=== PATIENT | male | born 1950 | race Caucasian/White ===

== ENCOUNTER → 2019-02-09 06:29 | Outpatient (CLI) | payer MEDICARE, OTHER, SELFPAY ==
[2019-01-19 11:29] VITALS: BMI 27.9
--- NOTE | 2019-02-09 06:32 | ECHOD_ITS ---
Reason For Study: HTN Procedure This was a 2D Doppler, Color Flow transthoracic echocardiogram. Exam performed in department. Left Ventricle Normal LV size. Left ventricular systolic function is normal. The estimated ejection fraction is 65 %. Stage 1 diastolic dysfunction. No regional wall motion abnormalities noted. Right Ventricle Normal RV size. Normal systolic function. Atria Normal left atrium. Normal right atrium. Bubble contrast study negative for right to left interatrial shunt. Mitral Valve Normal mitral valve. Mild (1+) mitral valve insufficiency. Tricuspid Valve Normal tricuspid valve. Mild tricuspid valve insufficiency. Pulmonary artery systolic pressure is 32 mmHg. Aortic Valve Trisinus/trileaflet aortic valve. Mild focal aortic valve calcification. Pulmonic Valve Normal pulmonic valve. Great Vessels Normal aortic root. The pulmonary artery is normal size. Normal inferior vena cava. Pericardium/Pleural No pericardial effusion. Medication Performed a rapid injection of agitated mix of 9 cc saline and 1cc air to assess for atrial septal defect. MMode/2D Measurements & Calculations LVIDd: 4.3 cm IVSd: 1.5 cm Ao root diam: 3.3 cm LVIDs: 2.6 cm LVPWd: 1.0 cm RVDd: 3.6 cm FS: 39.2 % LAV(MOD-bp): 34.8 ml LVAd ap4: 22.7 cm2 SV(MOD-sp4): 44.8 ml LAV(MOD-bp) Indexed: 16.8 ml/m2 EDV(MOD-sp4): 64.3 ml LAV(MOD-sp2): 45.1 ml EDV(sp4-el): 64.0 ml LAV(MOD-sp4): 24.9 ml LVAs ap4: 10.9 cm2 ESV(MOD-sp4): 19.5 ml ESV(sp4-el): 19.4 ml EF(MOD-sp4): 69.6 % EF(sp4-el): 69.6 % SV(sp4-el): 44.6 ml LA A4 area: 11.9 cm2 LA dimension(2D): 2.9 cm RA A4 area: 13.1 cm2 Doppler Measurements & Calculations MV E max sony: 68.7 cm/sec Lat Peak E' Sony: 9.7 cm/sec Med Peak E' Sony: 9.7 cm/sec MV A max sony: 92.5 cm/sec E/E' lat: 7.1 E/E' med: 7.1 MV E/A: 0.74 Ao V2 max: 147.5 cm/sec LV V1 max: 106.1 cm/sec PA V2 max: 119.4 cm/sec Ao max P.7 mmHg LV V1 max P.5 mmHg Ao V2 mean: 108.2 cm/sec Ao mean P.1 mmHg Ao V2 VTI: 24.8 cm TR max sony: 260.5 cm/sec TR max P.1 mmHg Interpretation Summary Normal LV size. Left ventricular systolic function is normal. The estimated ejection fraction is 65 %. Stage 1 diastolic dysfunction. Mild (1+) mitral valve insufficiency. Mild tricuspid valve insufficiency. Bubble contrast study negative for right to left interatrial shunt. Ordering Physician: Slava Samuel Referring Physician: Ryan Young Performed By: Mirian Key, TYRONE, RVT
--- NOTE | 2019-02-09 16:55 | STRESSREP ---
Stress Test Report Pharmacologic myocardial perfusion stress test. 68-year-old man with a history of hypertension for perioperative evaluation. Stress protocol: Resting EKG demonstrates normal sinus rhythm with a rate of 101 bpm. The resting blood pressure was 168/84 mmHg. 0.4 mg of regadenoson was infused per usual protocol followed by Intravenous saline flush injection continuous EKG monitoring was performed. The maximum heart rate attained was 137 bpm which was 88% of maximum predicted heart rate the maximum workload was 1 metabolic equivalent. At rest there were nonspecific ST-T wave changes noted at peak infusion nonspecific ST-T wave changes were noted. The resting blood pressure was 168/84 the final blood pressure was 184/92. Myocardial perfusion protocol. 12.0 mCi of technetium 99m sestamibi was injected at rest. 0.4 mg regadenoson was infused per usual protocol peak infusion 32.0 mCi of technetium 99m sestamibi was injected stress images were obtained stress and rest images were reconstructed in comparing the short axis vertical horizontal long axis. Gated images was obtained Perfusion SPECT analysis: Review of the stress images demonstrate normal uptake of tracer noted in all areas of myocardium. There is a significantly from diaphragmatic attenuation noted involving the inferior wall. No obvious reversibility is noted suggest ischemia. Gated SPECT analysis: The gated ejection fraction was noted to be 74%. Conclusion: Normal pharmacologic myocardial perfusion stress test. Preserved ejection fraction.
== END ==
PROVIDERS: Family Provider Family Medicine; PCP Family Medicine; Referring Provider Internal Medicine Cardiovascular Disease; Visit Provider Internal Medicine Cardiovascular Disease
DX: Z01.810 Encounter for preprocedural cardiovascular examination (principal); I10 Essential (primary) hypertension
CPT/HCPCS: 78452; 93017; 93306; A9500; A4216; J2785

== ENCOUNTER → 2019-03-31 13:56 | Outpatient (CLI) | payer MEDICARE, OTHER, SELFPAY ==
[2019-01-19 11:29] VITALS: BMI 27.9
--- NOTE | 2019-03-31 13:59 | CT_ITS ---
STUDY: CT LEFT HIP WITHOUT CONTRAST REASON FOR EXAM: Evaluation for Phillip hip replacement. TECHNIQUE: Transaxial CT imaging of the hip was performed. Sagittal and coronal images were reconstructed. Individualized dose optimization techniques were used for this CT. COMPARISON: Radiographs 04/19/2012. FINDINGS: There is advanced left hip arthrosis with marginal osteophytes of the femoral head, joint space loss and subchondral cystic change of the femoral head and acetabulum (coronal reconstructions 53-68). There is a small ossification at the lateral aspect left acetabulum (coronal reconstructions 64-69). There is a right hip arthroplasty with ossification adjacent to the right acetabulum (coronal reconstructions 54-59). There is mild arthrosis of the left sacroiliac joint (coronal reconstructions 72-74). There are prostatic calcifications (coronal reconstruction 63, 64). There is mild vascular calcification. CT/Extremity Lower without Contra IMPRESSION: Advanced left hip arthrosis. Electronically Signed: Tony Sutherland MD at 15:25 EST Tel , Service support ,
== END ==
PROVIDERS: Family Provider Family Medicine; PCP Family Medicine; Referring Provider Specialist; Visit Provider Specialist
DX: M16.12 Unilateral primary osteoarthritis, left hip (principal)
CPT/HCPCS: 73700

== ENCOUNTER 2019-04-13 09:44 | Observation (INO) | payer MEDICARE, OTHER, SELFPAY ==
[2019-01-19 11:29] VITALS: BMI 27.9
--- NOTE | 2019-03-29 10:11 | PCM.HP.BLA ---
History and Physical History and Physical [facility] Patient Name: Kemar Telles : 1950 From: SAQIB ALEX PA-C DATE OF SURGERY: 04/13/2019 SCHEDULED PROCEDURE: Left Total Hip Arthroplasty HISTORY OF PRESENT ILLNESS: Preoperative history and physical exam was performed on March 28, 2019. This is a 68-year-old male who is been having ongoing pain in the left hip for 2 years. Patient's pain can reach as high as a 10/10 with activity. Pain has been sharp in the left hip. He does have start up pain. Pain is increased with going up and down stairs and walking. Patient has tripped/stumbled due to the left hip pain. He complains of left groin pain. Patient feels unsafe lifting heavy objects due to the pain. He has tried rest and heat with minimal relief. He has been on meloxicam with temporary relief. Patient denies previous surgery on the left hip. He has also tried Tylenol and glucosamine. After failing conservative measures and discussing options with Dr. Cameron Woods, the patient does wish to proceed with a left total hip arthroplasty. We have obtain surgical clearance from patient's primary care physician Dr. Young. We are obtaining surgical clearance from the medical records assistant Dr. Samuel. Patient denies chest pain, shortness of breath, fevers chills, or recent infections. patient has had a previous right total hip arthroplasty by Dr. Bora Dunn on April 19, 2012. He is doing well with regard to the right hip. REVIEW OF SYSTEMS: ROS: Const: Denies anorexia, change in appetite, fever, hard of hearing, vision problems and weight change. CV: Denies chest pain, heart murmur, irregular heartbeat and peripheral vascular disease. Resp: Denies asthma, cough, pneumonia, sleep apnea, SOB, tuberculosis and wheezing. GI: Denies constipation, diarrhea, difficulty swallowing, heartburn, nausea, bloody stools and vomiting. : Urinary: denies incontinence. Musculo: Denies leg swelling, limp, trouble walking and weakness. Skin: Denies Raynaud's, history of shingles and tattoo. Neuro: Denies ambulatory dysfunction, dizziness, numbness/tingling and tremor. Psych: Denies anxiety, depression, insomnia, mental illness and stress. Luis/Lymph: Denies anemia, bleeding/bruising tendency and past transfusion. Reviewed, no changes. PAST MEDICAL HISTORY: Advance Care Plan: Other Directive, LIVING WILL Effective Date: 04/23/2017 PMH: Medical Problems: Arthritis, High Blood Pressure Accidents: Sports Related Injury - CRACKED RIBS AND SPRAINED ANKLE FROM FOOTBALL Surgical Hx: RT THR - (04/19/2012) MSK @ [facility] Anesthesia Complications: None Assistive Devices: Glasses - READING Reviewed, no changes. 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 Personal Habits: Smoking: Patient has never smoked.Cigarette Use: Never Smoked Cigarettes.Alcohol: Occasionally.Drug Use: Denies Use.Enjoy Exercising: Exercises 1-3 X/Week. Reviewed, no changes. VITALS: Ht: 69 Wt: 193lb Wt k.545 BMI: 28.5 BP: 154/80 Pulse: 78 Resp: 19 T: 97.2 T: 36.2C ALLERGIES: No Known Drug Allergy MEDICATIONS: Meloxicam 15 mg 1 by mouth every day, Metoprolol 50 mg 1 tab PO daily, Lisinopril/Hydrochlorothiazide 10-12.5 mg 1 tab PO daily, Tamsulosin HCL 0.4 mg 1 by mouth every day, Atorvastatin Calcium 20 mg PRE-OP EXAM: General appearance:NORMAL Other: Eyes: Conjunctivae and lids: NORMAL Pupils: ERR Ears, Nose, Mouth, and Throat: NORMAL Other: Inspection of lips, teeth and gums: NORMAL Other: Neck: Examination of neck: no masses noted. Respiratory: Assessment of respiratory effort: NORMAL Other: Auscultation of lungs: clear to auscultation no wheezes, rhonchi or rales. Cardiovascular: Auscultation of heart: regular rate and rhythm, no murmurs, gallops or rubs. Exam of carotid arteries: NORMAL Other: Gastrointestinal: Exam of abdomen: soft, nontender, nondistended bowel sounds present. PHYSICAL EXAMINATION: Patient walks with antalgic gait. Left hip is cool to touch without erythema. Patient has obligatory external rotation with flexion. Internal rotation 10 and external rotation 30. 4/5 hip strength due to pain. Sensation intact to light touch. IMAGING STUDIES: X-ray of the left hip reveals joint space narrowing with subchondral sclerosis and osteophyte formation consistent with severe erosive osteoarthritis with subchondral cyst in the femoral head which is starting to collapse causing flattening of the femoral head and associated leg length discrepancy. Right hip reveals a stable well aligned total hip arthroplasty. IMPRESSION: 1. Severe left hip osteoarthritis 2. Hypertension PLAN: Dr. Cameron Woods did discuss and review with the patient all treatment options including surgical versus nonsurgical options. Patient does wish to proceed with the above-stated procedure. Potential risks, benefits, and complications of the procedure were discussed in detail including but not limited to , infection, nerve and blood vessel damage, persistent pain, numbness, tingling, paresthesias, blood clot, pulmonary embolism, and requirement for possible further surgery. The patient expressed full understanding and has no further questions for the doctor. Patient does agree to proceed with the above-stated procedure and has signed the surgery consent form. This dictation was created using voice recognition software. Phonetic and/or grammatical errors may exist. ___ I have re-examined the patient. There are no clinical changes since date of exam. ___ See progress notes for changes. ___ Dictated on admission Date: Time: Signature:
[2019-03-31 15:33] VITALS: BP 161/92; PULSE 97; RESP 16; TEMP 36.6; O2SAT 100; BMI 28.5
[2019-03-31 16:31] LABS: Absolute Neutrophil Count 4.9 X10^3/uL (2.0-7.7); Basophil# 0.03 X10^3/uL; Basophil% 0.4 % (0-1); Eosinophil# 0.19 X10^3/uL; Eosinophils% 2.7 % (0-5); Hematocrit 40.3 % (40-54); Lymphocyte % 18.8 % (19-41); Mean Corp Hgb Conc 32.3 g/dL (32-36); Mean Corpuscular Hgb 29.2 pg (27.0-32.0); Mean Corpuscular Volume 90.6 fL (80-94); Mean Platelet Vol. 8.9 fl (6.2-12.0); Monocyte# 0.51 X10^3/uL; Monocyte% 7.4 % (0-10); NRBC Flagged by Analyzer 0 % (0-5); Neutrophil # 4.87 X10^3/uL (2.7-7.7); Neutrophil % 70.3 % (47-70); Platelet Count 348 K/mm3 (150-450); RBC Distribution Width CV 12.8 % (11.6-14.6); Red Blood Count 4.45 M/mm3 (4.6-6.2); White Blood Count 6.9 K/mm3 (4.4-11.0)
[2019-03-31 17:10] LABS: Anion Gap 5 (5-15); BUN 22 mg/dL (7-18); BUN/Creat Ratio 22.7 RATIO (10-20); Calcium,Total 9.4 mg/dL (8.5-10.1); Chloride 103 mmol/L (98-107); Creatinine, Serum 0.97 mg/dL (0.70-1.30); EST Glomerular Filtration Rate 82 mL/min (>60); Est Glom Filt Rate - Afr Amer 99 mL/min (>60); Estimated Creatinine Clearance 77.35 ml/min; Glucose 88 mg/dL (74-106); Potassium 3.6 mmol/L (3.5-5.1); Sodium Level 139 mmol/L (136-145)
[2019-04-13] VITALS (11 sets, daily range): BP systolic 93–165; BP diastolic 57–98; PULSE 88–107; RESP 14–18; TEMP 36.1–37; O2SAT 16–100; BMI 28.5; BMI 28.6
[2019-04-13] MEDS: Scopolamine 1mg/72hr Patch 1 PATCH TD (07:00)
[2019-04-13 10:05] LABS: Bedside Glucose 154 mg/dL (70-110)
[2019-04-13] MEDS: Acetaminophen 500 MG Tablet 1000 MG PO ×2 (10:17→21:04)
[2019-04-13] MEDS: Celecoxib 200 MG Capsule 400 MG PO (10:17)
[2019-04-13] MEDS: Gabapentin 600 MG Tablet PO (10:18)
[2019-04-13] MEDS: Lactated Ringers 1,000 ML 999 ML IV ×2 (10:44→14:17)
[2019-04-13] MEDS: Magnesium Sulfate 4gm/100mL 4 GM/100 ML IV.SOLN. IV (10:46)
[2019-04-13] MEDS: Cefazolin 2 GM in 0.9% Normal Saline 100 ML IV (11:45)
--- NOTE | 2019-04-13 11:45 | RAD_ITS ---
STUDY: X-RAY - PELVIS AND LEFT HIP REASON FOR EXAM: Male, 68 years old. Pain TECHNIQUE: 1 views of the pelvis and hip. COMPARISON: None. FINDINGS: The patient is status post left total hip replacement. There is good alignment. Postoperative soft tissue changes. RAD/Hip 1 view with Pelvis IMPRESSION: Intraoperative fluoroscopic imaging provided for left anterior hip replacement. Electronically Signed: Pritesh Page, at 14:58 EST , Service support ,
[2019-04-13] MEDS: dexAMETHasone 10 MG/ML Vial IV (12:32)
--- NOTE | 2019-04-13 13:43 | OP.PCM_ITS ---
Report of Operation Date of Procedure: 04/13/19 Pre-Operative Diagnosis: Left hip primary osteoarthritis Post-Operative Diagnosis: Left hip primary osteoarthritis Surgery/Procedure Performed:: Left minimally invasive robotic assisted total hip replacement direct anterior Description of Surgical Findings:: Stable hip, equal leg lengths on radiograph guest services agent: Magdy Dill Type of Anesthesia:: Spinal Anesthesiologist: Isidoro Sanchez Special Medications: 2 g Ancef, 1 g TXA at incision, 1 g TXA closure, 10 mg Decadron, joint cocktail (5 mg Duramorph, 30 mL of 0.5% Ropivicaine, 1000 units of epinephrine, 30 mg of Toradol) Specimen's removed: Bony cuts Estimated Blood Loss (mL): 150 Fluids Replaced: 1400 Description of Procedure: Components used: 1. Accolade 2 Juan A femoral stem size 5 127? 2. [place] trident 2 acetabular shell size 54 mm 3. [place] X3 polyethylene E 4. [place] Biolox delta 36mm, +5mm femoral head Brief history operative indications: 68 yo m who failed conservative measures for their hip osteoarthritis. X-rays were consistent with osteoarthritis including joint space narrowing, osteophyte formation and subchondral cysts. Total hip replacement was discussed with the patient with risks and benefits including but not limited to blood loss, DVTs, PEs, neurovascular damage, dislocation, general risks of anesthesia including loss of life. Patient demonstrated an understanding medical clearance is obtained the patient was consented for surgery. Procedure: On the date of procedure the patient's L hip was marked in the preoperative area. Patient was then taken back to the operating room where anesthesia assumed control of the C-spine and airway and administered anesthetic. Patient was transferred to the operating table and placed in the supine position. The hips were placed at the break of the bed and a sacral bump was placed. A checkpoint was placed on the tibial tubercle. The L lower extremity was then prepped out in a sterile fashion using chlorhexidine while the surgeon scrubbed. The PA was vital in the positioning of the patient. Upon reentering the room the L lower extremity was draped in the standard orthopedic fashion and the incision was marked. A timeout was called and every one agreed upon the side, the site, the procedure be performed, antibody given, and patient's identity. 3 pins were placed in the right iliac crest with a small skin incision and blunt dissection down to the bone. After the skins were placed in a ray was placed for targeting. At this time left hip operative incision was made through skin, subcutaneous tissue, and fat down to fascia. The fascia was then incised and the TFL was retracted laterally. A retractor was placed on the lateral border of the femoral neck. Attention was directed to the inferior portion of the approach and all crossing vessels were identified and appropriately coagulated. A retractor was then placed on the medial portion of the femoral neck. The anterior capsule was then cleared of all soft tissue and then H shaped capsulotomy was made. The retractors were then placed inside the capsule. The checkpoint was placed. The checkpoints were registered. The femoral neck was identified and a cleanup cut was made. At this time a power corkscrew was used to remove the femoral head. Attention was then turned toward the acetabulum where the soft tissues were appropriately retracted and debrided. The acetabulum was registered. The robot was brought into the field sterilely and the acetabulum was reamed to 54 mm. A 54 mm cup was then selected and impacted into place. Acetabular liner was impacted into place and locking mechanism was verified. The position of the acetabular cup was then verified under live fluoroscopy. Attention was then turned to the femur. Soft tissue releases on the medial and lateral femoral neck were appropriately done, the leg was externally rotated and lateralized. A El retractor was placed medially and proximally to the greater trochanter this allowed appropriate visualization and exposure of the femoral canal. Rongeour was then used to remove excess lateral bone. A canal finder and entry broach were used to open the proximal canal. Once we verified we were down the femoral canal we subsequently broached up to a size 5 femur. The appropriate neck was placed in the previously selected head was trialed with a +5 mm neck. Traction was pulled and the hip was reduced with internal rotation. Once it was appropriately reduced and stability was checked. There was minimal shuck, equal leg lengths and appropriate stability with hyperextension and external rotation as well as with 90? flexion and internal rotation. Fluoroscopy was then also used to verify the position of the components and leg lengths using the contralateral side for comparison. The trial components were then dislocated the proximal femur was again exposed and the components were removed from the wound. The final components were verified and opened. The wound was copiously irrigated out with normal saline. The acetabulum was checked for any residual debris. The final components were placed and impacted. Traction and internal rotation were again used to reduce the hip. After adequate reduction the hip remained stable with appropriate leg lengths. The final components were once again checked with live fluoroscopy and were found to be satisfactory. The wound was then copiously irrigated with normal saline once more, and hemostasis was obtained. Closure was then done using #1 Vicryl runner to close the fascia. A 2-0 vicryl interuppted sutures were used to close the subcutaneous skin. A 3-0 Monocryl and Steri-Strips were used for final skin closure. The pin site incisions were closed with callie. A Silverlon dressing was placed. Patient was awakened by anesthesia and [facility] Patient was then transferred to the PACU for recovery. Postoperative plan: Patient will get 24 hours postop antibiotics. Patient will get in-house physic al therapy and will be weight-bear as tolerated. Patient will follow up in office in 2 weeks for a wound check and x-rays. During the course of the procedure the physician animal assistant played a vital role. His intimate knowledge of my steps in the procedure aided in safe and expedient completion of the procedure. The PA played a vital rolls in positioning particularly in obtaining the appropriate positioning of the sacral bump. The PA was also vital in the retraction of soft tissues during the exposure and especially the femoral work as this is a vital part of the procedure to prevent complications and fractures. The PA was also vital and protecting soft tissues during times of bony cuts and reaming. He also played a vital role in closure with my direct supervision. The PA was also important during reduction and dislocation of the joint and trials intraoperatively. - Complications No intraoperative complications - Admit VTE Documentation VTE Present on Admission: No VTE Mechan Device Prophylaxis: SCD's, Thigh High PARVIZ Hose VTE Pharm Prophylaxis ordered?: Yes
--- NOTE | 2019-04-13 14:30 | RAD_ITS ---
STUDY: X-RAY - PELVIS AND LEFT HIP REASON FOR EXAM: Male, 68 years old. Postop left hip surgery TECHNIQUE: 2 views of the pelvis and hip. COMPARISON: April 19, 2012. FINDINGS: There is a non-specific bowel gas pattern. Postsurgical changes are seen in the soft tissues around the left hip. There are bilateral total hip arthroplasties. Alignment is anatomic. RAD/Hip Min 2 Views (Portable) IMPRESSION: Bilateral hip arthroplasties and postsurgical changes around the left hip joint. Electronically Signed: Claus Louie, at 20:18 EST Tel , Service support ,
[2019-04-13] MEDS: Lactated Ringers 1,000 ML 125 ML IV ×2 (14:53→17:40)
[2019-04-13] MEDS: traMADol 50 MG Tablet PO (17:18)
[2019-04-13] MEDS: Aspirin 81 MG TAB.CHEW PO (17:18)
[2019-04-13] MEDS: Ensure Surgery 237 ML LIQUID PO (17:20)
[2019-04-13] MEDS: Cefazolin 1 GM/50 ML BAG IV (20:38)
[2019-04-13] MEDS: Atorvastatin Calcium 20 MG Tablet PO (21:03)
[2019-04-13] MEDS: Senna/Docusate Sodium 1 Tablet 2 TABLET PO (21:03)
[2019-04-13] MEDS: Tamsulosin HCl 0.4 MG Capsule PO (21:04)
[2019-04-13] MEDS: hydroCHLOROthiazide 12.5mg 12.5 MG PO (21:04)
[2019-04-13] MEDS: Lisinopril 20 MG Tablet PO (21:04)
[2019-04-14 02:10] VITALS: BP 115/74; PULSE 97; RESP 16; TEMP 37; O2SAT 96
[2019-04-14] MEDS: Cefazolin 1 GM/50 ML BAG IV (03:15)
[2019-04-14] MEDS: 0.9% Saline Lock 10 ML Syringe IV (03:42)
[2019-04-14] MEDS: Acetaminophen 500 MG Tablet 1000 MG PO ×3 (06:08→21:08)
[2019-04-14 06:24] LABS: Hematocrit 34.4 % (40-54); Hemoglobin 11.4 g/dL (13.0-16.5); Mean Corp Hgb Conc 33.1 g/dL (32-36); Mean Corpuscular Hgb 29.7 pg (27.0-32.0); Mean Corpuscular Volume 89.6 fL (80-94); Mean Platelet Vol. 9.4 fl (6.2-12.0); Platelet Count 260 K/mm3 (150-450); RBC Distribution Width SD 42.4 fl (35.1-43.9); Red Blood Count 3.84 M/mm3 (4.6-6.2); White Blood Count 16.9 K/mm3 (4.4-11.0)
[2019-04-14 06:45] LABS: Anion Gap 6 (5-15); BUN 19 mg/dL (7-18); Calcium,Total 9.2 mg/dL (8.5-10.1); Chloride 103 mmol/L (98-107); EST Glomerular Filtration Rate 79 mL/min (>60); Est Glom Filt Rate - Afr Amer 96 mL/min (>60); Estimated Creatinine Clearance 75.03 ml/min; Glucose 112 mg/dL (74-106); Potassium 4.1 mmol/L (3.5-5.1); Sodium Level 137 mmol/L (136-145)
[2019-04-14] MEDS: Ensure Surgery 237 ML LIQUID PO ×3 (07:49→17:53)
[2019-04-14] MEDS: hydroCHLOROthiazide 12.5mg 12.5 MG PO ×2 (07:50→21:09)
[2019-04-14] MEDS: Aspirin 81 MG TAB.CHEW PO ×2 (07:50→17:53)
[2019-04-14] MEDS: Senna/Docusate Sodium 1 Tablet 2 TABLET PO ×2 (07:50→21:09)
[2019-04-14 07:51] VITALS: PULSE 96
[2019-04-14] MEDS: Famotidine 20 MG Tablet PO (07:51)
[2019-04-14] MEDS: Multivitamins,Therapeutic Tablet 1 TABLET PO (07:51)
[2019-04-14] MEDS: Lisinopril 20 MG Tablet PO ×2 (07:51→21:08)
[2019-04-14] MEDS: Metoprolol(XL)Succ 50 MG Tablet PO (07:51)
[2019-04-14 07:57] VITALS: BP 140/69; PULSE 119; RESP 18; TEMP 36.7; O2SAT 97
--- NOTE | 2019-04-14 09:02 | PCM.PN.ORT ---
Subjective: The patient was sitting in bedside chair upon examination. Patient denies any chest pain, shortness of breath, dizziness, lightheadedness, nausea or vomiting, or calf pain. Pain is controlled on medications. No adverse overnight events. Overall patient is doing very well and his pain is well controlled. Patient does wish to try to go home today. Objective: Vital signs stable and afebrile. Patient is able to plantarflex and dorsiflex actively. Sensation is intact to light touch to saphenous, sural, superficial and deep peroneal, and tibial distribution. Dressing on bilateral hips are clean dry and intact. Negative Homans bilaterally, negative signs and symptoms of DVT. - Physical Exam Vitals/I&O's: Vital Signs Temp Pulse Resp BP Pulse Ox 98.0 F 119 H 18 140/69 H 97 04/14/19 07:57 04/14/19 07:57 04/14/19 07:57 04/14/19 07:57 04/14/19 07:57 Oxygen Flow Rate (L/min) 1 Oxygen Delivery Method Room Air Weight: 90.4 kg Body Mass Index (BMI) 28.5 Intake and Output for Last 24 Hours 04/12/19 04/13/19 04/14/19 23:59 23:59 23:59 Intake Total 3948.75 / 4648.75 1679.17 / 1679.17 Output Total 475 / 475 Balance 3948.75 / 4498.75 1204.17 / 1204.17 General: Alert, Oriented x3, Cooperative, No apparent distress Laboratory Results 04/13/19 10:03: POC Glucose 154 H 04/14/19 05:30: WBC 16.9 H, RBC 3.84 L, Hgb 11.4 L, Hct 34.4 L, MCV 89.6, MCH 29.7, MCHC 33.1, RDW Std Deviation 42.4, RDW Coeff of Sebastian 13.0, Plt Count 260, MPV 9.4 04/14/19 05:30: Sodium 137, Potassium 4.1, Chloride 103, Carbon Dioxide 28.0, Anion Gap 6, BUN 19 H, Creatinine 1.00, Estim Creat Clear Calc 75.03, Est GFR (MDRD) Af Amer 96, Est GFR (MDRD) Non-Af 79, BUN/Creatinine Ratio 19.0, Glucose 112 H, Calcium 9.2 Current Medications Acetaminophen (Tylenol) 1,000 mg PO Q8 [facility] Last Admin: 04/14/19 06:08 Dose: 1,000 mg Documented by: Aspirin (Aspirin, Baby) 81 mg PO BIDCM [facility] Last Admin: 04/14/19 07:50 Dose: 81 mg Documented by: Atorvastatin Calcium (Lipitor) 20 mg PO QHS [facility] Last Admin: 04/13/19 21:03 Dose: 20 mg Documented by: Enteral Nutritional Formula (Ensure Surgery) 237 ml PO TIDCM [facility] Last Admin: 04/14/19 07:49 Dose: 237 ml Documented by: Famotidine (Pepcid) 20 mg PO DAILY [facility] Last Admin: 04/14/19 07:51 Dose: 20 mg Documented by: Hydrochlorothiazide () 12.5 mg PO BID [facility] Last Admin: 04/14/19 07:50 Dose: 12.5 mg Documented by: Ketorolac Tromethamine (Toradol) 15 mg IV Q6H PRN PRN PRN Reason: Pain Score 1-5/10 Stop: 04/15/19 07:00 Lisinopril (Zestril) 20 mg PO BID [facility] Last Admin: 04/14/19 07:51 Dose: 20 mg Documented by: [facility] Metoprolol Succinate (Toprol Xl (Beta Trell)) 50 mg PO DAILY [facility] Last Admin: 04/14/19 07:51 Dose: 50 mg Documented by: Morphine Sulfate () 2 - 4 mg IV Q2H PRN PRN PRN Reason: Pain Score 4-10/10 Morphine Sulfate () 2 - 4 mg IV Q2H PRN PRN PRN Reason: Pain Score 4-10/10 Multivitamins (Multivitamin) 1 tablet PO DAILY@0800 [facility] Last Admin: 04/14/19 07:51 Dose: 1 tablet Documented by: Ondansetron HCl (Zofran) 4 mg IV Q8H PRN PRN PRN Reason: NAUSEA Promethazine HCl (Phenergan) 12.5 mg IM Q6H PRN PRN; Protocol PRN Reason: NAUSEA/VOMITING Senna/Docusate Sodium (Senokot-S, Celeste-Colace) 2 tablet PO BID [facility] Last Admin: 04/14/19 07:50 Dose: 2 tablet Documented by: Sodium Chloride () 10 - 40 ml IV UD PRN PRN Reason: SALINE FLUSH Last Admin: 04/14/19 03:42 Dose: 10 ml Documented by: Tamsulosin HCl (Flomax) 0.4 mg PO QHS [facility] Last Admin: 04/13/19 21:04 Dose: 0.4 mg Documented by: Tramadol HCl (Ultram) 50 - 100 mg PO Q6H PRN PRN PRN Reason: Pain Score 4-10/10 Last Admin: 04/13/19 17:18 Dose: 100 mg Documented by: Vitamin E (Vitamin E) 400 units PO DAILY [facility] Last Admin: 04/14/19 07:59 Dose: Not Given Documented by: Medical Necessity - Tobacco Use Smoking Status: Never smoker Tobacco Use: Non-smoker Assessment/Plan All Active Problems (Last Reviewed 01/19/19 @ 11:42 by Slava Samuel MD) Preop cardiovascular exam (Acute) Physical exam, pre-employment (Resolved) 1. S/P left minimally invasive robotic assisted total hip replacement direct anterior approach POD #1 2. Continue Pain Medications: Tylenol, meloxicam, and tramadol 3. DVT Prophylaxis: Aspirin 81 mg twice daily for 4 weeks postoperatively 4. PT/OT: Weightbearing as tolerated 5. H & H: 11.4/34.4, asymptomatic 6. Reactive leukocytosis: Currently 16.9, afebrile. Patient did receive Decadron intraoperatively 7. Encouraged Incentive Spirometry 8. Disposition: Orthopedically stable, plan will be for discharge home today as long as patient tolerates physical therapy and pain is well controlled. Prescriptions will be E scribed to primary pharmacy. Patient will follow-up per postop instructions. Patient does have outpatient physical therapy established. I have reviewed the [place] Automated Rx Reporting System (OARRS) report for this patient for refill pattern and other prescriber involvement as part of the appropriate surveillance for the provision of acute and chronic controlled medications. The report was requested and reviewed on the date of this entry and was considered in the prescribing process.
--- NOTE | 2019-04-14 09:11 | PCM.DC.THR ---
Discharge Diet: No Restrictions Discharge Activity: May Not Drive - while taking narcotic pain medications. May shower in (days): 1 - Dressings must be intact to skin. Turn dressings away from water Ice area for (Minutes): 20 - Every 1-2 hours while awake Weight Bearing Status: Weight bearing as tolerated Elevate: Operative Extremity Additional Activity Instructions:: Wear elastic stockings for 2 weeks. DO NOT use alcohol with narcotic pain medication. DO NOT make important decisions while taking narcotic medication. If you have problems with taking your medication (rash, itching, nausea, etc.) call the office at once. Call your doctor if your incision/area has: Increased Pain/ Swelling, Increased Redness, Foul Smelling Discharge Call your doctor if you observe: Fever of 101 or Higher Remove Dressing in (days):: 4 - Okay to remove dressing on April 18, 2019 Additional Instructions: Follow orthopedic postop instructions Allergies/Adverse Reactions: Allergies No Known Allergies Allergy (Verified 04/13/19 10:14) Medications to take at Discharge atorvastatin 20 mg tablet 20 mg PO QHS 01/18/19 metoprolol succinate 50 mg tablet,extended release 24 hr 50 mg PO DAILY 01/18/19 multivitamin 1 tab PO DAILY 01/18/19 tamsulosin 0.4 mg capsule 0.4 mg PO QHS cap 01/18/19 Lisinopril/Hydrochlorothiazide [Lisinopril-Hctz 20-12.5 mg Tab] 1 tab PO BID 03/31/19 Vitamin E 400 unit PO DAILY 03/31/19 Acetaminophen [Tylenol] 1,000 mg PO Q8 #100 tab 04/14/19 Aspirin [Aspirin, Baby] 81 mg PO BIDCM 30 Days tab 04/14/19 Famotidine [Pepcid] 20 mg PO DAILY #30 tab 04/14/19 Meloxicam [Mobic] 7.5 mg PO BIDCM tab 04/14/19 Senna/Docusate Sodium [Senokot-S] 2 tab PO BID #14 tab 04/14/19 traMADol [Ultram] 50 - 100 mg PO Q6H PRN PRN 5 Days #40 tab 04/14/19 The following prescriptions were given: Famotidine [Pepcid] 20 mg PO DAILY #30 tab Transmission Status: Received by [id number] Senna/Docusate Sodium [Senokot-S] 2 tab PO BID #14 tab Transmission Status: Received by [id number] Acetaminophen [Tylenol] 1,000 mg PO Q8 #100 tab Transmission Status: Received by [email or web address] traMADol [Ultram] 50 - 100 mg PO Q6H PRN PRN 5 Days #40 tab PRN Reason: Pain Score 4-10/10 Transmission Status: Received by [email or web address] Primary Care Physician: Aly Young MD [Primary Care Provider] - Test Results: Test results from this visit will be discussed in further detail at your follow-up appointment, if applicable. Please Follow Up With: [facility] When: 04/18/19 @ 7:30 am with Kathy Please Follow Up With: Nando Dill PA-C When: 04/27/19 @ 9:15 am Please Follow Up With: Dilip Flores MD When: will require 1 week follow up post-op for urinary retention
--- NOTE | 2019-04-14 09:45 | CASEMGMT ---
JOHANNA GONZALEZ Face to Face with patient for initial transition planning/care coordination assessment. RN CARLOS introduced self and role at [facility]. Patient lying in bed, alert and oriented. Patient willing to participate in assessment and is able to answer all questions appropriately. Care providers, pharmacy, and demographics verified. Patient wishes to discharge home and is setup with [facility] for outpatient therapy. Patient states he has no further needs or concerns at this time. CM to follow for discharge planning needs that may arise. PCP: Hector Specialists: laura Woods Pharmacy: [facility] Insurance: [facility] [place] Pres[place] Benefit: yes Living Will/HPOA: yes, Jen Telles LNOK: Living Arrangements: Patient lives with in a condo with 1 step to enter the home. Patient independent at home prior to surgery. Transportation: DME/HHC: Patient has walker at home. Disposition Plan: Patient to discharge home with outpatient therapy, family support, and follow-up plans in place Gin ORDONEZ, RN, CM
--- NOTE | 2019-04-14 09:52 | CASEMGMT ---
JOHANNA GONZALEZ in to complete FORD form with patient. RN CARLOS explained FORD for to patient, patient voiced understanding and signed form. Original form placed in chart, copy provided to patient.
[2019-04-14 11:03] VITALS: BP 137/66; PULSE 101; RESP 18; TEMP 36.9; O2SAT 97
[2019-04-14 15:47] VITALS: BP 139/71; PULSE 100; RESP 18; TEMP 37.4; O2SAT 95
[2019-04-14 19:55] VITALS: BP 141/92; PULSE 92; RESP 16; TEMP 37.3; O2SAT 96
[2019-04-14] MEDS: Atorvastatin Calcium 20 MG Tablet PO (21:06)
[2019-04-14] MEDS: Tamsulosin HCl 0.4 MG Capsule PO (21:11)
[2019-04-15 02:16] VITALS: BP 98/54; PULSE 81; RESP 16; TEMP 36.9; O2SAT 96
[2019-04-15] MEDS: Acetaminophen 500 MG Tablet 1000 MG PO ×2 (05:57→14:43)
--- NOTE | 2019-04-15 06:53 | PN.ORTHO_ITS ---
Subjective: The patient was sitting in bedside chair upon examination. Patient denies any chest pain, shortness of breath, dizziness, lightheadedness, nausea or vomiting, or calf pain. Pain is controlled on medications. Plan was for patient to be discharged home yesterday however patient did have urinary retention that required catheterization and Huber. Urology consult was placed. We are waiting input from the urologist for the urinary retention. Patient states overall his hip is doing very well. He is not having significant pain. He does have some soreness after physical therapy. Patient does have history of BPH which has been managed by his primary care physician. Takes Flomax at home. Objective: Vital signs stable and afebrile. Patient is able to plantarflex and dorsiflex actively. Sensation is intact to light touch to saphenous, sural, superficial and deep peroneal, and tibial distribution. Dressing is clean dry and intact. Negative Homans bilaterally, negative signs and symptoms of DVT. - Physical Exam Vitals/I&O's: Vital Signs Temp Pulse Resp BP Pulse Ox 98.4 F 81 16 98/54 L 96 04/15/19 02:16 04/15/19 02:16 04/15/19 02:16 04/15/19 02:16 04/15/19 02:16 Oxygen Flow Rate (L/min) 1 Oxygen Delivery Method Room Air Weight: 90.4 kg Body Mass Index (BMI) 28.5 Intake and Output for Last 24 Hours 04/13/19 04/14/19 04/15/19 23:59 23:59 23:59 Intake Total 3948.75 / 4648.75 2829.17 / 2829.17 Output Total 3975 / 3975 1050 / 1050 Balance 3948.75 / 4498.75 -1145.83 / -1145.83 -1050 / -1050 General: Alert, Oriented x3, Cooperative, No apparent distress Current Medications Acetaminophen (Tylenol) 1,000 mg PO Q8 [facility] Last Admin: 04/15/19 05:57 Dose: 1,000 mg Documented by: Aspirin (Aspirin, Baby) 81 mg PO BIDCM [facility] Last Admin: 04/14/19 17:53 Dose: 81 mg Documented by: Atorvastatin Calcium (Lipitor) 20 mg PO QHS [facility] Last Admin: 04/14/19 21:06 Dose: 20 mg Documented by: Enteral Nutritional Formula (Ensure Surgery) 237 ml PO TIDCM [facility] Last Admin: 04/14/19 17:53 Dose: 237 ml Documented by: Famotidine (Pepcid) 20 mg PO DAILY [facility] Last Admin: 04/14/19 07:51 Dose: 20 mg Documented by: Hydrochlorothiazide () 12.5 mg PO BID [facility] Last Admin: 04/14/19 21:09 Dose: 12.5 mg Documented by: Ketorolac Tromethamine (Toradol) 15 mg IV Q6H PRN PRN PRN Reason: Pain Score 1-5/10 Stop: 04/15/19 07:00 Lisinopril (Zestril) 20 mg PO BID [facility] Last Admin: 04/14/19 21:08 Dose: 20 mg Documented by: [facility] Metoprolol Succinate (Toprol Xl (Beta Trell)) 50 mg PO DAILY [facility] Last Admin: 04/14/19 07:51 Dose: 50 mg Documented by: Morphine Sulfate () 2 - 4 mg IV Q2H PRN PRN PRN Reason: Pain Score 4-10/10 Morphine Sulfate () 2 - 4 mg IV Q2H PRN PRN PRN Reason: Pain Score 4-10/10 Multivitamins (Multivitamin) 1 tablet PO DAILY@0800 [facility] Last Admin: 04/14/19 07:51 Dose: 1 tablet Documented by: Ondansetron HCl (Zofran) 4 mg IV Q8H PRN PRN PRN Reason: NAUSEA Promethazine HCl (Phenergan) 12.5 mg IM Q6H PRN PRN; Protocol PRN Reason: NAUSEA/VOMITING Senna/Docusate Sodium (Senokot-S, Celeste-Colace) 2 tablet PO BID [facility] Last Admin: 04/14/19 21:09 Dose: 2 tablet Documented by: Sodium Chloride () 10 - 40 ml IV UD PRN PRN Reason: SALINE FLUSH Last Admin: 04/14/19 03:42 Dose: 10 ml Documented by: Tamsulosin HCl (Flomax) 0.4 mg PO QHS [facility] Last Admin: 04/14/19 21:11 Dose: 0.4 mg Documented by: Tramadol HCl (Ultram) 50 - 100 mg PO Q6H PRN PRN PRN Reason: Pain Score 4-10/10 Last Admin: 04/13/19 17:18 Dose: 100 mg Documented by: Vitamin E (Vitamin E) 400 units PO DAILY [facility] Last Admin: 04/14/19 07:59 Dose: Not Given Documented by: Medical Necessity - Tobacco Use Smoking Status: Never smoker Tobacco Use: Non-smoker Assessment/Plan All Active Problems (Last Reviewed 01/19/19 @ 11:42 by Slava Samuel MD) Preop cardiovascular exam (Acute) Physical exam, pre-employment (Resolved) 1. S/P left minimally invasive robotic assisted total hip replacement direct anterior approach POD #2 2. Continue Pain Medications: Tylenol, meloxicam, and tramadol 3. DVT Prophylaxis: Aspirin 81 mg twice daily for 4 weeks postoperatively 4. PT/OT: Weightbearing as tolerated 5. H & H: Labs have not been drawn at this time. 6. Reactive leukocytosis: Yesterday 16.9, afebrile. Patient did receive Decadron intraoperatively 7. Encouraged Incentive Spirometry 8. Disposition: Orthopedically stable, currently waiting on consult from urology and input for urinary retention. Patient currently has Huber placement. Orthopedically patient is stable and his pain is been very well controlled. Prescriptions have already been E scribed to primary pharmacy. Plan will be for discharge home today once plans for urinary retention have been established. Patient will follow-up per postop instructions. Patient will most likely need to be seen by the urologist upon discharge postoperatively. Appreciate their recommendations and involvement with our patient. I have reviewed the [place] Automated Rx Reporting System (OARRS) report for this patient for refill pattern and other prescriber involvement as part of the appropriate surveillance for the provision of acute and chronic controlled medications. The report was requested and reviewed on the date of this entry and was considered in the prescribing process.
[2019-04-15 07:12] LABS: Hematocrit 39.2 % (40-54); Hemoglobin 12.9 g/dL (13.0-16.5); Mean Corp Hgb Conc 32.9 g/dL (32-36); Mean Corpuscular Hgb 30.1 pg (27.0-32.0); Mean Corpuscular Volume 91.6 fL (80-94); Platelet Count 274 K/mm3 (150-450); RBC Distribution Width CV 13.3 % (11.6-14.6); RBC Distribution Width SD 44.4 fl (35.1-43.9); Red Blood Count 4.28 M/mm3 (4.6-6.2); White Blood Count 12.6 K/mm3 (4.4-11.0)
[2019-04-15 08:04] VITALS: BP 116/74; PULSE 91; RESP 18; TEMP 37.2; O2SAT 100
[2019-04-15 08:08] VITALS: PULSE 80
[2019-04-15 08:13] VITALS: PULSE 80
[2019-04-15] MEDS: hydroCHLOROthiazide 12.5mg 12.5 MG PO (08:13)
[2019-04-15] MEDS: Famotidine 20 MG Tablet PO (08:13)
[2019-04-15] MEDS: Meloxicam 7.5 MG Tablet PO (08:13)
[2019-04-15] MEDS: Metoprolol(XL)Succ 50 MG Tablet PO (08:13)
[2019-04-15] MEDS: Multivitamins,Therapeutic Tablet 1 TABLET PO (08:13)
[2019-04-15] MEDS: Aspirin 81 MG TAB.CHEW PO (08:13)
[2019-04-15] MEDS: Lisinopril 20 MG Tablet PO (08:15)
[2019-04-15] MEDS: Ensure Surgery 237 ML LIQUID PO ×2 (08:15→12:05)
[2019-04-15] MEDS: Vitamin E 400 UNITS Capsule PO (08:16)
--- NOTE | 2019-04-15 09:26 | PCM.PN.BLA ---
Progress Note 68-year-old male with recent hip surgery had developed urinary retention is already had straight cath a few times and now catheter is back in he is on Flomax I think go home with a catheter he can call my office for an appointment and we can see him next week to remove the catheter call me with questions. STROKE Vital Signs/Narrative: Vital Signs Temp Pulse Resp BP Pulse Ox 04/15/19 08:13 80 04/15/19 08:08 80 04/15/19 08:04 99.0 F 91 18 116/74 100
[2019-04-15 14:45] VITALS: BP 117/74; PULSE 100; RESP 18; TEMP 37.1; O2SAT 95
[2019-04-15 14:48] VITALS: PULSE 80
== END 2019-04-15 15:42 | disposition home or self-care (01) ==
LOC: MS3 04-14 07:59 → ACINP 04-14 10:22 → MS3 04-14 10:22
PROVIDERS: Admitting Provider Specialist; Family Provider Family Medicine; PCP Family Medicine; Referring Provider Specialist; Visit Provider Specialist
PROC: (CPT 27284; principal; 2019-04-13 11:20)
DX: M16.12 Unilateral primary osteoarthritis, left hip (principal); E78.00 Pure hypercholesterolemia, unspecified; I10 Essential (primary) hypertension; Z79.899 Other long term (current) drug therapy; Z79.82 Long term (current) use of aspirin; N40.1 Benign prostatic hyperplasia with lower urinary tract symptoms; R33.8 Other retention of urine
CPT/HCPCS: 01214; 27130; S2900; 36415; 73501; 73502; 76000; 80048; 82962; 85025; 85027; 87081; 96361; 96365; 96366; 97110; 97116; 97162; 97166; 97530; 97535; 97802; 99218; 99251; C1776; J7120; A4216; G0378; G0379; G0463

== ENCOUNTER → 2024-01-04 | Outpatient (CLI) | payer MEDICARE, OTHER, SELFPAY ==
--- OUTSIDE RECORDS SUMMARY | 2024-01-04 06:05 | XMS RPT_ITS | CCD ---
Author Organization [facility] ion Partnership [facility] Care Team Providers Care Reading Assistant Name Role Phone Joe Young MD Primary Care Provider JOE YOUNG Primary Care UnavailJOE Davis Referring UnavailJOE Davis Primary Care Unavailab le PODLOGBHUPENDRA RODRÍGUEZ Referring Unavailable JOE YOUNG Primary Care Unavailab allyson LEMALOGBHUPENDRA RODRÍGUEZ Attending JOE Cordon Primary Care UnavailJOE Davis Referring Unavailab JOE Levy Primary Care Unavailab JOE Levy Attending Joe Taylor MD Primary Care Provider Joe Young MD Primary Care Provider Allergies Allergy Classification Reported Allergen(s) Allergy Type Date of Onset Reaction(s) Facility (20 sources) Seasonal allergy; Translations: [SEASONAL ALLERGIES] Propensity to adverse reactions 5 Other: See Comments [facility] Medications Current Medications Medication Drug Class(es) Dates Sig (Normalized) Sig (Original) atorvastatin 20 mg oral tablet (20 sources) HMG-CoA Reductase Inhibitor Start: 07-29-2022 End: 01-19-2024 take 1 tablet by mouth once daily at bedtime atorvastatin (LIPITOR) 20 mg tablet Take 1 tablet by mouth daily at bedtime. 90 tablet 1 07/23/2023 01/19/2024 Active Start: 01-20-2022 End: 07-19-2022 take 1 tablet by mouth once daily at bedtime atorvastatin (LIPITOR) 20 mg tablet Take 1 tablet by mouth daily at bedtime. 90 tablet 1 01/20/2022 07/19/2022 Active Start: 01-25-2021 End: 01-13-2022 take 1 tablet by mouth once daily at bedtime atorvastatin (LIPITOR) 20 mg tablet Take 1 tablet by mouth daily at bedtime. 90 tablet 1 07/17/2021 01/13/2022 Active Comment on above: Take 1 tablet by julieta th daily at bedtime. Blood Pressure Monitor kit (20 sources) Start: 12-24-2017 Blood Pressure Monitor kit 1 Device once daily. Dx: I10 1 Kit 12/24/2017 Active Start: 12-24-2017 Blood Pressure Monitor kit 1 Device once daily. Dx: I10 1 Kit 0 12/24/2017 Active Comment on above: 1 Device once daily. Dx: I10 metFORMIN hydrochloride 500 mg oral tablet (20 sources) Biguanide Start: End: take 1 tablet by mouth twice daily at mealtime metFORMIN (GLUCOPHAGE) 500 mg tablet Take 1 tablet by mouth two times a day with meals. 180 tablet 10/09/2023 01/07/2024 Active Start: 07-03-2023 End: 10-01-2023 take 1 tablet by mouth twice daily at mealtime metFORMIN (GLUCOPHAGE) 500 mg tablet Take 1 tablet by mouth two times a day with meals. 60 tablet 2 07/03/2023 10/01/2023 Active Start: 03-26-2023 End: 06-24-2023 take 1 tablet by mouth twice daily at mealtime metFORMIN (GLUCOPHAGE) 500 mg tablet Take 1 tablet by mouth two times a day with meals. 60 tablet 2 03/26/2023 06/24/2023 Active Start: 12-22-2022 End: 03-22-2023 take 1 tablet by mouth twice daily at mealtime metFORMIN (GLUCOPHAGE) 500 mg tablet Take 1 tablet by mouth two times a day with meals. 60 tablet 2 12/22/2022 03/22/2023 Active Start: 02-11-2022 End: 11-28-2022 take 1 tablet by mouth twice daily at mealtime metFORMIN (GLUCOPHAGE) 500 mg tablet Take 1 tablet by mouth twice daily with meals. 60 tablet 2 08/30/2022 11/28/2022 Active Comment on above: Take 1 tablet by julieta th twice daily with meals. Take 1 tablet by julieta th two times a day with meals. 24 hr metoprolol succinate 50 mg extended release oral tablet (20 sources) beta-Adrenergic Trell Start: 07-13-2023 End: 01-09-2024 take 1 tablet by mouth once daily metoprolol succinate ER (TOPROL XL) 50 mg 24 hr tablet Take 1 tablet by mouth once daily. 90 tablet 1 07/13/2023 01/09/2024 Active Start: 07-21-2022 End: 07-08-2023 take 1 tablet by mouth once daily metoprolol succinate ER (TOPROL XL) 50 mg 24 hr tablet Take 1 tablet by mouth once daily. 90 tablet 1 01/09/2023 07/08/2023 Active Start: 01-16-2021 End: 07-19-2022 take 1 tablet by mouth once daily metoprolol succinate ER (TOPROL XL) 50 mg 24 hr tablet Take 1 tablet by mouth once daily. 90 tablet 1 01/20/2022 07/19/2022 Active Comment on above: Take 1 tablet by julieta th once daily. Miscellaneous Medical Supply (BLOOD PRESSURE CUFF) mis (20 sources) Start: 12-22-2017 Miscellaneous Medical Supply (BLOOD PRESSURE CUFF) [facility] Indications: Essential hypertension 1 Device once daily. 1 Each 12/22/2017 Active Start: 12-22-2017 Miscellaneous Medical Supply (BLOOD PRESSURE CUFF) [facility] Indications: Essential hypertension 1 Device once daily. 1 Each 0 12/22/2017 Active Comment on above: 1 Device once daily. Multivitamins-Mine rals-Lutein (CENTRUM SILVER) Tab (20 sources) Start: 12-24-2012 End: 04-29-2023 take 1 tablet by mouth once daily Multivitamins-Minerals -Lutein (CENTRUM SILVER) Tab Take 1 tablet by mouth once daily. 1 tablet 0 12/24/2012 04/29/2023 Discontinued (Discontinued by Patient) Start: 12-24-2012 take 1 tablet by julieta th once daily Ptnwmhokrussn-Hxdadkru-Nvfefr (CENTRUM SILVER) Tab Take 1 tablet by mouth once daily. 1 tablet 0 12/24/2012 Active Comment on above: Take 1 tablet by julieta th once daily. OTC NUTRITIONAL SUPPLEMENT (20 sources) Start: 01-04-2019 End: 04-29-2023 OTC NUTRITIONAL SUPPLEMENT [facility] 0 01/04/2019 04/29/2023 Discontinued (Discontinued by Patient) Start: 01-04-2019 OTC NUTRITIONA L SUPPLEMENT [facility] 0 01/04/2019 Active Comment on above: [facility] tadalafil 10 mg oral tablet (20 sources) Phosphodiesterase 5 Inhibitor Start: 09-22-2022 Tadalafil (CIALIS) 10 mg tablet Take 1 tablet by mouth as needed. 12 tablet 09/22/2022 Active Start: 10-30-2020 End: 09-20-2022 Tadalafil (CIALIS) 10 mg tab let Take 1 tablet by mouth as needed. 12 tablet 0 10/30/2020 09/20/2022 Discontinued Comment on above: Take 1 tablet by julieta as needed. tamsulosin hydrochloride 0.4 mg oral capsule (20 sources) alpha-Adrenergic Trell Start: End: take 2 capsules by mouth once daily at bedtime tamsulosin (FLOMAX) 0.4 mg Take 2 capsules by mouth daily at bedtime. 180 capsule 1 07/24/2023 01/20/2024 Active Start: 01-23-2023 End: 07-22-2023 take 2 capsules by mouth once daily at bedtime tamsulosin (FLOMAX) 0.4 mg Take 2 capsules by mouth daily at bedtime. 180 capsule 1 01/23/2023 Active Start: 07-22-2022 End: 01-18-2023 take 2 capsules by mouth once daily at bedtime tamsulosin (FLOMAX) 0.4 mg Take 2 capsules by mouth daily at bedtime. 180 capsule 1 07/22/2022 01/18/2023 Active Start: 01-20-2022 End: 07-19-2022 take 2 capsules by mouth once daily at bedtime tamsulosin (FLOMAX) 0.4 mg Take 2 capsules by mouth daily at bedtime. 180 capsule 1 01/20/2022 07/19/2022 Active Start: 01-16-2021 End: 01-13-2022 take 2 capsules by mouth once daily at bedtime tamsulosin (FLOMAX) 0.4 mg Take 2 capsules by mouth daily at bedtime. 180 capsule 1 07/17/2021 01/13/2022 Active Comment on above: Take 2 capsules by m outh daily at bedtime. VITAMIN E ACETATE ORAL (20 sources) VITAMIN E ACETAT E ORAL Take 180 mg by mouth. Active VITAMIN E ACETAT E ORAL Take 180 mg by mouth. 0 Active Comment on above: Take 180 mg by mouth . Completed/Discontinued Medications Medication Drug Class(es) Dates Sig (Normalized) Sig (Original) hydroCHLOROthiazide 12.5 mg / lisinopril 20 mg oral tablet (20 sources) Thiazide Diuretic, Angiotensin Converting Enzyme Inhibitor Start: 06-30-2022 End: 12-18-2023 take 1 tablet by mouth once daily lisinopril-hydroC HLOROthiazide (ZESTORETIC) 20-12.5 mg per tablet Take 1 tablet by mouth once daily for 1 day. Return to normal dosing 09/21/23. 09/20/2023 12/18/2023 Discontinued Start: 10-28-2021 End: 06-28-2022 take 2 tablets by mouth once daily lisinopril-hydroCHLOROthiazide (PRINZIDE,ZESTORETIC) 20-12.5 mg per tablet Indications: Essential hypertension Take 2 tablets by mouth once daily. For BP 180 tablet 1 10/28/2021 06/28/2022 Discontinued Start: 01-05-2021 End: 09-25-2021 take 2 tablets by mouth once daily lisinopril-hydroCHLOROthiazide (PRINZIDE,ZESTORETIC) 20-12.5 mg per tablet Indications: Essential hypertension Take 2 tablets by mouth once daily. For BP 4 tablet 0 09/25/2021 Active Comment on above: Take 2 tablets by mo ut once daily. For BP Problems Active Problems Problem Classification Problem Date Documented Da te Episodic/Chronic Cardiac dysrhythmias (20 sources) Irregular heart beat; Translations: [Cardiac arrhythmia, unspecified] Onset: 07-17-2021 Chronic Cardiac dysrhythmias (1 source) Tachycardia; Translations: [Tachycardia, unspecified] Episodic Diabetes mellitus without complication (20 sources) Prediabetes; Translations: [Prediabetes] Onset: 01-05-2020 01-05-2020 Episodic Disorders of lipid metabolism (2 sources) Hyperlipidemia; Translations: [Hyperlipidemia, unspecified] Onset: 04-29-2023 04-29-2023 Chronic Essential hypertension (20 sources) Essential hypertension; Translations: [Essential (primary) hypertension] Onset: 05-18-2009 Chronic Hyperplasia of prostate (20 sources) Benign prostatic hypertrophy with outflow obstruction; Translations: [Benign prostatic hyperplasia with lower urinary tract symptoms] Onset: 03-28-2016 01-16-2021 Chronic Other connective tissue disease (20 sources) History of total hip arthroplasty; Translations: [Presence of unspecified artificial hip joint] Onset: 06-13-2012 06-13-2012 Chronic Other male genital disorders (20 sources) Male erectile dysfunction, unspecified; Translations: [Impotence of organic origin] Onset: 06-12-2011 06-12-2011 Chronic Other screening for suspected conditions (not mental disorders or infectious disease) (2 sources) Raised prostate specific antigen; Translations: [Elevated prostate specific antigen [PSA]] Episodic Screening and history of mental health and substance abuse codes (2 sources) Patient encounter status; Translations: [Encounter for screening for depression] Onset: 04-29-2023 04-29-2023 Episodic Past or Other Problems Problem Classification Problem Date Documented Date Episodic/Chronic Residual codes; unclassified (20 sources) FH: Cardiovascular disease; Translations: [Family history of ischemic heart disease and other diseases of the circulatory system] Onset: 05-18-2009 05-18-2009 Episodic Unclassified (6 sources) Labile hypertension due to being in a clinical environment; Translations: [White coat hypertension] Onset: 05-18-2009 Resolved: 01-12-2011 01-12-2011 Results Test Name Value Interpretation Reference Range Facil britany Gamez 05-01-2023 BERNIEN Telephone (JOHNNA) ELI CHAKRABORTY ([id number]) 1950 M Date Time Provider Department 05/01/23 BHUPENDRA PAIGE During your visit today, we recorded the following information about you: Marnie Araujo OCCA 05/01/2023 9:06 AM Signed ----- Message from Bhupendra Paige APRN.OPERATIONS AND MAINTENANCE TECHNICIAN sent at 05/01/2023 6:39 AM EST ----- A1c unchanged from last visit. No need to recheck blood sugar on recent lab as A1c shows he averages 120 over a three month period. Bhupendra Paige APRN.Marnie Diaz OCCA 05/01/2023 9:08 AM Signed TC to patient with no answer. Left VM to return call to office. JOYCE Hayward M Robin, JOHANNA 05/01/2023 10:53 AM Signed Pt returned call and given provider's message below with verbalized understanding. Allergies As of Date: 05/01/2023 Noted Allergy Reaction SEASONAL ALLERGIES 03/16/1974 14 - Other: See Comments Comments: Seasonal allergies, worse in the fall when cutting hay Date Reviewed: 04/29/2023 Reviewed by: Claudine Santos LPN - Fully Assessed Reason for Visit: Results [95] Prescriptions as of 05/01/2023 - metFORMIN (GLUCOPHAGE) 500 mg tablet Take 1 tablet by mouth two times a day with meals. - atorvastatin (LIPITOR) 20 mg tablet Take 1 tablet by mouth daily at bedtime. - tamsulosin (FLOMAX) 0.4 mg Take 2 capsules by mouth daily at bedtime. - metoprolol succinate ER (TOPROL XL) 50 mg 24 hr tablet Take 1 tablet by mouth once daily. - lisinopril-hydroCHLORO thiazide (ZESTORETIC) 20-12.5 mg per tablet Take 2 tablets by mouth once daily. For BP - Tadalafil (CIALIS) 10 mg tablet Take 1 tablet by mouth as needed. - VITAMIN E ACETATE ORAL Take 180 mg by mouth. - Blood Pressure Monitor kit 1 Device once daily. Dx: I10 - Miscellaneous Medical Supply (BLOOD PRESSURE CUFF) misc 1 Device once daily. Problem List As Of Date 05/01/2023 Noted Resolved White coat hypertension [[id number]] 05/18/2009 01/12/2011 Family History of Cardiovascular Disease [Z82.4*05/18/2009 ED (erectile dysfunction) [N52.9] 06/12/2011 Hypertension [I10] 06/12/2011 Status post THR (total hip replacement) [Z96.64*06/13/2012 Benign prostatic hyperplasia with urinary obstr*03/28/2016 BPH (benign prostatic hyperplasia) [N40.0] White coat syndrome with diagnosis of hypertens*05/18/2009 Prediabetes [R73.03] Premature atrial complexes [I49.1] 07/17/2021 Encounter Status:Closed by Lata DOLAN on 05/01/23 [facility] CNOVon 04-29-2023 CNOV Office Visit (FAMPWS ) ELI CHAKRABORTY ([id number]) 1950 M Date Time Provider Department 04/29/23 7:40 AM BHUPENDRA PAIGE During your visit today, we recorded the following information about you: Pulse Respiration Blood pressure Weight 100/minute 18/minute 142/72 90.7 kg Bhupendra Paige APRN.OPERATIONS AND MAINTENANCE TECHNICIAN 04/29/2023 8:20 AM Signed 04/29/2023 Patient presents with: F/U 6 months SUBJECTIVE: This is a 72 year old that is here today for Above Complaints. Since last office visit has been in good health without ER visits or hospitalizations. BPH: Up 2-3 times a night. Did not follow-up with Dr. Cobos regarding possible TURP. Denies weak stream, straining to urinate, urinary urgency, frequency or hematuria HTN: Patient is compliant with meds Yes Monitors bp at home: Yes. Denies side effects: Yes. Chest pain: No. Dyspnea: No. Edema: No. Palpitations: No. Syncope: No. Headache: No. Dizziness: No. Patient reports BP and heart rate always elevated when comes into office. Takes BP at home daily with averages 130's/80's Prediabetes: taking metformin as prescribed without side effects. Denies visual changes, polyuria or polydipsia HYPERLIPIDEMIA: Patient is taking medications: Yes. Patient is watching diet: Yes. Patient denies myalgias: Yes. Patient denies gi upset: Yes Rides a stationary and recumbent bike. Rides at least 3-4 times a week. Walks a couple of miles a day. Has been going to [facility] twice a week doing light weight lifting Since Thursday has had a little runny nose and nasal congestion. Admits to dry cough. Denies fevers, chills, sore throat, loss of taste/smell, SOB, dyspnea, wheezing, nausea, vomiting or diarrhea PAST MEDICAL HISTORY Diagnosis Date BPH (benign prostatic hyperplasia) Dr. Flores after hip surgery Erectile dysfunction Family history of cardiovascular disease 05/18/2009 Father CABG, approx late 60s History of COVID-19 10/2020 Hypertension OA (osteoarthritis) of hip Prediabetes Premature atrial complexes White coat syndrome with hypertension ALLERGIES Seasonal Allergies MEDICATIONS Current Outpatient Medications Medication Sig metFORMIN (GLUCOPHAGE) 500 mg tablet Take 1 tablet by mouth two times a day with meals. atorvastatin (LIPITOR) 20 mg tablet Take 1 tablet by mouth daily at bedtime. tamsulosin (FLOMAX) 0.4 mg Take 2 capsules by mouth daily at bedtime. metoprolol succinate ER (TOPROL XL) 50 mg 24 hr tablet Take 1 tablet by mouth once daily. lisinopril-hydroCHLORO thiazide (ZESTORETIC) 20-12.5 mg per tablet Take 2 tablets by mouth once daily. For BP Tadalafil (CIALIS) 10 mg tablet Take 1 tablet by mouth as needed. VITAMIN E ACETATE ORAL Take 180 mg by mouth. OTC NUTRITIONAL SUPPLEMENT [facility] Blood Pressure Monitor kit 1 Device once daily. Dx: I10 Miscellaneous Medical Supply (BLOOD PRESSURE CUFF) misc 1 Device once daily. Multivitamins-Minerals -Lutein (CENTRUM SILVER) Tab Take 1 tablet by mouth once daily. No current facility-administered medications for this visit. Medications and allergies reviewed by this provider. SOCIAL HISTORY Social History Tobacco Use Smoking status: Never Smokeless tobacco: Never Substance Use Topics Alcohol use: Yes Comment: rare Drug use: No REVIEW OF SYSTEMS All other reviewed and negative other than HPI. OBJECTIVE: BP 142/72 Pulse 100 Resp 18 Wt 90.7 kg (200 lb) SpO2 97% BMI 28.70 kg/m? . Vital signs reviewed by this provider. APPEARANCE Well appearing, alert, in no acute distress, well-hydrated, well nourished. EYES conjunctiva and sclera normal. EARS External ears normal, canals clear NECK Supple, no adenopathy; thyroid symmetric, normal size, no bruits HEART RRR with normal S1 and S2, no murmurs, no gallops, no JVD appreciated LUNG clear to auscultation. No wheezes, rhonchi or rales EXTREMITIES Extremities normal, No deformities, No skin discoloration, and No edema SKIN Skin color, texture, turgor normal, no suspicious rashes or lesions to exposed skin Component Latest Ref Rng AND Units 10/06/2022 WBC 3.70 - 11.00 k/uL 7.56 RBC 4.20 - 6.00 m/uL 4.83 Hemoglobin 13.0 - 17.0 g/dL 14.3 Hematocrit 39.0 - 51.0 % 43.8 MCV 80.0 - 100.0 fL 90.7 MCH 26.0 - 34.0 pg 29.6 MCHC 30.5 - 36.0 g/dL 32.6 RDW-CV 11.5 - 15.0 % 13.9 Platelet Count 150 - 400 k/uL 261 MPV 9.0 - 12.7 fL 9.5 Neut% % 52.4 Abs Neut (ANC) 1.45 - 7.50 k/uL 3.97 Lymph% % 31.0 Abs Lymph 1.00 - 4.00 k/uL 2.34 Bradley% % 9.0 Abs Bradley <0.87 k/uL 0.68 Eosin% % 6.9 Abs Eosin <0.46 k/uL 0.52 (H) Baso% % 0.3 Abs Baso <0.11 k/uL <0.03 Immature Gran % % 0.4 IMMATURE GRANS (ABS) <0.10 k/uL 0.03 NRBC /100 WBC 0.0 Absolute nRBC <0.01 k/uL <0.01 DTYPE Auto Protein, Total 6.3 - 8.0 g/dL 6.7 Albumin 3.9 - 4.9 g/dL 4.2 Calcium 8.5 - 10.2 mg/dL 9.3 Bilirubin, Total 0.2 - 1.3 m (more content not included)... Normal [facility] Comprehensive metabolic 2000 panelon 04-29-2023 Albumin [Mass/Vol] 4.3 g/dL Normal 3.9-4.9 [facility] Comment on above: Order Comment: Speci men Type: BLOOD SPECIMEN Ordering Facility: [facility] Address: [address] [id number] Performed By: #### 2 4323-8 #### [facility] CLIA [id number] [address] [place] [address] [place] ALP [Catalytic activity/Vol] 62 U/L Normal 38-113 [facility] Comment on above: Order Comment: Speci men Type: BLOOD SPECIMEN Ordering Facility: [facility] Address: [address] [place] [address] Performed By: #### 2 4323-8 #### [facility] CLIA [id number] [address] [place] [address] [place] ALT [Catalytic activity/Vol] 16 U/L Normal 10-54 [facility] Comment on above: Order Comment: Speci men Type: BLOOD SPECIMEN Ordering Facility: [facility] Address: [address] [place] [address] Performed By: #### 2 4323-8 #### [facility] CLIA [id number] [address] [place] [address] [place] Anion gap [Moles/Vol] 12 mmol/L Normal 9-18 [facility] Comment on above: Order Comment: Speci men Type: BLOOD SPECIMEN Ordering Facility: [facility] Address: [address] [place] [address] Performed By: #### 2 4323-8 #### [facility] CLIA [id number] [address] [place] [address] [place] AST [Catalytic activity/Vol] 16 U/L Normal 14-40 [facility] Comment on above: Order Comment: Speci men Type: BLOOD SPECIMEN Ordering Facility: [facility] Address: [address] [place] [address] Performed By: #### 2 4323-8 #### [facility] CLIA [id number] [address] [place] [address] [place] Bilirubin [Mass/Vol] 0.5 mg/dL Normal 0.2-1.3 [facility] Comment on above: Order Comment: Speci men Type: BLOOD SPECIMEN Ordering Facility: [facility] Address: [address] [place] [address] Performed By: #### 2 4323-8 #### [facility] CLIA [id number] [address] [place] [address] [place] Calcium [Mass/Vol] 10.2 mg/dL Normal 8.5-10.2 [facility] Comment on above: Order Comment: Speci men Type: BLOOD SPECIMEN Ordering Facility: [facility] Address: [address] [place] [address] Performed By: #### 2 4323-8 #### [facility] CLIA [id number] [address] [place] [address] [place] Chloride [Moles/Vol] 102 mmol/L Normal 97-105 [facility] Comment on above: Order Comment: Speci men Type: BLOOD SPECIMEN Ordering Facility: [facility] Address: [address] [place] [address] Performed By: #### 2 4323-8 #### [facility] CLIA [id number] [address] [place] [address] [place] CO2 [Moles/Vol] 28 mmol/L Normal 22-30 [facility] Comment on above: Order Comment: Speci men Type: BLOOD SPECIMEN Ordering Facility: [facility] Address: [address] [place] [address] Performed By: #### 2 4323-8 #### [facility] CLIA [id number] [address] [place] [address] [place] Creatinine [Mass/Vol] 0.93 mg/dL Normal 0.73-1.22 [facility] Comment on above: Order Comment: Speci men Type: BLOOD SPECIMEN Ordering Facility: [facility] Address: [address] [place] [address] Performed By: #### 2 4323-8 #### [facility] CLIA [id number] [address] [place] [address] [place] Creatinine and Glomerular filtration rate.predicted panel (S/P/Bld) 88 mL/min/1.73m??? Normal >=60 [facility] Comment on above: Order Comment: Yannick jordan Type: BLOOD SPECIMEN Ordering Facility: [facility] Address: [address] [place] [address] Result Comment: Betty mated Glomerular Filtration Rate (eGFR) is calculated using the 2020 CKD-EPI creatinine equation. This equation utilizes serum creatinine, sex, and age as parameters. The creatinine assay has traceable calibration to isotope dilution-mass spectrometry. Refer to KDIGO guidelines for clinical interpretation. In patients with unstable renal function, e.g. those with acute kidney injury, the eGFR may not accurately reflect actual GFR. Performed By: #### 2 4323-8 #### [facility] CLIA [id number] [address] [place] [address] [place] Glucose [Mass/Vol] 159 mg/dL High 74-99 [facility] Comment on above: Order Comment: Yannick jordan Type: BLOOD SPECIMEN Ordering Facility: [facility] Address: [address] [place] [address] Result Comment: The [place] Diabetes Association (ADA) provides guidance for cutoff values for fasting glucose and random glucose. The ADA defines fasting as no caloric intake for at least 8 hours. Fasting plasma glucose results between 100 to 125 mg/dL indicate increased risk for diabetes (prediabetes). Fasting plasma glucose results greater than or equal to 126 mg/dL meet the criteria for diagnosis of diabetes. In the absence of unequivocal hyperglycemia, results should be confirmed by repeat testing. In a patient with classic symptoms of hyperglycemia or hyperglycemic crisis, random plasma glucose results greater than or equal to 200 mg/dL meet the criteria for diagnosis of diabetes. Reference: Standards of Medical Care in Diabetes 2016, [place] [employer]. Diabetes Care. 2016.39(Suppl 1). Performed By: #### 2 4323-8 #### [facility] CLIA [id number] [address] [id number] [place] Potassium [Moles/Vol] 4.2 mmol/L Normal 3.7-5.1 [facility] Comment on above: Order Comment: Speci men Type: BLOOD SPECIMEN Ordering Facility: [facility] Address: [address] [place] [address] Performed By: #### 2 4323-8 #### [facility] CLIA [id number] [address] [place] [address] [place] Protein [Mass/Vol] 7.4 g/dL Normal 6.3-8.0 [facility] Comment on above: Order Comment: Speci men Type: BLOOD SPECIMEN Ordering Facility: [facility] Address: [address] [place] [address] Performed By: #### 2 4323-8 #### [facility] CLIA [id number] [address] [place] [address] [place] Sodium [Moles/Vol] 142 mmol/L Normal 136-144 [facility] Comment on above: Order Comment: Speci men Type: BLOOD SPECIMEN Ordering Facility: [facility] Address: [address] [place] [address] Performed By: #### 2 4323-8 #### [facility] CLIA [id number] [address] [place] [address] [place] Urea nitrogen [Mass/Vol] 21 mg/dL Normal 9-24 [facility] Comment on above: Order Comment: Speci men Type: BLOOD SPECIMEN Ordering Facility: [facility] Address: [address] [place], [place] [address] Performed By: #### 2 4323-8 #### [facility] CLIA [id number] [address] [place] [address] [place] HbA1c (Bld)on 04-29-2023 Average glucose Estimated from glycated hemoglobin (Bld) [Mass/Vol] 120 mg/dL Normal [facility] Comment on above: Order Comment: Speci men Type: BLOOD SPECIMEN Ordering Facility: [facility] Address: [address] [place] [address] Result Comment: eAG: (Estimated average glucose) is a calculated value from HgbA1c and is investment representative of the average blood glucose level in the last 2-3 month period. Performed By: #### 5 5454-3 #### [facility] CLIA [id number] [address] [place] [address] [place] HbA1c (Bld) [Mass fraction] 5.8 % High 4.3-5.6 [facility] Comment on above: Order Comment: Yannick men Type: BLOOD SPECIMEN Ordering Facility: [facility] Address: [address] [place] [address] Result Comment: Amer [place] Diabetes Association guidelines indicate that patients with HgbA1c in the range 5.7-6.4% are at increased risk for development of diabetes, and intervention by lifestyle modification may be beneficial. HgbA1c greater or equal to 6.5% is considered diagnostic of diabetes. Performed By: #### 5 5454-3 #### [facility] CLIA [id number] [address] [place] [address] [place] CBC W Auto Differential pane l (Bld)on 10-06-2022 Basophils (Bld) [#/Vol] 10*3/uL Normal <0.11 [facility] Comment on above: Order Comment: Abeli men Type: BLOOD SPECIMEN Ordering Facility: [facility] Address: [address] [place] [address] Performed By: #### 5 7021-8 #### [facility] CLIA [id number] [address] [place] [address] [place] Basophils/100 WBC (Bld) 0.3 % Normal [facility] Comment on above: Order Comment: Yannick jordan Type: BLOOD SPECIMEN Ordering Facility: [facility] Address: [address] [place] [address] Performed By: #### 5 7021-8 #### [facility] CLIA [id number] [address] [place] [address] [place] Differential cell count method Nom (Bld) Auto Normal [facility] Comment on above: Order Comment: Speci men Type: BLOOD SPECIMEN Ordering Facility: [facility] Address: [address] [place] [address] Performed By: #### 5 7021-8 #### [facility] CLIA [id number] [address] [place] [address] [place] Eosinophils (Bld) [#/Vol] 0.52 10*3/uL High <0.46 [facility] Comment on above: Order Comment: Speci men Type: BLOOD SPECIMEN Ordering Facility: [facility] Address: [address] [place] [address] Performed By: #### 5 7021-8 #### [facility] CLIA [id number] [address] [place] [address] [place] Eosinophils/100 WBC (Bld) 6.9 % Normal [facility] Comment on above: Order Comment: Speci men Type: BLOOD SPECIMEN Ordering Facility: [facility] Address: [address] [place] [address] Performed By: #### 5 7021-8 #### [facility] CLIA [id number] [address] [place] [address] [place] Erythrocyte distribution width (RBC) [Ratio] 13.9 % Normal 11.5-15.0 [facility] Comment on above: Order Comment: Speci men Type: BLOOD SPECIMEN Ordering Facility: [facility] Address: [address] [place], [place] [address] Performed By: #### 5 7021-8 #### [facility] CLIA [id number] [address] [place] [address] [place] Hematocrit (Bld) [Volume fraction] 43.8 % Normal 39.0-51.0 [facility] Comment on above: Order Comment: Speci men Type: BLOOD SPECIMEN Ordering Facility: [facility] Address: [address] Performed By: #### 5 7021-8 #### [facility] CLIA [id number] [address] [place] [address] [place] Hemoglobin (Bld) [Mass/Vol] 14.3 g/dL Normal 13.0-17.0 [facility] Comment on above: Order Comment: Speci men Type: BLOOD SPECIMEN Ordering Facility: [facility] Address: [address] Performed By: #### 5 7021-8 #### [facility] CLIA [id number] [address] [place] [address] [place] Immature granulocytes (Bld) [#/Vol] 0.03 10*3/uL Normal <0.10 [facility] Comment on above: Order Comment: Speci men Type: BLOOD SPECIMEN Ordering Facility: [facility] Address: [address] Performed By: #### 5 7021-8 #### [facility] CLIA [id number] [address] [place] [address] [place] Immature granulocytes/100 WBC (Bld) 0.4 % Normal [facility] Comment on above: Order Comment: Speci men Type: BLOOD SPECIMEN Ordering Facility: [facility] Address: [address] [place] [address] Performed By: #### 5 7021-8 #### [facility] CLIA [id number] [address] [place] [address] [place] Lymphocytes (Bld) [#/Vol] 2.34 10*3/uL Normal 1.00-4.00 [facility] Comment on above: Order Comment: Speci men Type: BLOOD SPECIMEN Ordering Facility: [facility] Address: [address] Performed By: #### 5 7021-8 #### [facility] CLIA [id number] [address] [place] [address] [place] Lymphocytes/100 WBC (Bld) 31.0 % Normal [facility] Comment on above: Order Comment: Speci men Type: BLOOD SPECIMEN Ordering Facility: [facility] Address: [address] [place] [address] Performed By: #### 5 7021-8 #### [facility] CLIA [id number] [address] [place] [address] [place] MCH (RBC) [Entitic mass] 29.6 pg Normal 26.0-34.0 [facility] Comment on above: Order Comment: Speci men Type: BLOOD SPECIMEN Ordering Facility: [facility] Address: [address] [place] [address] Performed By: #### 5 7021-8 #### [facility] CLIA [id number] [address] [place] [address] [place] MCHC (RBC) [Mass/Vol] 32.6 g/dL Normal 30.5-36.0 [facility] Comment on above: Order Comment: Speci men Type: BLOOD SPECIMEN Ordering Facility: [facility] Address: [address] [place], [place] [address] Performed By: #### 5 7021-8 #### [facility] CLIA [id number] [address] [place] [address] [place] MCV (RBC) [Entitic vol] 90.7 fL Normal 80.0-100.0 [facility] Comment on above: Order Comment: Speci men Type: BLOOD SPECIMEN Ordering Facility: [facility] Address: [address] [place], [place] [address] Performed By: #### 5 7021-8 #### [facility] CLIA [id number] [address] [place] [address] [place] Monocytes (Bld) [#/Vol] 0.68 10*3/uL Normal <0.87 [facility] Comment on above: Order Comment: Speci men Type: BLOOD SPECIMEN Ordering Facility: [facility] Address: [address] Performed By: #### 5 7021-8 #### [facility] CLIA [id number] [address] [place] [address] [place] Monocytes/100 WBC (Bld) 9.0 % Normal [facility] Comment on above: Order Comment: Speci men Type: BLOOD SPECIMEN Ordering Facility: [facility] Address: [address] Performed By: #### 5 7021-8 #### [facility] CLIA [id number] [address] [place] [address] [place] Neutrophils (Bld) [#/Vol] 3.97 10*3/uL Normal 1.45-7.50 [facility] Comment on above: Order Comment: Speci men Type: BLOOD SPECIMEN Ordering Facility: [facility] Address: [address] Performed By: #### 5 7021-8 #### [facility] CLIA [id number] [address] [place] [address] [place] Neutrophils/100 WBC (Bld) 52.4 % Normal [facility] Comment on above: Order Comment: Speci men Type: BLOOD SPECIMEN Ordering Facility: [facility] Address: [address] [place] [address] Performed By: #### 5 7021-8 #### [facility] CLIA [id number] [address] [place] [address] [place] Nucleated RBC (Bld) [#/Vol] 10*3/uL Normal <0.01 [facility] Comment on above: Order Comment: Speci men Type: BLOOD SPECIMEN Ordering Facility: [facility] Address: [address] [place] [address] Performed By: #### 5 7021-8 #### [facility] CLIA [id number] [address] [place] [address] [place] Nucleated RBC/100 WBC (Bld) [Ratio] 0.0 /100 WBC Normal [facility] Comment on above: Order Comment: Speci men Type: BLOOD SPECIMEN Ordering Facility: [facility] Address: [address] [place] [address] Performed By: #### 5 7021-8 #### [facility] CLIA [id number] [address] [place] [address] [place] Platelet mean volume (Bld) [Entitic vol] 9.5 fL Normal 9.0-12.7 [facility] Comment on above: Order Comment: Speci men Type: BLOOD SPECIMEN Ordering Facility: [facility] Address: [address] Performed By: #### 5 7021-8 #### [facility] CLIA [id number] [address] [place] [address] [place] Platelets (Bld) [#/Vol] 261 10*3/uL Normal 150-400 [facility] Comment on above: Order Comment: Speci men Type: BLOOD SPECIMEN Ordering Facility: [facility] Address: [address] [place] [address] Performed By: #### 5 7021-8 #### [facility] CLIA [id number] [address] [place] [address] [place] RBC (Bld) [#/Vol] 4.83 10*6/uL Normal 4.20-6.00 [facility] Comment on above: Order Comment: Speci men Type: BLOOD SPECIMEN Ordering Facility: [facility] Address: [address] Performed By: #### 5 7021-8 #### [facility] CLIA [id number] [address] [place] [address] [place] WBC (Bld) [#/Vol] 7.56 10*3/uL Normal 3.70-11.00 [facility] Comment on above: Order Comment: Speci men Type: BLOOD SPECIMEN Ordering Facility: [facility] Address: [address] [place] [address] Performed By: #### 5 7021-8 #### [facility] CLIA [id number] [address] [place] [address] [place] [facility] Comprehensive metabolic 2000 panelon 10-06-2022 Albumin [Mass/Vol] 4.2 g/dL Normal 3.9-4.9 [facility] Comment on above: Order Comment: Speci men Type: BLOOD SPECIMEN Ordering Facility: [facility] Address: [address] [place] [address] Performed By: #### L IPNF, 07787-9 #### [facility] CLIA [id number] [address] [place] [address] [place] ALP [Catalytic activity/Vol] 55 U/L Normal 38-113 [facility] Comment on above: Order Comment: Speci men Type: BLOOD SPECIMEN Ordering Facility: [facility] Address: [address] [place], [place] [address] Performed By: #### L IPNF, 23447-2 #### [facility] CLIA [id number] [address] [place] [address] [place] ALT [Catalytic activity/Vol] 20 U/L Normal 10-54 [facility] Comment on above: Order Comment: Speci men Type: BLOOD SPECIMEN Ordering Facility: [facility] Address: [address] [place], [place] [address] Performed By: #### L IPNF, 49217-2 #### [facility] CLIA [id number] [address] [place] [address] [place] Anion gap [Moles/Vol] 13 mmol/L Normal 9-18 [facility] Comment on above: Order Comment: Speci men Type: BLOOD SPECIMEN Ordering Facility: [facility] Address: [address] [place] [address] Performed By: #### L IPNF, 57760-2 #### [facility] CLIA [id number] [address] [place] [address] [place] AST [Catalytic activity/Vol] 21 U/L Normal 14-40 [facility] Comment on above: Order Comment: Speci men Type: BLOOD SPECIMEN Ordering Facility: [facility] Address: [address] Performed By: #### L IPNF, 86233-2 #### [facility] CLIA [id number] [address] [place] [address] [place] Bilirubin [Mass/Vol] 0.5 mg/dL Normal 0.2-1.3 [facility] Comment on above: Order Comment: Speci men Type: BLOOD SPECIMEN Ordering Facility: [facility] Address: [address] Performed By: #### L IPNF, 05823-4 #### [facility] CLIA [id number] [address] [place] [address] [place] Calcium [Mass/Vol] 9.3 mg/dL Normal 8.5-10.2 [facility] Comment on above: Order Comment: Speci men Type: BLOOD SPECIMEN Ordering Facility: [facility] Address: [address] [place], [place] Performed By: #### L IPNF, 51460-6 #### [facility] CLIA [id number] [address] [place] [address] [place] Chloride [Moles/Vol] 103 mmol/L Normal 97-105 [facility] Comment on above: Order Comment: Speci men Type: BLOOD SPECIMEN Ordering Facility: [facility] Address: [address] [place] [id number] Performed By: #### L JUAN, 50409-0 #### [facility] CLIA [id number] [address] [place] [address] [place] CO2 [Moles/Vol] 25 mmol/L Normal 22-30 [facility] Comment on above: Order Comment: Speci men Type: BLOOD SPECIMEN Ordering Facility: [facility] Address: [address] [place], [place] [address] Performed By: #### L JUAN, 89325-3 #### [facility] CLIA [id number] [address] [place] [address] [place] Creatinine [Mass/Vol] 1.04 mg/dL Normal 0.73-1.22 [facility] Comment on above: Order Comment: Speci men Type: BLOOD SPECIMEN Ordering Facility: [facility] Address: [address] [place] [address] Performed By: #### L JUAN, 89149-3 #### [facility] CLIA [id number] [facility] [place] [address] [place] ESTIMATED GLOMERULAR FILTRATION RATE 77 mL/min/1.73m??? Normal >=60 [facility] Comment on above: Order Comment: Speci men Type: BLOOD SPECIMEN Ordering Facility: [facility] Address: [address] [place] [address] Result Comment: Betty mated Glomerular Filtration Rate (eGFR) is calculated using the 2020 CKD-EPI creatinine equation. This equation utilizes serum creatinine, sex, and age as parameters. The creatinine assay has traceable calibration to isotope dilution-mass spectrometry. Refer to KDIGO guidelines for clinical interpretation. In patients with unstable renal function, e.g. those with acute kidney injury, the eGFR may not accurately reflect actual GFR. Performed By: #### L JUAN, 22178-0 #### [facility] CLIA [id number] [address] [place] [address] [place] Glucose [Mass/Vol] 100 mg/dL High 74-99 [facility] Comment on above: Order Comment: Yannick jordan Type: BLOOD SPECIMEN Ordering Facility: [facility] Address: [address] Result Comment: The [place] Diabetes Association (ADA) provides guidance for cutoff values for fasting glucose and random glucose. The ADA defines fasting as no caloric intake for at least 8 hours. Fasting plasma glucose results between 100 to 125 mg/dL indicate increased risk for diabetes (prediabetes). Fasting plasma glucose results greater than or equal to 126 mg/dL meet the criteria for diagnosis of diabetes. In the absence of unequivocal hyperglycemia, results should be confirmed by repeat testing. In a patient with classic symptoms of hyperglycemia or hyperglycemic crisis, random plasma glucose results greater than or equal to 200 mg/dL meet the criteria for diagnosis of diabetes. Reference: Standards of Medical Care in Diabetes 2016, [place] Diabetes Association. Diabetes Care. 2016.39(Suppl 1). Performed By: #### L JUAN, 71899-3 #### [facility] CLIA [id number] [address] [place] [address] [place] Potassium [Moles/Vol] 4.0 mmol/L Normal 3.7-5.1 [facility] Comment on above: Order Comment: Yannick jordan Type: BLOOD SPECIMEN Ordering Facility: [facility] Address: [place] [address] Performed By: #### L IPNF, 34484-7 #### [facility] CLIA [id number] [address] [place] [address] [place] Protein [Mass/Vol] 6.7 g/dL Normal 6.3-8.0 [facility] Comment on above: Order Comment: Yannick jordan Type: BLOOD SPECIMEN Ordering Facility: [facility] Address: [place] [address] Performed By: #### L IPNF, 50383-7 #### [facility] CLIA [id number] [address] [place] [address] [place] Sodium [Moles/Vol] 141 mmol/L Normal 136-144 [facility] Comment on above: Order Comment: Yannick men Type: BLOOD SPECIMEN Ordering Facility: [facility] Address: [address] Performed By: #### L IPNF, 60074-1 #### [facility] CLIA [id number] [address] [place] [address] [place] Urea nitrogen [Mass/Vol] 24 mg/dL Normal - [facility] Comment on above: Order Comment: Abeli men Type: BLOOD SPECIMEN Ordering Facility: [facility] Address: [address] [place] [address] Performed By: #### L IPNF, 27156-6 #### [facility] CLIA [id number] [address] [place] [address] [place] HbA1c (Bld)on 10-06-2022 Average glucose Estimated from glycated hemoglobin (Bld) [Mass/Vol] 120 mg/dL Normal [facility] Comment on above: Order Comment: Yannick men Type: BLOOD SPECIMEN Ordering Facility: [facility] Address: [address] [place] [address] Result Comment: eAG: (Estimated average glucose) is a calculated value from HgbA1c and is investment representative of the average blood glucose level in the last 2-3 month period. Performed By: #### 5 5454-3 #### [facility] CLIA [id number] [address] [place] [address] [place] HbA1c (Bld) [Mass fraction] 5.8 % High 4.3-5.6 [facility] Comment on above: Order Comment: Yannick men Type: BLOOD SPECIMEN Ordering Facility: [facility] Address: [address] [place] [address] Result Comment: [place] Diabetes Association guidelines indicate that patients with HgbA1c in the range 5.7-6.4% are at increased risk for development of diabetes, and intervention by lifestyle modification may be beneficial. HgbA1c greater or equal to 6.5% is considered diagnostic of diabetes. Performed By: #### 5 5454-3 #### [facility] CLIA [id number] [address] OF [facility] LIPID PANEL, NONFASTINGon Cholesterol [Mass/Vol] 167 mg/dL Normal <200 [facility] Comment on above: Order Comment: Speci men Type: BLOOD SPECIMEN Ordering Facility: [facility] Address: [address] [place] [address] Result Comment: <200 mg/dL, Desirable 200-239 mg/dL, Borderline high >239 mg/dL, High Performed By: #### L IPNF, 92171-9 #### [facility] CLIA [id number] [address] [place] HDL CHOLESTEROL, NF 47 mg/dL Normal >39 [facility] Comment on above: Order Comment: Speci men Type: BLOOD SPECIMEN Ordering Facility: [facility] Address: [address] [place] [address] Result Comment: 40-5 9 mg/dL, Acceptable >59 mg/dL, High: Negative risk factor for coronary heart disease <40 mg/dL, Low: Positive risk factor for coronary heart disease Performed By: #### L IPNF, 01223-7 #### [facility] CLIA [id number] [address] OF [facility] LDL CHOLESTEROL, NF 89 mg/dL Normal <100 [facility] Comment on above: Order Comment: Speci men Type: BLOOD SPECIMEN Ordering Facility: [facility] Address: [address] [place] [address] Result Comment: <100 mg/dL, Optimal 100-129 mg/dL, Near optimal/above optimal 130-159 mg/dL, Borderline high 160-189 mg/dL, High >189 mg/dL, Very high Secondary prevention optimal LDL Cholesterol levels are recommended to be < 70 mg/dL Performed By: #### L IPNF, 38041-5 #### [facility] CLIA [id number] [address] LDL/HDL RATIO, NF 1.89 mg/dL Normal <2.54 [facility] Comment on above: Order Comment: Yannick jordan Type: BLOOD SPECIMEN Ordering Facility: [facility] Address: [address] [place] [address] Result Comment: Alexa og: 1. National Cholesterol Education Program ATP III Guideline At-A-Glance Quick Desk Reference: National Heart, Lung, and Blood [place]. National Institutes of Health. 2001: NIH Publication No. 01-3305. 2. An International Atherosclerosis Society position paper: global recommendations for the management of dyslipidemia: executive summary, Atherosclerosis. 2014: 232(2):410-413. Performed By: #### L JUAN, 47305-5 #### [facility] CLIA [id number] [address] [place] NON HDL CHOL, NF 120 mg/dL Normal <130 [facility] Comment on above: Order Comment: Yannick jordan Type: BLOOD SPECIMEN Ordering Facility: [facility] Address: [address] [place] [address] Result Comment: <130 mg/dL, Optimal 130-159 mg/dL, Near optimal/above optimal 160-189 mg/dL, Borderline high 190-219 mg/dL, High >219 mg/dL, Very high Secondary prevention optimal non HDL Cholesterol levels are recommended to be <100 mg/dL Performed By: #### L IPNENITA, #### [facility] CLIA [id number] [address] [place] T CHOL/HDL RATIO NF 3.55 mg/dL Normal <5.10 [facility] Comment on above: Order Comment: Yannick jordan Type: BLOOD SPECIMEN Ordering Facility: [facility] Address: [address] [place] [address] Performed By: #### L IPNENITA, 56413-6 #### [facility] CLIA [id number] [address] [place] [address] [place] TRIGLYCERIDES, NF 155 mg/dL High <150 [facility] Comment on above: Order Comment: Speci men Type: BLOOD SPECIMEN [facility] [facility] Address: [address] [place] [address] Result Comment: <150 mg/dL, Normal 150-199 mg/dL, Borderline high 200-499 mg/dL, High >499 mg/dL, Very high Performed By: #### L IPNF, [id number] #### [facility] CLIA [id number] [address] [place] [address] VLDL CHOLESTEROL, NF 31 mg/dL High <30 [facility] Comment on above: Order Comment: Speci men Type: BLOOD SPECIMEN Ordering Facility: [facility] Address: [address] [place] [address] Performed By: #### L IPNF, [id number] #### [facility] CLIA [id number] [address] [place] [address] CNOVon 09-24-2022 CNOV Office Visit (FAMPWS ) ELI CHAKRABORTY ([id number]) 1950 M Date Time Provider Department 09/24/22 8:00 AM JOE YOUNGPWS During your visit today, we recorded the following information about you: Pulse Respiration Blood pressure Weight 100/minute 16/minute 164/82 90.4 kg Height 1.778 m Joe Young MD 09/24/2022 9:49 AM Signed Medicare Yearly Visit Medical B eligibilty date 2016 Date of last exam 07/17/2021 Patient here today for medicare wellness exam. Has been in good health without hospitalizations or ER visits. No falls since last OV. BPH: Getting up 2-3 times at night to urinate on the Flomax. Looking into TURP with Dr. Flores's office. Has appointment in October. Denies dysuria, hematuria, weak stream/straining. BP and HR well controlled at home. See [employer] message from yesterday. States he gets very nervous coming to our office and BP and HR are always high. Due for repeat A1C for evaluation of borderline prediabetes. Denies DM symptoms. Working on healthy diet and is taking metformin as prescribed. Weight down 5 lbs since last OV. PAST MEDICAL HISTORY Diagnosis Date BPH (benign prostatic hyperplasia) Dr. Flores after hip surgery Erectile dysfunction Family history of cardiovascular disease 05/18/2009 Father CABG, approx late 60s History of COVID-19 10/2020 Hypertension OA (osteoarthritis) of hip Prediabetes Premature atrial complexes White coat syndrome with hypertension PAST SURGICAL HISTORY Procedure Laterality Date PAST SURGICAL HISTORY OF Right 05/2012 THR PAST SURGICAL HISTORY OF Left 03/2019 total hip replacement ALLERGIES: Seasonal Allergies Medications reviewed: Yes FAMILY HISTORY Problem Relation Age of Onset Heart Mother Smoker, Heart Surgery Valve, ?CABG Alzheimer's Disease Father Heart Father Cancer Father other (Depression) Sister ?bone Cancer other (Anxiety) Brother Heart SOCIAL HISTORY: Social History Tobacco Use Smoking status: Never Smokeless tobacco: Never Substance Use Topics Alcohol use: Yes Comment: rare Drug use: No Eli likes to exercise by walking, riding his bicycle, and golfing. He watches his diet for sodium, low fat and low cholesterol most of the time. List of current specialists seen: Urology: Dr. Flores Optho: Dr. Barros End of Live Planning discussed including patients advanced directive wishes: Yes-forms given for home. FULL CODE. I am willing to follow Eli's advanced directives. PHQ-2 / Depression screen He in the past two weeks denies having felt down, depressed, hopeless, or with little interest or pleasure in doing things Functional Ability/Safety Screen 1. Was the patient's timed Up and Go test unsteady or longer than 30 seconds? No 2. Does the patient need help with the phone, transportation, shopping,preparing meals, housework, laundry, medications or managing money? No 3. Does your home have rugs in the hallway-yes, lack of grab bars in the bathroom-yes, lack of handrails on the stairs or have poor lighting? No Hearing Evaluation: normal finger rub bilaterally PHYSICAL EXAM Pulse 100 Resp 16 Ht 177.8 cm (5' 10 ) Wt 90.4 kg (199 lb 6.4 oz) BMI 28.61 kg/m? Alert and oriented X 3: YES [place]/5 Body mass index is 28.61 kg/m?. Visual acuity: OD: 20/30 OS: 20/ 20 OU: 20/15 General Appearance: Well appearing, alert, in no acute distress, well-hydrated, well nourished.. Lungs: Lungs clear to auscultation. No wheezing, rhonchi, rales.. Heart: RRR without murmur, gallop, or rubs. No ectopy. Component Latest Ref Rng AND Units 02/10/2022 06/21/2022 Protein, Total 6.3 - 8.0 g/dL 7.1 Albumin 3.9 - 4.9 g/dL 4.3 Calcium 8.5 - 10.2 mg/dL 9.9 Bilirubin, Total 0.2 - 1.3 mg/dL 0.9 Alkaline Phosphatase 38 - 113 U/L 61 AST 14 - 40 U/L 29 ALT 10 - 54 U/L 23 Glucose 74 - 99 mg/dL 110 (H) BUN 9 - 24 mg/dL 22 Creatinine 0.73 - 1.22 mg/dL 0.98 Sodium 136 - 144 mmol/L 142 Potassium 3.7 - 5.1 mmol/L 4.1 Chloride 97 - 105 mmol/L 103 CO2 22 - 30 mmol/L 28 Anion Gap 9 - 18 mmol/L 11 eGFR >=60 mL/min/1.73mA? 83 Hemoglobin A1C 4.3 - 5.6 % 6.0 (H) 5.6 Estimated Average Glucose mg/dL 126 114 PSA Screening <2.60 ng/mL 4.61 (H) ASSESSMENT/PLAN: 1. Medicare annual wellness visit, subsequent - ICD9: V70.0, ICD10: Z00.00 (primary diagnosis) 72 year old male The following prevention plan was discussed during the office visit and provided to the patient: - Counseled on healthy diet and regular exercise - Discussed need for and benefit of weight loss. BMI 28.61 kg/(m2) - Fall avoidance - Vaccines recommended COVID-19 and Shingrix at pharmacy - Depression screening - COMP METABOLIC PANEL - LIPID PANEL, NONFASTING - CBC + DIFF - HGB A1C 2. 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 - ICD9: 401.9, ICD10: I10 - Controlled (more content not included)... [facility] Tele[facility] (FAMPWS) ELI CHAKRABORTY ([id number]) 1950 Date Time Provider Department 06/23/22 JOE YOUNG During your visit today, we recorded the following information about you: Karli Remy Ma 06/23/2022 10:30 AM Signed ----- Message from Joe Young MD sent at 06/23/2022 8:10 AM EDT ----- A1c in normal range. No changes to regimen. Keep up the good work! Karli Remy Ma 06/23/2022 10:31 AM Signed [email or web address] message sent to pt notifying him of results and recommendation from PCP. Karli Remy Ma Allergies As of Date: 06/23/2022 Noted Allergy Reaction SEASONAL ALLERGIES 03/16/1974 14 - Other: See Comments Comments: Seasonal allergies, worse in the fall when cutting hay Date Reviewed: 02/05/2022 Reviewed by: Karli Remy Ma - Fully Assessed Reason for Visit: Results [95] Prescriptions as of 06/23/2022 - metFORMIN (GLUCOPHAGE) 500 mg tablet Take 1 tablet by mouth twice daily with meals. - atorvastatin (LIPITOR) 20 mg tablet Take 1 tablet by mouth daily at bedtime. - metoprolol succinate ER (TOPROL XL) 50 mg 24 hr tablet Take 1 tablet by mouth once daily. - tamsulosin (FLOMAX) 0.4 mg Take 2 capsules by mouth daily at bedtime. - lisinopril-hydroCHLORO thiazide (PRINZIDE,ZESTORETIC) 20-12.5 mg per tablet Take 2 tablets by mouth once daily. For BP - Tadalafil (CIALIS) 10 mg tablet Take 1 tablet by mouth as needed. - VITAMIN E ACETATE ORAL Take 180 mg by mouth. - OTC NUTRITIONAL SUPPLEMENT [facility] - Blood Pressure Monitor kit 1 Device once daily. Dx: I10 - Miscellaneous Medical Supply (BLOOD PRESSURE CUFF) misc 1 Device once daily. - Multivitamins-Minerals -Lutein (CENTRUM SILVER) Tab Take 1 tablet by mouth once daily. Problem List As Of Date 06/23/2022 Noted Resolved White coat hypertension [[id number]] 05/18/2009 01/12/2011 Family History of Cardiovascular Disease [Z82.4*05/18/2009 ED (erectile dysfunction) [N52.9] 06/12/2011 Hypertension [I10] 06/12/2011 Status post THR (total hip replacement) [Z96.64*06/13/2012 Benign prostatic hyperplasia with urinary obstr*03/28/2016 BPH (benign prostatic hyperplasia) [N40.0] White coat syndrome with diagnosis of hypertens*05/18/2009 Prediabetes [R73.03] Premature atrial complexes [I49.1] 07/17/2021 Encounter Status:Closed by KARLI REMY MA on 06/23/22 Normal [facility] HbA1c (Bld)on 06-21-2022 Average glucose Estimated from glycated hemoglobin (Bld) [Mass/Vol] 114 mg/dL Normal [facility] Comment on above: Order Comment: Speci men Type: BLOOD SPECIMEN Ordering Facility: [facility] Address: [address] [place] [address] Result Comment: eAG: (Estimated average glucose) is a calculated value from HgbA1c and is investment representative of the average blood glucose level in the last 2-3 month period. Performed By: #### L [facility], [id number] #### [facility] CLIA [id number] [address] [facility] [place] [address] [place] HbA1c (Bld) [Mass fraction] 5.6 % Normal 4.3-5.6 [facility] Comment on above: Order Comment: Speci men Type: BLOOD SPECIMEN Ordering Facility: [facility] Address: [address] [place] [address] Result Comment: [place] Diabetes Association guidelines indicate that patients with HgbA1c in the range 5.7-6.4% are at increased risk for development of diabetes, and intervention by lifestyle modification may be beneficial. HgbA1c greater or equal to 6.5% is considered diagnostic of diabetes. Performed By: #### [place], [id number] #### [facility] CLIA [id number] [address] [facility] [id number] [place] [address] Vital Signs Date Time Vital Sign Value Performing Clinician Yoko bai 04-29-2023 07:45-0500 Body weight 90.72 kg Bhupendra Podlogar MASSAGE COORDINATOR.OPERATIONS AND MAINTENANCE TECHNICIAN Work Phone: [facility] 04-29-2023 07:45-0500 Diastolic blood pressure 72 mm[Hg] Bhupendra Podlogar MASSAGE COORDINATOR.OPERATIONS AND MAINTENANCE TECHNICIAN Work Phone: [facility] 04-29-2023 07:45-0500 Heart rate 100 /min Bhupendra Podlogar MASSAGE COORDINATOR.OPERATIONS AND MAINTENANCE TECHNICIAN Work Phone: [facility] 04-29-2023 07:45-0500 Respiratory rate 18 /min Bhupendra Podlogar MASSAGE COORDINATOR.OPERATIONS AND MAINTENANCE TECHNICIAN Work Phone: [facility] 04-29-2023 07:45-0500 SaO2% (BldA) [Mass fraction] 97 % Bhupendra Podlogar MASSAGE COORDINATOR.OPERATIONS AND MAINTENANCE TECHNICIAN Work Phone: [facility] 04-29-2023 07:45-0500 Systolic blood pressure 142 mm[Hg] Bhupendra Podlogar MASSAGE COORDINATOR.OPERATIONS AND MAINTENANCE TECHNICIAN Work Phone: [facility] 09-24-2022 08:02-0400 Body height 177.8 cm Joe Young MD Work Phone: [facility] 09-24-2022 08:02-0400 Body weight 90.45 kg Joe Young MD Work Phone: [facility] 09-24-2022 08:02-0400 Diastolic blood pressure 82 mm[Hg] Joe Young MD Work Phone: [facility] 09-24-2022 08:02-0400 Heart rate 100 /min Joe Young MD Work Phone: [facility] 09-24-2022 08:02-0400 Respiratory rate 16 /min Joe Young MD Work Phone: [facility] 09-24-2022 08:02-0400 Systolic blood pressure 164 mm[Hg] Joe Young MD Work Phone: [facility] 07-17-2021 08:[id number] Body height 176.5 cm Joe Young MD Work Phone: [facility] 07-17-2021 08:[id number] Body weight 94.8 kg Joe Young MD Work Phone: [facility] 07-17-2021 08:02-0400 Respiratory rate 14 /min Joe Young MD Work Phone: [facility] Encounters Encounter Date Encounter Type Care Provider Facility Start: 12-18-2023 End: 12-18-2023 Refill Amando Whitt MD Work Phone: [facility] Comment on above: Refill Request Start: 10-08-2023 Refill Vida garcia MASSAGE COORDINATOR.OPERATIONS AND MAINTENANCE TECHNICIAN Work Phone: [facility] [place] Comment on above: Refill Request Start: 09-20-2023 ambulatory Dinorah Triana RN [facility] Comment on above: Overdose Start: 07-23-2023 Refill Bhupendra Lemalogviolet MASSAGE COORDINATOR.OPERATIONS AND MAINTENANCE TECHNICIAN Work Phone: [facility] [place] Comment on above: Refill Request Start: 07-22-2023 Refill Bhupendra Paige MASSAGE COORDINATOR.OPERATIONS AND MAINTENANCE TECHNICIAN Work Phone: [facility] [place] Comment on above: Refill Request Start: 07-12-2023 Refill Joe Young MD Work Phone: [facility] [place] Comment on above: Refill Request Start: 07-02-2023 Refill Joe Young MD Work Phone: Family [facility] [place] Comment on above: Refill Request Start: 06-15-2023 Refill Bhupendra Podlogar MASSAGE COORDINATOR.OPERATIONS AND MAINTENANCE TECHNICIAN Work Phone: [facility] [place] Comment on above: Refill Request Start: 05-01-2023 Telephone encounter Bhupendra Podl ogar MASSAGE COORDINATOR.OPERATIONS AND MAINTENANCE TECHNICIAN Work Phone: [facility] [place] Comment on above: Results Start: 04-29-2023 End: 04-30-2023 ambulatory Bhupendra Podlogar MASSAGE COORDINATOR.OPERATIONS AND MAINTENANCE TECHNICIAN Work Phone: [facility] [place] Comment on above: Test results Start: 04-29-2023 End: 04-29-2023 Patient encounter procedure Bhupendra Podlogar MASSAGE COORDINATOR.OPERATIONS AND MAINTENANCE TECHNICIAN Work Phone: Family [facility] [place] Comment on above: Essential hypertensi on (Primary Dx); Prediabetes; Depression screening; Benign prostatic hyperplasia, unspecified whether lower urinary tract symptoms present; Hyperlipidemia, unspecified hyperlipidemia type Start: 02-03-2023 ambulatory Joe Young MD Work Phone: [facility] [place] Comment on above: Question Start: 01-22-2023 Refill Bhupendra Podlogar MASSAGE COORDINATOR.OPERATIONS AND MAINTENANCE TECHNICIAN Work Phone: [facility] [place] Comment on above: Refill Request Start: 01-08-2023 Refill Joe Young MD Work Phone: Family [facility] [place] Comment on above: Refill Request Start: 12-21-2022 Refill Bhupendra Podlogar MASSAGE COORDINATOR.OPERATIONS AND MAINTENANCE TECHNICIAN Work Phone: [facility] [place] Comment on above: Refill Request Rsv Start: 10-06-2022 End: 10-07-2022 ambulatory JOE YOUNG Facility:[facility] Start: 10-06-2022 Patient encounter procedure JOE YOUNG [facility] Start: 09-24-2022 End: 09-24-2022 ambulatory JOE YOUNG Facility:[facility] Start: 09-24-2022 End: 09-24-2022 Patient encounter procedure Joe Young MD Work Phone: [facility] [place] Comment on above: Medicare annual well ness visit, subsequent (Primary Dx); 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; Benign prostatic hyperplasia, unspecified whether lower urinary tract symptoms present Start: 09-20-2022 Refill Joe Young MD Work Phone: [facility] [place] Comment on above: Refill Request Start: 09-08-2022 ambulatory Joe Young MD Work Phone: [facility] [place] Comment on above: BP readings Start: 08-29-2022 Refill Vida garcia MASSAGE COORDINATORCharityOPERATIONS AND MAINTENANCE TECHNICIAN Work Phone: [facility] [place] Comment on above: Refill Request Start: 07-21-2022 Refill Joe Young MD Work Phone: [facility] [place] Comment on above: Refill Request Start: 07-20-2022 Refill Joe Young MD Work Phone: [facility] [place] Comment on above: Refill Request Start: 06-28-2022 Refill Joe Young MD Work Phone: [facility] [place] Comment on above: Refill Request Start: 06-21-2022 End: 06-22-2022 ambulatory JOE YOUNG Facility:[facility] Start: 05-26-2022 ambulatory [facility] Comment on above: urologist fu Start: 05-23-2022 Refill Joe Young MD Work Phone: [facility] [place] Comment on above: Refill Request Blood test Start: 02-11-2022 Telephone encounter Aly Young MD [facility] Comment on above: Results Start: 01-17-2022 ambulatory Joe Young MD Work Phone: [facility] [place] Comment on above: appt next Thursday Refill Request Start: 12-31-2021 Refill Bhupendra Paige APRN.OPERATIONS AND MAINTENANCE TECHNICIAN Work Phone: [facility] [place] Comment on above: Refill Request Start: 09-25-2021 ambulatory Joe Young MD Work Phone: [facility] [place] Comment on above: medications Start: 07-19-2021 Telephone encounter Aly Young MD Work Phone: [facility] [place] Comment on above: Results Start: 07-17-2021 End: 07-17-2021 Patient encounter procedure Joe Young MD Work Phone: [facility] [place] Comment on above: Medicare annual well ness visit, subsequent (Primary Dx); Irregular heartbeat; Prediabetes; Tachycardia; Primary hypertension; 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 Start: 06-24-2021 Refill Amando glez MD Work Phone: [facility] [place] Comment on above: Refill Request Procedures Date Procedure Procedure Detail Performing Clinician Start: 10-06-2022 Lipid 1996 panel - S preeti or Plasma Bhupendra Paige APRN.OPERATIONS AND MAINTENANCE TECHNICIAN Work Phone: Start: 01-16-2021 Adult depression scr eening assessment Amando Whitt MD Work Phone: Start: 12-01-2014 Colonoscopy Amando schroeder MD Work Phone: Plan of Treatment Date Care Activity Detail Author Start: 10-07-2027 Lipid 1996 panel - S preeti or Plasma Lipid Screening [facility] Start: 10-07-2027 Lipid panel Lipid Screening [facility] Start: 07-18-2026 LIPID SCREEN LIPID SCREEN [facility] Start: 04-29-2026 Diabetes Screening Diabetes Screenin g [facility] Start: 10-06-2025 Diabetes Screening Diabetes Screenin g [facility] Start: 06-21-2025 DIABETES SCREEN DIABETES SCREEN [facility] Start: 02-10-2025 DIABETES SCREEN DIABETES SCREEN [facility] Start: 01-06-2025 LIPID SCREEN LIPID SCREEN [facility] Start: 01-06-2025 PROSTATE CANCER SCREENING DISCUSSION PROSTATE CANCER SCREENING DISCUSSION [facility] Start: 12-01-2024 Colonoscopy COLONOSCOPY [facility] Start: 12-01-2024 COLORECTAL CANCER SCREENING COLORECTAL CANCER SCREENING [facility] Start: 12-01-2024 Screening for malign ant neoplasm of colon [facility] Start: 07-18-2024 DIABETES SCREEN DIABETES SCREEN [facility] Start: 04-29-2024 Annual PCP Team Writer Editor jasiel Disease Visit Annual PCP Team Chronic Disease Visit [facility] Start: 01-26-2024 End: 01-26-2024 Patient encounter procedure 01/26/2024 7:20 AM EST Office Visit [facility] [place] [address] [place] [address] PodBhupendra altamirano MASSAGE COORDINATOR.OPERATIONS AND MAINTENANCE TECHNICIAN [address] [facility] [place] [address] Medicare Wellness/6 month follow up [facility] [place] Comment on above: Medicare Wellness/6 month follow up Start: 01-20-2024 DIABETES SCREEN DIABETES SCREEN [facility] Start: 11-15-2023 Covid-19 Vaccine ( season) Covid-19 Vaccine () [facility] Start: 11-15-2023 Influenza vaccination Influenza Vacc ine (#1) [facility] Start: 10-28-2023 End: 10-28-2023 Patient encounter procedure 10/28/2023 7:40 AM EDT Office Visit [facility] [place] [address] [place] [address] Bhupendra Paige, MASSAGE COORDINATOR.OPERATIONS AND MAINTENANCE TECHNICIAN [address] [facility] [place] [address] Medicare Wellness/6 month follow up Family [facility] Comment on above: Medicare Wellness/6 month follow up Start: 09-25-2023 ANNUAL PCP TEAM RED LEAD BURNER JASIEL DISEASE VISIT ANNUAL PCP TEAM CHRONIC DISEASE VISIT [facility] Start: 09-25-2023 COVID-19 VACCINE (5 - Moderna series) COVID-19 VACCINE (5 - Moderna series) [facility] Comment on above: Postponed from 04/26 (Declined at this time) Start: 09-25-2023 SHINGRIX VACCINE (2 of 3) SHINGRIX VACCINE (2 of 3) [facility] Comment on above: Postponed from 03/04 (Declined at this time) Start: 04-29-2023 End: 07-29-2023 Comprehensive metabolic 2000 panel - Serum or Plasma [facility] Work Phone: Comment on above: Expected: 04/29/2023 , Expires: 07/29/2023 Start: 04-29-2023 End: 07-29-2023 Hemoglobin A1c in Blood [facility] Work Phone: Comment on above: Expected: 04/29/2023 , Expires: 07/29/2023 Start: 03-16-2023 Advance Directive Discussion Advance Directive Discussion [facility] Start: 03-16-2023 Behavioral Health Screening Behavioral Health Screening [facility] Start: 03-16-2023 Covid-19 Vaccine () Covid-19 Vaccine () [facility] Start: 03-16-2023 Depression Assessment Depression Ass essment [facility] Start: 02-05-2023 ANNUAL PCP TEAM RED LEAD BURNER JASIEL DISEASE VISIT ANNUAL PCP TEAM CHRONIC DISEASE VISIT [facility] Start: 02-05-2023 Urine microalbumin profile [facility] Comment on above: Postponed from 12/08 (Declined at this time) Start: 11-14-2022 Covid-19 Vaccine () Covid-19 Vaccine () [facility] Start: 11-14-2022 Influenza vaccination [facility] Start: 09-24-2022 End: 11-24-2022 CBC W Auto Differential panel - Blood CBC + DIFF Lab Routine Medicare annual wellness visit, subsequent Expected: 09/24/2022, Expires: 11/24/2022 [facility] Work Phone: Comment on above: Expected: 09/24/2022 , Expires: 11/24/2022 Start: 09-24-2022 End: 11-24-2022 Comprehensive metabolic 2000 panel - Serum or Plasma COMP METABOLIC PANEL Lab Routine Medicare annual wellness visit, subsequent Expected: 09/24/2022, Expires: 11/24/2022 [facility] Work Phone: Comment on above: Expected: 09/24/2022 , Expires: 11/24/2022 Start: 09-24-2022 End: 11-24-2022 Hemoglobin A1c in Blood HGB A1C Lab Routine Medicare annual wellness visit, subsequent Expected: 09/24/2022, Expires: 11/24/2022 [facility] Work Phone: Comment on above: Expected: 09/24/2022 , Expires: 11/24/2022 Start: 09-24-2022 End: 11-24-2022 LIPID PANEL, NONFASTING LIPID PANEL, NONFASTING Lab Routine Medicare annual wellness visit, subsequent Expected: 09/24/2022, Expires: 11/24/2022 [facility] Work Phone: Comment on above: Expected: 09/24/2022 , Expires: 11/24/2022 Start: 07-17-2022 ANNUAL PCP TEAM RED LEAD BURNER JASIEL DISEASE VISIT ANNUAL PCP TEAM CHRONIC DISEASE VISIT [facility] Start: 05-13-2022 End: 07-13-2022 Hemoglobin A1c in Blood HGB A1C Lab Routine Prediabetes Expected: 05/13/2022, Expires: 07/13/2022 [facility] Work Phone: Comment on above: Expected: 05/13/2022 , Expires: 07/13/2022 Start: 04-26-2022 COVID-19 VACCINE (5 - Moderna series) COVID-19 VACCINE (5 - Moderna series) [facility] Start: 03-16-2022 ADVANCE DIRECTIVE DISCUSSION ADVANCE DIRECTIVE DISCUSSION [facility] Start: 03-16-2022 DEPRESSION ASSESSMENT DEPRESSION ASS ESSMENT [facility] Start: 01-16-2022 Adult depression screening assessment DEPRESSION SCREENING [facility] Start: 01-16-2022 ANNUAL PCP TEAM RED LEAD BURNER JASIEL DISEASE VISIT ANNUAL PCP TEAM CHRONIC DISEASE VISIT [facility] Start: 12-08-2021 Urine microalbumin profile [facility] Start: 11-14-2021 Influenza vaccination INFLUENZA (#1) [facility] Start: 07-17-2021 End: 2021 CBC panel - Blood by Automated count CBC Lab Routine Irregular heartbeat Expected: 07/17/2021, Expires: 2021 [facility] Work Phone: Comment on above: Expected: 07/17/2021 , Expires: 2021 Start: 07-17-2021 End: 2021 Comprehensive metabolic 2000 panel - Serum or Plasma COMP METABOLIC PANEL Lab Routine Irregular heartbeat Expected: 07/17/2021, Expires: 2021 [facility] Work Phone: Comment on above: Expected: 07/17/2021 , Expires: 2021 Start: 07-17-2021 End: 2021 Hemoglobin A1c/Hemoglobin.total in Blood HGB A1C Lab Routine Prediabetes Expected: 07/17/2021, Expires: 2021 [facility] Work Phone: Comment on above: Expected: 07/17/2021 , Expires: 2021 Start: 07-17-2021 End: 2021 LIPID PANEL, NONFASTING LIPID PANEL, NONFASTING Lab Routine Irregular heartbeat Expected: 07/17/2021, Expires: 2021 [facility] Work Phone: Comment on above: Expected: 07/17/2021 , Expires: 2021 Start: 07-17-2021 End: 2021 Magnesium [Mass/volume] in Serum or Plasma MAGNESIUM BLD Lab Routine Irregular heartbeat Expected: 07/17/2021, Expires: 2021 [facility] Work Phone: Comment on above: Expected: 07/17/2021 , Expires: 2021 Start: 07-17-2021 End: 2021 Thyrotropin [Units/volume] in Serum or Plasma TSH BLD Lab Routine Irregular heartbeat Expected: 07/17/2021, Expires: 2021 [facility] Work Phone: Comment on above: Expected: 07/17/2021 , Expires: 2021 Start: 05-11-2021 COVID-19 VACCINE (4 - Booster for Moderna series) COVID-19 VACCINE (4 - Booster for Moderna series) [facility] Start: 03-16-2021 ADVANCE DIRECTIVE DISCUSSION ADVANCE DIRECTIVE DISCUSSION [facility] Start: 03-16-2021 DEPRESSION ASSESSMENT DEPRESSION ASS ESSMENT [facility] Start: 03-05-2021 COVID-19 VACCINE (4 - Booster for Moderna series) COVID-19 VACCINE (4 - Booster for Moderna series) [facility] Start: 12-25-2013 FECAL OCCULT BLOOD FECAL OCCULT BLOO D [facility] Start: 12-25-2013 Screening for malign ant neoplasm of colon Fecal Occult Blood [facility] Start: 03-04-2013 SHINGRIX VACCINE (2 of 3) SHINGRIX VACCINE (2 of 3) [facility] Start: 2012 RSV Vaccine (1 - 1-d ose 60+ series) RSV Vaccine (1 - 1-dose 60+ series) [facility] Start: 12-09-2011 Urine microalbumin profile DTAP,TDAP,TD (1 - Tdap) [facility] Start: 1997 COLOGUARD (FIT-DNA) COLOGUARD (FIT-D NA) [facility] Start: [address] COLONOGRAPHY [facility] Start: 1997 Screening for malign ant neoplasm of colon [facility] Start: 1997 SIGMOIDOSCOPY SIGMOIDOSCOPY [facility] Start: 1970 Anxiety Screening Anxiety Screening [facility] Start: 1970 BP CONTROLLED (<130/80) BP CONTROLLE D (<130/80) [facility] Start: 1970 Depression Screening Depression Scre ening [facility] End: 07-17-2022 ECG COMPLETE ECG COMPLETE ECG Routine Irregular heartbeat 1 Occurrences starting 07/17/2021 until 07/17/2022 [facility] Work Phone: Comment on above: 1 Occurrences starti ng 07/17/2021 until 07/17/2022 [facility] Immunizations Immunization Date Immunization Notes Care Provider Yo syed 01-19-2023 COVID-19 vaccine, ag e 12+ yr, bivalent (MODERNA) Bhupendra Podlogar MASSAGE COORDINATOR.OPERATIONS AND MAINTENANCE TECHNICIAN Work Phone: [facility] Work Phone: 01-19-2023 Seasonal trivalent influenza vaccine, adjuvanted, preservative free Bhupendra Paige MASSAGE COORDINATOR.OPERATIONS AND MAINTENANCE TECHNICIAN Work Phone: [facility] Work Phone: 01-19-2023 influenza virus vaccine, unspecified formulation Dinorah Triana JOHANNA [facility] 12-31-2021 influenza, high dose seasonal, preservative-free Joe Young MD Work Phone: [facility] 12-31-2021 influenza virus vaccine, unspecified formulation Bhupendra Paige MASSAGE COORDINATOR.OPERATIONS AND MAINTENANCE TECHNICIAN Work Phone: [facility] 12-24-2020 influenza, high dose seasonal, preservative-free Amando Whitt MD Work Phone: [facility] 06-05-2020 COVID-19 vaccine, fu ll dose (MODERNA) Amando Whitt MD Work Phone: [facility] 05-08-2020 COVID-19 vaccine, fu ll dose (MODERNA) Amando Whitt MD Work Phone: [facility] 11-28-2019 influenza (HD-IIV4) vaccine, age 65+ yr, high dose, quadrivalent, PF (FLUZONE HIGH-DOSE) Joe Young MD Work Phone: [facility] Work Phone: 11-28-2019 influenza, high dose seasonal, preservative-free Amando Whitt MD Work Phone: [facility] 07-30-2019 pneumococcal polysaccharide vaccine, 23 valent Amando Whitt MD Work Phone: [facility] 12-26-2018 influenza, high dose seasonal, preservative-free Amando Whitt MD Work Phone: [facility] 04-12-2018 pneumococcal conjuga te vaccine, 13 valent Amando Whitt MD Work Phone: [facility] 12-16-2017 influenza, seasonal, injectable, preservative free Joe Young MD Work Phone: [facility] Work Phone: 12-26-2016 influenza, injectabl e, quadrivalent, preservative free Joe Young MD Work Phone: [facility] Work Phone: 12-21-2015 influenza, injectabl e, quadrivalent, preservative free Joe Young MD Work Phone: [facility] Work Phone: 12-21-2015 influenza, seasonal, injectable Amando Whitt MD Work Phone: [facility] 02-05-2015 influenza, injectabl e, quadrivalent, preservative free Joe Young MD Work Phone: [facility] Work Phone: 01-20-2014 influenza, seasonal, injectable Amando Whitt MD Work Phone: [facility] 01-07-2013 zoster vaccine, live Amando may MD Work Phone: [facility] 12-24-2012 influenza virus vaccine, unspecified formulation Amando Whitt MD Work Phone: [facility] 12-09-2011 influenza virus vaccine, unspecified formulation Amando Whitt MD Work Phone: [facility] 12-09-2011 tetanus toxoid, redu hayley diphtheria toxoid, and acellular pertussis vaccine, adsorbed Amando Whitt MD Work Phone: [facility] 01-10-2011 influenza virus vaccine, unspecified formulation Amando Whitt MD Work Phone: [facility] 12-14-2008 influenza virus vaccine, unspecified formulation Amando Whitt MD Work Phone: [facility] Work Phone: Payers Date Payer Category Payer Medicare [id number] 2018 Unknown MMO MMO MEDICARE SUPPLEMENT [id number] 2018-Present [phone] [address] [place] [id number] Indemnity [id number] 2018 Unknown MMO MMO MEDICARE SUPPLEMENT [id number] 2018-Present [phone] [address] [place] [address] Indemnity [id number] 2017 Medicare MEDICARE MEDICAR E A AND B [id number] 2017-Present [phone] [address] [address] [place] [address] Medicare [id number] 2017 Medicare MEDICARE MEDICAR E A AND B [id number] 2017-Present [phone] [address] [address] [place] [address] Medicare [id number] 2017 Medicare [id number] Social History Date Type Detail Facility Start: 10-02-2010 End: 02-05-2022 Tobacco smoking status NHIS Never smoked tobacco [facility] Work Phone: Start: 10-02-2010 End: 02-05-2022 Tobacco use and exposure Smokeless tobacco non-user [facility] Work Phone: Start: 01-16-2021 End: 04-29-2023 Alcohol intake Current drinker of alcohol (finding) [facility] Start: 01-05-2020 End: 02-04-2022 History SDOH Alcohol Frequency 2 [facility] Start: 01-05-2020 End: 02-04-2022 History SDOH Alcohol Std Drinks 1 [facility] Start: 10-02-2010 History SDOH Alcohol Comment rare [facility] Start: 01-05-2020 End: 02-04-2022 History SDOH Social Connections Phone 3 [facility] Start: 01-05-2020 End: 02-04-2022 History SDOH Social Connections Get Together 4 [facility] Start: 01-05-2020 End: 02-04-2022 History SDOH Financial 5 [facility] Start: 01-04-2020 Education 17 [facility] Start: 1950 Sex Assigned At Not on file [facility] Start: 07-07-2021 End: 02-05-2022 Exposure to SARS-CoV-2 (event) Not sure [facility] Start: 02-04-2022 End: 04-28-2023 History of Social function [facility] Start: 02-04-2022 End: 04-28-2023 Social connection and isolation panel [facility] Do you belong to any clubs or organizations such as druze groups, unions, fraternal or athletic groups, or school groups? No [facility] Are you now , , , , never or living with a partner? [facility] How often to you hav e a drink containing alcohol? Monthly or less [facility] How many standard dr inks containing alcohol do you have on a typical day? 1 or 2 [facility] How often do you hav e 6 or more drinks on 1 occasion? Never [facility] How hard is it for y ou to pay for the very basics like food, housing, medical care, and heating Not hard at all [facility] Do you feel stress - tense, restless, nervous, or anxious, or unable to sleep at night because your mind is troubled all the time - these days [OSQ] Not at all [facility] (I/We) worried wheth er (my/our) food would run out before (I/we) got money to buy more. Never true [facility] Start: 01-04-2019 Sexual orientation Heterosexual (finding) [facility] Work Phone: Clinical Notes 05-18-2009 to 12-18-2023 Telephone Encounter - Evi Keith LPN - 12/18/2023 11:24 AM EDTTelephone Encounter - Evi Keith LPN - 12/18/2023 11:24 AM EDTPatient Instructions Note Date & Type Note Facility 12-18-2023 Telephone encounter Note The patient has been identified by name and date of : Yes Caregiver verified no other encounters exist for this prescription request: Yes Caregiver confirmed with patient/requestor that no other refills are due, in the near future, with this provider at this time: Yes The last office visit in the department: Visit 04/29/23 Does the patient have a future office visit with this provider/department: Yes 01/26/24 Requested Prescriptions Pending Prescriptions Disp Refills lisinopril-hydroCHLOROthiazide (ZESTORETIC) 20-12.5 mg per tablet 180 tablet 1 Sig: Take 2 tablets by mouth once daily. For BP Evi Keith LPN December 18, 2023 11:25 AM [facility] 12-18-2023 Miscellaneous Notes The patient has been identified by name and date of : Yes Caregiver verified no other encounters exist for this prescription request: Yes Caregiver confirmed with patient/requestor that no other refills are due, in the near future, with this provider at this time: Yes The last office visit in the department: Visit 04/29/23 Does the patient have a future office visit with this provider/department: Yes 01/26/24 Requested Prescriptions Pending Prescriptions Disp Refills lisinopril-hydroCHLOROthiazide (ZESTORETIC) 20-12.5 mg per tablet 180 tablet 1 Sig: Take 2 tablets by mouth once daily. For BP Evi Keith LPN December 18, 2023 11:25 AM documented in this encounter [facility] 10-09-2023 Telephone encounter Note Prescription Refill Information The patient has been identified by name and date of : Yes Caregiver verified no other encounters exist for this prescription request: Yes Caregiver confirmed with patient/requestor that no other refills are due, in the near future, with this provider at this time: Yes The last office visit in the department: 04/29/2023 Does the patient have a future office visit with this provider/department: Yes Requested Prescriptions Pending Prescriptions Disp Refills metFORMIN (GLUCOPHAGE) 500 mg tablet 60 tablet 2 Sig: Take 1 tablet by mouth two times a day with meals. Marsha Barraza LPN October 09, 2023 8:10 AM [facility] 10-09-2023 Miscellaneous Notes Prescription Refill Information The patient has been identified by name and date of : Yes Caregiver verified no other encounters exist for this prescription request: Yes Caregiver confirmed with patient/requestor that no other refills are due, in the near future, with this provider at this time: Yes The last office visit in the department: 04/29/2023 Does the patient have a future office visit with this provider/department: Yes Requested Prescriptions Pending Prescriptions Disp Refills metFORMIN (GLUCOPHAGE) 500 mg tablet 60 tablet 2 Sig: Take 1 tablet by mouth two times a day with meals. Marsha Barraza LPN October 09, 2023 8:10 AM documented in this encounter [facility] 09-20-2023 Telephone encounter Note Reason for Call: Patient took double dose of metoprolol by mistake. Outcome: Dr. Whitt was notified of triage findings, advised patient take 1 lisinopril today instead of 2 and return to normal dosing tomorrow, 09/21/23. Patient was notified of Dr. Whitt's instructions and verbalized understanding. Reason for Disposition [1] DOUBLE DOSE (an extra dose or lesser amount) of prescription drug AND [2] NO symptoms (Exception: A double dose of antibiotics.) Answer Assessment - Initial Assessment Questions 1. SUBSTANCE: Took 2 metoprolol ER 50 mg instead of 1 at 0900; he confused with lisinopril dose; he held lisinopril dose then. 2. AMOUNT: see above. 3. ONSET: see above 4. SYMPTOMS: none 5. TREATMENT: none 6. SUICIDAL: none Protocols used: [id number] [facility] 09-20-2023 Miscellaneous Notes Reason for Call: Patient took double dose of metoprolol by mistake. Outcome: Dr. Whitt was notified of triage findings, advised patient take 1 lisinopril today instead of 2 and return to normal dosing tomorrow, 09/21/23. Patient was notified of Dr. Whitt's instructions and verbalized understanding. Reason for Disposition [1] DOUBLE DOSE (an extra dose or lesser amount) of prescription drug AND [2] NO symptoms (Exception: A double dose of antibiotics.) Answer Assessment - Initial Assessment Questions 1. SUBSTANCE: Took 2 metoprolol ER 50 mg instead of 1 at 0900; he confused with lisinopril dose; he held lisinopril dose then. 2. AMOUNT: see above. 3. ONSET: see above 4. SYMPTOMS: none 5. TREATMENT: none 6. SUICIDAL: none Protocols used: [id number] documented in this encounter [facility] 07-24-2023 Telephone encounter Note Patient has been identified by name and date of : Yes Patient phones for refill(s): Requested Prescriptions Pending Prescriptions Disp Refills tamsulosin (FLOMAX) 0.4 mg 180 capsule 1 Sig: Take 2 capsules by mouth daily at bedtime. Date of last office visit in primary care: 04/29/2023 Date of next office visit in primary care: 10/28/2023 Please advise. Thank you. Killian Tracey LPN. [facility] 07-24-2023 Miscellaneous Notes Patient has been identified by name and date of : Yes Patient phones for refill(s): Requested Prescriptions Pending Prescriptions Disp Refills tamsulosin (FLOMAX) 0.4 mg 180 capsule 1 Sig: Take 2 capsules by mouth daily at bedtime. Date of last office visit in primary care: 04/29/2023 Date of next office visit in primary care: 10/28/2023 Please advise. Thank you. Killian Tracey LPN. documented in this encounter [facility] 07-23-2023 Telephone encounter Note Patient has been identified by name and date of : Yes Patient mycharts for refill(s): Requested Prescriptions Pending Prescriptions Disp Refills atorvastatin (LIPITOR) 20 mg tablet 90 tablet 1 Sig: Take 1 tablet by mouth daily at bedtime. Date of last office visit in primary care: 04/29/2023 Date of next office visit in primary care: 10/28/2023 Please advise. Thank you. Sheila Burrsi LPN. [facility] 07-23-2023 Miscellaneous Notes Patient has been identified by name and date of : Yes Patient mycharts for refill(s): Requested Prescriptions Pending Prescriptions Disp Refills atorvastatin (LIPITOR) 20 mg tablet 90 tablet 1 Sig: Take 1 tablet by mouth daily at bedtime. Date of last office visit in primary care: 04/29/2023 Date of next office visit in primary care: 10/28/2023 Please advise. Thank you. Sheila Burris LPN. documented in this encounter [facility] 07-13-2023 Telephone encounter Note Patient has been identified by name and date of : Yes, Provider Joe Young MD Date July 13, 2023 Time 9:59 AM Patient phones for refill(s): Requested Prescriptions Pending Prescriptions Disp Refills metoprolol succinate ER (TOPROL XL) 50 mg 24 hr tablet 90 tablet 1 Sig: Take 1 tablet by mouth once daily. Date of last office visit in primary care: 04/29/2023 Date of next office visit in primary care: 10/28/2023 Please advise. Thank you. Rosalie Mariee MA. [facility] 07-13-2023 Miscellaneous Notes Patient has been identified by name and date of : Yes, Provider Joe Young MD Date July 13, 2023 Time 9:59 AM Patient phones for refill(s): Requested Prescriptions Pending Prescriptions Disp Refills metoprolol succinate ER (TOPROL XL) 50 mg 24 hr tablet 90 tablet 1 Sig: Take 1 tablet by mouth once daily. Date of last office visit in primary care: 04/29/2023 Date of next office visit in primary care: 10/28/2023 Please advise. Thank you. Rosalie Mariee MA. documented in this encounter [facility] 07-03-2023 Miscellaneous Notes Patient has been identified by name and date of : Yes Patient phones for refill(s): Requested Prescriptions Pending Prescriptions Disp Refills metFORMIN (GLUCOPHAGE) 500 mg tablet 60 tablet 2 Sig: Take 1 tablet by mouth two times a day with meals. Date of last office visit in primary care: 04/29/2023 Date of next office visit in primary care: 10/28/2023 Please advise. Thank you. Killian Tracey LPN. documented in this encounter [facility] 06-15-2023 Miscellaneous Notes Patient has been identified by name and date of : Yes Patient phones for refill(s): Requested Prescriptions Pending Prescriptions Disp Refills lisinopril-hydroCHLOROthiazide (ZESTORETIC) 20-12.5 mg per tablet 180 tablet 1 Sig: Take 2 tablets by mouth once daily. For BP Date of last office visit in primary care: 04/29/2023 Date of next office visit in primary care: 10/28/2023 Please advise. Thank you. Claudine Santos LPN. documented in this encounter [facility] 05-01-2023 Miscellaneous Notes Pt returned call and given provider's message below with verbalized understanding. TC to patient with no answer. Left VM to return call to office. JOYCE Hayward ----- Message from Bhupendra Paige APRN.OPERATIONS AND MAINTENANCE TECHNICIAN sent at 05/01/2023 6:39 AM EST ----- A1c unchanged from last visit. No need to recheck blood sugar on recent lab as A1c shows he averages 120 over a three month period. Bhupendra Paige APRN.CNP documented in this encounter [facility] 05-01-2023 Miscellaneous Notes See TE dated 05/01/22. JOYCE Hayward See telephone encounter. Bhupendra Paige APRN.OPERATIONS AND MAINTENANCE TECHNICIAN documented in this encounter [facility] 04-29-2023 Note HNO ID: [id number] Author: BHUPENDRA PAIGE APRN.CNP Service: ? Author Type: Nurse Practitioner Type: Progress Notes Filed: 04/29/2023 08:20 Note Text: 04/29/2023 Patient presents with: F/U 6 months SUBJECTIVE: This is a 72 year old that is here today for Above Complaints. Since last office visit has been in good health without ER visits or hospitalizations. BPH: Up 2-3 times a night. Did not follow-up with Dr. Cobos regarding possible TURP. Denies weak stream, straining to urinate, urinary urgency, frequency or hematuria HTN: Patient is compliant with meds Yes Monitors bp at home: Yes. Denies side effects: Yes. Chest pain: No. Dyspnea: No. Edema: No. Palpitations: No. Syncope: No. Headache: No. Dizziness: No. Patient reports BP and heart rate always elevated when comes into office. Takes BP at home daily with averages 130's/80's Prediabetes: taking metformin as prescribed without side effects. Denies visual changes, polyuria or polydipsia HYPERLIPIDEMIA: Patient is taking medications: Yes. Patient is watching diet: Yes. Patient denies myalgias: Yes. Patient denies gi upset: Yes Rides a stationary and recumbent bike. Rides at least 3-4 times a week. Walks a couple of miles a day. Has been going to [employer] twice a week doing light weight lifting Since Thursday has had a little runny nose and nasal congestion. Admits to dry cough. Denies fevers, chills, sore throat, loss of taste/smell, SOB, dyspnea, wheezing, nausea, vomiting or diarrhea PAST MEDICAL HISTORY Diagnosis Date BPH (benign prostatic hyperplasia) Dr. Flores after hip surgery Erectile dysfunction Family history of cardiovascular disease 05/18/2009 Father CABG, approx late 60s History of COVID-19 10/2020 Hypertension OA (osteoarthritis) of hip Prediabetes Premature atrial complexes White coat syndrome with hypertension ALLERGIES Seasonal Allergies MEDICATIONS Current Outpatient Medications Medication Sig metFORMIN (GLUCOPHAGE) 500 mg tablet Take 1 tablet by mouth two times a day with meals. atorvastatin (LIPITOR) 20 mg tablet Take 1 tablet by mouth daily at bedtime. tamsulosin (FLOMAX) 0.4 mg Take 2 capsules by mouth daily at bedtime. metoprolol succinate ER (TOPROL XL) 50 mg 24 hr tablet Take 1 tablet by mouth once daily. lisinopril-hydroCHLOROthiazide (ZESTORETIC) 20-12.5 mg per tablet Take 2 tablets by mouth once daily. For BP Tadalafil (CIALIS) 10 mg tablet Take 1 tablet by mouth as needed. VITAMIN E ACETATE ORAL Take 180 mg by mouth. OTC NUTRITIONAL SUPPLEMENT [facility] Blood Pressure Monitor kit 1 Device once daily. Dx: I10 [employer] (BLOOD PRESSURE CUFF) mis 1 Device once daily. Ustaawnloakmj-Elogrmce-Rwsbbx (CENTRUM SILVER) Tab Take 1 tablet by mouth once daily. No current facility-administered medications for this visit. Medications and allergies reviewed by this provider. SOCIAL HISTORY Social History Tobacco Use Smoking status: Never Smokeless tobacco: Never Substance Use Topics Alcohol use: Yes Comment: rare Drug use: No REVIEW OF SYSTEMS All other reviewed and negative other than HPI. OBJECTIVE: BP 142/72 Pulse 100 Resp 18 Wt 90.7 kg (200 lb) SpO2 97% BMI 28.70 kg/m? . Vital signs reviewed by this provider. APPEARANCE Well appearing, alert, in no acute distress, well-hydrated, well nourished. EYES conjunctiva and sclera normal. EARS External ears normal, canals clear NECK Supple, no adenopathy; thyroid symmetric, normal size, no bruits HEART RRR with normal S1 and S2, no murmurs, no gallops, no JVD appreciated LUNG clear to auscultation. No wheezes, rhonchi or rales EXTREMITIES Extremities normal, No deformities, No skin discoloration, and No edema SKIN Skin color, texture, turgor normal, no suspicious rashes or lesions to exposed skin Component Latest Ref Rng AND Units 10/06/2022 WBC 3.70 - 11.00 k/uL 7.56 RBC 4.20 - 6.00 m/uL 4.83 Hemoglobin 13.0 - 17.0 g/dL 14.3 Hematocrit 39.0 - 51.0 % 43.8 MCV 80.0 - 100.0 fL 90.7 MCH 26.0 - 34.0 pg 29.6 MCHC 30.5 - 36.0 g/dL 32.6 RDW-CV 11.5 - 15.0 % 13.9 Platelet Count 150 - 400 k/uL 261 MPV 9.0 - 12.7 fL 9.5 Neut% % 52.4 Abs Neut (ANC) 1.45 - 7.50 k/uL 3.97 Lymph% % 31.0 Abs Lymph 1.00 - 4.00 k/uL 2.34 Bradley% % 9.0 Abs Bradley <0.87 k/uL 0.68 Eosin% % 6.9 Abs Eosin <0.46 k/uL 0.52 (H) Baso% % 0.3 Abs Baso <0.11 k/uL <0.03 Immature Gran % % 0.4 IMMATURE GRANS (ABS) <0.10 k/uL 0.03 NRBC /100 WBC 0.0 Absolute nRBC <0.01 k/uL <0.01 DTYPE Auto Protein, Total 6.3 - 8.0 g/dL 6.7 Albumin 3.9 - 4.9 g/dL 4.2 Calcium 8.5 - 10.2 mg/dL 9.3 Bilirubin, Total 0.2 - 1.3 mg/dL 0.5 Alkaline Phosphatase 38 - 113 U/L 55 AST 14 - 40 U/L 21 ALT 10 - 54 U/L 20 Glucose 74 - 99 mg/dL 100 (H) BUN 9 - 24 mg/dL 24 Creatinine 0.73 - 1.22 mg/dL 1.04 Sodium 136 - 144 mmol/L 141 Potassium 3.7 - 5.1 mmol/L 4.0 Chloride 97 - 105 mmo (more content not included)... [facility] 04-29-2023 Instructions Bhupendra Paige APRN.CNP - 04/29/2023 8:13 AM EST Make appointment to see Dr. Cobos documented in this encounter [facility] 04-29-2023 History of Presen t illness Narrative 04/29/2023 Patient presents with: F/U 6 months SUBJECTIVE: This is a 72 year old that is here today for Above Complaints. Since last office visit has been in good health without ER visits or hospitalizations. BPH: Up 2-3 times a night. Did not follow-up with Dr. Cobos regarding possible TURP. Denies weak stream, straining to urinate, urinary urgency, frequency or hematuria HTN: Patient is compliant with meds Yes Monitors bp at home: Yes. Denies side effects: Yes. Chest pain: No. Dyspnea: No. Edema: No. Palpitations: No. Syncope: No. Headache: No. Dizziness: No. Patient reports BP and heart rate always elevated when comes into office. Takes BP at home daily with averages 130's/80's Prediabetes: taking metformin as prescribed without side effects. Denies visual changes, polyuria or polydipsia HYPERLIPIDEMIA: Patient is taking medications: Yes. Patient is watching diet: Yes. Patient denies myalgias: Yes. Patient denies gi upset: Yes Rides a stationary and recumbent bike. Rides at least 3-4 times a week. Walks a couple of miles a day. Has been going to [facility] twice a week doing light weight lifting Since Thursday has had a little runny nose and nasal congestion. Admits to dry cough. Denies fevers, chills, sore throat, loss of taste/smell, SOB, dyspnea, wheezing, nausea, vomiting or diarrhea PAST MEDICAL HISTORY Diagnosis Date BPH (benign prostatic hyperplasia) Dr. Flores after hip surgery Erectile dysfunction Family history of cardiovascular disease 05/18/2009 Father CABG, approx late 60s History of COVID-19 10/2020 Hypertension OA (osteoarthritis) of hip Prediabetes Premature atrial complexes White coat syndrome with hypertension ALLERGIES Seasonal Allergies MEDICATIONS Current Outpatient Medications Medication Sig metFORMIN (GLUCOPHAGE) 500 mg tablet Take 1 tablet by mouth two times a day with meals. atorvastatin (LIPITOR) 20 mg tablet Take 1 tablet by mouth daily at bedtime. tamsulosin (FLOMAX) 0.4 mg Take 2 capsules by mouth daily at bedtime. metoprolol succinate ER (TOPROL XL) 50 mg 24 hr tablet Take 1 tablet by mouth once daily. lisinopril-hydroCHLOROthiazide (ZESTORETIC) 20-12.5 mg per tablet Take 2 tablets by mouth once daily. For BP Tadalafil (CIALIS) 10 mg tablet Take 1 tablet by mouth as needed. VITAMIN E ACETATE ORAL Take 180 mg by mouth. OTC NUTRITIONAL SUPPLEMENT [facility] Blood Pressure Monitor kit 1 Device once daily. Dx: I10 [employer] (BLOOD PRESSURE CUFF) misc 1 Device once daily. Vcgpqszjsugxh-Wxgotaxj-Wyupul (CENTRUM SILVER) Tab Take 1 tablet by mouth once daily. No current facility-administered medications for this visit. Medications and allergies reviewed by this provider. SOCIAL HISTORY Social History Tobacco Use Smoking status: Never Smokeless tobacco: Never Substance Use Topics Alcohol use: Yes Comment: rare Drug use: No REVIEW OF SYSTEMS All other reviewed and negative other than HPI. OBJECTIVE: BP 142/72 Pulse 100 Resp 18 Wt 90.7 kg (200 lb) SpO2 97% BMI 28.70 kg/m . Vital signs reviewed by this provider. APPEARANCE Well appearing, alert, in no acute distress, well-hydrated, well nourished. EYES conjunctiva and sclera normal. EARS External ears normal, canals clear NECK Supple, no adenopathy; thyroid symmetric, normal size, no bruits HEART RRR with normal S1 and S2, no murmurs, no gallops, no JVD appreciated LUNG clear to auscultation. No wheezes, rhonchi or rales EXTREMITIES Extremities normal, No deformities, No skin discoloration, and No edema SKIN Skin color, texture, turgor normal, no suspicious rashes or lesions to exposed skin Component Latest Ref Rng & Units 10/06/2022 WBC 3.70 - 11.00 k/uL 7.56 RBC 4.20 - 6.00 m/uL 4.83 Hemoglobin 13.0 - 17.0 g/dL 14.3 Hematocrit 39.0 - 51.0 % 43.8 MCV 80.0 - 100.0 fL 90.7 MCH 26.0 - 34.0 pg 29.6 MCHC 30.5 - 36.0 g/dL 32.6 RDW-CV 11.5 - 15.0 % 13.9 Platelet Count 150 - 400 k/uL 261 MPV 9.0 - 12.7 fL 9.5 Neut% % 52.4 Abs Neut (ANC) 1.45 - 7.50 k/uL 3.97 Lymph% % 31.0 Abs Lymph 1.00 - 4.00 k/uL 2.34 Bradley% % 9.0 Abs Bradley <0.87 k/uL 0.68 Eosin% % 6.9 Abs Eosin <0.46 k/uL 0.52 (H) Baso% % 0.3 Abs Baso <0.11 k/uL <0.03 Immature Gran % % 0.4 IMMATURE GRANS (ABS) <0.10 k/uL 0.03 NRBC /100 WBC 0.0 Absolute nRBC <0.01 k/uL <0.01 DTYPE Auto Protein, Total 6.3 - 8.0 g/dL 6.7 Albumin 3.9 - 4.9 g/dL 4.2 Calcium 8.5 - 10.2 mg/dL 9.3 Bilirubin, Total 0.2 - 1.3 mg/dL 0.5 Alkaline Phosphatase 38 - 113 U/L 55 AST 14 - 40 U/L 21 ALT 10 - 54 U/L 20 Glucose 74 - 99 mg/dL 100 (H) BUN 9 - 24 mg/dL 24 Creatinine 0.73 - 1.22 mg/dL 1.04 Sodium 136 - 144 mmol/L 141 Potassium 3.7 - 5.1 mmol/L 4.0 Chloride 97 - 105 mmol/L 103 CO2 22 - 30 mmol/L 25 Anion Gap 9 - 18 mmol/L 13 eGFR >=60 mL/min/1.73m 77 Total Cholesterol, Nonfasting <200 mg/dL 167 Triglycerides, Nonfasting <150 mg/dL 155 (H) HDL Cholesterol, Nonfasting >39 mg/dL 47 LDL Cholesterol, Nonfasting <100 mg/dL 89 Non HDL Cholesterol, Nonfasting <130 mg/dL 120 VLDL Cholesterol, Nonfasting <30 mg/dL 31 (H) Total Chol/HDL Ratio, Nonfasting <5.10 mg/dL 3.55 LDL/HDL Ratio, Nonfasting <2.54 mg/dL 1.89 Hemoglobin A1C 4.3 - 5.6 % 5.8 (H) Estimated Average Glucose mg/dL 120 BP Controlled (<130/80) Never done DTaP,Tdap,Td Vaccine(2 - Td or Tdap) due on 12/08/2021 Advance Directive Discussion due on 03/16/2023 Depression Assessment due on 03/16/2023 Covid-19 Vaccine( season) due on 03/16/2023 Shingrix Vaccine(2 of 3) due on 09/25/2023 Annual PCP Team Chronic Disease Visit due on 09/25/2023 Colorectal Cancer Screening due on 12/01/2024 Diabetes Screening due on 10/06/2025 Lipid Screening due on 10/07/2027 Influenza Vaccine Completed RSV Vaccine Completed Hepatitis C Screening Completed Pneumococcal Vaccine: 65+ Completed ASSESSMENT/PLAN: 1. Essential hypertension - ICD9: 401.9, ICD10: I10 (primary diagnosis) - Home blood pressure readings controlled - Continue current medications - Recommend home blood pressure monitoring, to bring results to next visit - Encouraged sodium restriction, DASH or Mediterranean diet - Recommend regular aerobic exercise - Follow up in 6 months for hypertension visit - COMP METABOLIC PANEL 2. Prediabetes - ICD9: 790.29, ICD10: R73.03 - continue medication, diet and exercise - HGB A1C 3. Depression screening - ICD9: V79.0, ICD10: Z13.31 - DEPRESSION SCREENING/ASSESSMENT 4. Benign prostatic hyperplasia, unspecified whether lower urinary tract symptoms present - ICD9: 600.00, ICD10: N40.0 - continue Flomax - follow-up with Dr. Cobos regarding elevated PSA 5. Hyperlipidemia, unspecified hyperlipidemia type - ICD9: 272.4, ICD10: E78.5 - Controlled - Continue current medications - Counseled on healthy diet and regular exercise - Follow up in 6 months, sooner should any other issues arise. Bhupendra Paige APRN.OPERATIONS AND MAINTENANCE TECHNICIAN Prescription instructions reviewed with patient as applicable. Patient advised if symptoms do not improve or if symptoms worsen sooner, to contact their primary care physician. Potential red flag symptoms discussed with the patient. Reviewed appropriate action plan to take if red flag symptoms occur. Patient agreeable to treatment plan. 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 Chart was opened in error documented in this encounter [facility] 01-23-2023 Miscellaneous Notes Last office visit: 09/24/22 F/u scheduled: 03/30/23 Rosalie Mariee Ma documented in this encounter [facility] 01-23-2023 Miscellaneous Notes Last office visit: 09/24/22 F/u scheduled: 03/30/23 Rosalie Mariee Ma documented in this encounter [facility] 01-09-2023 Miscellaneous Notes Patient has been identified by name and date of : Yes Requested Prescriptions Pending Prescriptions Disp Refills metoprolol succinate ER (TOPROL XL) 50 mg 24 hr tablet 90 tablet 1 Sig: Take 1 tablet by mouth once daily. CHEY:09/24/22 NOV:03/30/23 RX INSTRUCTIONS: Patient aware RX will be sent to pharmacy. No need to notify patient. Sarah Ellis documented in this encounter [facility] 12-22-2022 Miscellaneous Notes Patient has been identified by name and date of : Yes Patient phones for refill(s): Requested Prescriptions Pending Prescriptions Disp Refills lisinopril-hydroCHLOROthiazide (ZESTORETIC) 20-12.5 mg per tablet 180 tablet 1 Sig: Take 2 tablets by mouth once daily. For BP Date of last office visit in primary care: [facility] 09/24/22 NOV 03/30/23 Last 2 Encounter Wt Readings: Date: Wt: 09/24/2022 90.4 kg (199 lb 6.4 oz) 02/05/2022 92.8 kg (204 lb 9.6 oz) Please advise. Thank you. JOYCE Hayward documented in this encounter [facility] 09-24-2022 Note HNO ID: [id number] Author: Mirian Stokes MA Service: ? Author Type: Environmental Service Aide Type: Progress Notes Filed: 09/24/2022 9:49 AM Note Text: VISUAL ACUITY exam completed today with patient. Corrected: OD 20/30, OS 20/20, OU 20/15. Mirian Stokes MA [facility] 09-24-2022 Note HNO ID: [id number] Author: Joe Young MD Service: ? Author Type: Physician Type: Progress Notes Filed: 09/24/2022 9:49 AM Note Text: Medicare Yearly Visit Medical B eligibilty date 2016 Date of last exam 07/17/2021 Patient here today for medicare wellness exam. Has been in good health without hospitalizations or ER visits. No falls since last OV. BPH: Getting up 2-3 times at night to urinate on the Flomax. Looking into TURP with Dr. Flores's office. Has appointment in October. Denies dysuria, hematuria, weak stream/straining. BP and HR well controlled at home. See [employer] message from yesterday. States he gets very nervous coming to our office and BP and HR are always high. Due for repeat A1C for evaluation of borderline prediabetes. Denies DM symptoms. Working on healthy diet and is taking metformin as prescribed. Weight down 5 lbs since last OV. PAST MEDICAL HISTORY Diagnosis Date BPH (benign prostatic hyperplasia) Dr. Flores after hip surgery Erectile dysfunction Family history of cardiovascular disease 05/18/2009 Father CABG, approx late 60s History of COVID-19 10/2020 Hypertension OA (osteoarthritis) of hip Prediabetes Premature atrial complexes White coat syndrome with hypertension PAST SURGICAL HISTORY Procedure Laterality Date PAST SURGICAL HISTORY OF Right 05/2012 THR PAST SURGICAL HISTORY OF Left 03/2019 total hip replacement ALLERGIES: Seasonal Allergies Medications reviewed: Yes FAMILY HISTORY Problem Relation Age of Onset Heart Mother Smoker, Heart Surgery Valve, ?CABG Alzheimer's Disease Father Heart Father Cancer Father other (Depression) Sister ?bone Cancer other (Anxiety) Brother Heart SOCIAL HISTORY: Social History Tobacco Use Smoking status: Never Smokeless tobacco: Never Substance Use Topics Alcohol use: Yes Comment: rare Drug use: No Eli likes to exercise by walking, riding his bicycle, and golfing. He watches his diet for sodium, low fat and low cholesterol most of the time. List of current specialists seen: Urology: Dr. Flores Optho: Dr. Barros End of Live Planning discussed including patients advanced directive wishes: Yes-forms given for home. FULL CODE. I am willing to follow Eli's advanced directives. PHQ-2 / Depression screen He in the past two weeks denies having felt down, depressed, hopeless, or with little interest or pleasure in doing things Functional Ability/Safety Screen 1. Was the patient's timed Up and Go test unsteady or longer than 30 seconds? No 2. Does the patient need help with the phone, transportation, shopping,preparing meals, housework, laundry, medications or managing money? No 3. Does your home have rugs in the hallway-yes, lack of grab bars in the bathroom-yes, lack of handrails on the stairs or have poor lighting? No Hearing Evaluation: normal finger rub bilaterally PHYSICAL EXAM Pulse 100 Resp 16 Ht 177.8 cm (5' 10 ) Wt 90.4 kg (199 lb 6.4 oz) BMI 28.61 kg/m? Alert and oriented X 3: YES [place] Body mass index is 28.61 kg/m?. Visual acuity: OD: 20/30 OS: 20/ 20 OU: 20/15 General Appearance: Well appearing, alert, in no acute distress, well-hydrated, well nourished.. Lungs: Lungs clear to auscultation. No wheezing, rhonchi, rales.. Heart: RRR without murmur, gallop, or rubs. No ectopy. Component Latest Ref Rng AND Units 02/10/2022 06/21/2022 Protein, Total 6.3 - 8.0 g/dL 7.1 Albumin 3.9 - 4.9 g/dL 4.3 Calcium 8.5 - 10.2 mg/dL 9.9 Bilirubin, Total 0.2 - 1.3 mg/dL 0.9 Alkaline Phosphatase 38 - 113 U/L 61 AST 14 - 40 U/L 29 ALT 10 - 54 U/L 23 Glucose 74 - 99 mg/dL 110 (H) BUN 9 - 24 mg/dL 22 Creatinine 0.73 - 1.22 mg/dL 0.98 Sodium 136 - 144 mmol/L 142 Potassium 3.7 - 5.1 mmol/L 4.1 Chloride 97 - 105 mmol/L 103 CO2 22 - 30 mmol/L 28 Anion Gap 9 - 18 mmol/L 11 eGFR >=60 mL/min/1.73mA? 83 Hemoglobin A1C 4.3 - 5.6 % 6.0 (H) 5.6 Estimated Average Glucose mg/dL 126 114 PSA Screening <2.60 ng/mL 4.61 (H) ASSESSMENT/PLAN: 1. Medicare annual wellness visit, subsequent - ICD9: V70.0, ICD10: Z00.00 (primary diagnosis) 72 year old male The following prevention plan was discussed during the office visit and provided to the patient: - Counseled on healthy diet and regular exercise - Discussed need for and benefit of weight loss. BMI 28.61 kg/(m2) - Fall avoidance - Vaccines recommended COVID-19 and Shingrix at pharmacy - Depression screening - COMP METABOLIC PANEL - LIPID PANEL, NONFASTING - CBC + DIFF - HGB A1C 2. 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 - ICD9: 401.9, ICD10: I10 - Controlled at home - Continue current medications - Recommend home blood pressure monitoring, to bring results to next visit - Encouraged sodium restriction, DASH or Mediterranean diet - Recommend regular aerobic exercise - Follow up in 6 months for hypertension visit 3. Benign prostatic (more content not included)... [facility] 09-24-2022 History of Presen t illness Narrative VISUAL ACUITY exam completed today with patient. Corrected: OD 20/30, OS 20/20, OU 20/15. Mirian Stokes MA Medicare Yearly Visit Medical B eligibilty date 2016 Date of last exam 07/17/2021 Patient here today for medicare wellness exam. Has been in good health without hospitalizations or ER visits. No falls since last OV. BPH: Getting up 2-3 times at night to urinate on the Flomax. Looking into TURP with Dr. Flores's office. Has appointment in October. Denies dysuria, hematuria, weak stream/straining. BP and HR well controlled at home. See [employer] message from yesterday. States he gets very nervous coming to our office and BP and HR are always high. Due for repeat A1C for evaluation of borderline prediabetes. Denies DM symptoms. Working on healthy diet and is taking metformin as prescribed. Weight down 5 lbs since last OV. PAST MEDICAL HISTORY Diagnosis Date BPH (benign prostatic hyperplasia) Dr. Flores after hip surgery Erectile dysfunction Family history of cardiovascular disease 05/18/2009 Father CABG, approx late 60s History of COVID-19 10/2020 Hypertension OA (osteoarthritis) of hip Prediabetes Premature atrial complexes White coat syndrome with hypertension PAST SURGICAL HISTORY Procedure Laterality Date PAST SURGICAL HISTORY OF Right 05/2012 THR PAST SURGICAL HISTORY OF Left 03/2019 total hip replacement ALLERGIES: Seasonal Allergies Medications reviewed: Yes FAMILY HISTORY Problem Relation Age of Onset Heart Mother Smoker, Heart Surgery Valve, ?CABG Alzheimer's Disease Father Heart Father Cancer Father other (Depression) Sister ?bone Cancer other (Anxiety) Brother Heart SOCIAL HISTORY: Social History Tobacco Use Smoking status: Never Smokeless tobacco: Never Substance Use Topics Alcohol use: Yes Comment: rare Drug use: No Eli likes to exercise by walking, riding his bicycle, and golfing. He watches his diet for sodium, low fat and low cholesterol most of the time. List of current specialists seen: Urology: Dr. Flores Optho: Dr. Barros End of Live Planning discussed including patients advanced directive wishes: Yes-forms given for home. FULL CODE. I am willing to follow Eli's advanced directives. PHQ-2 / Depression screen He in the past two weeks denies having felt down, depressed, hopeless, or with little interest or pleasure in doing things Functional Ability/Safety Screen 1. Was the patient's timed Up and Go test unsteady or longer than 30 seconds? No 2. Does the patient need help with the phone, transportation, shopping,preparing meals, housework, laundry, medications or managing money? No 3. Does your home have rugs in the hallway-yes, lack of grab bars in the bathroom-yes, lack of handrails on the stairs or have poor lighting? No Hearing Evaluation: normal finger rub bilaterally PHYSICAL EXAM Pulse 100 Resp 16 Ht 177.8 cm (5' 10 ) Wt 90.4 kg (199 lb 6.4 oz) BMI 28.61 kg/m Alert and oriented X 3: YES [place]/5 Body mass index is 28.61 kg/m . Visual acuity: OD: 20/30 OS: 20/ 20 OU: 20/15 General Appearance: Well appearing, alert, in no acute distress, well-hydrated, well nourished.. Lungs: Lungs clear to auscultation. No wheezing, rhonchi, rales.. Heart: RRR without murmur, gallop, or rubs. No ectopy. Component Latest Ref Rng & Units 02/10/2022 06/21/2022 Protein, Total 6.3 - 8.0 g/dL 7.1 Albumin 3.9 - 4.9 g/dL 4.3 Calcium 8.5 - 10.2 mg/dL 9.9 Bilirubin, Total 0.2 - 1.3 mg/dL 0.9 Alkaline Phosphatase 38 - 113 U/L 61 AST 14 - 40 U/L 29 ALT 10 - 54 U/L 23 Glucose 74 - 99 mg/dL 110 (H) BUN 9 - 24 mg/dL 22 Creatinine 0.73 - 1.22 mg/dL 0.98 Sodium 136 - 144 mmol/L 142 Potassium 3.7 - 5.1 mmol/L 4.1 Chloride 97 - 105 mmol/L 103 CO2 22 - 30 mmol/L 28 Anion Gap 9 - 18 mmol/L 11 eGFR >=60 mL/min/1.73m 83 Hemoglobin A1C 4.3 - 5.6 % 6.0 (H) 5.6 Estimated Average Glucose mg/dL 126 114 PSA Screening <2.60 ng/mL 4.61 (H) ASSESSMENT/PLAN: 1. Medicare annual wellness visit, subsequent - ICD9: V70.0, ICD10: Z00.00 (primary diagnosis) 72 year old male The following prevention plan was discussed during the office visit and provided to the patient: - Counseled on healthy diet and regular exercise - Discussed need for and benefit of weight loss. BMI 28.61 kg/(m^2) - Fall avoidance - Vaccines recommended COVID-19 and Shingrix at pharmacy - Depression screening - COMP METABOLIC PANEL - LIPID PANEL, NONFASTING - CBC + DIFF - HGB A1C 2. 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 - ICD9: 401.9, ICD10: I10 - Controlled at home - Continue current medications - Recommend home blood pressure monitoring, to bring results to next visit - Encouraged sodium restriction, DASH or Mediterranean diet - Recommend regular aerobic exercise - Follow up in 6 months for hypertension visit 3. Benign prostatic hyperplasia, unspecified whether lower urinary tract symptoms present - ICD9: 600.00, ICD10: N40.0 Continues to have nocturia. F/u with urology as scheduled to discuss TURP. Continue flomax as prescribed. Joe Young MD documented in this encounter [facility] 09-22-2022 Miscellaneous Notes Patient has been identified by name and date of : Yes Patient phones for refill(s): Requested Prescriptions Pending Prescriptions Disp Refills Tadalafil (CIALIS) 10 mg tablet 12 tablet 0 Sig: Take 1 tablet by mouth as needed. Date of last office visit in primary care: [facility] 02/05/22 NOV 09/24/22 Last 2 Encounter Wt Readings: Date: Wt: 02/05/2022 92.8 kg (204 lb 9.6 oz) 07/17/2021 94.8 kg (209 lb) Please advise. Thank you. JOYCE Hayward documented in this encounter [facility] 09-11-2022 Miscellaneous Notes Patient has reached out via [employer] to reschedule. Waiting on him to respond on date and time he wants to visit. Patient's BP is in good range on his home cuff. He cancelled his appointment today for medicare wellness and has not rescheduled. Please contact patient regarding rescheduling follow up. Reviewed. Will discuss at OV tomorrow. See pt [employer] message. documented in this encounter [facility] 08-29-2022 Miscellaneous Notes Last office visit: 02/05/22 F/u scheduled: 09/10/22 Rosalie Mariee Ma documented in this encounter [facility] 07-22-2022 Miscellaneous Notes Patient has been identified by name and date of : Yes Patient phones for refill(s): Requested Prescriptions Pending Prescriptions Disp Refills tamsulosin (FLOMAX) 0.4 mg 180 capsule 1 Sig: Take 2 capsules by mouth daily at bedtime. Date of last office visit in primary care: [facility] 02/05/22 Appointment scheduled 08/05/22 Last 2 Encounter Wt Readings: Date: Wt: 02/05/2022 92.8 kg (204 lb 9.6 oz) 07/17/2021 94.8 kg (209 lb) Please advise. Thank you. JOYCE Hayward documented in this encounter [facility] 07-21-2022 Miscellaneous Notes Patient has been identified by name and date of : Yes Requested Prescriptions Pending Prescriptions Disp Refills metoprolol succinate ER (TOPROL XL) 50 mg 24 hr tablet 90 tablet 1 Sig: Take 1 tablet by mouth once daily. RX INSTRUCTIONS: Patient aware RX will be sent to pharmacy. No need to notify patient. Patient last office visit: 02/05/22 Patient next office visit: 08/05/22 Mirian Stokes MA documented in this encounter [facility] 06-30-2022 Miscellaneous Notes [facility] 02/05/22 NOV 08/05/22 Mirian Stokes MA Pt is out of medication Patient has been identified by name and date of : Yes Last office visit in this department: 02/05/2022 RX INSTRUCTIONS: Patient aware RX will be sent to pharmacy. No need to notify patient. Patient phones requesting refills as follows: Requested Prescriptions Pending Prescriptions Disp Refills lisinopril-hydroCHLOROthiazide (ZESTORETIC) 20-12.5 mg per tablet 180 tablet 1 Sig: Take 2 tablets by mouth once daily. For BP Please review and advise. Amanda Briggs documented in this encounter [facility] 05-27-2022 Miscellaneous Notes Referral, labs, and OV note faxed to Dr. Flores at [phone]. Mirian Stokes MA Referral order placed. Can you place new order that I've pended. Your last one was in 01/2022.Please review and file, once complete fax to Dr. Flores's office. Karli Remy Ma documented in this encounter [facility] 05-26-2022 Miscellaneous Notes Looks like A1c order is still active. Would have him come in this week for labs. documented in this encounter [facility] 05-23-2022 Miscellaneous Notes Patient phones requesting refills as follows: Requested Prescriptions Pending Prescriptions Disp Refills metFORMIN (GLUCOPHAGE) 500 mg tablet 60 tablet 2 Sig: Take 1 tablet by mouth twice daily with meals. [facility] 02/05/22 NOV 08/05/22 Please review and advise. Sheila Burris LPN documented in this encounter [facility] 02-12-2022 Miscellaneous Notes Patient notified of results and provider's instructions. Patient verbalizes understanding. Jacquelin Morley RN Sent [employer] message to pt to call office and speak with FM Triage Nurse regarding results. Karli Remy Ma TC to patient with no answer. Left message to return call to office to receive results. RAINER Hayward A1c remains in prediabetic range. Up from 5.9 to 6. Recommend addition of metformin 500 mg BID to regimen to help lower his sugar levels. Continue to work on low carb diet and exercise as tolerated. Recheck A1c in 3 months. Most common side effect: diarrhea. PSA elevated above 4 which can be indicative of prostate cancer. Recommend f/u with urology for further evaluation. documented in this encounter [facility] 01-20-2022 Miscellaneous Notes Patient phones requesting refills as follows: Requested Prescriptions Pending Prescriptions Disp Refills metoprolol succinate ER (TOPROL XL) 50 mg 24 hr tablet 30 tablet 5 Sig: Take 1 tablet by mouth once daily. CHEY-07/17/21 Labs-07/18/21Jan-02/05/22 med filled 09/25/21 Please review and advise. Nan Mackey LPN documented in this encounter [facility] 01-20-2022 Miscellaneous Notes Patient phones requesting refills as follows: Requested Prescriptions Pending Prescriptions Disp Refills atorvastatin (LIPITOR) 20 mg tablet 90 tablet 1 Sig: Take 1 tablet by mouth daily at bedtime. CHEY-07/17/21 Labs-07/18/21Jan-02/05/22 med filled 07/17/21 Please review and advise. Nan Mackey LPN documented in this encounter [facility] 09-25-2021 Miscellaneous Notes Addended by: BHUPENDRA PAIGE on: 09/25/2021 04:46 PM Modules accepted: Orders documented in this encounter [facility] 07-22-2021 Miscellaneous Notes Patient active [employer]. Patient notified via [employer] message. Susan Vaz MA Phoned patient and VM left as instructed by patient with his results and recommendations. Advised to call with any questions. ----- Message from Joe Young MD sent at 07/19/2021 8:08 AM EDT ----- A1C remains in prediabetic range. Continue to work on low carb diet, exercise, weight loss. Other labs normal. documented in this encounter [facility] 07-17-2021 History of Presen t illness Narrative Medicare Yearly Visit Medical B eligibilty date 2016 Patient here today for medicare wellness exam. Has been in good health without hospitalizations or ER visits. No falls since last OV. BPH: Getting up 2-3 times at night to urinate on the Flomax. Looking into TURP with Dr. Flores's office. Denies dysuria, hematuria, weak stream/straining. BP elevated on initial check. Has white coat HTN and BP is much better on home checks. Due for repeat A1C for evaluation of borderline prediabetes. Denies DM symptoms. Working on healthy diet. PAST MEDICAL HISTORY Diagnosis Date BPH (benign prostatic hyperplasia) Dr. Flores after hip surgery Erectile dysfunction Family history of cardiovascular disease 05/18/2009 Father CABG, approx late 60s History of COVID-19 10/2020 Hypertension OA (osteoarthritis) of hip Prediabetes PAST SURGICAL HISTORY Procedure Laterality Date PAST SURGICAL HISTORY OF Right 05/2012 THR PAST SURGICAL HISTORY OF Left 03/2019 total hip replacement ALLERGIES: Patient has no known allergies. Medications reviewed: Yes FAMILY HISTORY Problem Relation Age of Onset Heart Mother Smoker, Heart Surgery Valve, ?CABG Alzheimer's Disease Father Heart Father Cancer Father other (Depression) Sister ?bone Cancer other (Anxiety) Brother Heart SOCIAL HISTORY: Social History Tobacco Use Smoking status: Never Smoker Smokeless tobacco: Never Used Substance Use Topics Alcohol use: Yes Comment: rare Drug use: No Eli likes to exercise by walking and stationary bicycling 10 miles per week. He watches his diet for sodium, low fat and low cholesterol most of the time. List of current specialists seen: Urology: Dr. Flores Orthopedics: Dr. Aldana End of Live Planning discussed including patients advanced directive wishes: Yes. Does not have living will and DPOA. Would like forms today. FULL CODE. I am willing to follow Eli's advanced directives. PHQ-2 / Depression screen He in the past two weeks denies having felt down, depressed, hopeless or with little interest or pleasure in doing things. Functional Ability/Safety Screen 1. Was the patient's timed Up and Go test unsteady or longer than 30 seconds? No 2. Does the patient need help with the phone, transportation, shopping,preparing meals, housework, laundry, medications or managing money? No 3. Does your home have rugs in the hallway-Yes in kitchen, lack of grab bars in the bathroom-Yes, lack of handrails on the stairs-No or have poor lighting? No Hearing Evaluation: normal PHYSICAL EXAM BP (P) 162/90 Pulse (P) 88 Resp 14 Ht 176.5 cm (5' 9.5 ) Wt 94.8 kg (209 lb) BMI 30.42 kg/m Alert and oriented X 3: YES Body mass index is 30.42 kg/m . Visual acuity: OD: 20/20 OS: 20/ 15 OU: 20/13 General Appearance: Well appearing, alert, in no acute distress, well-hydrated, well nourished.. Skin: Skin color, texture, turgor normal, no suspicious rashes or lesions. Lungs: Lungs clear to auscultation. No wheezing, rhonchi, rales.. Heart: Negative findings: no murmurs, clicks, or gallops, Positive findings: tachycardia, irregular rhythm. Extremities: No deformities, edema, skin discoloration, clubbing or cyanosis. Good capillary refill. . Component Latest Ref Rng & Units 01/19/2021 Protein, Total 6.3 - 8.0 g/dL 7.1 Albumin 3.9 - 4.9 g/dL 4.4 Calcium 8.5 - 10.2 mg/dL 9.6 Bilirubin, Total 0.2 - 1.3 mg/dL 0.5 Alkaline Phosphatase 38 - 113 U/L 62 AST 14 - 40 U/L 24 Glucose 74 - 99 mg/dL 109 (H) BUN 9 - 24 mg/dL 22 Creatinine 0.73 - 1.22 mg/dL 0.92 Sodium 136 - 144 mmol/L 141 Potassium 3.7 - 5.1 mmol/L 4.4 Chloride 97 - 105 mmol/L 103 CO2 22 - 30 mmol/L 28 Anion Gap 9 - 18 mmol/L 10 ALT 10 - 54 U/L 26 eGFR- >60 eGFR-All Other Races . >60 Hemoglobin A1C 4.3 - 5.6 % 5.7 (H) Estimated Average Glucose mg/dL 117 EKG: Sinus tachycardia @114 bpm with PACs, nonspecific ST abnormality, Abnormal EKG. (Similar in comparison to EKG obtained 2019, PACs are new) ASSESSMENT/PLAN: 70 year old male The following prevention plan was discussed during the office visit and provided to the patient: 1. Medicare annual wellness visit, subsequent - ICD9: V70.0, ICD10: Z00.00 (primary diagnosis) - Fall avoidance - Glaucoma screening - Lipid panel 2. Irregular heartbeat - ICD9: 427.9, ICD10: I49.9 PACs noted on EKG with tachycardia. Patient states that he is nervous coming in today and HR at home is usually in the 70-80 range when he checks BP. Discussed benign etiology. Obtain labs as ordered. Red flags for re-assessment reviewed with patient in detail. - ECG COMPLETE - CBC - COMP METABOLIC PANEL - TSH BLD - MAGNESIUM BLD - LIPID PANEL, NONFASTING 3. Prediabetes - ICD9: 790.29, ICD10: R73.03 Recheck a1C. Work on low carb diet. - HGB A1C 4. Tachycardia - ICD9: 785.0, ICD10: R00.0 See above. 5. Primary hypertension - ICD9: 401.9, ICD10: I10 - good control on home readings - Continue current medication(s) - Encouraged dietary sodium restriction/DASH diet - Recommended regular aerobic exercise. - Reviewed risks of HTN and principles of treatment - Goal of BP <140/90 6. 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 - ICD9: 401.9, ICD10: I10 Joe Young MD documented in this encounter [facility] 06-25-2021 Miscellaneous Notes Patient has been identified by name and date of : Yes Patient phones for refill(s): Pending Prescriptions Disp Refills LISINOPRIL 20 MG-HYDROCHLOROTHIAZIDE 12.5 MG TABLET 180 tablet 1 Sig: Take 2 tablets by mouth once daily. For BP MIGUEL: No Date of last office visit in primary care: 01/16/21 next apt 07/17/21 Last 2 Encounter Wt Readings: Date: Wt: 01/16/2021 94.8 kg (209 lb) 11/13/2020 94.3 kg (208 lb) Previous labs/tests for medication: Blood Pressure: BUN (mg/dL) Date Value 01/19/2021 22 Sodium (mmol/L) Date Value 01/19/2021 141 Last 1 Encounter BP Readings: Date: BP: 01/16/2021 138/86 Please advise. Thank you. Evi Keith LPN documented in this encounter [facility] 05-18-2009 History of Past i llness Narrative Problem Noted Date Resolved Date 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/2009 01/13/20 11 documented as of this encounter (statuses as of 06/25/2021) [facility] History of Past illness Narrative* Problem Noted Date Resolved Date 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/2009 01/13/20 11 documented as of this encounter (statuses as of 07/17/2021) [facility] History of Past illness Narrative* Problem Noted Date Resolved Date 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/2009 01/13/20 11 documented as of this encounter (statuses as of 07/22/2021) [facility] History of Past illness Narrative* Problem Noted Date Resolved Date 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/2009 01/13/20 11 documented as of this encounter (statuses as of 09/25/2021) [facility] History of Past illness Narrative* Problem Noted Date Resolved Date 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/2009 01/13/20 11 documented as of this encounter (statuses as of 01/01/2022) [address] History of Past illness Narrative* Problem Noted Date Resolved Date 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/2009 01/13/20 11 documented as of this encounter (statuses as of 01/20/2022) [address] History of Past illness Narrative* Problem Noted Date Resolved Date 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/2009 01/13/20 11 documented as of this encounter (statuses as of 01/20/2022) [place] [address]05-2010 History of Past illness Narrative* Problem Noted Date Resolved Date 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/2009 01/13/20 11 documented as of this encounter (statuses as of 02/12/2022) [place] [address] History of Past illness Narrative* Problem Noted Date Resolved Date 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/2009 01/13/20 11 documented as of this encounter (statuses as of 05/23/2022) [facility] History of Past illness Narrative* Problem Noted Date Resolved Date 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/2009 01/13/20 11 documented as of this encounter (statuses as of 05/27/2022) [facility] History of Past illness Narrative* Problem Noted Date Resolved Date 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/2009 01/13/20 11 documented as of this encounter (statuses as of 05/29/2022) [facility] History of Past illness Narrative* Problem Noted Date Resolved Date 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/2009 01/13/20 11 documented as of this encounter (statuses as of 06/30/2022) [place] [address] History of Past illness Narrative* Problem Noted Date Resolved Date 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/2009 01/13/20 11 documented as of this encounter (statuses as of 07/21/2022) [address] History of Past illness Narrative* Problem Noted Date Resolved Date 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/2009 01/13/20 11 documented as of this encounter (statuses as of 07/22/2022) [address] History of Past illness Narrative* Problem Noted Date Resolved Date 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/2009 01/13/20 11 documented as of this encounter (statuses as of 08/30/2022) [address] History of Past illness Narrative* Problem Noted Date Resolved Date 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/2009 01/13/20 11 documented as of this encounter (statuses as of 09/11/2022) [address] History of Past illness Narrative* Problem Noted Date Diagnosed Date Resolved Date 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/200912/16 documented as of this encounter (statuses as of 09/22/2022) [place] [address]2010 History of Past illness Narrative* Problem Noted Date Diagnosed Date Resolved Date 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/200912/16 documented as of this encounter (statuses as of 09/24/2022) [address] History of Past illness Narrative* Problem Noted Date Diagnosed Date Resolved Date 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/200912/16 documented as of this encounter (statuses as of 12/23/2022) [place] [address] History of Past illness Narrative* Problem Noted Date Diagnosed Date Resolved Date 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/200912/16 documented as of this encounter (statuses as of 01/09/2023) [address] History of Past illness Narrative* Problem Noted Date Diagnosed Date Resolved Date 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/200912/16 documented as of this encounter (statuses as of 01/09/2023) [address] History of Past illness Narrative* Problem Noted Date Diagnosed Date Resolved Date 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/200912/16 documented as of this encounter (statuses as of 01/23/2023) [address] History of Past illness Narrative* Problem Noted Date Diagnosed Date Resolved Date 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/200912/16 documented as of this encounter (statuses as of 02/03/2023) [facility] History of Past illness Narrative* Problem Noted Date Diagnosed Date Resolved Date 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/200912/16 documented as of this encounter (statuses as of 04/29/2023) [facility] History of Past illness Narrative* Problem Noted Date Diagnosed Date Resolved Date 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/200912/16 documented as of this encounter (statuses as of 05/01/2023) [facility] History of Past illness Narrative* Problem Noted Date Diagnosed Date Resolved Date 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/200912/16 documented as of this encounter (statuses as of 05/01/2023) [facility] History of Past illness Narrative* Problem Noted Date Diagnosed Date Resolved Date 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/200912/16 documented as of this encounter (statuses as of 06/16/2023) [facility] History of Past illness Narrative* Problem Noted Date Diagnosed Date Resolved Date 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/200912/16 documented as of this encounter (statuses as of 07/03/2023) [facility] Diagnosis Essential hypertension Unspecified essential hypertension [facility] Diagnosis Medicare annual wellness visit, subsequent- Primary Routine general medical examination at a health care facility Irregular heartbeat Cardiac dysrhythmia, unspecified Prediabetes Other abnormal glucose Tachycardia Tachycardia, unspecified Primary hypertension Unspecified essential hypertension 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 [facility] Diagnosis Essential hypertension Unspecified essential hypertension [facility] Diagnosis Essential hypertension Unspecified essential hypertension [facility] Diagnosis Elevated PSA- Primary Elevated prostate specific antigen (PSA) Prediabetes Other abnormal glucose [facility] Diagnosis Elevated PSA- Primary Elevated prostate specific antigen (PSA) [facility] Diagnosis Essential hypertension Unspecified essential hypertension [facility] Diagnosis Medicare annual wellness visit, subsequent- Primary Routine general medical examination at a health care facility 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 Benign prostatic hyperplasia, unspecified whether lower urinary tract symptoms present documented in this encounter [facility]* Diagnosis Essential hypertension Unspecified essential hypertension documented in this encounter [facility] note* Diagnosis Essential hypertension- Primary Unspecified essential hypertension Prediabetes Other abnormal glucose Depression screening Screening for depression Benign prostatic hyperplasia, unspecified whether lower urinary tract symptoms present Hyperlipidemia, unspecified hyperlipidemia type documented in this encounter [facility] note* Diagnosis Essential hypertension Unspecified essential hypertension documented in this encounter [facility] note* Diagnosis Essential hypertension Unspecified essential hypertension [facility] Outpatient Procedure (Routine) - Authorized Specialty Diagnoses / Procedures Referred By Carleen seymour Referred To Contact [facility] Diagnoses Irregular heartbeat Procedures ECG COMPLETE ECG ROUTINE ECG W/LEAST 12 LDS W/I&R Joe Young MD [address] [place] [address] [facility] [place] [address] [place] [address] Referral ID Status Reason Start Date Expiration Date Visits Requested Visits Authorized [id number] Authorized Auto-Generat ed Referral 07/17/2021 07/17/2022 1 1 [facility] Reason for Referral Specialty Diagnoses / Procedures Referred By Carleen seymour Referred To Contact Urology Diagnoses Elevated PSA Procedures CONSULT TO UROLOGY OFFICE/OUTPATIENT NEW HIGH MDM 60-74 MINUTES Joe Young MD [address] [place] [address] Referral ID Status Reason Start Date Expiration Date Visits Requested Visits Authorized [id number] Authorized PCP Requested Referral 02/11/2023 1 1 Referral ID Status Reason Start Date Expiration Date Visits Requested Visits Authorized [id number] Authorized PCP Requested Referral 05/27/2022 05/26/2023 1 1 Summary Purpose Family History No Family History Records Found Advance Directives No Advanced Directives Records Found Additional Source Comments Source Comments (unrecognize d section and content) In the event this informatio n is protected by the Federal Confidentiality of Alcohol and Drug Abuse Patient Records regulations: The Federal rules restrict any use of the information to criminally investigate or prosecute any alcohol or drug abuse patient.[facility] the event this information is protected by the Federal Confidentiality of Alcohol and Drug Abuse Patient Records regulations: The Federal rules restrict any use of the information to criminally investigate or prosecute any alcohol or drug abuse patient.[facility] the event this information is protected by the Federal Confidentiality of Alcohol and Drug Abuse Patient Records regulations: The Federal rules restrict any use of the information to criminally investigate or prosecute any alcohol or drug abuse patient.[facility] the event this information is protected by the Federal Confidentiality of Alcohol and Drug Abuse Patient Records regulations: The Federal rules restrict any use of the information to criminally investigate or prosecute any alcohol or drug abuse patient.[facility] the event this information is protected by the Federal Confidentiality of Alcohol and Drug Abuse Patient Records regulations: The Federal rules restrict any use of the information to criminally investigate or prosecute any alcohol or drug abuse patient.[facility] the event this information is protected by the Federal Confidentiality of Alcohol and Drug Abuse Patient Records regulations: The Federal rules restrict any use of the information to criminally investigate or prosecute any alcohol or drug abuse patient.[facility] the event this information is protected by the Federal Confidentiality of Alcohol and Drug Abuse Patient Records regulations: The Federal rules restrict any use of the information to criminally investigate or prosecute any alcohol or drug abuse patient.[facility] the event this information is protected by the Federal Confidentiality of Alcohol and Drug Abuse Patient Records regulations: The Federal rules restrict any use of the information to criminally investigate or prosecute any alcohol or drug abuse patient.[facility] the event this information is protected by the Federal Confidentiality of Alcohol and Drug Abuse Patient Records regulations: The Federal rules restrict any use of the information to criminally investigate or prosecute any alcohol or drug abuse patient.[facility]In the event this information is protected by the Federal Confidentiality of Alcohol and Drug Abuse Patient Records regulations: The Federal rules restrict any use of the information to criminally investigate or prosecute any alcohol or drug abuse patient.[facility]In the event this information is protected by the Federal Confidentiality of Alcohol and Drug Abuse Patient Records regulations: The Federal rules restrict any use of the information to criminally investigate or prosecute any alcohol or drug abuse patient.[facility]In the event this information is protected by the Federal Confidentiality of Alcohol and Drug Abuse Patient Records regulations: The Federal rules restrict any use of the information to criminally investigate or prosecute any alcohol or drug abuse patient.[facility]In the event this information is protected by the Federal Confidentiality of Alcohol and Drug Abuse Patient Records regulations: The Federal rules restrict any use of the information to criminally investigate or prosecute any alcohol or drug abuse patient.[facility]In the event this information is protected by the Federal Confidentiality of Alcohol and Drug Abuse Patient Records regulations: The Federal rules restrict any use of the information to criminally investigate or prosecute any alcohol or drug abuse patient.[facility]In the event this information is protected by the Federal Confidentiality of Alcohol and Drug Abuse Patient Records regulations: The Federal rules restrict any use of the information to criminally investigate or prosecute any alcohol or drug abuse patient.[facility]In the event this information is protected by the Federal Confidentiality of Alcohol and Drug Abuse Patient Records regulations: The Federal rules restrict any use of the information to criminally investigate or prosecute any alcohol or drug abuse patient.[facility]In the event this information is protected by the Federal Confidentiality of Alcohol and Drug Abuse Patient Records regulations: The Federal rules restrict any use of the information to criminally investigate or prosecute any alcohol or drug abuse patient.[facility] HospitalIn the event this information is protected by the Federal Confidentiality of Alcohol and Drug Abuse Patient Records regulations: The Federal rules restrict any use of the information to criminally investigate or prosecute any alcohol or drug abuse patient.[facility] HospitalIn the event this information is protected by the Federal Confidentiality of Alcohol and Drug Abuse Patient Records regulations: The Federal rules restrict any use of the information to criminally investigate or prosecute any alcohol or drug abuse patient.[facility] HospitalIn the event this information is protected by the Federal Confidentiality of Alcohol and Drug Abuse Patient Records regulations: The Federal rules restrict any use of the information to criminally investigate or prosecute any alcohol or drug abuse patient.[facility] HospitalIn the event this information is protected by the Federal Confidentiality of Alcohol and Drug Abuse Patient Records regulations: The Federal rules restrict any use of the information to criminally investigate or prosecute any alcohol or drug abuse patient.[facility] HospitalIn the event this information is protected by the Federal Confidentiality of Alcohol and Drug Abuse Patient Records regulations: The Federal rules restrict any use of the information to criminally investigate or prosecute any alcohol or drug abuse patient.[facility]In the event this information is protected by the Federal Confidentiality of Alcohol and Drug Abuse Patient Records regulations: The Federal rules restrict any use of the information to criminally investigate or prosecute any alcohol or drug abuse patient.[facility]In the event this information is protected by the Federal Confidentiality of Alcohol and Drug Abuse Patient Records regulations: The Federal rules restrict any use of the information to criminally investigate or prosecute any alcohol or drug abuse patient.[facility] the event this information is protected by the Federal Confidentiality of Alcohol and Drug Abuse Patient Records regulations: The Federal rules restrict any use of the information to criminally investigate or prosecute any alcohol or drug abuse patient.[facility] HospitalIn the event this information is protected by the Federal Confidentiality of Alcohol and Drug Abuse Patient Records regulations: The Federal rules restrict any use of the information to criminally investigate or prosecute any alcohol or drug abuse patient.[facility] HospitalIn the event this information is protected by the Federal Confidentiality of Alcohol and Drug Abuse Patient Records regulations: The Federal rules restrict any use of the information to criminally investigate or prosecute any alcohol or drug abuse patient.[facility] HospitalIn the event this information is protected by the Federal Confidentiality of Alcohol and Drug Abuse Patient Records regulations: The Federal rules restrict any use of the information to criminally investigate or prosecute any alcohol or drug abuse patient.[facility] HospitalIn the event this information is protected by the Federal Confidentiality of Alcohol and Drug Abuse Patient Records regulations: The Federal rules restrict any use of the information to criminally investigate or prosecute any alcohol or drug abuse patient.[facility] HospitalIn the event this information is protected by the Federal Confidentiality of Alcohol and Drug Abuse Patient Records regulations: The Federal rules restrict any use of the information to criminally investigate or prosecute any alcohol or drug abuse patient.[facility] HospitalIn the event this information is protected by the Federal Confidentiality of Alcohol and Drug Abuse Patient Records regulations: The Federal rules restrict any use of the information to criminally investigate or prosecute any alcohol or drug abuse patient.[facility] HospitalIn the event this information is protected by the Federal Confidentiality of Alcohol and Drug Abuse Patient Records regulations: The Federal rules restrict any use of the information to criminally investigate or prosecute any alcohol or drug abuse patient.[facility] HospitalIn the event this information is protected by the Federal Confidentiality of Alcohol and Drug Abuse Patient Records regulations: The Federal rules restrict any use of the information to criminally investigate or prosecute any alcohol or drug abuse patient.[facility] HospitalIn the event this information is protected by the Federal Confidentiality of Alcohol and Drug Abuse Patient Records regulations: The Federal rules restrict any use of the information to criminally investigate or prosecute any alcohol or drug abuse patient.[facility] HospitalIn the event this information is protected by the Federal Confidentiality of Alcohol and Drug Abuse Patient Records regulations: The Federal rules restrict any use of the information to criminally investigate or prosecute any alcohol or drug abuse patient.[facility] HospitalIn the event this information is protected by the Federal Confidentiality of Alcohol and Drug Abuse Patient Records regulations: The Federal rules restrict any use of the information to criminally investigate or prosecute any alcohol or drug abuse patient.[facility] Reason for Visit (unrecogniz ed section and content) Reason Onset Date Comments Refill Request 06/24/2021 Reason Comments Medicare Wellness Exam Reason Comments Results Reason Onset Date Comments Refill Request 12/31/2021 Reason Onset Date Comments Refill Request 01/17/2022 Reason Comments Results Reason Onset Date Comments Refill Request 05/23/2022 Reason Comments Refill Request Reason Onset Date Comments Refill Request 07/20/2022 Reason Onset Date Comments Refill Request 07/21/2022 Reason Onset Date Comments Refill Request 08/29/2022 Reason Onset Date Comments Refill Request 09/20/2022 Reason Comments Medicare Wellness Exam Reason Onset Date Comments Refill Request 12/21/2022 Reason Onset Date Comments Refill Request 01/08/2023 Reason Onset Date Comments Refill Request 01/22/2023 Reason Comments Question Reason Comments F/U 6 months Reason Onset Date Comments Refill Request 06/15/2023 Reason Onset Date Comments Refill Request 07/02/2023 Reason Onset Date Comments Refill Request 07/12/2023 Reason Onset Date Comments Refill Request 07/22/2023 Reason Onset Date Comments Refill Request 07/23/2023 Reason Comments Overdose Reason Onset Date Comments Refill Request 10/08/2023 Reason Onset Date Comments Refill Request 12/18/2023 Care Teams (unrecognized sec tion and content) Reading Assistant Relationship Specialty Start Date End Date Joe Young MD [address] [place] [address] PCP - General Family Practice 11/11/16 Reading Assistant Relationship Specialty Start Date End Date Joe Young MD [address] [facility] [place] [address] PCP - General Family Practice 11/11/16 Reading Assistant Relationship Specialty Start Date End Date Joe Young MD [address] [facility] [place] [address] PCP - General Family Practice 11/11/16 Reading Assistant Relationship Specialty Start Date End Date Joe Young MD [address] [facility] [place] [address] PCP - General Family Practice 11/11/16 Reading Assistant Relationship Specialty Start Date End Date Joe Young MD [address] [facility] [place] [address] PCP - General Family Medicine 11/11/16 Reading Assistant Relationship Specialty Start Date End Date Joe Young MD [address] [facility] [place] [address] PCP - General Family Medicine 11/11/16 Reading Assistant Relationship Specialty Start Date End Date Joe Young MD [address] [facility] [place] [address] PCP - General Family Medicine 11/11/16 Reading Assistant Relationship Specialty Start Date End Date Joe Young MD [address] [facility] [place] [address] PCP - General Family Medicine 11/11/16 Reading Assistant Relationship Specialty Start Date End Date Joe Young MD [address] [facility] [place] [address] PCP - General Family Medicine 11/11/16 Reading Assistant Relationship Specialty Start Date End Date Joe Young MD [address] [facility] [place] [address] PCP - General Family Medicine 11/11/16 Reading Assistant Relationship Specialty Start Date End Date Joe Young MD [address] [place] [address] PCP - General Family Medicine 11/11/16 Reading Assistant Relationship Specialty Start Date End Date Joe Yonug MD [address] [place] [address] PCP - General Family Medicine 11/11/16 Reading Assistant Relationship Specialty Start Date End Date Joe Young MD [address] [place] [address] PCP - General Family Medicine 11/11/16 Reading Assistant Relationship Specialty Start Date End Date Joe Young MD [address] [place] [address] PCP - General Family Medicine 11/11/16 Reading Assistant Relationship Specialty Start Date End Date Joe Young MD [address] [place] [address] PCP - General Family Medicine 11/11/16 Reading Assistant Relationship Specialty Start Date End Date Joe Young MD [address] [place] [address] PCP - General Family Medicine 11/11/16 Reading Assistant Relationship Specialty Start Date End Date Joe Young MD [address] [place] [address] PCP - General Family Medicine 11/11/16 Reading Assistant Relationship Specialty Start Date End Date Joe Young MD [address] [place] [address] PCP - General Family [facility] 11/11/16 Reading Assistant Relationship Specialty Start Date End Date Joe Young MD [address] [place] [address] PCP - General Family [facility] 11/11/16 Reading Assistant Relationship Specialty Start Date End Date Joe Young MD [address] [facility] [place] [address] PCP - [facility] 11/11/16 Reading Assistant Relationship Specialty Start Date End Date Joe Young MD [address] [facility] [place] [address] PCP - [facility] 11/11/16 Reading Assistant Relationship Specialty Start Date End Date Joe Young MD [address] [facility] [place] [address] PCP - [facility] 11/11/16 Reading Assistant Relationship Specialty Start Date End Date Joe Young MD [address] [place] [address] PCP - General [facility] 11/11/16 (unrecognized sect ion and content) No Status Records Found INFORMATION SOURCE (unrecogn ized section and content) DATE CREATED AUTHOR 05/03/2023 [facility] FOR RECORDS PERTAINING TO PATIENTS WHO ARE OR HAVE BEEN ENROLLED IN A CHEMICAL DEPENDENCY/SUBSTANCEABUSE PROGRAM, SOME INFORMATION MAY BE OMITTED. This clinical summary was aggregated from multiple sources. Caution should be exercised in using it in the provision of clinical care. This summary normalizes information from multiple sources, and as a consequence, information in this document may materially change the coding, format and clinical context of patient data. In addition, data may be omitted in some cases. CLINICAL DECISIONS SHOULD BE BASED ON THE PRIMARY CLINICAL RECORDS. [facility] provides no warranty or guarantee of the accuracy or completeness of information in this document.
[2024-01-05 14:09] LABS: PSA, Free % 26.1 % (.)
== END | disposition home or self-care (01) ==
LOC: LAB 06:03
PROVIDERS: PCP Family Medicine; Referring Provider Nurse Practitioner; Visit Provider Nurse Practitioner
DX: R97.20 Elevated prostate specific antigen [PSA] (principal)
CPT/HCPCS: 36415; 84153; 84154

== ENCOUNTER → 2025-01-07 | Outpatient (CLI) | payer MEDICARE, OTHER, SELFPAY ==
--- OUTSIDE RECORDS SUMMARY | 2025-01-07 08:43 | XMS RPT_ITS | CCD ---
Author Organization [facility] Care Team Providers Care 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 Name Role Phone Hector DE LA TORRE, Joe Frias Primary Care Provider Aly Young Primary Care Unavailable [place], Kae Attending Unavailable [place], Kae Referring Unavailable Aly Young Primary Care Unavailable Assessment, Health Risk Attending Unavaila ble Assessment, Health Risk Referring Unavaila ble Joe Young MD Primary Care Provider Podlogar CUSTOMER SUPPORT ANALYST.Ayanna GIBBS Unavailable Knoble CUSTOMER SUPPORT ANALYST.Vida GIBBS Unavailable [place]le CUSTOMER SUPPORT ANALYST.Vida GIBBS Unavailable DELPHINE TOMLIN Attending Unavailable PODLOGAR, AYANNA Referring Unavailable JOE YOUNG Primary Care Unavailable PODLOGARAYANNA Attending Unavailable [facility] Unavailable PODLOGARAYANNA Attending Unavailable [facility] Unavailable PODLOGAR, AYANNA Referring Unavailable [facility] Primary [facility] Unavailable HECTOR ANZA Primary Care Unavailable PODLOGAR, AYANNA Attending Unavailable HECTOR ANZA Primary Care Unavailable Allergies Allergy Classification Reported Allergen(s) Allergy Type Date of Onset Reaction(s) Facility (20 sources) Seasonal allergy; Translations: [SEASONAL ALLERGIES] Propensity to adverse reactions 5 Other: See Comments [facility] Medications Current Medications Medication Drug Class(es) Dates Sig (Normalized) Sig (Original) atorvastatin 20 mg oral tablet (20 sources) HMG-CoA Reductase Inhibitor Start: 07-29-2022 End: 01-15-2025 take 1 tablet by mouth once daily at bedtime atorvastatin (LIPITOR) 20 mg tablet Take 1 tablet by mouth daily at bedtime. 90 tablet 1 07/19/2024 01/15/2025 Active Start: 01-20-2022 End: 07-19-2022 take 1 [...] tablet by julieta th daily at bedtime. benzonatate 100 mg oral capsule (2 sources) Non-narcotic Antitussive Start: End: take 1 capsule by mouth every eight hours as needed benzonatate (TESSALON PERLE) 100 mg capsule Take 1 capsule by mouth three times a day as needed for cough for up to 7 days. 21 capsule 05/07/2024 05/14/2024 Active Blood Pressure Monitor kit (20 sources) Start: Blood Pressure Monitor kit 1 Device once daily. Dx: I10 1 Kit 12/24/2017 Active Start: 12-24-2017 Blood Pressure Monitor kit 1 Device once daily. Dx: I10 1 Kit 0 12/24/2017 Active Comment on above: 1 Device once daily. Dx: I10 doxycycline hyclate 100 mg oral tablet (3 sources) Tetracycline-class Drug Start: 025 End: take 1 tablet by mouth twice daily doxycycline (VIBRA-TABS) 100 mg tablet Indications: Rhinosinusitis Take 1 tablet by mouth two times a day for 7 days. 14 tablet 05/06/2024 05/13/2024 Active hydroCHLOROthiazide 12.5 mg / lisinopril 20 mg oral tablet (20 sources) Thiazide Diuretic, Angiotensin Converting Enzyme Inhibitor Start: 023 End: take 2 tablets by mouth once daily lisinopril-hydroCHLO ROthiazide (ZESTORETIC) 20-12.5 mg per tablet Indications: Essential hypertension Take 2 tablets by mouth once daily. For BP 180 tablet 1 06/14/2024 Active Start: 10-28-2021 End: 06-28-2022 take 2 tablets [...] by mo ut once daily. For BP metFORMIN hydrochloride 500 mg oral tablet (20 sources) Biguanide Start: End: take 1 tablet by mouth twice daily at mealtime metFORMIN (GLUCOPHAGE) 500 mg tablet Take 1 tablet by mouth two times a day with meals. 180 tablet 1 08/03/2024 01/30/2025 Active Start: 04-30-2024 End: 07-29-2024 take 1 tablet by mouth twice daily at mealtime metFORMIN (GLUCOPHAGE) 500 mg tablet Take 1 tablet by mouth two times a day with meals. 180 tablet 04/30/2024 07/29/2024 Active Start: 10-09-2023 End: 04-19-2024 take 1 tablet by mouth twice daily at mealtime metFORMIN (GLUCOPHAGE) 500 mg tablet Take 1 tablet by mouth two times a day with meals. 180 tablet 01/20/2024 04/19/2024 Active Start: 07-03-2023 End: 10-01-2023 take 1 [...] oral tablet (20 sources) beta-Adrenergic Trell Start: 01-11-2024 End: 12-29-2024 take 1 tablet by mouth once daily metoprolol succinate ER (TOPROL XL) 50 mg 24 hr tablet Take 1 tablet by mouth once daily. 90 tablet 1 07/02/2024 12/29/2024 Active Start: 07-13-2023 End: 01-09-2024 take 1 tablet [...] daily. Miscellaneous Medical Supply (BLOOD PRESSURE CUFF[place] [facility] [place] sources[place] Start: 12-22-2017 Miscellaneous Medical Supply (BLOOD PRESSURE CUFF) [facility] [place]ications: Essential hypertension 1 Device once daily. 1 Each 12/22/2017 Active Start: 12-22-2017 Miscellaneous Medical Supply (BLOOD PRESSURE CUFF) [facility] [place]ications: Essential hypertension 1 Device once daily. [...] 1 tablet by julieta th once daily Ykwlitwduowym-Agcklflu-Jpxdjd (CENTRUM SILVER) Tab Take 1 tablet by mouth once daily. 1 tablet 0 12/24/2012 Active Comment on above: Take 1 tablet by julieta th once daily. OTC NUTRITIONAL SUPPLEMENT (20 sources) Start: 01-04-2019 End: 04-29-2023 OTC NUTRITIONAL SUPPLEMENT [employer] 0 01/04/2019 04/29/2023 Discontinued (Discontinued by Patient) Start: 01-04-2019 OTC NUTRITIONA L SUPPLEMENT [employer] 0 01/04/2019 Active Comment on above: [employer] polyethylene glycol 3350 883555 mg / potassium chloride 2970 mg / sodium bicarbonate 6740 mg / sodium chloride 5860 mg / sodium sulfate 33359 mg powder for oral solution (1 source) Osmotic Laxative Start: 11-24-2024 End: 11-24-2024 peg 3350-Electrolytes (GOLYTELY) 236-22.74-6.74 -5.86 gram suspension Take 4,000 mL by mouth one time only for 1 dose. As directed 1 each 11/24/2024 11/24/2024 Active tadalafil 20 mg oral tablet (20 sources) Phosphodiesterase 5 Inhibitor Start: 10-21-2024 Tadalafil (CIALIS) 20 mg tablet Take one dose 30 minutes before sexual activity 10/21/2024 Active Start: 10-18-2024 Tadalafil (HALEIGH LIS) 10 mg tablet Take 1 tablet by mouth as needed. 12 tablet 10/18/2024 Active Start: 09-22-2022 End: 10-16-2024 Tadalafil (CIALIS) 10 mg tab let Take 1 tablet by mouth as needed. 12 tablet 09/22/2022 10/16/2024 Discontinued Start: 10-30-2020 End: 09-20-2022 Tadalafil (CIALIS) 10 [...] mouth daily at bedtime. 180 capsule 1 07/18/2024 01/14/2025 Active Start: 01-23-2023 End: 07-22-2023 take 2 [...] Drug Class(es) Dates Sig (Normalized) Sig (Original) calcium chloride 0.0014 meq/ml / potassium chloride 0.004 meq/ml / sodium chloride 0.103 meq/ml / sodium lactate 0.028 meq/ml injectable solution (1 source) Start: 11-29-2024 End: 11-30-2024 take 30 mL intravenously every hour 30 mL/hr, INTRAVENOUS, CONTINUOUS, Starting on Thu11/29/24 at 0730, Until Thu11/30/24 at 0414, Preprocedure Problems Active Problems Problem Classification Problem Date Documented Da te Episodic/Chronic Cardiac dysrhythmias (20 sources) Irregular heart beat; Translations: [Cardiac arrhythmia, unspecified] Onset: 07-17-2021 Chronic Cardiac dysrhythmias (2 sources) Tachycardia; Translations: [Tachycardia, unspecified] Onset: 12-28-2024 Episodic Disorders of lipid metabolism (4 sources) Hyperlipidemia; Translations: [Hyperlipidemia, unspecified] Onset: 01-26-2024 04-29-2023 Chronic Essential hypertension (20 sources) Essential [...] conditions (not mental disorders or infectious disease) (8 sources) Raised prostate specific antigen; Translations: [Elevated prostate specific antigen [PSA]] Onset: 01-26-2024 Episodic Other upper respiratory infections (1 source) Chronic sinusitis, unspecified; Translations: [Unspecified sinusitis (chronic)] 05-06-2024 Chronic Unclassified (1 source) Patient encounter status 07-25-2024 Past or Other Problems Problem Classification Problem Date Documented Date Episodic/Chronic Diabetes mellitus without complication (20 sources) Prediabetes; Translations: [Prediabetes] Onset: 01-05-2020 01-05-2020 Episodic Immunizations and screening for infectious disease (2 sources) Vaccination needed; Translations: [Encounter for immunization] Onset: 07-25-2024 07-25-2024 Episodic Residual codes; unclassified (20 sources) FH: Cardiovascular disease; Translations: [Family history of ischemic heart disease and other diseases of the circulatory system] Onset: 05-18-2009 05-18-2009 Episodic Screening and history of mental health and substance abuse codes (5 sources) Patient encounter status; Translations: [Encounter for screening for depression] Onset: 07-25-2024 04-29-2023 Episodic Unclassified (20 sources) Labile hypertension due to being in a clinical environment; Translations: [White coat hypertension] Onset: 05-18-2009 Resolved: 01-12-2011 01-12-2011 Results Test Name Value Interpretation Reference Range Carmen Kaye 12-28-2024 CNOV Office Visit (FAMPWS ) KEMAR CHAKRABORTY ([id number]) 1950 M Date Time Provider Department 12/28/24 1:40 PM AYANNA PAIGE During your visit today, we recorded the following information about you: Pulse Respiration Blood pressure Weight 118/minute 18/minute 182/88 89.7 kg Ayanna Paige APRN.CNP 12/28/2024 2:35 PM Signed 12/28/2024 Patient presents with: Blood Pressure: AND heart rate increased. Recording using [employer] software for draft documentation of the visit was discussed with the patient/authorized support representative; all questions welcomed and answered. Patient/authorized support representative agreed to proceed SUBJECTIVE: This is a 74 year old that is here today for Above Complaints. Kemar J Koki is a 74-year-old male with a history of HTN and tachycardia, presenting for evaluation of elevated blood pressure and heart rate readings. Hypertension and Tachycardia: - Home blood pressure readings: 135/84 mmHg (Thursday), 128/80 mmHg (Thursday). - Home heart rate readings: 92 bpm (Thursday); typically 72 bpm. - Reports elevated blood pressure and heart rate readings during medical visits. - Recent colonoscopy was canceled due to elevated blood pressure and heart rate (102 bpm); experienced anxiety attack during the procedure. - Taking metoprolol. - Scheduled for a prostate exam next week; previous exam showed a score of 5. PAST MEDICAL HISTORY Diagnosis Date BPH (benign prostatic hyperplasia) Dr. Flores after hip surgery Erectile dysfunction Family history of cardiovascular disease 05/18/2009 Father CABG, approx late 60s History of COVID-19 10/2020 Hypertension OA (osteoarthritis) of hip Prediabetes Premature atrial complexes White coat syndrome with hypertension ALLERGIES Seasonal Allergies MEDICATIONS Current Outpatient Medications Medication Sig atorvastatin (LIPITOR) 20 mg tablet Take 1 tablet by mouth daily at bedtime. metFORMIN (GLUCOPHAGE) 500 mg tablet Take 1 tablet by mouth two times a day with meals. tamsulosin (FLOMAX) 0.4 mg Take 2 capsules by mouth daily at bedtime. metoprolol succinate ER (TOPROL XL) 50 mg 24 hr tablet Take 1 tablet by mouth once daily. lisinopril-hydroCHLOR Othiazide (ZESTORETIC) 20-12.5 mg per tablet Take 2 tablets by mouth once daily for 4 days. For BP Tadalafil (CIALIS) 20 mg tablet Take one dose 30 minutes before sexual activity VITAMIN E ACETATE ORAL Take 180 mg by mouth. Blood Pressure Monitor kit 1 Device once daily. Dx: I10 Miscellaneous Medical Supply (BLOOD PRESSURE CUFF) misc 1 Device once daily. No current facility-administered medications for this visit. Medications and allergies reviewed by this provider. SOCIAL HISTORY SOCIAL HISTORY[1] REVIEW OF SYSTEMS All other reviewed and negative other than HPI. OBJECTIVE: BP 182/88 Pulse 118 Resp 18 Wt 89.7 kg (197 lb 12.8 oz) SpO2 98% BMI 29.16 kg/m? . Vital signs reviewed by this provider. APPEARANCE Well appearing, alert, in no acute distress, well-hydrated, well nourished. EYES PERRLA, conjunctiva and sclera normal. HEART with normal S1 and S2, no murmurs, no gallops, no JVD appreciated and Rate tachycardia, Regular rhythm LUNG clear to auscultation. No wheezes, rhonchi or rales SKIN Skin color, texture, turgor normal, no suspicious rashes or lesions Shingrix Vaccine(2 of 3) due on 03/04/2013 DTaP,Tdap,Td Vaccine(2 - Td or Tdap) due on 12/08/2021 Advance Directive Discussion due on 03/16/2024 Covid-19 Vaccine( season) due on 11/14/2024 Colorectal Cancer Screening due on 12/01/2024 Medicare Annual Wellness Visit due on 01/25/2025 Depression Screening due on 07/25/2025 Anxiety Screening due on 07/25/2025 Annual PCP Team Chronic Disease Visit due on 12/28/2025 Diabetes Screening due on 01/26/2027 Lipid Screening due on 01/26/2029 Influenza Vaccine Completed RSV Vaccine Completed Hepatitis C Screening Completed Pneumococcal Vaccine: 50+ Completed 1. Tachycardia (R00.0) 2. 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 (I10) - Chronic, situational tachycardia and elevated BP consistent with white coat syndrome; home readings consistently within normal range (BP 120s-130s mmHg, HR 72-92 bpm). - In-office EKG showed sinus tachycardia; no acute ischemic changes. - Ordered TSH, magnesium, and electrolytes to rule out secondary causes. - Advised to continue home BP and HR monitoring; instructed to report if BP consistently >140/90 mmHg or HR >100 bpm. Will update me Thursday with readings - Discussed risks of overmedication if metoprolol increased based solely on in-office readings; will consider adjustment if home readings trend higher. - Advised to avoid caffeine prior to medical visits. - Follow-up on January 25. Ayanna Paige APRN.PSYCHOLOGIST MILITARY PERSONNEL Prescription instructions reviewed with patient as applicable. Patient advised (more content not included)... Normal [facility] Franco 12-16-2024 BERNIEN Telephone ([place]) KEMAR CHAKRABORTY ([id number]) 1950 M Date Time Provider Department 12/16/24 JOE YOUNG During your visit today, we recorded the following information about you: Claudine Chappell, RN 12/16/2024 9:13 AM Signed patient is currently in [place] on vacation and does not return home until Thursday. He took his medication with him in a pill box for the amount of time he was going to be gone and it got wet yesterday and he lost some of the medication and is asking to have 4 days worth called to [facility] in [place] at [phone]. Patient only needs called if problem with doing this Joe Young MD 12/16/2024 9:25 AM Signed Rx sent as requested. Allergies As of Date: 12/16/2024 Noted Allergy Reaction SEASONAL ALLERGIES 03/16/1974 14 - Other: See Comments Comments: Seasonal allergies, worse in the fall when cutting hay Date Reviewed: 11/29/2024 Reviewed by: Galina Reyes RN - Fully Assessed Reason for Visit: Medication Problem [65] Order(s):atorvastatin (LIPITOR) 20 mg tabletTake 1 tablet by mouth daily at bedtime.Disp: 4 tabletRfl: 0 metFORMIN (GLUCOPHAGE) 500 mg tabletTake 1 tablet by mouth two times a day with meals.Disp: 8 tabletRfl: 0 metoprolol succinate ER (TOPROL XL) 50 mg 24 hr tabletTake 1 tablet by mouth once daily.Disp: 4 tabletRfl: 0 tamsulosin (FLOMAX) 0.4 mgTake 2 capsules by mouth daily at bedtime.Disp: 8 capsuleRfl: 0 Prescriptions as of 12/16/2024 - atorvastatin (LIPITOR) 20 mg tablet Take 1 tablet by mouth daily at bedtime. - metFORMIN (GLUCOPHAGE) 500 mg tablet Take 1 tablet by mouth two times a day with meals. - metoprolol succinate ER (TOPROL XL) 50 mg 24 hr tablet Take 1 tablet by mouth once daily. - tamsulosin (FLOMAX) 0.4 mg Take 2 capsules by mouth daily at bedtime. - lisinopril-hydroCHLOR Othiazide (ZESTORETIC) 20-12.5 mg per tablet Take 2 tablets by mouth once daily. For BP - Tadalafil (CIALIS) 20 mg tablet Take one dose 30 minutes before sexual activity - VITAMIN E ACETATE ORAL Take 180 mg by mouth. - Blood Pressure Monitor kit 1 Device once daily. Dx: I10 - Miscellaneous Medical Supply (BLOOD PRESSURE CUFF) misc 1 Device once daily. Problem List As Of Date 12/16/2024 Noted Resolved White coat hypertension [OBH8910] 05/18/2009 01/12/2011 Family History of Cardiovascular Disease [Z82.4*05/18/2009 ED (erectile dysfunction) [N52.9] 06/12/2011 Hypertension [I10] 06/12/2011 Status post THR (total hip replacement) [Z96.64*06/13/2012 Benign prostatic hyperplasia with urinary obstr*03/28/2016 BPH (benign prostatic hyperplasia) [N40.0] White coat syndrome with diagnosis of hypertens*05/18/2009 Prediabetes [R73.03] Premature atrial complexes [I49.1] 07/17/2021 Prescriptions ordered this encounter Disp Refills Start End ATORVASTATIN 20 MG TABLET 4 ta* 0 12/16/2024 06/14/2025 Route: PO Sig: Take 1 tablet by mouth daily at bedtime. METFORMIN 500 MG TABLET 8 ta* 0 12/16/2024 06/14/2025 Route: PO Sig: Take 1 tablet by mouth two times a day with meals. METOPROLOL SUCCINATE ER 50 MG TABLET* 4 ta* 0 12/16/2024 06/14/2025 Route: PO Sig: Take 1 tablet by mouth once daily. TAMSULOSIN 0.4 MG CAPSULE 8 ca* 0 12/16/2024 06/14/2025 Route: PO Sig: Take 2 capsules by mouth daily at bedtime. Medications Discontinued During This Encounter Prescriptions - metoprolol succinate ER (TOPROL XL) 50 mg 24 hr tablet (Discontinued) Take 1 tablet by mouth once daily. - tamsulosin (FLOMAX) 0.4 mg (Discontinued) Take 2 capsules by mouth daily at bedtime. - atorvastatin (LIPITOR) 20 mg tablet (Discontinued) Take 1 tablet by mouth daily at bedtime. - metFORMIN (GLUCOPHAGE) 500 mg tablet (Discontinued) Take 1 tablet by mouth two times a day with meals. Encounter Status:Closed by AYLEEN ROSS on 12/16/24 [facility] Franco 11-30-2024 [facility] Telephone ([facility]AMP[facility]) KEMAR CHAKRABORTY ([id number]) 1950 M Date Time Provider Department 11/30/24 JOE YOUNG During your visit today, we recorded the following information about you: Claudine Santos LPN 11/30/2024 7:59 AM Signed Patient requesting call to reschedule colonoscopy. AMBROCIO Voss Sherrie 11/30/2024 9:[address] attempt left message to return call to r/s colonoscopy Debbie Phillips, RN 12/08/2024 5:23 PM Signed Pt has multiple MyChart msgs and encounters discussing colonoscopy and reschedule. Pt presented to [facility] to have colonoscopy on 11/29/24. Per Dr. Tomlin's HANDP: Discussion/Plan/Recom mendations: I have discussed the above with the patient. Patient presents with tachycardia of 130 and BP of 178/98. I have discussed the above with the patient - I have offered options of proceeding - with higher risk of UT/cardiac dysrhythmia/CVA/etc. OR reschedule to [facility] tomorrow with anesthesia availability OR [facility] on with anesthesia availability. Patient wants to cancel for this procedure and will call to reschedule.. Debbie Phillips, RN 12/08/2024 5:23 PM Signed Called and spoke with pt and discussed that pt should probably come in for an appt to check HR and BP. Pt states they told him at the [facility] on the that he was dehydrated and pt states he gets very anxious anytime he goes to the doctor. So the more anxious he got the worse his pulse and heart rate was. 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 Explained that we would have to refer him either to gen surgeons at [facility] or see if he can have it done with Dr. Mittal. Or offered to pt that he could have his scope done in [place] at our [facility] there. Pt willing to discuss options. But after speaking with pt, it sounds like he would do better with propofol than moderate sedation. Appt scheduled for 12/21 with Ayanna Podlogar. Allergies As of Date: 11/30/2024 Noted Allergy Reaction SEASONAL ALLERGIES 03/16/1974 14 - Other: See Comments Comments: Seasonal allergies, worse in the fall when cutting hay Date Reviewed: 11/29/2024 Reviewed by: Galina Reyes RN - Fully Assessed Reason for Visit: Appointment [186] Cmt: Colonoscopy Prescriptions as of 12/08/2024 - Tadalafil (CIALIS) 20 mg tablet Take one dose 30 minutes before sexual activity - metFORMIN (GLUCOPHAGE) 500 mg tablet Take 1 tablet by mouth two times a day with meals. - atorvastatin (LIPITOR) 20 mg tablet Take 1 tablet by mouth daily at bedtime. - tamsulosin (FLOMAX) 0.4 mg Take 2 capsules by mouth daily at bedtime. - metoprolol succinate ER (TOPROL XL) 50 mg 24 hr tablet Take 1 tablet by mouth once daily. - lisinopril-hydroCHLOR Othiazide (ZESTORETIC) 20-12.5 mg per tablet Take 2 tablets by mouth once daily. For BP - VITAMIN E ACETATE ORAL Take 180 mg by mouth. - Blood Pressure Monitor kit 1 Device once daily. Dx: I10 - Miscellaneous Medical Supply (BLOOD PRESSURE CUFF) misc 1 Device once daily. Problem List As Of Date 11/30/2024 Noted Resolved White coat hypertension [PTZ3943] 05/18/2009 01/12/2011 Family History of Cardiovascular Disease [Z82.4*05/18/2009 ED (erectile dysfunction) [N52.9] 06/12/2011 Hypertension [I10] 06/12/2011 Status post THR (total hip replacement) [Z96.64*06/13/2012 Benign prostatic hyperplasia with urinary obstr*03/28/2016 BPH (benign prostatic hyperplasia) [N40.0] White coat syndrome with diagnosis of hypertens*05/18/2009 Prediabetes [R73.03] Premature atrial complexes [I49.1] 07/17/2021 Encounter Status:Closed by DEBBIE PHILLIPS on 12/08/[address] [facility] HISTORY PHYSICALon HISTORY PHYSICAL HNO ID: [id number] Author: DELPHINE TOMLIN MD Service: General Surgery Author Type: Physician Type: H&P Filed: 11/29/2024 09:06 Note Text: HISTORY AND PHYSICAL Kemar Chakraborty 1950 REFERRING PHYSICIAN: Ayanna Paige APRN.C* CHIEF COMPLAINT: No chief complaint on file. HPI: The patient is a 74 year old male here for colonoscopy Last colonoscopy 2014 PAST MEDICAL HISTORY Diagnosis Date BPH (benign [...] HISTORY OF Left 03/2019 total hip replacement Current Outpatient Medications Medication Sig Tadalafil (CIALIS) 20 mg tablet Take one dose 30 minutes before sexual activity metFORMIN (GLUCOPHAGE) 500 mg tablet Take 1 tablet by mouth two times a day with meals. atorvastatin (LIPITOR) 20 mg tablet Take 1 tablet by mouth daily at bedtime. tamsulosin (FLOMAX) 0.4 mg Take 2 capsules by mouth daily at bedtime. metoprolol succinate ER (TOPROL XL) 50 mg 24 hr tablet Take 1 tablet by mouth once daily. lisinopril-hydroCHLOR Othiazide (ZESTORETIC) 20-12.5 mg per tablet Take 2 tablets by mouth once daily. For BP VITAMIN E ACETATE ORAL Take 180 mg by mouth. Blood Pressure Monitor kit 1 Device once daily. Dx: I10 Miscellaneous Medical Supply (BLOOD PRESSURE CUFF) misc 1 Device once daily. No current facility-administered medications for this encounter. ALLERGIES: Seasonal Allergies PERSONAL HISTORY: SOCIAL HISTORY[1] FAMILY HISTORY Problem Relation Age of Onset Heart Mother Smoker, Heart Surgery Valve, ?CABG Alzheimer's Disease Father Heart Father Cancer Father other (Depression) Sister ?bone Cancer other (Anxiety) Brother Heart REVIEW OF SYMPTOMS: Denies chest pain Denies shortness of breath Physical examination: Vital signs in chart, reviewed and noted by me General - WD/WN in no apparent distress, alert and oriented Head - Normocephalic. EOM intact with sclera clear. Mouth with mucus membranes moist. Neck - supple with no jugular venous distention noted. Trachea is midline. Lungs - normal breath sounds, normal respiratory motion, no adventitial sounds noted. Heart - normal heart sounds. Regular rate. Abdomen - soft and benign. Extremities - no pitting edema noted. Skin - Normal skin integrity. Neurological - non focal Psych - calm and appropriate Impression: screening for colon cancer, Discussion/Plan/Recom mendations: I have discussed the above with the patient. Patient presents with tachycardia of 130 and BP of 178/98. I have discussed the above with the patient - I have offered options of proceeding - with higher risk of UT/cardiac dysrhythmia/CVA/etc. OR reschedule to [facility] tomorrow with anesthesia availability OR [facility] on with anesthesia availability. Patient wants to cancel for this procedure and will call to reschedule.. Delphine Tomlin MD [1] Social History Tobacco Use Smoking status: Never Smokeless tobacco: Never Substance Use Topics Alcohol use: Yes Comment: rare Drug use: No Normal [facility] CNOVon 07-25-2024 CN Office Visit (JOHNNA ) KEMAR CHAKRABORTY ([id number]) 1950 M Date Time Provider Department 07/25/24 8:20 AM AYANNA PAIGE During your visit today, we recorded the following information about you: Pulse Respiration Blood pressure Weight 114/minute 16/minute 148/82 88 kg Ayanna Paige APRN.CNP 07/25/2024 9:01 AM Signed 07/21/2024 Patient presents with: 6 Month Exam SUBJECTIVE: This is a 73 year old that is here today for Above Complaints. HTN: Patient is compliant with meds Yes Monitors bp at home: No. Denies side effects: Yes. Chest pain: No. Dyspnea: No. Edema: No. Palpitations: No. Syncope: No. Headache: No. Dizziness: No. Prediabetes: taking Metformin as prescribed without side effects. Tries to eat a lower carbohydrate diet HYPERLIPIDEMIA: Patient is taking medications: Yes. Patient is watching diet: Yes. Patient denies myalgias: Yes. Patient denies gi upset: Yes PAST MEDICAL HISTORY Diagnosis Date BPH (benign prostatic hyperplasia) Dr. Flores after hip surgery Erectile dysfunction Family history of cardiovascular disease 05/18/2009 Father CABG, approx late 60s History of COVID-19 10/2020 Hypertension OA (osteoarthritis) of hip Prediabetes Premature atrial complexes White coat syndrome with hypertension ALLERGIES Seasonal Allergies MEDICATIONS Current Outpatient Medications Medication Sig atorvastatin (LIPITOR) 20 mg tablet Take 1 tablet by mouth daily at bedtime. tamsulosin (FLOMAX) 0.4 mg Take 2 capsules by mouth daily at bedtime. metoprolol succinate ER (TOPROL XL) 50 mg 24 hr tablet Take 1 tablet by mouth once daily. lisinopril-hydroCHLOR Othiazide (ZESTORETIC) 20-12.5 mg per tablet Take 2 tablets by mouth once daily. For BP metFORMIN (GLUCOPHAGE) 500 mg tablet Take 1 tablet by mouth two times a day with meals. Tadalafil (CIALIS) 10 mg tablet Take 1 tablet by mouth as needed. VITAMIN E ACETATE ORAL Take 180 mg by mouth. Blood Pressure Monitor kit 1 Device once daily. Dx: I10 Miscellaneous Medical Supply (BLOOD PRESSURE CUFF) misc 1 Device once daily. No current facility-administered medications for this visit. Medications and allergies reviewed by this provider. SOCIAL HISTORY Social History Tobacco Use Smoking status: Never Smokeless tobacco: Never Substance Use Topics Alcohol use: Yes Comment: rare Drug use: No REVIEW OF SYSTEMS All other reviewed and negative other than HPI. OBJECTIVE: BP 148/82 Pulse 114 Resp 16 Wt 88 kg (194 lb) SpO2 99% BMI 28.60 kg/m? . Vital signs reviewed by this provider. APPEARANCE Well appearing, alert, in no acute distress, well-hydrated, well nourished. EYES conjunctiva and sclera normal. HEART RRR with normal S1 and S2, no murmurs, no gallops, no JVD appreciated LUNG clear to auscultation. No wheezes, rhonchi or rales EXTREMITIES Extremities normal, No deformities, No skin discoloration, and No edema SKIN Skin color, texture, turgor normal, no suspicious rashes or lesions Latest Ref Rng 01/27/2024 WBC 3.70 - 11.00 k/uL 6.97 RBC 4.20 - 6.00 m/uL 4.47 Hemoglobin 13.0 - 17.0 g/dL 13.6 Hematocrit 39.0 - 51.0 % 42.1 MCV 80.0 - 100.0 fL 94.2 MCH 26.0 - 34.0 pg 30.4 MCHC 30.5 - 36.0 g/dL 32.3 RDW-CV 11.5 - 15.0 % 13.7 Platelet Count 150 - 400 k/uL 276 MPV 9.0 - 12.7 fL 9.7 Neut% % 53.4 Abs Neut (ANC) 1.45 - 7.50 k/uL 3.72 Lymph% % 31.1 Abs Lymph 1.00 - 4.00 k/uL 2.17 Bamberg% % 9.6 Abs [place]berg <0.87 k/uL 0.67 Eosin% % 5.3 Abs Eosin <0.46 k/uL 0.37 Baso% % 0.3 Abs Baso <0.11 k/uL <0.03 Immature Gran % % 0.3 IMMATURE GRANS (ABS) <0.10 k/uL <0.03 NRBC /100 WBC 0.0 Absolute nRBC <0.01 k/uL <0.01 DTYPE Auto Protein, Total 6.3 - 8.0 g/dL 6.8 Albumin 3.9 - 4.9 g/dL 4.2 Calcium 8.5 - 10.2 mg/dL 9.2 Bilirubin, Total 0.2 - 1.3 mg/dL 0.5 Alkaline Phosphatase 38 - 113 U/L 59 AST 14 - 40 U/L 22 ALT 10 - 54 U/L 21 Glucose 74 - 99 mg/dL 95 BUN 9 - 24 mg/dL 20 Creatinine 0.73 - 1.22 mg/dL 0.94 Sodium 136 - 144 mmol/L 143 Potassium 3.7 - 5.1 mmol/L 4.0 Chloride 98 - 107 mmol/L 104 CO2 22 - 30 mmol/L 27 Anion Gap 8 - 15 mmol/L 12 eGFR >=60 mL/min/1.73m? 87 Cholesterol, Total <200 mg/dL 145 Triglyceride <150 mg/dL 81 HDL Cholesterol >39 mg/dL 57 Non HDL Cholesterol <130 mg/dL 88 Fasting Time hrs 11 VLDL Cholesterol <30 mg/dL 16 TC:HDL Ratio <5.10 2.54 LDL Cholesterol, Calculated <100 mg/dL 72 LDL:HDL Ratio <2.54 1.26 Hemoglobin A1C 4.3 - 5.6 % 5.5 Estimated Average Glucose mg/dL 111 Depression Screening Never done Anxiety Screening Never done BP Controlled (<130/80) Never done Shingrix Vaccine(2 of 3) due on 03/04/2013 DTaP,Tdap,Td Vaccine(2 - Td or Tdap) due on 12/08/2021 Advance Directive Discussion due on 03/16/2024 Covid-19 Vaccine() due on 07/04/2024 Colorectal Cancer Screening due on 12/01/2024 Jacquelyn (more content not included)... [facility] KEMAR CHAKRABORTY ([id number]) 1950 M Date Time Provider Department 05/07/24 TAMI ADAMES [facility] During your visit today, we recorded the following information about you: Mayelin Sheth 05/07/2024 10:38 AM Signed Patient called to speak with clinical. He is asking if he could have a prescription for the gold tablets for cough. He was in office yesterday and had an antibiotic prescribed. Tami Adames APRN.PSYCHOLOGIST [employer]ERSON[employer] 05/07/2024 10:50 AM Signed Please call patient let her know that Herson Sheets were called in. Danis Pineda MA 05/07/2024 12:46 PM Signed Patient notified. Danis Pineda MA Allergies As of Date: 05/07/2024 Noted Allergy Reaction SEASONAL ALLERGIES 03/16/1974 14 - Other: See Comments Comments: Seasonal allergies, worse in the fall when cutting hay Date Reviewed: 05/06/2024 Reviewed by: Claudine Santos LPN - Fully Assessed Reason for Visit: Cough [28] Order(s):benzonatate (TESSALON PERLE) 100 mg capsuleTake 1 capsule by mouth three times a day as needed for cough for up to 7 days.Disp: 21 capsuleRfl: 0 Prescriptions as of 05/07/2024 - benzonatate (TESSALON PERLE) 100 mg capsule Take 1 capsule by mouth three times a day as needed for cough for up to 7 days. - doxycycline (VIBRA-TABS) 100 mg tablet Take 1 tablet by mouth two times a day for 7 days. - metFORMIN (GLUCOPHAGE) 500 mg tablet Take 1 tablet by mouth two times a day with meals. - atorvastatin (LIPITOR) 20 mg tablet Take 1 tablet by mouth daily at bedtime. - tamsulosin (FLOMAX) 0.4 mg Take 2 capsules by mouth daily at bedtime. - metoprolol succinate ER (TOPROL XL) 50 mg 24 hr tablet Take 1 tablet by mouth once daily. - lisinopril-hydroCHLOR Othiazide (ZESTORETIC) 20-12.5 mg per tablet Take 2 [...] once daily. Problem List As Of Date 05/07/2024 Noted Resolved White coat hypertension [DHS8022] 05/18/2009 01/12/2011 Family History of Cardiovascular Disease [Z82.4*05/18/2009 ED (erectile dysfunction) [N52.9] 06/12/2011 Hypertension [I10] 06/12/2011 Status post THR (total hip replacement) [Z96.64*06/13/2012 Benign prostatic hyperplasia with urinary obstr*03/28/2016 BPH (benign prostatic hyperplasia) [N40.0] White coat syndrome with diagnosis of hypertens*05/18/2009 Prediabetes [R73.03] Premature atrial complexes [I49.1] 07/17/2021 Prescriptions ordered this encounter Disp Refills Start End BENZONATATE 100 MG CAPSULE 21 c* 0 05/07/2024 05/14/2024 Route: ORAL Sig: Take 1 capsule by mouth three times a day as needed for cough for up to 7 days. Encounter Status:Closed by DANIS PINEDA [facility]/07/24 [facility] ) KEMAR CHAKRABORTY ([id number]) 1950 M Date Time Provider Department 05/06/24 12:45 PM TAMI ADAMES [facility] During your visit today, we recorded the following information about you: Temperature Pulse Respiration Blood pressure 98.4 degrees 114/minute 18/minute 142/78 Weight 87.1 kg Tami Adames APRN.PSYCHOLOGIST [employer] 05/06/2024 1:01 PM Signed CC: Patient presents with: Chest Congestion: Sinus congestion and cough x5 days HPI: Kemar Chakraborty is a 73 year old male who presents to the office with complaint of chest congestion, head congestion, and cough, nonproductive for 5 days. Symptoms are staying the same. Associated symptoms includes cough. Denies wheezing, dyspnea, nausea, vomiting , and diarrhea. Treatments tried include nothing so far. with no relief of symptoms. Sick contacts: unknown. History of asthma, frequent episodes of bronchitis, chronic bronchitis, bronchiectasis or COPD: No Smoker: No Seasonal/environmenta l allergies: No The ROS is otherwise negative. The patient's pmh, medications, allergies, and past visits are reviewed. PHYSICAL EXAM: BP 142/78 Pulse 114 Temp 36.9 ?C (98.4 ?F) Resp 18 Wt 87.1 kg (192 lb 0.3 oz) SpO2 94% BMI 28.31 kg/m? General appearance: alert, cooperative, pleasant, in no acute distress Head: Normocephalic Eyes: EOM's intact, conjunctiva pink and moist, no icterus, sclera white, non-injected Ears: Right ear: External ear/canal- Normal, TM - clear with good landmarks. Left ear: External ear/canal- Normal, TM - clear with good landmarks Oropharynx:moist without lesions, No erythema, exudates or tonsillar hypertrophy. Heart: Negative. RRR without obvious murmur, gallop, or rubs. No ectopy. 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 metFORMIN (GLUCOPHAGE) 500 mg tablet Take 1 tablet by mouth two times a day with meals. atorvastatin (LIPITOR) 20 mg tablet Take 1 tablet by mouth daily at bedtime. tamsulosin (FLOMAX) 0.4 mg Take 2 capsules by mouth daily at bedtime. metoprolol succinate ER (TOPROL XL) 50 mg 24 hr tablet Take 1 tablet by mouth once daily. lisinopril-hydroCHLOR Othiazide (ZESTORETIC) 20-12.5 mg per tablet Take 2 tablets by mouth once daily. For BP Tadalafil (CIALIS) 10 mg tablet Take 1 tablet by mouth as needed. VITAMIN E ACETATE ORAL Take 180 mg by mouth. Blood Pressure Monitor kit 1 Device once daily. Dx: I10 Miscellaneous Medical Supply (BLOOD PRESSURE CUFF) misc 1 Device once daily. FAMILY HISTORY Problem Relation Age of Onset Heart Mother Smoker, Heart Surgery Valve, ?CABG Alzheimer's Disease Father Heart Father Cancer Father other (Depression) Sister ?bone Cancer other (Anxiety) Brother Heart Social History Tobacco Use Smoking status: Never Smokeless tobacco: Never Substance Use Topics Alcohol use: Yes Comment: rare Drug use: No ASSESSMENT/PLAN: 1. Rhinosinusitis - ICD9: 473.9, ICD10: J32.9 - DOXYCYCLINE HYCLATE 100 MG TABLET Prescription instructions reviewed with patient as applicable. Potential red flag symptoms discussed with the patient. Reviewed appropriate action plan to take if red flag symptoms occur. Patient agreeable to treatment plan. Tami Adames APRN.PSYCHOLOGIST [employer] Allergies As of Date: 05/06/2024 Noted Allergy Reaction SEASONAL ALLERGIES 03/16/1974 14 - Other: See Comments Comments: Seasonal allergies, worse in the fall when cutting hay Date Reviewed: 05/06/2024 Reviewed by: Claudine Santos LPN - Fully Assessed Reason for Visit: Chest Congestion [236] Cmt: Sinus congestion and cough x5 days Primary Visit Diagnosis:Rhinosinusi tis [J32.9] Order(s):doxycycline (VIBRA-TABS) 100 mg tabletTake 1 tablet by mouth two times a day for 7 days.Disp: 14 tabletRfl: 0 Prescriptions as of 05/06/2024 - doxycycline (VIBRA-TABS) 100 mg tablet Take 1 tablet by mouth two times a day for 7 days. - metFORMIN (GLUCOPHAGE) 500 mg tablet Take 1 tablet by mouth two times a day with meals. - atorvastatin (LIPITOR) 20 mg tablet Take 1 tablet by mouth daily at bedtime. - tamsulosin (FLOMAX) 0.4 mg Take 2 capsules by mouth daily at bedtime. - metoprolol succinate ER (TOPROL XL) 50 mg 24 hr (more content not included)... Normal [facility] CBC W Auto Differential pane l (Bld)on 01-27-2024 Basophils (Bld) [#/Vol] 10*3/uL Normal <0.[address] [facility] Comment on above: Order Comment: Speci men Type: BLOOD SPECIMENOrdering Facility: [facility] Address: [address] [place] [address] Performed By: #### 5 7021-8 ####[facility] LABCLIA [id number] [place] [address] [place] Basophils/100 WBC (Bld) 0.3 % Normal [facility] Comment on above: Order Comment: Speci men Type: BLOOD SPECIMENOrdering Facility: [facility] Address: [address] [place] [address] Performed By: #### 5 7021-8 ####[facility] LABCLIA [id number] [id number] [address] [place] Differential cell count method Nom (Bld) Auto Normal [facility] Comment on above: Order Comment: Speci men Type: BLOOD SPECIMENOrdering Facility: [facility] Address: [address] [place] [address] Performed By: #### 5 7021-8 ####[facility] LABCLIA [id number] [place] [address] [place] Eosinophils (Bld) [#/Vol] 0.37 10*3/uL Normal <0.[address] [facility] Comment on above: Order Comment: Speci men Type: BLOOD SPECIMENOrdering Facility: [facility] Address: [address] [place] [address] Performed By: #### 5 7021-8 ####[facility] LABCLIA [id number] [place] [address] [place] Eosinophils/100 WBC (Bld) 5.3 % Normal [facility] Comment on above: Order Comment: Speci men Type: BLOOD SPECIMENOrdering Facility: [facility] Address: [address] [place] [address] Performed By: #### 5 7021-8 ####[facility] LABIA [id number] [place] [address] [place] Erythrocyte distribution width (RBC) [Ratio] 13.7 % Normal 11.5-15.[address] [facility] Comment on above: Order Comment: Speci men Type: BLOOD SPECIMENOrdering Facility: [facility] Address: [address] [place] [address] Performed By: #### 5 7021-8 ####[facility] LABIA [id number] [place] [address] [place] Hematocrit (Bld) [Volume fraction] 42.1 % Normal 39.0-51.[address] [facility] Comment on above: Order Comment: Speci men Type: BLOOD SPECIMENOrdering Facility: [facility] Address: [address] [place] [address] Performed By: #### 5 7021-8 ####[facility] LABCLIA [id number] [place] [address] [place] Hemoglobin (Bld) [Mass/Vol] 13.6 g/dL Normal 13.0-17.[address] [facility] Comment on above: Order Comment: Speci men Type: BLOOD SPECIMENOrdering Facility: [facility] Address: [address] [place] [address] Performed By: #### 5 7021-8 ####[facility] LABCLIA [id number] [place] [address] [place] Immature granulocytes (Bld) [#/Vol] 10*3/uL Normal <0.[address] [facility] Comment on above: Order Comment: Speci men Type: BLOOD SPECIMENOrdering Facility: [facility] Address: [address] [place] [address] Performed By: #### 5 7021-8 ####[facility] LABCLIA [id number] [place] [address] [place] Immature granulocytes/100 WBC (Bld) 0.3 % Normal [facility] Comment on above: Order Comment: Speci men Type: BLOOD SPECIMENOrdering Facility: [facility] Address: [address] [place] [address] Performed By: #### 5 7021-8 ####[facility] LABCLIA [id number] [place] [address] [place] Lymphocytes (Bld) [#/Vol] 2.17 10*3/uL Normal 1.00-4.[address] [facility] Comment on above: Order Comment: Speci men Type: BLOOD SPECIMENOrdering Facility: [facility] Address: [address] [place] [address] Performed By: #### 5 7021-8 ####[facility] LABCLIA [id number] [place] [address] [place] Lymphocytes/100 WBC (Bld) 31.1 % Normal [facility] Comment on above: Order Comment: Speci men Type: BLOOD SPECIMENOrdering Facility: [facility] Address: [address] [place] [address] Performed By: #### 5 7021-8 ####[facility] LABIA [id number] [place] [address] [place] MCH (RBC) [Entitic mass] 30.4 pg Normal 26.0-34.[address] [facility] Comment on above: Order Comment: Speci men Type: BLOOD SPECIMENOrdering Facility: [facility] Address: [address] [place] [address] Performed By: #### 5 7021-8 ####[facility] LABIA [id number] [place] [address] [place] MCHC (RBC) [Mass/Vol] 32.3 g/dL Normal 30.5-36.[address] [facility] Comment on above: Order Comment: Speci men Type: BLOOD SPECIMENOrdering Facility: [facility] Address: [address] [place] [address] Performed By: #### 5 7021-8 ####[facility] LABIA [id number] [place] [address] [place] MCV (RBC) [Entitic vol] 94.2 fL Normal 80.0-100.[address] [facility] Comment on above: Order Comment: Speci men Type: BLOOD SPECIMENOrdering Facility: [facility] Address: [address] [place] [address] Performed By: #### 5 7021-8 ####[facility] LABIA [id number] [place] [address] [place] Monocytes (Bld) [#/Vol] 0.67 10*3/uL Normal <0.[address] [facility] Comment on above: Order Comment: Speci men Type: BLOOD SPECIMENOrdering Facility: [facility] Address: [address] [place] [address] Performed By: #### 5 7021-8 ####[facility] LABCLIA [id number] [place] [address] [place] Monocytes/100 WBC (Bld) 9.6 % Normal [facility] Comment on above: Order Comment: Speci men Type: BLOOD SPECIMENOrdering Facility: [facility] Address: [address] [place] [address] Performed By: #### 5 7021-8 ####[facility] LABCLIA [id number] [place] [address] [place] Neutrophils (Bld) [#/Vol] 3.72 10*3/uL Normal 1.45-7.[address] [facility] Comment on above: Order Comment: Speci men Type: BLOOD SPECIMENOrdering Facility: [facility] Address: [address] [place] [address] Performed By: #### 5 7021-8 ####[facility] LABCLIA [id number] [place] [address] [place] Neutrophils/100 WBC (Bld) 53.4 % Normal [facility] Comment on above: Order Comment: Speci men Type: BLOOD SPECIMENOrdering Facility: [facility] Address: [address] [place] [address] Performed By: #### 5 7021-8 ####[facility] LABCLIA [id number] [place] [address] [place] Nucleated RBC (Bld) [#/Vol] 10*3/uL Normal <0.[address] [facility] Comment on above: Order Comment: Speci men Type: BLOOD SPECIMENOrdering Facility: [facility] Address: [address] [place] [address] Performed By: #### 5 7021-8 ####[facility] LABCLIA [id number] [place] [address] [place] Nucleated RBC/100 WBC (Bld) [Ratio] 0.0 /100 WBC Normal [facility] Comment on above: Order Comment: Speci men Type: BLOOD SPECIMENOrdering Facility: [facility] Address: [address] [place] [address] Performed By: #### 5 7021-8 ####[facility] LABCLIA [id number] [place] [address] [place] Platelet mean volume (Bld) [Entitic vol] 9.7 fL Normal 9.0-12.[address] [facility] Comment on above: Order Comment: Speci men Type: BLOOD SPECIMENOrdering Facility: [facility] Address: [address] [place] [address] Performed By: #### 5 7021-8 ####[facility] LABCLIA [id number] [place] [address] [place] Platelets (Bld) [#/Vol] 276 10*3/uL Normal 150-[address] [facility] Comment on above: Order Comment: Speci men Type: BLOOD SPECIMENOrdering Facility: [facility] Address: [address] [place] [address] Performed By: #### 5 7021-8 ####[facility] LABCLIA [id number] [place] [address] [place] RBC (Bld) [#/Vol] 4.47 10*6/uL Normal 4.20-6.00 [facility] Comment on above: Order Comment: Speci men Type: BLOOD SPECIMENOrdering Facility: [facility] Address: [address] [place] [address] Performed By: #### 5 7021-8 ####[facility] LABCLIA [id number] [place] [address] [place] WBC (Bld) [#/Vol] 6.97 10*3/uL Normal 3.70-11.00 [facility] Comment on above: Order Comment: Speci men Type: BLOOD SPECIMENOrdering Facility: [facility] Address: [address] [place] [id number] Performed By: #### 5 7021-8 ####[facility] LABCLIA [id number] [address] [address] [place] Comprehensive metabolic 2000 panelon 01-27-2024 Albumin [Mass/Vol] 4.2 g/dL Normal 3.9-4.9 [facility] Comment on above: Order Comment: Speci men Type: BLOOD SPECIMENOrdering Facility: [facility] Address: [address] [place] [address] Performed By: #### 2 4331-1, 72818-7 ####[facility] LABCLIA [id number] [place] [address] [place] ALP [Catalytic activity/Vol] 59 U/L Normal 38-[address] [facility] Comment on above: Order Comment: Speci men Type: BLOOD SPECIMENOrdering Facility: [facility] Address: [address] [place], [place] [address] Performed By: #### 2 4331-1, 98547-5 ####[facility] LABCLIA [id number] [address] [place] ALT [Catalytic activity/Vol] 21 U/L Normal 10-[address] [facility] Comment on above: Order Comment: Speci men Type: BLOOD SPECIMENOrdering Facility: [facility] Address: [address] [place] [id number] Performed By: #### 2 4331-1, 39926-2 ####[facility] LABCLIA [id number] [place] [id number] [place] Anion gap [Moles/Vol] 12 mmol/L Normal 8-[address] [facility] Comment on above: Order Comment: Speci men Type: BLOOD SPECIMENOrdering Facility: [facility] Address: [address] [place], [place] [address] Performed By: #### 2 4331-1, ####[facility] LABCLIA [id number] [address] [address] [place] AST [Catalytic activity/Vol] 22 U/L Normal 14-[address] [facility] Comment on above: Order Comment: Speci men Type: BLOOD SPECIMENOrdering Facility: [facility] Address: [address] [place] [address] Performed By: #### 2 4331-1, ####[facility] LABCLIA [id number] [place] [id number] [place] Bilirubin [Mass/Vol] 0.5 mg/dL Normal 0.2-1.[address] [facility] Comment on above: Order Comment: Speci men Type: BLOOD SPECIMENOrdering Facility: [facility] Address: [address] [place] [address] Performed By: #### 2 4331-, ####[facility] LABIA [id number] [place] [id number] [place] Calcium [Mass/Vol] 9.2 mg/dL Normal 8.5-10.2 [facility] Comment on above: Order Comment: Speci men Type: BLOOD SPECIMENOrdering Facility: [facility] Address: [address] [place] [address] Performed By: #### 2 4331-1, ####[facility] LABCLIA [id number] [place] [id number] [place] Chloride [Moles/Vol] 104 mmol/L Normal 98-[address] [facility] Comment on above: Order Comment: Speci men Type: BLOOD SPECIMENOrdering Facility: [facility] Address: [address] [place] [address] Performed By: #### 2 4331-1, ####[facility] LABCLIA [id number] [place] [id number] [place] CO2 [Moles/Vol] 27 mmol/L Normal 22-[address] [facility] Comment on above: Order Comment: Speci men Type: BLOOD SPECIMENOrdering Facility: [facility] Address: [address] [place] [address] Performed By: #### 2 4331-1, ####[facility] LABCLIA [id number] [place] [address] [place] Creatinine [Mass/Vol] 0.94 mg/dL Normal 0.73-1.[address] [facility] Comment on above: Order Comment: Speci men Type: BLOOD SPECIMENOrdering Facility: [facility] Address: [address] [place] [address] Performed By: #### 2 4331-, ####[facility] LABCLIA [id number] [address] [place] Creatinine and Glomerular filtration rate.predicted panel (S/P/Bld) 87 mL/min/1.73m??? Normal >=[address] [facility] Comment on above: Order Comment: Speci men Type: BLOOD SPECIMENOrdering Facility: [facility] Address: [address] [place] [address] Result Comment: Betty mated Glomerular Filtration Rate [...] reflect actual GFR. Performed By: #### 2 4331-1, ####[facility] LABCLIA [id number] [place] [address] [place] Glucose [Mass/Vol] 95 mg/dL Normal 74-99 [facility] Comment on above: Order Comment: Speci men Type: BLOOD SPECIMENOrdering Facility: [facility] Address: [address] [place] [address] Result Comment: The [place] Diabetes Association (ADA) provides guidance for cutoff [...] Standards of Medical Care in Diabetes 2016, [place] [employer]. Diabetes Care. 2016.39(Suppl 1). Performed By: #### 2 4331-1, ####[facility] LABIA [id number] [place] [address] [place] Potassium [Moles/Vol] 4.0 mmol/L Normal 3.7-5.[address] [facility] Comment on above: Order Comment: Speci men Type: BLOOD SPECIMENOrdering Facility: [facility] Address: [address] [place] [address] Performed By: #### 2 4331-, ####[facility] LABIA [id number] [place] [address] [place] Protein [Mass/Vol] 6.8 g/dL Normal 6.3-8.0 [facility] Comment on above: Order Comment: Speci men Type: BLOOD SPECIMENOrdering Facility: [facility] Address: [address] [place] [address] Performed By: #### 2 4331-, ####[facility] LABCLIA [id number] [place] [address] [place] Sodium [Moles/Vol] 143 mmol/L Normal 136-144 [facility] Comment on above: Order Comment: Speci men Type: BLOOD SPECIMENOrdering Facility: [facility] Address: [address] [place] [address] Performed By: #### 2 4331-1, 10478-4 ####[facility] LABCLIA [id number] [place] [address] [place] Urea nitrogen [Mass/Vol] 20 mg/dL Normal 9-[address] [facility] Comment on above: Order Comment: Abeli men Type: BLOOD SPECIMENOrdering Facility: [facility] Address: [address] [place] [address] Performed By: #### 2 4331-1, 21951-0 ####[facility] LABIA [id number] [place] [address] [place] HbA1c (Bld)on 01-27-2024 Average glucose Estimated from glycated hemoglobin (Bld) [Mass/Vol] 111 mg/dL Normal [facility] Comment on above: Order Comment: Yannick [facility] Type: BLOOD SPECIMENOrdering Facility: [facility] Address: [address] [place] [address] Result Comment: eAG: (Estimated average glucose) is a calculated value from HgbA1c and is support representative of the average blood glucose level in the last 2-3 month period. Performed By: #### 5 5454-3 ####[facility] LABIA [id number] [place] [address] [place] HbA1c (Bld) [Mass fraction] 5.5 % Normal 4.3-5.[address] [facility] Comment on above: Order Comment: Abeli [facility] Type: BLOOD SPECIMENOrdering Facility: [facility] Address: [address] [place] [address] Result Comment: [place] Diabetes Association guidelines indicate that patients with HgbA1c in the range 5.7-6.4% are at increased risk for development of diabetes, and intervention by lifestyle modification may be beneficial. HgbA1c greater or equal to 6.5% is considered diagnostic of diabetes. Performed By: #### 5 5454-3 ####[facility] LABCLIA [id number] [place] [address] [place] Lipid 1996 panelon 4 Cholesterol [Mass/Vol] 145 mg/dL Normal <[address] [facility] Comment on above: Order Comment: Speci men Type: BLOOD SPECIMENOrdering Facility: [facility] Address: [address] [place] [address] Result Comment: <200 mg/dL, Desirable 200-239 mg/dL, Borderline high >239 mg/dL, High Performed By: #### 2 4331-1, 30281-2 ####[facility] LABCLIA [id number] [address] [place] Cholesterol in HDL [Mass/Vol] 57 mg/dL Normal >[address] [facility] Comment on above: Order Comment: Speci men Type: BLOOD SPECIMENOrdering Facility: [facility] Address: [address] [place] [address] Result Comment: 40-5 9 mg/dL, Acceptable >59 mg/dL, High: Negative risk factor for coronary heart disease <40 mg/dL, Low: Positive risk factor for coronary heart disease Performed By: #### 2 4331-1, 77466-2 ####[facility] LABCLIA [id number] [address] STATES [facility] Cholesterol in LDL [Mass/Vol] 72 mg/dL Normal <[address] [facility] Comment on above: Order Comment: Speci men Type: BLOOD SPECIMENOrdering Facility: [facility] Address: [address] [place] [address] Result Comment: <100 mg/dL, Optimal 100-129 mg/dL, Near optimal/above optimal 130-159 mg/dL, Borderline high 160-189 mg/dL, High >189 mg/dL, Very high Secondary prevention optimal LDL Cholesterol levels are recommended to be < 70 mg/dL Performed By: #### 2 4331-1, 90153-4 ####[facility] LABCLIA [id number] [address] [place] Cholesterol in LDL/Cholesterol in HDL [Mass ratio] 1.26 {ratio} Normal <2.[address] [facility] Comment on above: Order Comment: Speci men Type: BLOOD SPECIMENOrdering Facility: [facility] Address: [address] [place] [address] Result Comment: Alexa og: 1. National Cholesterol Education Program ATP III Guideline At-A-Glance Quick Desk Reference: National Heart, Lung, and Blood [place]. National Institutes of Health. 2001: NIH Publication No. 01-3305. 2. An International Atherosclerosis Society position paper: global recommendations for the management of dyslipidemia: executive summary, Atherosclerosis. 2014: 232(2):410-413. Performed By: #### 2 4331-1, 21237-5 ####[facility] LABCLIA [id number] [place] [address] [place] Cholesterol in VLDL [Mass/Vol] 16 mg/dL Normal <[address] [facility] Comment on above: Order Comment: Speci men Type: BLOOD SPECIMENOrdering Facility: [facility] Address: [address] [place] [address] Performed By: #### 2 4331-1, ####[facility] LABCLIA [id number] [place] [address] [place] Cholesterol non HDL [Mass/Vol] 88 mg/dL Normal <[address] [facility] Comment on above: Order Comment: Abeli nikki Type: BLOOD SPECIMENOrdering Facility: [facility] Address: [address] [place] [address] Result Comment: <130 mg/dL, Optimal 130-159 mg/dL, Near optimal/above optimal 160-189 mg/dL, Borderline high 190-219 mg/dL, High >219 mg/dL, Very high Secondary prevention optimal non HDL Cholesterol levels are recommended to be <100 mg/dL Performed By: #### 2 4331-1, 56325-7 ####[facility] LABCLIA [id number] [place] [address] [place] Cholesterol.total/C holesterol in HDL [Mass ratio] 2.54 {ratio} Normal <5.[address] [facility] Comment on above: Order Comment: Speci men Type: BLOOD SPECIMENOrdering Facility: [facility] Address: [address] [place] [address] Performed By: #### 2 4331-1, ####[facility] LABCLIA [id number] [place] [address] [place] FASTING TIME 11 hrs Normal [facility] Comment on above: Order Comment: Speci men Type: BLOOD SPECIMENOrdering Facility: [facility] Address: [address] [place] [address] Performed By: #### 2 4331-1, ####[facility] LABCLIA [id number] [place] [address] [place] Triglyceride [Mass/Vol] 81 mg/dL Normal <[address] [facility] Comment on above: Order Comment: Speci men Type: BLOOD SPECIMENOrdering Facility: [facility] Address: [address] [place] [address] Result Comment: <150 mg/dL, Normal 150-199 mg/dL, Borderline high 200-499 mg/dL, High >499 mg/dL, Very high Performed By: #### 2 4331-1, ####[facility] LABCLIA [id number] [place] [address] [place] CNOVon 01-26-2024 CNOV Office Visit (JOHNNA ) KEMAR CHAKRABORTY ([id number]) 1950 M Date Time Provider Department 01/26/24 7:20 AM PODLOGARAYANNA During your visit today, we recorded the following information about you: Pulse Respiration Blood pressure Weight 114/minute 16/minute 150/78 86.4 kg Height 1.754 m Ayanna Paige APRN.CNP 01/26/2024 8:05 AM Signed Kemar Chakraborty is a 73 year old male here for a Medicare wellness visit. Medicare Health Risk Assessment General Health Very good Exercise: Minutes/Day 40 min Exercise: Days/Week 4 days Alcohol: Daily Use Monthly or less Alcohol: Drinks/Day 1 or 2 Alcohol: 6 or more drinks Never Feel off balance No Concerns: Teeth/Dentures No Concerns: Sexual function Yes Troubled by feelings Frequency: Eating healthy diet Several days ADLs requiring help None of the above Safety precautions in home/vehicle Yes Smoke, vape, chews tobacco No Difficulty hearing Yes Difficulty seeing No Current Providers Specialists: I have reviewed specialist-related care of the patient in the medical record. Current care team: Patient Care Team: Joe Young MD as PCP - General (Family Medicine) Outside specialists seen: Urologist; Dr. [facility] recent PSA 4.6 Medical/Family history review Reviewed and updated problem list, medical/surgical/fami ly/social history, medications, and allergies. PAST MEDICAL HISTORY Diagnosis Date BPH (benign prostatic hyperplasia) Dr. Flores after hip surgery Erectile dysfunction Family history of cardiovascular disease 05/18/2009 Father CABG, approx late 60s History of COVID-19 10/2020 Hypertension OA (osteoarthritis) of hip Prediabetes Premature atrial complexes White coat syndrome with hypertension ALLERGIES Seasonal Allergies MEDICATIONS Current Outpatient Medications Medication Sig atorvastatin (LIPITOR) 20 mg tablet Take 1 tablet by mouth daily at bedtime. metFORMIN (GLUCOPHAGE) 500 mg tablet Take 1 tablet by mouth two times a day with meals. tamsulosin (FLOMAX) 0.4 mg Take 2 capsules by mouth daily at bedtime. metoprolol succinate ER (TOPROL XL) 50 mg 24 hr tablet Take 1 tablet by mouth once daily. lisinopril-hydroCHLOR Othiazide (ZESTORETIC) 20-12.5 mg per tablet Take 2 tablets by mouth once daily. For BP Tadalafil (CIALIS) 10 mg tablet Take 1 tablet by mouth as needed. VITAMIN E ACETATE ORAL Take 180 mg by mouth. Blood Pressure Monitor kit 1 Device once daily. Dx: I10 Miscellaneous Medical Supply (BLOOD PRESSURE CUFF) misc 1 Device once daily. No current facility-administered medications for this visit. Medications and allergies reviewed by this provider. SOCIAL HISTORY Social History Tobacco Use Smoking status: Never Smokeless tobacco: Never Substance Use Topics Alcohol use: Yes Comment: rare Drug use: No Opioid use review Opioid Medications (last 90 days) No data to display Anxiety/Depression screening PHQ-9 Score: 0. Recommendation: no further intervention at this time Cognitive screening Cognitive screening reviewed and No further action needed (score 3-5). Functional Observation Was the patient's Timed Up AND Go test unsteady or >= 12 seconds? No Advance Care Planning - needs to fill out paperwork Measurements BP 150/78 Pulse 114 Resp 16 Ht 175.4 cm (5' 9.06) Wt 86.4 kg (190 lb 7.6 oz) SpO2 97% BMI 28.08 kg/m? Vision Screening: Follows with optometry/ophthalmolo gy Right: 20/20 Left: 20/ 20 Both: 20/20 ASSESSMENT/PLAN: 1. Medicare annual wellness visit, subsequent - ICD9: V70.0, ICD10: Z00.00 (primary diagnosis) - Counseled on healthy diet and regular exercise - Fall avoidance information provided - Personalized prevention plan provided - Follow up for annual exam in one year Ayanna Paige APRN.BERNIE BPH: followed up with urologist last month for elevated PSA. Admits to nocturia 1-2 times per night. Denies weak stream, straining to urinate, urinary urgency, frequency or hematuria HTN: Patient is compliant with meds Yes Monitors bp at home: Yes. Denies side effects: Yes. Chest pain: No. Dyspnea: No. Edema: No. Palpitations: No. Syncope: No. Headache: No. Dizziness: No. Patient reports BP and heart rate always elevated when comes into office. Takes BP at home daily with averages 130's/80's. Pulse runs in the 80's at home Prediabetes: taking metformin as prescribed without side effects. Denies visual changes, polyuria or polydipsia HYPERLIPIDEMIA: Patient is taking medications: Yes. Patient is watching diet: Yes. Patient denies myalgias: Yes. Patient denies gi upset: Yes Rides a stationary and recumbent bike. Rides at least 3-4 times a week. PAST MEDICAL HISTORY Diagnosis Date BPH (benign prostatic hyperplasia) Dr. Flores after hip surgery Erectile dysfunction Family history of cardiovascula (more content not included)... Normal [facility] PSA Total+%Freeon 01-05-2024 PSA, FREE 1.20 ng/mL Normal N/A [facility] Comment on above: Result Comment: Roch jose ECLIA methodology. Performed By: #### L 3110.0500 #### [facility] [address] [place], [address] PSA, FREE % 26.1 Normal . [facility] Comment on above: Result Comment: The table below lists the probability of prostate cancer for men with non-suspicious KUNAL results and total PSA between 4 and 10 ng/mL, by patient age (Yvonne et al, ALYSSA 1998, 279:1542). % Free PSA 50-64 yr 65-75 yr 0.00-10.00% 56% 55% 10.01-15.00% 24% 35% 15.01-20.00% 17% 23% 20.01-25.00% 10% 20% >25.00% 5% 9% Please note: Yvonne et al did not make specific recommendations regarding the use of percent free PSA for any other population of men. Performed at: [address] [id number] [employer] Manager: Zen Poe PhD, Phone: [phone] Performed By: #### L 3110.0500 #### [facility] [address] [place], [address] PSA, TOTAL ULTR 4.600 ng/mL Abnormal 0.000-4.000 [facility] Comment on above: Result Comment: Roch jose ECLIA methodology. According to the [place] [employer], Serum PSA should decrease and remain at undetectable levels after radical prostatectomy. The AUA defines biochemical recurrence as an initial PSA value 0.200 ng/mL or greater followed by a subsequent confirmatory PSA value 0.200 ng/mL or greater. Values obtained with different assay methods or kits cannot be used interchangeably. Results cannot be interpreted as absolute evidence of the presence or absence of malignant disease. Performed By: #### L 3110.0500 #### [facility] [address] [place], [place], [id number] Mumps Antibody,IgGon 06-02- 024 MUMPS Ab, IgG 18.0 AU/mL Normal Immune >10.9 [facility] Comment on above: Result Comment: Nega tive <9.0 Equivocal 9.0 - 10.9 Positive >10.9 A positive result generally indicates past exposure to Mumps virus or previous vaccination. Performed By: #### L 509.4015, L3400.1750, L3100.3400 #### [facility] [address] [place], [place], [id number] [facility] EMP Rubeola Titeron 03-2 RUBEOLA Ab, IgG > 300.0 Normal Immune >16.4 [facility] Comment on above: Result Comment: Nega tive <13.5 Equivocal 13.5 - 16.4 Positive >16.4 Presence of antibodies to Rubeola is presumptive evidence of immunity except when acute infection is suspected. Performed at: [address] [id number] [employer] Manager: Zen Poe PhD, Phone: [phone] Performed By: #### L 509.4015, L3400.1750, L3100.3400 #### [facility] [address] [place], [place], [id number] Rubella IgG [facility] EMPLOYEEon 0 06-02-2023 Rubella IgG Reactive Normal Nonreactive [facility] Comment on above: Result Comment: Anti body Results Interpretation of Immune Status Non Reactive Presumed Non-Immune Equivocal Equivocal Reactive Presumed Immune Performed By: #### L 509.4015, L3400.1750, L3100.3400 #### [facility] [address] [place], [place], [id number] Vital Signs Date Time Vital Sign Value Performing Clinician Yoko bai 11-29-2024 09:10-0400 Heart rate 109 /min Delphine Tomlin MD Work Phone: [facility] 11-29-2024 07:46-0400 Body mass index (BMI) [Ratio] 28.6 kg/m2 Delphine Tomlin MD Work Phone: [facility] 11-29-2024 07:46-0400 Body temperature 97.2 [degF] Delphine Tomlin MD Work Phone: [facility] 11-29-2024 07:46-0400 Body weight 88 kg Delphine Tomlin MD Work Phone: [facility] 11-29-2024 07:46-0400 Respiratory rate 16 /min Delphine Tomlin MD Work Phone: [facility] 11-29-2024 07:46-0400 SaO2% (BldA) [Mass fraction] 97 % Delphine Tomlin MD Work Phone: [facility] 07-25-2024 08:18-0400 Body mass index (BMI) [Ratio] 28.6 kg/m2 Ayanna Podlogar CUSTOMER SUPPORT ANALYST.PSYCHOLOGIST MILITARY PERSONNEL Work Phone: [facility] 07-25-2024 08:18-0400 Body weight 88 kg Ayanna Podlogar CUSTOMER SUPPORT ANALYST.PSYCHOLOGIST MILITARY PERSONNEL Work Phone: [facility] 07-25-2024 08:18-0400 Diastolic blood pressure 82 mm[Hg] Ayanna Podlogar CUSTOMER SUPPORT ANALYST.PSYCHOLOGIST MILITARY PERSONNEL Work Phone: [facility] 07-25-2024 08:18-0400 Heart rate 114 /min Ayanna Podlogar CUSTOMER SUPPORT ANALYST.PSYCHOLOGIST MILITARY PERSONNEL Work Phone: [facility] 07-25-2024 08:18-0400 Respiratory rate 16 /min Ayanna Podlogar CUSTOMER SUPPORT ANALYST.PSYCHOLOGIST MILITARY PERSONNEL Work Phone: [facility] 07-25-2024 08:18-0400 SaO2% (BldA) [Mass fraction] 99 % Ayanna Podlogar CUSTOMER SUPPORT ANALYST.PSYCHOLOGIST MILITARY PERSONNEL Work Phone: [facility] 07-25-2024 08:18-0400 Systolic blood pressure 148 mm[Hg] Ayanna Podlogar CUSTOMER SUPPORT ANALYST.PSYCHOLOGIST MILITARY PERSONNEL Work Phone: [facility] 05-06-2024 12:51-0500 Body mass index (BMI) [Ratio] 28.31 kg/m2 Tami Adames APRN.PSYCHOLOGIST MILITARY PERSONNEL Work Phone: [facility] 05-06-2024 12:51-0500 Body temperature 98.4 [degF] Tami Adames APRN.PSYCHOLOGIST MILITARY PERSONNEL Work Phone: [facility] 05-06-2024 12:51-0500 Body weight 87.1 kg Tami Adames APRN.PSYCHOLOGIST MILITARY PERSONNEL Work Phone: [facility] 05-06-2024 12:51-0500 Diastolic blood pressure 78 mm[Hg] Tami Adames APRN.PSYCHOLOGIST MILITARY PERSONNEL Work Phone: [facility] 05-06-2024 12:51-0500 Heart rate 114 /min Tami Adames APRN.PSYCHOLOGIST MILITARY PERSONNEL Work Phone: [facility] 05-06-2024 12:51-0500 Respiratory rate 18 /min Tami Adames APRN.PSYCHOLOGIST MILITARY PERSONNEL Work Phone: [facility] 05-06-2024 12:51-0500 SaO2% (BldA) [Mass fraction] 94 % Tami Adames APRN.PSYCHOLOGIST MILITARY PERSONNEL Work Phone: [facility] 05-06-2024 12:51-0500 Systolic blood pressure 142 mm[Hg] Tami Adames APRN.PSYCHOLOGIST MILITARY PERSONNEL Work Phone: [facility] 01-26-2024 07:27-0500 Body height 175.4 cm Ayanna Paige APRN.PSYCHOLOGIST MILITARY PERSONNEL Work Phone: [facility] 01-26-2024 07:27-0500 Body mass index (BMI) [Ratio] 28.08 kg/m2 Ayanna Lemalogviolet GREENBERG.PSYCHOLOGIST MILITARY PERSONNEL Work Phone: [facility] 01-26-2024 07:27-0500 Body weight 86.4 kg Ayanna Paige APRN.PSYCHOLOGIST MILITARY PERSONNEL Work Phone: [facility] 01-26-2024 07:27-0500 Diastolic blood pressure 78 mm[Hg] Ayanna Paige APRN.PSYCHOLOGIST MILITARY PERSONNEL Work Phone: [facility] 01-26-2024 07:27-0500 Heart rate 114 /min Ayanna Podlogar CUSTOMER SUPPORT ANALYST.PSYCHOLOGIST MILITARY PERSONNEL Work Phone: [facility] 01-26-2024 07:27-0500 Respiratory rate 16 /min Ayanna Podlogar CUSTOMER SUPPORT ANALYST.PSYCHOLOGIST MILITARY PERSONNEL Work Phone: [facility] 01-26-2024 07:27-0500 SaO2% (BldA) [Mass fraction] 97 % Ayanna Podlogar CUSTOMER SUPPORT ANALYST.PSYCHOLOGIST MILITARY PERSONNEL Work Phone: [facility] 01-26-2024 07:27-0500 Systolic blood pressure 150 mm[Hg] Ayanna Podlogar CUSTOMER SUPPORT ANALYST.PSYCHOLOGIST MILITARY PERSONNEL Work Phone: [facility] 04-29-2023 07:45-0500 Body weight 90.72 kg Ayanna Podlogar CUSTOMER SUPPORT ANALYST.PSYCHOLOGIST MILITARY PERSONNEL Work Phone: [facility] 04-29-2023 07:45-0500 Diastolic blood pressure 72 mm[Hg] Ayanna Podlogar CUSTOMER SUPPORT ANALYST.PSYCHOLOGIST MILITARY PERSONNEL Work Phone: [facility] 04-29-2023 07:45-0500 Heart rate 100 /min Ayanna Podlogar CUSTOMER SUPPORT ANALYST.PSYCHOLOGIST MILITARY PERSONNEL Work Phone: [facility] 04-29-2023 07:45-0500 Respiratory rate 18 /min Ayanna Podlogar CUSTOMER SUPPORT ANALYST.PSYCHOLOGIST MILITARY PERSONNEL Work Phone: [facility] 04-29-2023 07:45-0500 SaO2% (BldA) [Mass fraction] 97 % Ayanna Podlogar CUSTOMER SUPPORT ANALYST.PSYCHOLOGIST MILITARY PERSONNEL Work Phone: [facility] 04-29-2023 07:45-0500 Systolic blood pressure 142 mm[Hg] Aynana Podlogar CUSTOMER SUPPORT ANALYST.PSYCHOLOGIST MILITARY PERSONNEL Work Phone: [facility] 09-24-2022 08:02-0400 Body height 177.8 cm Joe Young MD Work Phone: [facility] 09-24-2022 08:02-0400 Body weight 90.45 kg Joe Young MD Work Phone: [facility] 09-24-2022 08:02-0400 Diastolic blood pressure 82 mm[Hg] Joe Young MD Work Phone: [facility] 09-24-2022 08:02-0400 Heart rate 100 /min Joe Young MD Work Phone: [facility] 09-24-2022 08:02-0400 Respiratory rate 16 /min Joe Young MD Work Phone: [facility] 09-24-2022 08:02-0400 Systolic blood pressure 164 mm[Hg] Joe Young MD Work Phone: [facility] 07-17-2021 08:02-0400 Body height 176.5 cm Joe Young MD Work Phone: [facility] 07-17-2021 08:02-0400 Body weight 94.8 kg Joe Young MD Work Phone: [facility] 07-17-2021 08:02-0400 Respiratory rate 14 /min Joe Young MD Work Phone: [facility] Encounters Encounter Date Encounter Type Care Provider Facility Start: 12-28-2024 End: 12-28-2024 ambulatory AYANNA PODLOGAR Facility:[facility] Start: 11-29-2024 End: 11-30-2024 ambulatory Ayanna Podlogar CUSTOMER SUPPORT ANALYST.PSYCHOLOGIST MILITARY PERSONNEL Work Phone: [facility] [place] Comment on above: colon scope Start: 11-29-2024 End: 11-29-2024 Subsequent hospital visit by physician Delphine Tomlin MD Work Phone: Ambulatory Surgery Comment on above: Screening for colon cancer [Z12.11] Start: 11-23-2024 End: 11-24-2024 ambulatory Ayanna Podlogar CUSTOMER SUPPORT ANALYST.PSYCHOLOGIST MILITARY PERSONNEL Work Phone: [facility] [place] Comment on above: colon scope Start: 10-16-2024 End: 10-18-2024 Refill Ayanna Podlogar CUSTOMER SUPPORT ANALYST.PSYCHOLOGIST MILITARY PERSONNEL Work Phone: [facility] [place] Comment on above: Refill Request Start: 07-25-2024 End: 07-25-2024 Patient encounter procedure Ayanna Lemalogviolet GREENBERG.PSYCHOLOGIST MILITARY PERSONNEL Work Phone: [facility] [place] Comment on above: Essential hypertensi on (Primary Dx); Screening for depression; Encounter for screening examination for other mental health and behavioral disorders; Need for vaccination; Prediabetes; Hyperlipidemia, unspecified hyperlipidemia type; Screening for colon cancer Start: 07-25-2024 End: 07-25-2024 ambulatory AYANNA PODLOGAR Facility:[facility] Start: 07-19-2024 End: 07-19-2024 Refill Ayanna Paige APRN.PSYCHOLOGIST MILITARY PERSONNEL Work Phone: [facility] [place] Comment on above: Refill Request Start: 07-15-2024 End: 07-18-2024 Refill Vida Dennis APRN.PSYCHOLOGIST MILITARY PERSONNEL Work Phone: [facility] [place] Comment on above: Refill Request Start: 07-02-2024 End: 07-02-2024 Refill Vida Dennis APRN.PSYCHOLOGIST MILITARY PERSONNEL Work Phone: [facility] [place] Comment on above: Refill Request Start: 06-13-2024 End: 06-14-2024 Refill Vida Dennis APRN.PSYCHOLOGIST MILITARY PERSONNEL Work Phone: NURSE ASSEMBLY WORKER Comment on above: Refill Request Start: 05-07-2024 End: 05-09-2024 ambulatory Joe Young MD Work Phone: [facility] [place] Comment on above: would it be possible to a prescription for benzonatate Start: 05-07-2024 End: 05-07-2024 Telephone encounter Tami Adames APRN.CNP Work Phone: [facility] Comment on above: Cough Start: 05-06-2024 End: 05-06-2024 ambulatory JOE YOUNG Facility:[facility] Start: 05-06-2024 End: 05-06-2024 Patient encounter procedure Tami Adames APRN.PSYCHOLOGIST MILITARY PERSONNEL Work Phone: [facility] Comment on above: Rhinosinusitis (Prim eulalia Dx) Start: 04-29-2024 End: 04-30-2024 Refill Ayanna Podlogviolet CUSTOMER SUPPORT ANALYST.PSYCHOLOGIST MILITARY PERSONNEL Work Phone: [facility] Comment on above: Refill Request Start: 01-27-2024 End: 01-27-2024 ambulatory AYANNA PODLOGAR Facility:[facility] Start: 01-26-2024 End: 01-26-2024 ambulatory AYANNA PODLOGAR Facility:[facility] Start: 01-26-2024 End: 01-26-2024 Patient encounter procedure Ayanna Podlogar CUSTOMER SUPPORT ANALYST.PSYCHOLOGIST MILITARY PERSONNEL Work Phone: [facility] Comment on above: Essential hypertensi on (Primary Dx); Prediabetes; Benign prostatic hyperplasia, unspecified whether lower urinary tract symptoms present; Medicare annual wellness visit, subsequent; 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; Elevated PSA; Hyperlipidemia, unspecified hyperlipidemia type Start: 01-20-2024 End: 01-20-2024 Refill Vida Dennis CUSTOMER SUPPORT ANALYST.PSYCHOLOGIST MILITARY PERSONNEL Work Phone: [facility] Comment on above: Refill Request Start: 01-10-2024 End: 01-11-2024 Refill Joe Young MD Work Phone: [facility] Comment on above: Refill Request Start: 01-04-2024 End: 01-04-2024 ambulatory Aly Young Facility:[facility] Start: 12-18-2023 End: 12-18-2023 Refill Amando Whitt MD Work Phone: NURSE ASSEMBLY WORKER Comment on above: Refill Request Start: 10-08-2023 Refill Vida garcia CUSTOMER SUPPORT ANALYST.PSYCHOLOGIST MILITARY PERSONNEL Work Phone: [facility] Comment on above: Refill Request Start: 09-20-2023 ambulatory Dinorah Triana RN NURSE ASSEMBLY WORKER Comment on above: Overdose Start: 07-23-2023 Refill Ayanna Podlogviolet CUSTOMER SUPPORT ANALYST.PSYCHOLOGIST MILITARY PERSONNEL Work Phone: [facility] Comment on above: Refill Request Start: 07-22-2023 Refill Ayanna Podlogviolet CUSTOMER SUPPORT ANALYST.PSYCHOLOGIST MILITARY PERSONNEL Work Phone: [facility] Comment on above: Refill Request Start: 07-12-2023 Refill Joe Young MD Work Phone: [facility] Comment on above: Refill Request Start: 07-02-2023 Refill Joe Young MD Work Phone: [facility] Comment on above: Refill Request Start: 06-15-2023 Refill Ayanna Podlogar CUSTOMER SUPPORT ANALYST.PSYCHOLOGIST MILITARY PERSONNEL Work Phone: [facility] Comment on above: Refill Request Start: 06-02-2023 [facility] Start: 05-01-2023 Telephone encounter Ayanna Lemal ogar CUSTOMER SUPPORT ANALYST.PSYCHOLOGIST MILITARY PERSONNEL Work Phone: [facility] Comment on above: Results Start: 04-29-2023 ambulatory Ayanna Podlogar CUSTOMER SUPPORT ANALYST.PSYCHOLOGIST MILITARY PERSONNEL Work Phone: [facility] Comment on above: Test results Start: 04-29-2023 End: 04-29-2023 Patient encounter procedure Ayanna Podlogar CUSTOMER SUPPORT ANALYST.PSYCHOLOGIST MILITARY PERSONNEL Work Phone: [facility] Comment on above: Essential hypertensi on (Primary Dx); Prediabetes; Depression screening; Benign prostatic hyperplasia, unspecified whether lower urinary tract symptoms present; Hyperlipidemia, unspecified hyperlipidemia type Start: 02-03-2023 ambulatory Joe Young MD Work Phone: [facility] [place] Comment on above: Question Start: 01-22-2023 Refill Ayanna Podlogar CUSTOMER SUPPORT ANALYST.PSYCHOLOGIST MILITARY PERSONNEL Work Phone: [facility] Comment on above: Refill Request Start: 01-08-2023 Refill Joe Young MD Work Phone: [facility] Comment on above: Refill Request Start: 12-21-2022 Refill Ayanna Podlogar CUSTOMER SUPPORT ANALYST.PSYCHOLOGIST MILITARY PERSONNEL Work Phone: [facility] Comment on above: Refill Request Rsv Start: 09-24-2022 End: 09-24-2022 Patient encounter procedure Joe Young MD Work Phone: [facility] [place] Comment on above: Medicare annual well ness visit, subsequent (Primary Dx); 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; Benign prostatic hyperplasia, unspecified whether lower urinary tract symptoms present Start: 09-20-2022 Refill Joe Young MD Work Phone: [facility] [place] Comment on above: Refill Request Start: 09-08-2022 ambulatory Joe Young MD Work Phone: [facility] [place] Comment on above: BP readings Start: 08-29-2022 Refill Vida garcia CUSTOMER SUPPORT ANALYST.PSYCHOLOGIST MILITARY PERSONNEL Work Phone: [facility] [place] Comment on above: Refill Request Start: 07-21-2022 Refill Joe Young MD Work Phone: [facility] [place] Comment on above: Refill Request Start: 07-20-2022 Refill Joe Young MD Work Phone: [facility] [place] Comment on above: Refill Request Start: 06-28-2022 Refill Joe Young MD Work Phone: [facility] [place] Comment on above: Refill Request Start: 05-26-2022 ambulatory Joe Young MD Work Phone: [facility] [place] Comment on above: urologist fu Start: 05-23-2022 Refill Joe Young MD Work Phone: [facility] [place] Comment on above: Refill Request Blood test Start: 02-11-2022 Telephone encounter Aly Young MD Work Phone: [facility] [place] Comment on above: Results Start: 01-17-2022 ambulatory Joe Young MD Work Phone: [facility] [place] Comment on above: appt next Thursday Refill Request Start: 12-31-2021 Refill Ayanna Paige APRN.PSYCHOLOGIST MILITARY PERSONNEL Work Phone: [facility] [place] Comment on above: Refill Request Start: 09-25-2021 ambulatory Joe Young MD Work Phone: [facility] [place] Comment on above: medications Start: 07-19-2021 Telephone encounter Aly Young MD Work Phone: [facility] [place] Comment on above: Results Start: 07-17-2021 End: 07-17-2021 Patient encounter procedure Joe Young MD Work Phone: [facility] [place] Comment on above: Medicare annual well ness visit, subsequent (Primary Dx); Irregular heartbeat; Prediabetes; Tachycardia; Primary hypertension; 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 Start: 06-24-2021 Refill Amando glez MD Work Phone: [facility] [place] Comment on above: Refill Request Procedures Date Procedure Procedure Detail Performing Clinician Start: 07-25-2024 PFIZER-BIONTDelivery Agent COVI D-19 VACCINE AGE 12+ YR (COMIRNATY) Ayanna Podlogar CUSTOMER SUPPORT ANALYST.PSYCHOLOGIST MILITARY PERSONNEL Work Phone: Start: 07-25-2024 Adult depression scr eening assessment Ayanna Podlogar CUSTOMER SUPPORT ANALYST.PSYCHOLOGIST MILITARY PERSONNEL Work Phone: Start: 01-27-2024 Lipid 1996 panel - S preeti or Plasma Ayanna Podlogar CUSTOMER SUPPORT ANALYST.PSYCHOLOGIST MILITARY PERSONNEL Work Phone: Start: 10-06-2022 Lipid 1996 panel - S preeti or Plasma Ayanna Podlogar CUSTOMER SUPPORT ANALYST.PSYCHOLOGIST MILITARY PERSONNEL Work Phone: Start: 01-16-2021 Adult depression scr eening assessment Amando Whitt MD Work Phone: Start: 12-01-2014 Colonoscopy Amando schroeder MD Work Phone: Plan of Treatment Date Care Activity Detail Author Start: 01-26-2029 Lipid panel Lipid Screening [facility] Start: 10-07-2027 Lipid 1996 panel - Serum or Plasma Lipid Screening [facility] Start: 10-07-2027 Lipid panel Lipid Screening [facility] Start: 01-26-2027 Diabetes Screening Diabetes Screenin g [facility] Start: 07-18-2026 LIPID SCREEN LIPID SCREEN [facility] Start: 04-29-2026 Diabetes Screening Diabetes Screenin g [facility] Start: 10-06-2025 Diabetes Screening Diabetes Screenin g [facility] Start: 07-25-2025 Annual PCP Team Flatwork Supervisor jasiel Disease Visit Annual PCP Team Chronic Disease Visit [facility] Start: 07-25-2025 Anxiety Screening Anxiety Screening [facility] Start: 07-25-2025 Depression Screening Depression Scre ening [facility] Start: 06-21-2025 DIABETES SCREEN DIABETES SCREEN [facility] Start: 02-10-2025 DIABETES SCREEN DIABETES SCREEN [facility] Start: 01-25-2025 Annual PCP Team Flatwork Supervisor jasiel Disease Visit Annual PCP Team Chronic Disease Visit [facility] Start: 01-25-2025 End: 04-26-2025 CBC W Auto Differential panel - Blood COMPLETE BLOOD COUNT AND DIFFERENTIAL Lab Routine Essential hypertension Screening for colon cancer Expected: 01/25/2025, Expires: 04/26/2025 [facility] Comment on above: Expected: 01/25/2025 , Expires: 04/26/2025 Start: 01-25-2025 End: 04-26-2025 Comprehensive metabolic 2000 panel - Serum or Plasma COMPREHENSIVE METABOLIC PANEL Lab Routine Essential hypertension Expected: 01/25/2025, Expires: 04/26/[address] [facility] Work Phone: Comment on above: Expected: 01/25/2025 , Expires: 04/26/2025 Start: 01-25-2025 End: 04-26-2025 Hemoglobin A1c in Blood HEMOGLOBIN A1C Lab Routine Prediabetes Expected: 01/25/2025, Expires: 04/26/2025 [facility] Comment on above: Expected: 01/25/2025 , Expires: 04/26/2025 Start: 01-25-2025 End: 04-26-2025 Lipid 1996 panel - Serum or Plasma LIPID PANEL, FASTING Lab Routine Hyperlipidemia, unspecified hyperlipidemia type Expected: 01/25/2025, Expires: 04/26/2025 [facility] Comment on above: Expected: 01/25/2025 , Expires: 04/26/2025 Start: 01-25-2025 Medicare Annual Wellness Visit Medicare Annual Wellness Visit [facility] Start: 01-25-2025 End: 01-25-2025 Patient encounter procedure 01/25/2025 7:40 AM EST Office Visit Family [facility] [place] [address] [place] [address] Ayanna Paige APRN.PSYCHOLOGIST MILITARY PERSONNEL [address] [facility] [place] [address] 6 month follow up Family [facility] Comment on above: 6 month follow up Start: 01-06-2025 LIPID SCREEN LIPID SCREEN [facility] Start: 01-06-2025 PROSTATE CANCER SCREENING DISCUSSION PROSTATE CANCER SCREENING DISCUSSION [facility] Start: 12-01-2024 Colonoscopy COLONOSCOPY [facility] Start: 12-01-2024 COLORECTAL CANCER SCREENING COLORECTAL CANCER SCREENING [facility] Start: 12-01-2024 Screening for malign ant neoplasm of colon [facility] Start: 11-29-2024 End: 11-29-2024 Patient encounter procedure 11/29/2024 8:15 AM EDT Appointment Ambulatory Surgery [address] [place] [address] Delphine Tomlin MD [address] [place] [id number] Screening for colon cancer [Z12.11] Ambulatory Surgery Comment on above: Screening for colon cancer [Z12.11] Start: 11-14-2024 Influenza vaccination Influenza Vacc ine (#1) [facility] Start: 07-25-2024 End: 07-25-2024 Patient encounter procedure 07/25/2024 8:20 AM EDT Office Visit [facility] [address] [facility] [place] [address] Ayanna Paige APRN.PSYCHOLOGIST MILITARY PERSONNEL [address] [facility] [address] 6 month follow up Family [facility] Comment on above: 6 month follow up Start: 07-18-2024 DIABETES SCREEN DIABETES SCREEN [facility] Start: 07-04-2024 Covid-19 Vaccine ( season) Covid-19 Vaccine ( season) [facility] Start: 04-29-2024 Annual PCP Team Flatwork Supervisor jasiel Disease Visit Annual PCP Team Chronic Disease Visit [facility] Start: 03-16-2024 Advance Directive Discussion Advance Directive Discussion [facility] Start: 01-26-2024 End: 04-26-2024 CBC W Auto Differential panel - Blood COMPLETE BLOOD COUNT AND DIFFERENTIAL Lab Routine Prediabetes Expected: 01/26/2024, Expires: 04/26/2024 [facility] Comment on above: Expected: 01/26/2024 , Expires: 04/26/2024 Start: 01-26-2024 End: 04-26-2024 Comprehensive metabolic 2000 panel - Serum or Plasma COMPREHENSIVE METABOLIC PANEL Lab Routine Essential hypertension Expected: 01/26/2024, Expires: 04/26/2024 [facility] Comment on above: Expected: 01/26/2024 , Expires: 04/26/2024 Start: 01-26-2024 End: 04-26-2024 Hemoglobin A1c in Blood HEMOGLOBIN A1C Lab Routine Prediabetes Expected: 01/26/2024, Expires: 04/26/2024 [facility] Comment on above: Expected: 01/26/2024 , Expires: 04/26/2024 Start: 01-26-2024 End: 04-26-2024 Lipid 1996 panel - Serum or Plasma LIPID PANEL BASIC Lab Routine Hyperlipidemia, unspecified hyperlipidemia type Expected: 01/26/2024, Expires: 04/26/[address] [facility] Work Phone: Comment on above: Expected: 01/26/2024 , Expires: 04/26/2024 Start: 01-26-2024 End: 01-26-2024 Patient encounter procedure 01/26/2024 7:20 AM EST Office Visit Family [facility] [address] [place] [address] PodlogAaynna lazo APRN.PSYCHOLOGIST MILITARY PERSONNEL [address] [place], [place] [id number] Medicare Wellness/6 month follow up [facility] [place] Comment on above: Medicare Wellness/6 month follow up Start: 01-20-2024 DIABETES SCREEN DIABETES SCREEN [facility] Start: 11-15-2023 Covid-19 Vaccine () Covid-19 Vaccine () [facility] Start: 11-15-2023 Influenza vaccination Influenza Vacc ine (#1) [facility] Start: 10-28-2023 End: 10-28-2023 Patient encounter procedure 10/28/2023 7:40 AM EDT Office Visit Family [facility] [place] [address] [facility] [place] [address] PodlogarAyanna APRN.PSYCHOLOGIST MILITARY PERSONNEL [address] [place] [address] Medicare Wellness/6 month follow up [facility] [place] Comment on above: Medicare Wellness/6 month follow up Start: 09-25-2023 ANNUAL PCP TEAM FURNITURE SANDER JASIEL DISEASE VISIT ANNUAL PCP TEAM CHRONIC DISEASE VISIT [facility] Start: 09-25-2023 COVID-19 VACCINE (5 - Moderna series) COVID-19 VACCINE (5 - Moderna series) [facility] Comment on above: Postponed from 04/26 (Declined at this time) Start: 09-25-2023 SHINGRIX VACCINE (2 of 3) SHINGRIX VACCINE (2 of 3) [facility] Comment on above: Postponed from 03/04 (Declined at this time) Start: 04-29-2023 End: 07-29-2023 Comprehensive metabolic 2000 panel - Serum or Plasma [facility] Work Phone: Comment on above: Expected: 04/29/2023 , Expires: 07/29/2023 Start: 04-29-2023 End: 07-29-2023 Hemoglobin A1c in Blood [facility] Work Phone: Comment on above: Expected: 04/29/2023 , Expires: 07/29/2023 Start: 03-16-2023 Advance Directive Discussion Advance Directive Discussion [facility] Start: 03-16-2023 Behavioral Health Screening Behavioral Health Screening [facility] Start: 03-16-2023 Covid-19 Vaccine () Covid-19 Vaccine () [facility] Start: 03-16-2023 Depression Assessment Depression Ass essment [facility] Start: 02-05-2023 ANNUAL PCP TEAM FURNITURE SANDER JASIEL DISEASE VISIT ANNUAL PCP TEAM CHRONIC DISEASE VISIT [facility] Start: 02-05-2023 Urine microalbumin profile [facility] Comment on above: Postponed from 12/08 (Declined at this time) Start: 11-14-2022 Covid-19 Vaccine ( season) Covid-19 Vaccine ( season) [facility] Start: 11-14-2022 Influenza vaccination [facility] Start: 09-24-2022 End: 11-24-2022 CBC W Auto Differential panel - Blood CBC + DIFF Lab Routine Medicare annual wellness visit, subsequent Expected: 09/24/2022, Expires: 11/24/[address] [facility] Work Phone: Comment on above: Expected: 09/24/2022 , Expires: 11/24/2022 Start: 09-24-2022 End: 11-24-2022 Comprehensive metabolic 2000 panel - Serum or Plasma COMP METABOLIC PANEL Lab Routine Medicare annual wellness visit, subsequent Expected: 09/24/2022, Expires: 11/24/[address] [facility] Work Phone: Comment on above: Expected: 09/24/2022 , Expires: 11/24/2022 Start: 09-24-2022 End: 11-24-2022 Hemoglobin A1c in Blood HGB A1C Lab Routine Medicare annual wellness visit, subsequent Expected: 09/24/2022, Expires: 11/24/[address] [facility] Work Phone: Comment on above: Expected: 09/24/2022 , Expires: 11/24/2022 Start: 09-24-2022 End: 11-24-2022 LIPID PANEL, NONFASTING LIPID PANEL, NONFASTING Lab Routine Medicare annual wellness visit, subsequent Expected: 09/24/2022, Expires: 11/24/[address] [facility] Work Phone: Comment on above: Expected: 09/24/2022 , Expires: 11/24/2022 Start: 07-17-2022 ANNUAL PCP TEAM FURNITURE SANDER JASIEL DISEASE VISIT ANNUAL PCP TEAM CHRONIC DISEASE VISIT [facility] Start: 05-13-2022 End: 07-13-2022 Hemoglobin A1c in Blood HGB A1C Lab Routine Prediabetes Expected: 05/13/2022, Expires: 07/13/[address] [facility] Work Phone: Comment on above: Expected: 05/13/2022 , Expires: 07/13/2022 Start: 04-26-2022 COVID-19 VACCINE (5 - Moderna series) COVID-19 VACCINE (5 - Moderna series) [facility] Start: 03-16-2022 ADVANCE DIRECTIVE DISCUSSION ADVANCE DIRECTIVE DISCUSSION [facility] Start: 03-16-2022 DEPRESSION ASSESSMENT DEPRESSION ASS ESSMENT [facility] Start: 01-16-2022 Adult depression screening assessment DEPRESSION SCREENING [facility] Start: 01-16-2022 ANNUAL PCP TEAM FURNITURE SANDER JASIEL DISEASE VISIT ANNUAL PCP TEAM CHRONIC DISEASE VISIT [facility] Start: 12-08-2021 Urine microalbumin profile [facility] Start: 11-14-2021 Influenza vaccination INFLUENZA (#1) [facility] Start: 07-17-2021 End: 2021 CBC panel - Blood by Automated count CBC Lab Routine Irregular heartbeat Expected: 07/17/2021, Expires: [address] [facility] Work Phone: Comment on above: Expected: 07/17/2021 , Expires: 2021 Start: 07-17-2021 End: 2021 Comprehensive metabolic 2000 panel - Serum or Plasma COMP METABOLIC PANEL Lab Routine Irregular heartbeat Expected: 07/17/2021, Expires: [address] [facility] Work Phone: Comment on above: Expected: 07/17/2021 , Expires: 2021 Start: 07-17-2021 End: 2021 Hemoglobin A1c/Hemoglobin.total in Blood HGB A1C Lab Routine Prediabetes Expected: 07/17/2021, Expires: [address] [facility] Work Phone: Comment on above: Expected: 07/17/2021 , Expires: 2021 Start: 07-17-2021 End: 2021 LIPID PANEL, NONFASTING LIPID PANEL, NONFASTING Lab Routine Irregular heartbeat Expected: 07/17/2021, Expires: [address] [facility] Work Phone: Comment on above: Expected: 07/17/2021 , Expires: 2021 Start: 07-17-2021 End: 2021 Magnesium [Mass/volume] in Serum or Plasma MAGNESIUM BLD Lab Routine Irregular heartbeat Expected: 07/17/2021, Expires: [address] [facility] Work Phone: Comment on above: Expected: 07/17/2021 , Expires: 2021 Start: 07-17-2021 End: 2021 Thyrotropin [Units/volume] in Serum or Plasma TSH BLD Lab Routine Irregular heartbeat Expected: 07/17/2021, Expires: [address] [facility] Work Phone: Comment on above: Expected: 07/17/2021 , Expires: 2021 Start: 05-11-2021 COVID-19 VACCINE (4 - Booster for Moderna series) COVID-19 VACCINE (4 - Booster for Moderna series) [facility] Start: 03-16-2021 ADVANCE DIRECTIVE DISCUSSION ADVANCE DIRECTIVE DISCUSSION [facility] Start: 03-16-2021 DEPRESSION ASSESSMENT DEPRESSION ASS ESSMENT [facility] Start: 03-05-2021 COVID-19 VACCINE (4 - Booster for Moderna series) COVID-19 VACCINE (4 - Booster for Moderna series) [facility] Start: 12-25-2013 FECAL OCCULT BLOOD FECAL OCCULT BLOO D [facility] Start: 12-25-2013 Screening for malign ant neoplasm of colon Fecal Occult Blood [facility] Start: 03-04-2013 SHINGRIX VACCINE (2 of 3) SHINGRIX VACCINE (2 of 3) [facility] Start: 2012 RSV Vaccine (1 - 1-d ose 60+ series) RSV Vaccine (1 - 1-dose 60+ series) [facility] Start: 12-09-2011 Urine microalbumin profile DTAP,TDAP,TD (1 - Tdap) [facility] Start: 1997 COLOGUARD (FIT-DNA) COLOGUARD (FIT-D NA) [facility] Start: [address] [facility] Start: 1997 Screening for malign ant neoplasm of colon [facility] Start: 1997 SIGMOIDOSCOPY SIGMOIDOSCOPY Niharika mccord [facility] Start: 1970 Anxiety Screening Anxiety Screening [facility] Start: 1970 BP CONTROLLED (<130/80) BP CONTROLLE D (<130/80) [facility] Start: 1970 Depression Screening Depression Scre ening [facility] End: 07-17-2022 ECG COMPLETE ECG COMPLETE ECG Routine Irregular heartbeat 1 Occurrences starting 07/17/2021 until 07/17/[address] [facility] Work Phone: Comment on above: 1 Occurrences starti ng 07/17/2021 until 07/17/2022 End: 07-25-2025 Screening colonoscopy COLONOSCOPY SCREENING Endoscopy Routine Screening for colon cancer 1 Occurrences starting 07/25/2024 until 07/25/2025 [facility] Comment on above: 1 Occurrences starti ng 07/25/2024 until 07/25/[address] [facility] Immunizations Immunization Date Immunization Notes Care Provider Yo syed 07-25-2024 COVID-19 vaccine, ag e 12+ yr (PFIZER-BIONTECH COMIRNATY) Ayanna Podlogar CUSTOMER SUPPORT ANALYST.PSYCHOLOGIST MILITARY PERSONNEL Work Phone: [facility] 12-20-2023 influenza virus vaccine, unspecified formulation Ayanna Podlogar CUSTOMER SUPPORT ANALYST.PSYCHOLOGIST MILITARY PERSONNEL Work Phone: [facility] 01-19-2023 COVID-19 vaccine, ag e 12+ yr, bivalent (MODERNA) Ayanna Podlogar CUSTOMER SUPPORT ANALYST.PSYCHOLOGIST MILITARY PERSONNEL Work Phone: [facility] Work Phone: 01-19-2023 Seasonal trivalent influenza vaccine, adjuvanted, preservative free Ayanna Podlogar CUSTOMER SUPPORT ANALYST.PSYCHOLOGIST MILITARY PERSONNEL Work Phone: [facility] Work Phone: 01-19-2023 influenza virus vaccine, unspecified formulation Dinorah Triana RN [facility] 12-31-2021 influenza, high dose seasonal, preservative-free Joe Young MD Work Phone: [facility] 12-31-2021 influenza virus vaccine, unspecified formulation Ayanna Paige APRN.PSYCHOLOGIST MILITARY PERSONNEL Work Phone: [facility] 12-24-2020 influenza, high dose seasonal, preservative-free Amando Whitt MD Work Phone: [facility] 06-05-2020 COVID-19 vaccine, fu ll dose (MODERNA) Amando Whitt MD Work Phone: [facility] 05-08-2020 COVID-19 vaccine, fu ll dose (MODERNA) Amando Whitt MD Work Phone: [facility] 11-28-2019 influenza (HD-IIV4) vaccine, age 65+ yr, high dose, quadrivalent, PF (FLUZONE HIGH-DOSE) Joe Young MD Work Phone: [facility] Work Phone: 11-28-2019 influenza, high dose seasonal, preservative-free Amando Whitt MD Work Phone: [facility] 07-30-2019 pneumococcal polysaccharide vaccine, 23 valent Amando Whitt MD Work Phone: [facility] 12-26-2018 influenza, high dose seasonal, preservative-free Amando Whitt MD Work Phone: [facility] 04-12-2018 pneumococcal conjuga te vaccine, 13 valent Amando Whitt MD Work Phone: [facility] 12-16-2017 influenza, seasonal, injectable, preservative free Joe Young MD Work Phone: [facility] Work Phone: 12-26-2016 influenza, injectabl e, quadrivalent, preservative free Joe Young MD Work Phone: [facility] Work Phone: 12-21-2015 influenza, injectabl e, quadrivalent, preservative free Joe Young MD Work Phone: [facility] Work Phone: 12-21-2015 influenza, seasonal, injectable Amando Whitt MD Work Phone: [facility] 02-05-2015 influenza, injectabl e, quadrivalent, preservative free Joe Young MD Work Phone: [facility] Work Phone: 01-20-2014 influenza, seasonal, injectable Amando Whitt MD Work Phone: [facility] 01-07-2013 zoster vaccine, live Amando may MD Work Phone: [facility] 12-24-2012 influenza virus vaccine, unspecified formulation Amando Whitt MD Work Phone: [facility] 12-09-2011 influenza virus vaccine, unspecified formulation Amando Whitt MD Work Phone: [facility] 12-09-2011 tetanus toxoid, redu hayley diphtheria toxoid, and acellular pertussis vaccine, adsorbed Amando Whitt MD Work Phone: [facility] 01-10-2011 influenza virus vaccine, unspecified formulation Amando Whitt MD Work Phone: [facility] 12-14-2008 influenza virus vaccine, unspecified formulation Amando Whitt MD Work Phone: [facility] Work Phone: Payers Date Payer Category Payer Self-pay 2018 Private Health Insurance MMO MED ICARE SUPPLEMENT Member Subscriber Plan / Payer (Effective 2018-Present) Name: Kemar Chakraborty Relation to Subscriber: Self Name: Kemar Chakraborty Payer ID: Not on file Type: Indemnity Address: [place] [id number] 2018 Unknown MMO MMO MEDICARE SUPPLEMENT [id number] 2018-Present [phone] [address] [place] [address] Indemnity [id number] 2018 Unknown MMO MMO MEDICARE SUPPLEMENT [id number] 2018-Present [phone] [address] [place] [address] Indemnity [id number] 2018 Unknown [id number] 2017 Medicare MEDICARE MEDICAR E A AND B [id number] 2017-Present [phone] [address] [address] [place] [address] Medicare [id number] 2017 Medicare [id number] 2017 Medicare [id number] Unknown [id number] Unknown [id number] Social History Date Type Detail Facility Start: 10-02-2010 End: 02-05-2022 Tobacco smoking status NHIS Never smoked tobacco [facility] Work Phone: Start: 10-02-2010 End: 02-05-2022 Tobacco use and exposure Smokeless tobacco non-user [facility] Work Phone: Start: 01-16-2021 End: 11-29-2024 Alcohol intake Current drinker of alcohol (finding) [facility] Start: 01-05-2020 End: 02-04-2022 History SDOH Alcohol Frequency 2 [facility] Start: 01-05-2020 End: 02-04-2022 History SDOH Alcohol Std Drinks 1 [facility] Start: 10-02-2010 History SDOH Alcohol Comment rare [facility] Start: 01-05-2020 End: 02-04-2022 History SDOH Social Connections Phone 3 [facility] Start: 01-05-2020 End: 02-04-2022 History SDOH Social Connections Get Together 4 [facility] Start: 01-05-2020 End: 02-04-2022 History SDOH Financial 5 [facility] Start: 01-04-2020 Education 17 [facility] Start: 1950 Sex Assigned At Not on file [facility] Start: 07-07-2021 End: 02-05-2022 Exposure to SARS-CoV-2 (event) Not sure [facility] Start: 02-04-2022 End: 04-28-2023 History of Social function [facility] Start: 02-04-2022 End: 04-28-2023 Social connection and isolation panel [facility] Do you belong to any clubs or organizations such as taoist groups, unions, fraternal or athletic groups, or school groups? No [facility] Are you now , , , , never or living with a partner? [facility] How often to you hav e a drink containing alcohol? Monthly or less [facility] How many standard dr inks containing alcohol do you have on a typical day? 1 or 2 [facility] How often do you hav e 6 or more drinks on 1 occasion? Never [facility] Start: 02-15-2012 How hard is it for you to pay for the very basics like food, housing, medical care, and heating Not hard at all [facility] Do you feel stress - tense, restless, nervous, or anxious, or unable to sleep at night because your mind is troubled all the time - these days [OSQ] Not at all [facility] (I/We) worried wheth er (my/our) food would run out before (I/we) got money to buy more. Never true [facility] Start: 01-04-2019 Sexual orientation Heterosexual (finding) [facility] Work Phone: Functional Status Date Assessment Result Facility 01-20-2014 Are you deaf, or do you have serious difficulty hearing No 01/20/2014 3:42 PM Amanda Marc Cma No [facility] 01-20-2014 Are you blind, or do you have serious difficulty seeing, even when wearing glasses No 01/20/2014 3:42 PM Amanda Marc Cma No [facility] 01-20-2014 Do you have serious difficulty walking or climbing stairs No 01/20/2014 3:42 PM Amanda Marc Cma No [facility] 01-20-2014 Do you have difficul ty dressing or bathing No 01/20/2014 3:42 PM Amanda Marc Cma No [facility] 01-20-2014 Because of a physica l, mental, or emotional condition, do you have difficulty doing errands alone such as visiting a physician's office or shopping No 01/20/2014 3:42 PM Amanda Marc Cma No [facility] Mental Status Date Assessment Result Facility 01-20-2014 Because of a physica l, mental, or emotional condition, do you have serious difficulty concentrating, remembering, or making decisions No 01/20/2014 3:42 PM Amanda Marc Cma No [facility] Clinical Notes 05-18-2009 to 12-28-2024 Telephone Encounter - Claudine Santos LPN - 11/30/2024 7:57 AM EDTTelephone Encounter - Claudine Santos LPN - 11/30/2024 7:57 AM Delphine Bolden MD - 11/29/2024 8:15 AM EDT Note Date & Type Note Facility 12-28-2024 Note HNO ID: [id number] Author: AYANNA PAIGE APRN.PSYCHOLOGIST MILITARY PERSONNEL Service: ? Author Type: Nurse Practitioner Type: Progress Notes Filed: 12/28/2024 14:35 Note Text: 12/28/2024 Patient presents with: Blood Pressure: AND heart rate increased. Recording using [employer] software for draft documentation of the visit was discussed with the patient/authorized support representative; all questions welcomed and answered. Patient/authorized support representative agreed to proceed SUBJECTIVE: This is a 74 year old that is here today for Above Complaints. Kemar Chakraborty is a 74-year-old male with a history of HTN and tachycardia, presenting for evaluation of elevated blood pressure and heart rate readings. Hypertension and Tachycardia: - Home blood pressure readings: 135/84 mmHg (Thursday), 128/80 mmHg (Thursday). - Home heart rate readings: 92 bpm (Thursday); typically 72 bpm. - Reports elevated blood pressure and heart rate readings during medical visits. - Recent colonoscopy was canceled due to elevated blood pressure and heart rate (102 bpm); experienced anxiety attack during the procedure. - Taking metoprolol. - Scheduled for a prostate exam next week; previous exam showed a score of 5. PAST MEDICAL HISTORY Diagnosis Date BPH (benign prostatic hyperplasia) Dr. Flores after hip surgery Erectile dysfunction Family history of cardiovascular disease 05/18/2009 Father CABG, approx late 60s History of COVID-19 10/2020 Hypertension OA (osteoarthritis) of hip Prediabetes Premature atrial complexes White coat syndrome with hypertension ALLERGIES Seasonal Allergies MEDICATIONS Current Outpatient Medications Medication Sig atorvastatin (LIPITOR) 20 mg tablet Take 1 tablet by mouth daily at bedtime. metFORMIN (GLUCOPHAGE) 500 mg tablet Take 1 tablet by mouth two times a day with meals. tamsulosin (FLOMAX) 0.4 mg Take 2 capsules by mouth daily at bedtime. metoprolol succinate ER (TOPROL XL) 50 mg 24 hr tablet Take 1 tablet by mouth once daily. lisinopril-hydroCHLOROthiazide (ZESTORETIC) 20-12.5 mg per tablet Take 2 tablets by mouth once daily for 4 days. For BP Tadalafil (CIALIS) 20 mg tablet Take one dose 30 minutes before sexual activity VITAMIN E ACETATE ORAL Take 180 mg by mouth. Blood Pressure Monitor kit 1 Device once daily. Dx: I10 Miscellaneous Medical Supply (BLOOD PRESSURE CUFF) misc 1 Device once daily. No current facility-administered medications for this visit. Medications and allergies reviewed by this provider. SOCIAL HISTORY SOCIAL HISTORY[1] REVIEW OF SYSTEMS All other reviewed and negative other than HPI. OBJECTIVE: BP 182/88 Pulse 118 Resp 18 Wt 89.7 kg (197 lb 12.8 oz) SpO2 98% BMI 29.16 kg/m? . Vital signs reviewed by this provider. APPEARANCE Well appearing, alert, in no acute distress, well-hydrated, well nourished. EYES PERRLA, conjunctiva and sclera normal. HEART with normal S1 and S2, no murmurs, no gallops, no JVD appreciated and Rate tachycardia, Regular rhythm LUNG clear to auscultation. No wheezes, rhonchi or rales SKIN Skin color, texture, turgor normal, no suspicious rashes or lesions Shingrix Vaccine(2 of 3) due on 03/04/2013 DTaP,Tdap,Td Vaccine(2 - Td or Tdap) due on 12/08/2021 Advance Directive Discussion due on 03/16/2024 Covid-19 Vaccine( season) due on 11/14/2024 Colorectal Cancer Screening due on 12/01/2024 Medicare Annual Wellness Visit due on 01/25/2025 Depression Screening due on 07/25/2025 Anxiety Screening due on 07/25/2025 Annual PCP Team Chronic Disease Visit due on 12/28/2025 Diabetes Screening due on 01/26/2027 Lipid Screening due on 01/26/2029 Influenza Vaccine Completed RSV Vaccine Completed Hepatitis C Screening Completed Pneumococcal Vaccine: 50+ Completed 1. Tachycardia (R00.0) 2. 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 (I10) - Chronic, situational tachycardia and elevated BP consistent with white coat syndrome; home readings consistently within normal range (BP 120s-130s mmHg, HR 72-92 bpm). - In-office EKG showed sinus tachycardia; no acute ischemic changes. - Ordered TSH, magnesium, and electrolytes to rule out secondary causes. - Advised to continue home BP and HR monitoring; instructed to report if BP consistently >140/90 mmHg or HR >100 bpm. Will update me Thursday with readings - Discussed risks of overmedication if metoprolol increased based solely on in-office readings; will consider adjustment if home readings trend higher. - Advised to avoid caffeine prior to medical visits. - Follow-up on January 25. Ayanna Paige APRN.PSYCHOLOGIST MILITARY PERSONNEL Prescription instructions reviewed with patient as applicable. Patient advised if symptoms do not improve or if symptoms worsen sooner, to contact their primary care physician. Potential red flag symptoms discussed with the patient. Reviewed appropriate action plan to take if red flag symptoms occur. Patient agreeable to treatment plan. (more content not included)... [facility] 11-30-2024 Telephone encounter Note Made into TE and sent to clerical. Claudine Santos LPN [facility] 11-30-2024 Miscellaneous Notes Made into TE and sent to clerical. Claudine Santos LPN documented in this encounter [facility] 11-29-2024 History and physical note HISTORY AND PHYSICAL Kemar Chakraborty 1950 REFERRING PHYSICIAN: Ayanna Paige APRN.C* CHIEF COMPLAINT: No chief complaint on file. HPI: The patient is a 74 year old male here for colonoscopy Last colonoscopy 2014 PAST MEDICAL HISTORY Diagnosis Date BPH (benign [...] HISTORY OF Left 03/2019 total hip replacement Current Outpatient Medications Medication Sig Tadalafil (CIALIS) 20 mg tablet Take one dose 30 minutes before sexual activity metFORMIN (GLUCOPHAGE) 500 mg tablet Take 1 [...] tablets by mouth once daily. For BP VITAMIN E ACETATE ORAL Take 180 mg by mouth. Blood Pressure Monitor kit 1 Device once daily. Dx: I10 Miscellaneous Medical Supply (BLOOD PRESSURE CUFF) misc 1 Device once daily. No current facility-administered medications for this encounter. ALLERGIES: Seasonal Allergies PERSONAL HISTORY: SOCIAL HISTORY[1] FAMILY HISTORY Problem Relation Age of Onset Heart Mother Smoker, Heart Surgery Valve, ?CABG Alzheimer's Disease Father Heart Father Cancer Father other (Depression) Sister ?bone Cancer other (Anxiety) Brother Heart REVIEW OF SYMPTOMS: Denies chest pain Denies shortness of breath Physical examination: Vital signs in chart, reviewed and noted by me General - WD/WN in no apparent distress, alert and oriented Head - Normocephalic. EOM intact with sclera clear. Mouth with mucus membranes moist. Neck - supple with no jugular venous distention noted. Trachea is midline. Lungs - normal breath sounds, normal respiratory motion, no adventitial sounds noted. Heart - normal heart sounds. Regular rate. Abdomen - soft and benign. Extremities - no pitting edema noted. Skin - Normal skin integrity. Neurological - non focal Psych - calm and appropriate Impression: screening for colon cancer, Discussion/Plan/Recommendations: I have discussed the above with the patient. Patient presents with tachycardia of 130 and BP of 178/98. I have discussed the above with the patient - I have offered options of proceeding - with higher risk of UT/cardiac dysrhythmia/CVA/etc. OR reschedule to [facility] tomorrow with anesthesia availability OR [facility] on with anesthesia availability. Patient wants to cancel for this procedure and will call to reschedule.. Delphine Tomlin MD [1] Social History Tobacco Use Smoking status: Never Smokeless tobacco: Never Substance Use Topics Alcohol use: Yes Comment: rare Drug use: No [facility] Work Phone: 11-29-2024 History and physical note HISTORY AND PHYSICAL Kemar Chakraborty 1950 REFERRING PHYSICIAN: Ayanna Paige APRN.C* CHIEF COMPLAINT: No chief complaint on file. HPI: The patient is a 74 year old male here for colonoscopy Last colonoscopy 2014 PAST MEDICAL HISTORY Diagnosis Date BPH (benign [...] HISTORY OF Left 03/2019 total hip replacement Current Outpatient Medications Medication Sig Tadalafil (CIALIS) 20 mg tablet Take one dose 30 minutes before sexual activity metFORMIN (GLUCOPHAGE) 500 mg tablet Take 1 [...] tablets by mouth once daily. For BP VITAMIN E ACETATE ORAL Take 180 mg by mouth. Blood Pressure Monitor kit 1 Device once daily. Dx: I10 Miscellaneous Medical Supply (BLOOD PRESSURE CUFF) misc 1 Device once daily. No current facility-administered medications for this encounter. ALLERGIES: Seasonal Allergies PERSONAL HISTORY: SOCIAL HISTORY[1] FAMILY HISTORY Problem Relation Age of Onset Heart Mother Smoker, Heart Surgery Valve, ?CABG Alzheimer's Disease Father Heart Father Cancer Father other (Depression) Sister ?bone Cancer other (Anxiety) Brother Heart REVIEW OF SYMPTOMS: Denies chest pain Denies shortness of breath Physical examination: Vital signs in chart, reviewed and noted by me General - WD/WN in no apparent distress, alert and oriented Head - Normocephalic. EOM intact with sclera clear. Mouth with mucus membranes moist. Neck - supple with no jugular venous distention noted. Trachea is midline. Lungs - normal breath sounds, normal respiratory motion, no adventitial sounds noted. Heart - normal heart sounds. Regular rate. Abdomen - soft and benign. Extremities - no pitting edema noted. Skin - Normal skin integrity. Neurological - non focal Psych - calm and appropriate Impression: screening for colon cancer, Discussion/Plan/Recommendations: I have discussed the above with the patient. Patient presents with tachycardia of 130 and BP of 178/98. I have discussed the above with the patient - I have offered options of proceeding - with higher risk of UT/cardiac dysrhythmia/CVA/etc. OR reschedule to [facility] tomorrow with anesthesia availability OR [facility] on with anesthesia availability. Patient wants to cancel for this procedure and will call to reschedule.. Delphine Tomlin MD [1] Social History Tobacco Use Smoking status: Never Smokeless tobacco: Never Substance Use Topics Alcohol use: Yes Comment: rare Drug use: No documented in this encounter [facility] 11-24-2024 Telephone encounter Note Rx sent for gol[facility] to [facility] as requested. Take as directed by surgeon's office. [facility] 11-24-2024 Miscellaneous Notes Rx sent for gol[facility] to [facility] as requested. Take as directed by surgeon's office. See [facility] message. [facility] in [place]. Rosalie Mariee MA documented in this encounter [facility] 11-24-2024 Telephone encounter Note See [facility] message. [facility] in [place]. Rosalie Mariee MA [facility] 10-18-2024 Telephone encounter Note The following approved medication requests have been transmitted electronically. Requested Prescriptions Pending Prescriptions Disp Refills Tadalafil (CIALIS) 10 mg tablet 12 tablet 0 Sig: Take 1 tablet by mouth as needed. Gunnar Rosa APRN.PSYCHOLOGIST MILITARY PERSONNEL [facility] 10-18-2024 Miscellaneous Notes The following approved medication requests have been transmitted electronically. Requested Prescriptions Pending Prescriptions Disp Refills Tadalafil (CIALIS) 10 mg tablet 12 tablet 0 Sig: Take 1 tablet by mouth as needed. Gunnar Rosa APRN.CNP Prescription Refill Information The patient has been identified by name and date of : Yes Caregiver verified no other encounters exist for this prescription request: Yes Caregiver confirmed with patient/requestor that no other refills are due, in the near future, with this provider at this time: Yes The last office visit in the department: 07/25/24 Does the patient have a future office visit with this provider/department: Yes 01/25/25 Requested Prescriptions Pending Prescriptions Disp Refills Tadalafil (CIALIS) 10 mg tablet 12 tablet 0 Sig: Take 1 tablet by mouth as needed. Angeles Patterson LPN October 17, 2024 6:47 PM documented in this encounter [facility] 10-17-2024 Telephone encounter Note Prescription Refill Information The patient has been identified by name and date of : Yes Caregiver verified no other encounters exist for this prescription request: Yes Caregiver confirmed with patient/requestor that no other refills are due, in the near future, with this provider at this time: Yes The last office visit in the department: 07/25/24 Does the patient have a future office visit with this provider/department: Yes 01/25/25 Requested Prescriptions Pending Prescriptions Disp Refills Tadalafil (CIALIS) 10 mg tablet 12 tablet 0 Sig: Take 1 tablet by mouth as needed. Angeles Patterson LPN October 17, 2024 6:47 PM [facility] 07-25-2024 Instructions Ayanna Paige APRN.PSYCHOLOGIST MILITARY PERSONNEL - 07/25/2024 8:46 AM EDT COLONOSCOPY BOWEL PREPARATION INSTRUCTIONS [facility] Your doctor has scheduled you for a colonoscopy. To have a successful colonoscopy, you must have a clean colon, that is empty. A clean colon allows your doctor to see the entire colon & diagnose issues like polyps or cancer. For doctors, a clean colon is like driving on a racquel day; a dirty colon like driving in a storm. It is very important that you follow these instructions exactly, or your colonoscopy may not be as effective, could be canceled, and you may need to do the bowel prep and colonoscopy again. TRANSPORTATION REQUIREMENTS You are receiving IV sedation. For your safety, a responsible adult escort must accompany you to and from your procedure: Your adult escort MUST be present with you at check-in for your colonoscopy. Your adult escort MUST remain in the endoscopy area until you are discharged. Your adult escort MUST transport you home once you are discharged. You are NOT allowed to operate any form of transportation (i.e. drive a car, bicycle, etc) or leave the Endoscopy Center ALONE. It is not safe to do so. If you cannot meet these requirements, your procedure will be canceled. MEDICATION REQUIREMENTS For your safety, certain medications will need to be stopped or adjusted before you can have your procedure: BLOOD THINNERS: If you take blood thinners, such as Coumadin (warfarin), Plavix (clopidogrel), Ticlid (ticlopidine hydrochloride), Agrylin (anagrelide), Xarelto (Rivaroxaban), Pradaxa (Dabigatran), Eliquis (Apixaban), or Effient (Prasugrel), contact the physician who is prescribing these medications at least 2 weeks prior to your procedure to discuss any necessary adjustments. DIABETES: If you take medications for diabetes, your dosage may need to be adjusted. If you are being treated for diabetes with insulin, diabetic pills, or other injectable medications do not take your REGULAR dose after midnight on the day of your procedure. If you are taking any other types of insulin such as Lantus, Humalog, NPH (long-acting insulin), or 70/30 insulin, take half your normal dose the day before your procedure. DIABETES/WEIGHT MANAGEMENT: If you take medications for weight-loss, your dosage may need to be adjusted Contact the doctor who prescribes this medication for further instructions. If you take medications for weight-loss like semaglutide (Ozempic, Wegovy, Rybelsus), dulaglutide (Trulicity), liraglutide (Victoza, Saxenda), exenatide (Byetta, Bydureon), or lixisenatide (Adylyxin), stop your medication 1 week prior to your procedure. If you take medications like canagliflozin (Invokana), dapagliflozin (Farxiga, Forxiga), empagliflozin (Jardiance), stop your medication 3 days prior to your procedure. If you take ertugliflozin (Steglatro) stop your medication 4 days prior to your procedure. IRON: If you take iron pills, STOP them 1 week BEFORE your procedure, may resume after. OTHER MEDS: May take all other medications (including aspirin, antibiotics, water pills / diuretics like Lasix or Metolozone, blood pressure meds, etc.) at their usual scheduled time with water. DIET REQUIREMENTS The day before your colonoscopy, you may have a clear liquid diet (see below). The day of your colonoscopy, you may continue a clear liquid diet until 3 hours before your colonoscopy. Within 3 hours of your colonoscopy, take only any medications (as above) with a sip of water. Clear Liquid Diet Broth (chicken, beef or vegetable broth or bullion. Just the broth, no solids). Water Coffee or Tea (NO milk or creamer), but sugar and sugar substitutes are allowed. Clear liquids including clear, yellow, green, blue (NO red, NO orange, NO purple) Sodas / soft drinks; Gatorade or other sports drinks Fruit juice (strained; no-pulp); Etienne-Aid or flavored drinks Plain Jell-O or other gelatins Popsicles or hard candy Bowel prep can work differently from person to person. Some people's bowels move slowly and they may need different instructions. Please see your doctor in office or virtually for personalized bowel prep instructions if you have: BOWEL PREPARATION (MIRALAX/GATORADE) Split Dosing Bowel Prep: This means drinking your bowel prep in two doses. Split dosing helps clean your colon better and makes it less likely that your procedure will be canceled. You will need to purchase the following (no prescriptions are needed): 64 ounces Gatorade, Propel, Crystal Lite or other noncarbonated clear liquid sports drink (NOT red, orange, or purple). Diabetic patients buy sugar-free, e.g. Gatorade G2 4 Dulcolax laxative tablets containing 5mg bisacodyl each (do not buy the stool softener) 8.3 oz MiraLAX (238g) powder or generic polyethylene glycol 3350 (find in laxative aisle) The day before your colonoscopy mix 64 oz of the sports drink with 8.3 oz MiraLAX (238 g) in a pitcher. Stir or shake until MiraLAX completely dissolved. Chill if desired. On the evening before your colonoscopy: 5 PM take 4 Dulcolax laxative tablets with water by mouth. 6 PM drink the first half of the Gatorade/MiraLAX solution Drink one 8-ounce glass every 15 minutes. Six hours before your colonoscopy, drink the second half of the solution. Drink one 8-ounce glass every 15 minutes. You may continue a clear liquid diet until 3 hours before your colonoscopy. Bowel prep can work differently from person to person. Some people's bowels move slowly and they may need different instructions. Please see your doctor in office or virtually for personalized bowel prep instructions if you have: Medical condition that needs special accommodations Had a poor bowel prep results or failed bowel prep attempts in the past. Had difficulty with anesthesia during the procedure. FREQUENTLY ASKED QUESTIONS Q: What if I suffer from constipation? A: Recommend taking extra laxatives to resolve your constipation days prior to entering the bowel prep day. Q: What if have had prior poor preps results in past? A: Contact your physician as you will likely need additional bowel prep instructions. Q: What if I have motility issues like Parkinson's, MS (multiple sclerosis), wheelchair dependent, etc.? or on medications that slow colonic transit times (narcotics, gabapentin, anticholinergic medications etc.) A: Contact your physician as you will likely need extra time and additional laxatives to complete your bowel prep. Q: What if I cannot drink large volume of liquid? A: Start your prep 2-3 hours earlier to allow yourself more time to complete the entire prep. Q: What if I had bariatric surgery? Do I still have to complete the entire prep? A: Yes, gastric bypass surgery involves the stomach & small bowel. You may need to drink smaller amounts, slower (may need more time to complete your bowel prep). Gastric bypass does not alter the length of your colon so you will need to complete the entire bowel prep, it may just take longer time to complete it. Q: What if I am on dialysis? A: Please consult your gunner's mate prior to scheduling to get instructions pertinent to you. In general, dialysis patients take the Golytely bowel prep and have the procedure same day of their dialysis (colonoscopy in AM, dialysis in PM). Q: How do I know if something is considered as clear liquid diet? A: If you can pour it in a glass and you can see through it, it is considered clear liquid Q: Can I eat nuts, seeds, beans, popcorn, dried fruits, vegetables & fruits that have skin peel? A: No, you will need to not eat these items starting 3 days prior to procedure. Q: Can I take Uber/Lyft/taxi/bus home? A: An adult MUST be present with you at check-in for your colonoscopy and remain in the endoscopy area until you are discharged. You can take Uber home only if this adult escort is with you at check in, remain in the endoscopy area until you are discharged, and takes the Uber with you to home. Q: Can I sleep it off here and drive myself home? A: No, you must have an adult with you at time of procedure check in, remain in the endoscopy center during your procedure, and drive you home. You cannot drive a vehicle after your procedure the rest of the day. Q: What if I can't finish my bowel prep? A: If you cannot complete your entire bowel prep, there is high likelihood that your colonoscopy will need to be rescheduled due to inadequate prep quality. documented in this encounter [facility] 07-25-2024 History of Presen t illness Narrative 07/21/2024 Patient presents with: 6 Month Exam SUBJECTIVE: This is a 73 year old that is here today for Above Complaints. HTN: Patient is compliant with meds Yes Monitors bp at home: No. Denies side effects: Yes. Chest pain: No. Dyspnea: No. Edema: No. Palpitations: No. Syncope: No. Headache: No. Dizziness: No. Prediabetes: taking Metformin as prescribed without side effects. Tries to eat a lower carbohydrate diet HYPERLIPIDEMIA: Patient is taking medications: Yes. Patient is watching diet: Yes. Patient denies myalgias: Yes. Patient denies gi upset: Yes PAST MEDICAL HISTORY Diagnosis Date BPH (benign prostatic hyperplasia) Dr. Flores after hip surgery Erectile dysfunction Family history of cardiovascular disease 05/18/2009 Father CABG, approx late 60s History of COVID-19 10/2020 Hypertension OA (osteoarthritis) of hip Prediabetes Premature atrial complexes White coat syndrome with hypertension ALLERGIES Seasonal Allergies MEDICATIONS Current Outpatient Medications Medication Sig atorvastatin (LIPITOR) 20 mg tablet Take 1 tablet by mouth daily at bedtime. tamsulosin (FLOMAX) 0.4 mg Take 2 capsules by mouth daily at bedtime. metoprolol succinate ER (TOPROL XL) 50 mg 24 hr tablet Take 1 tablet by mouth once daily. lisinopril-hydroCHLOROthiazide (ZESTORETIC) 20-12.5 mg per tablet Take 2 tablets by mouth once daily. For BP metFORMIN (GLUCOPHAGE) 500 mg tablet Take 1 tablet by mouth two times a day with meals. Tadalafil (CIALIS) 10 mg tablet Take 1 tablet by mouth as needed. VITAMIN E ACETATE ORAL Take 180 mg by mouth. Blood Pressure Monitor kit 1 Device once daily. Dx: I10 Miscellaneous Medical Supply (BLOOD PRESSURE CUFF) misc 1 Device once daily. No current facility-administered medications for this visit. Medications and allergies reviewed by this provider. SOCIAL HISTORY Social History Tobacco Use Smoking status: Never Smokeless tobacco: Never Substance Use Topics Alcohol use: Yes Comment: rare Drug use: No REVIEW OF SYSTEMS All other reviewed and negative other than HPI. OBJECTIVE: BP 148/82 Pulse 114 Resp 16 Wt 88 kg (194 lb) SpO2 99% BMI 28.60 kg/m . Vital signs reviewed by this provider. APPEARANCE Well appearing, alert, in no acute distress, well-hydrated, well nourished. EYES conjunctiva and sclera normal. HEART RRR with normal S1 and S2, no murmurs, no gallops, no JVD appreciated LUNG clear to auscultation. No wheezes, rhonchi or rales EXTREMITIES Extremities normal, No deformities, No skin discoloration, and No edema SKIN Skin color, texture, turgor normal, no suspicious rashes or lesions Latest Ref [facility] 01/27/2024 WBC 3.70 - 11.00 k/uL 6.97 RBC 4.20 - 6.00 m/uL 4.47 Hemoglobin 13.0 - 17.0 g/dL 13.6 Hematocrit 39.0 - 51.0 % 42.1 MCV 80.0 - 100.0 fL 94.2 MCH 26.0 - 34.0 pg 30.4 MCHC 30.5 - 36.0 g/dL 32.3 RDW-CV 11.5 - 15.0 % 13.7 Platelet Count 150 - 400 k/uL 276 MPV 9.0 - 12.7 fL 9.7 Neut% % 53.4 Abs Neut (ANC) 1.45 - 7.50 k/uL 3.72 Lymph% % 31.1 Abs Lymph 1.00 - 4.00 k/uL 2.17 Bamberg% % 9.6 Abs Bamberg <0.87 k/uL 0.67 Eosin% % 5.3 Abs Eosin <0.46 k/uL 0.37 Baso% % 0.3 Abs Baso <0.11 k/uL <0.03 Immature Gran % % 0.3 IMMATURE GRANS (ABS) <0.10 k/uL <0.03 NRBC /100 WBC 0.0 Absolute nRBC <0.01 k/uL <0.01 DTYPE Auto Protein, Total 6.3 - 8.0 g/dL 6.8 Albumin 3.9 - 4.9 g/dL 4.2 Calcium 8.5 - 10.2 mg/dL 9.2 Bilirubin, Total 0.2 - 1.3 mg/dL 0.5 Alkaline Phosphatase 38 - 113 U/L 59 AST 14 - 40 U/L 22 ALT 10 - 54 U/L 21 Glucose 74 - 99 mg/dL 95 BUN 9 - 24 mg/dL 20 Creatinine 0.73 - 1.22 mg/dL 0.94 Sodium 136 - 144 mmol/L 143 Potassium 3.7 - 5.1 mmol/L 4.0 Chloride 98 - 107 mmol/L 104 CO2 22 - 30 mmol/L 27 Anion Gap 8 - 15 mmol/L 12 eGFR >=60 mL/min/1.73m 87 Cholesterol, Total <200 mg/dL 145 Triglyceride <150 mg/dL 81 HDL Cholesterol >39 mg/dL 57 Non HDL Cholesterol <130 mg/dL 88 Fasting Time hrs 11 VLDL Cholesterol <30 mg/dL 16 TC:HDL Ratio <5.10 2.54 LDL Cholesterol, Calculated <100 mg/dL 72 LDL:HDL Ratio <2.54 1.26 Hemoglobin A1C 4.3 - 5.6 % 5.5 Estimated Average Glucose mg/dL 111 Depression Screening Never done Anxiety Screening Never done BP Controlled (<130/80) Never done Shingrix Vaccine(2 of 3) due on 03/04/2013 DTaP,Tdap,Td Vaccine(2 - Td or Tdap) due on 12/08/2021 Advance Directive Discussion due on 03/16/2024 Covid-19 Vaccine( season) due on 07/04/2024 Colorectal Cancer Screening due on 12/01/2024 Annual PCP Team Chronic Disease Visit due on 07/25/2025 Diabetes Screening due on 01/26/2027 Lipid Screening due on 01/26/2029 Influenza Vaccine Completed RSV Vaccine Completed Hepatitis C Screening Completed Pneumococcal Vaccine: 50+ Completed ASSESSMENT/PLAN: 1. Essential hypertension - ICD9: 401.9, ICD10: I10 (primary diagnosis) - patient with known white coat syndrome - Continue current medications - Recommend home blood pressure monitoring, to bring results to next visit - Encouraged sodium restriction, DASH or Mediterranean diet - Recommend regular aerobic exercise - Discussed need for and benefit of weight loss. BMI 28.60 kg/(m^2) - Follow up in 6 months for hypertension visit 2. Screening for depression - ICD9: V79.0, ICD10: Z13.31 - DEPRESSION SCREENING 3. Encounter for screening examination for other mental health and behavioral disorders - ICD9: V79.8, ICD10: Z13.39 - ANXIETY SCREENING 4. Need for vaccination - ICD9: V05.9, ICD10: Z23 - [employer] COVID-19 VACCINE AGE 12+ YR (COMIRNATY) 5. Prediabetes - ICD9: 790.29, ICD10: R73.03 - stable on current regime 6. Hyperlipidemia, unspecified hyperlipidemia type - ICD9: 272.4, ICD10: E78.5 - Controlled - Continue current medications - Counseled on healthy diet and regular exercise - Follow up in 6 months, sooner should any other issues arise. Ayanna Paige APRN.CNP Prescription instructions reviewed with patient as applicable. Patient advised if symptoms do not improve or if symptoms worsen sooner, to contact their primary care physician. Potential red flag symptoms discussed with the patient. Reviewed appropriate action plan to take if red flag symptoms occur. Patient agreeable to treatment plan. Medical Decision Making: Problems: Moderate: 2+ stable chronic illnesses Data: Unique test(s) ordered: 3+ Risk: Moderate: Moderate risk from testing/treatment Medical Decision Making Level: 4 - Moderate documented in this encounter [facility] 07-25-2024 Note HNO ID: [id number] Author: AYANNA PAIGE APRN.CNP Service: ? Author Type: Nurse Practitioner Type: Progress Notes Filed: 07/25/2024 09:01 Note Text: 07/21/2024 Patient presents with: 6 Month Exam SUBJECTIVE: This is a 73 year old that is here today for Above Complaints. HTN: Patient is compliant with meds Yes Monitors bp at home: No. Denies side effects: Yes. Chest pain: No. Dyspnea: No. Edema: No. Palpitations: No. Syncope: No. Headache: No. Dizziness: No. Prediabetes: taking Metformin as prescribed without side effects. Tries to eat a lower carbohydrate diet HYPERLIPIDEMIA: Patient is taking medications: Yes. Patient is watching diet: Yes. Patient denies myalgias: Yes. Patient denies gi upset: Yes PAST MEDICAL HISTORY Diagnosis Date BPH (benign prostatic hyperplasia) Dr. Flores after hip surgery Erectile dysfunction Family history of cardiovascular disease 05/18/2009 Father CABG, approx late 60s History of COVID-19 10/2020 Hypertension OA (osteoarthritis) of hip Prediabetes Premature atrial complexes White coat syndrome with hypertension ALLERGIES Seasonal Allergies MEDICATIONS Current Outpatient Medications Medication Sig atorvastatin (LIPITOR) 20 mg tablet Take 1 tablet by mouth daily at bedtime. tamsulosin (FLOMAX) 0.4 mg Take 2 capsules by mouth daily at bedtime. metoprolol succinate ER (TOPROL XL) 50 mg 24 hr tablet Take 1 tablet by mouth once daily. lisinopril-hydroCHLOROthiazide (ZESTORETIC) 20-12.5 mg per tablet Take 2 tablets by mouth once daily. For BP metFORMIN (GLUCOPHAGE) 500 mg tablet Take 1 tablet by mouth two times a day with meals. Tadalafil (CIALIS) 10 mg tablet Take 1 tablet by mouth as needed. VITAMIN E ACETATE ORAL Take 180 mg by mouth. Blood Pressure Monitor kit 1 Device once daily. Dx: I10 Miscellaneous Medical Supply (BLOOD PRESSURE CUFF) misc 1 Device once daily. No current facility-administered medications for this visit. Medications and allergies reviewed by this provider. SOCIAL HISTORY Social History Tobacco Use Smoking status: Never Smokeless tobacco: Never Substance Use Topics Alcohol use: Yes Comment: rare Drug use: No REVIEW OF SYSTEMS All other reviewed and negative other than HPI. OBJECTIVE: BP 148/82 Pulse 114 Resp 16 Wt 88 kg (194 lb) SpO2 99% BMI 28.60 kg/m? . Vital signs reviewed by this provider. APPEARANCE Well appearing, alert, in no acute distress, well-hydrated, well nourished. EYES conjunctiva and sclera normal. HEART RRR with normal S1 and S2, no murmurs, no gallops, no JVD appreciated LUNG clear to auscultation. No wheezes, rhonchi or rales EXTREMITIES Extremities normal, No deformities, No skin discoloration, and No edema SKIN Skin color, texture, turgor normal, no suspicious rashes or lesions Latest Ref [facility] 01/27/2024 WBC 3.70 - 11.00 k/uL 6.97 RBC 4.20 - 6.00 m/uL 4.47 Hemoglobin 13.0 - 17.0 g/dL 13.6 Hematocrit 39.0 - 51.0 % 42.1 MCV 80.0 - 100.0 fL 94.2 MCH 26.0 - 34.0 pg 30.4 MCHC 30.5 - 36.0 g/dL 32.3 RDW-CV 11.5 - 15.0 % 13.7 Platelet Count 150 - 400 k/uL 276 MPV 9.0 - 12.7 fL 9.7 Neut% % 53.4 Abs Neut (ANC) 1.45 - 7.50 k/uL 3.72 Lymph% % 31.1 Abs Lymph 1.00 - 4.00 k/uL 2.17 Bamberg% % 9.6 Abs Bamberg <0.87 k/uL 0.67 Eosin% % 5.3 Abs Eosin <0.46 k/uL 0.37 Baso% % 0.3 Abs Baso <0.11 k/uL <0.03 Immature Gran % % 0.3 IMMATURE GRANS (ABS) <0.10 k/uL <0.03 NRBC /100 WBC 0.0 Absolute nRBC <0.01 k/uL <0.01 DTYPE Auto Protein, Total 6.3 - 8.0 g/dL 6.8 Albumin 3.9 - 4.9 g/dL 4.2 Calcium 8.5 - 10.2 mg/dL 9.2 Bilirubin, Total 0.2 - 1.3 mg/dL 0.5 Alkaline Phosphatase 38 - 113 U/L 59 AST 14 - 40 U/L 22 ALT 10 - 54 U/L 21 Glucose 74 - 99 mg/dL 95 BUN 9 - 24 mg/dL 20 Creatinine 0.73 - 1.22 mg/dL 0.94 Sodium 136 - 144 mmol/L 143 Potassium 3.7 - 5.1 mmol/L 4.0 Chloride 98 - 107 mmol/L 104 CO2 22 - 30 mmol/L 27 Anion Gap 8 - 15 mmol/L 12 eGFR >=60 mL/min/1.73m? 87 Cholesterol, Total <200 mg/dL 145 Triglyceride <150 mg/dL 81 HDL Cholesterol >39 mg/dL 57 Non HDL Cholesterol <130 mg/dL 88 Fasting Time hrs 11 VLDL Cholesterol <30 mg/dL 16 TC:HDL Ratio <5.10 2.54 LDL Cholesterol, Calculated <100 mg/dL 72 LDL:HDL Ratio <2.54 1.26 Hemoglobin A1C 4.3 - 5.6 % 5.5 Estimated Average Glucose mg/dL 111 Depression Screening Never done Anxiety Screening Never done BP Controlled (<130/80) Never done Shingrix Vaccine(2 of 3) due on 03/04/2013 DTaP,Tdap,Td Vaccine(2 - Td or Tdap) due on 12/08/2021 Advance Directive Discussion due on 03/16/2024 Covid-19 Vaccine() due on 07/04/2024 Colorectal Cancer Screening due on 12/01/2024 Annual PCP Team Chronic Disease Visit due on 07/25/2025 Diabetes Screening due on 01/26/2027 Lipid Screening due on 01/26/2029 Influenza Vaccine Completed RSV Vaccine Completed Hepatitis C Screening Completed Pneumococcal Vaccine: 50+ Completed ASSESSM (more content not included)... [facility] 07-19-2024 Telephone encounter Note Prescription Refill Information The patient has been identified by name and date of : Yes Caregiver verified no other encounters exist for this prescription request: Yes Caregiver confirmed with patient/requestor that no other refills are due, in the near future, with this provider at this time: Yes The last office visit in the department: 01/26/2024 Does the patient have a future office visit with this provider/department: Yes Requested Prescriptions Pending Prescriptions Disp Refills atorvastatin (LIPITOR) 20 mg tablet 90 tablet 1 Sig: Take 1 tablet by mouth daily at bedtime. Marsha Barraza LPN July 19, 2024 11:54 AM [facility] 07-19-2024 Miscellaneous Notes Prescription Refill Information The patient has been identified by name and date of : Yes Caregiver verified no other encounters exist for this prescription request: Yes Caregiver confirmed with patient/requestor that no other refills are due, in the near future, with this provider at this time: Yes The last office visit in the department: 01/26/2024 Does the patient have a future office visit with this provider/department: Yes Requested Prescriptions Pending Prescriptions Disp Refills atorvastatin (LIPITOR) 20 mg tablet 90 tablet 1 Sig: Take 1 tablet by mouth daily at bedtime. Marsha Barraza LPN July 19, 2024 11:54 AM documented in this encounter [facility] 07-18-2024 Telephone encounter Note Prescription Refill Information The patient has been identified by name and date of : Yes Caregiver verified no other encounters exist for this prescription request: Yes Caregiver confirmed with patient/requestor that no other refills are due, in the near future, with this provider at this time: No The last office visit in the department: 01/26/24 Does the patient have a future office visit with this provider/department: Yes Requested Prescriptions Pending Prescriptions Disp Refills tamsulosin (FLOMAX) 0.4 mg 180 capsule 1 Sig: Take 2 capsules by mouth daily at bedtime. Rosalie Mariee MA July 18, 2024 11:34 AM [facility] 07-18-2024 Miscellaneous Notes Prescription Refill Information The patient has been identified by name and date of : Yes Caregiver verified no other encounters exist for this prescription request: Yes Caregiver confirmed with patient/requestor that no other refills are due, in the near future, with this provider at this time: No The last office visit in the department: 01/26/24 Does the patient have a future office visit with this provider/department: Yes Requested Prescriptions Pending Prescriptions Disp Refills tamsulosin (FLOMAX) 0.4 mg 180 capsule 1 Sig: Take 2 capsules by mouth daily at bedtime. Rosalie Mariee MA July 18, 2024 11:34 AM documented in this encounter [facility] 07-02-2024 Telephone encounter Note Prescription Refill Information The patient has been identified by name and date of : Yes Caregiver verified no other encounters exist for this prescription request: Yes Caregiver confirmed with patient/requestor that no other refills are due, in the near future, with this provider at this time: Yes The last office visit in the department: 01/26/24 Does the patient have a future office visit with this provider/department: Yes-07/25/24 Requested Prescriptions Pending Prescriptions Disp Refills metoprolol succinate ER (TOPROL XL) 50 mg 24 hr tablet 90 tablet 1 Sig: Take 1 tablet by mouth once daily. Sheila Burris LPN July 02, 2024 10:43 AM [facility] 07-02-2024 Miscellaneous Notes Prescription Refill Information The patient has been identified by name and date of : Yes Caregiver verified no other encounters exist for this prescription request: Yes Caregiver confirmed with patient/requestor that no other refills are due, in the near future, with this provider at this time: Yes The last office visit in the department: 01/26/24 Does the patient have a future office visit with this provider/department: Yes-07/25/24 Requested Prescriptions Pending Prescriptions Disp Refills metoprolol succinate ER (TOPROL XL) 50 mg 24 hr tablet 90 tablet 1 Sig: Take 1 tablet by mouth once daily. Sheila Burris LPN July 02, 2024 10:43 AM documented in this encounter [facility] 06-13-2024 Telephone encounter Note Prescription Refill Information The patient has been identified by name and date of : Yes Caregiver verified no other encounters exist for this prescription request: Yes Caregiver confirmed with patient/requestor that no other refills are due, in the near future, with this provider at this time: Yes The last office visit in the department: 01/26/24 Does the patient have a future office visit with this provider/department: Yes, 07/25/24 Requested Prescriptions Pending Prescriptions Disp Refills lisinopril-hydroCHLOROthiazide (ZESTORETIC) 20-12.5 mg per tablet 180 tablet 1 Sig: Take 2 tablets by mouth once daily. For BP Killian Tracey LPN June 13, 2024 4:12 PM [facility] 06-13-2024 Miscellaneous Notes Prescription Refill Information The patient has been identified by name and date of : Yes Caregiver verified no other encounters exist for this prescription request: Yes Caregiver confirmed with patient/requestor that no other refills are due, in the near future, with this provider at this time: Yes The last office visit in the department: 01/26/24 Does the patient have a future office visit with this provider/department: Yes, 07/25/24 Requested Prescriptions Pending Prescriptions Disp Refills lisinopril-hydroCHLOROthiazide (ZESTORETIC) 20-12.5 mg per tablet 180 tablet 1 Sig: Take 2 tablets by mouth once daily. For BP Killian Tracey LPN June 13, 2024 4:12 PM documented in this encounter [facility] 05-09-2024 Telephone encounter Note Rx sent on 05/07. [facility] 05-09-2024 Miscellaneous Notes Rx sent on 05/07. documented in this encounter [facility] 05-07-2024 Telephone encounter Note Patient notified. Danis Pineda MA [facility] 05-07-2024 Miscellaneous Notes Patient notified. Danis Pineda MA Please call patient let her know that Herson Sheets were called in. Patient called to speak with clinical. He is asking if he could have a prescription for the gold tablets for cough. He was in office yesterday and had an antibiotic prescribed. documented in this encounter [facility] 05-07-2024 Telephone encounter Note Please call patient let her know that Herson Sheets were called in. [facility] 05-07-2024 Telephone encounter Note Patient called to speak with clinical. He is asking if he could have a prescription for the gold tablets for cough. He was in office yesterday and had an antibiotic prescribed. [facility] Work Phone: 05-06-2024 Note HNO ID: [id number] Author: TAMI ADAMES APRN.PSYCHOLOGIST [employer]ERSON[employer] Service: ? Author Type: Nurse Practitioner Type: Progress Notes Filed: 05/06/2024 13:01 Note Text: CC: Patient presents with: Chest Congestion: Sinus congestion and cough x5 days HPI: Kemar Chakraborty is a 73 year old male who presents to the office with complaint of chest congestion, head congestion, and cough, nonproductive for 5 days. Symptoms are staying the same. Associated symptoms includes cough. Denies wheezing, dyspnea, nausea, vomiting , and diarrhea. Treatments tried include nothing so far. with no relief of symptoms. Sick contacts: unknown. History of asthma, frequent episodes of bronchitis, chronic bronchitis, bronchiectasis or COPD: No Smoker: No Seasonal/environmental allergies: No The ROS is otherwise negative. The patient's pmh, medications, allergies, and past visits are reviewed. PHYSICAL EXAM: BP 142/78 Pulse 114 Temp 36.9 ?C (98.4 ?F) Resp 18 Wt 87.1 kg (192 lb 0.3 oz) SpO2 94% BMI 28.31 kg/m? General appearance: alert, cooperative, pleasant, in no acute distress Head: Normocephalic Eyes: EOM's intact, conjunctiva pink and moist, no icterus, sclera white, non-injected Ears: Right ear: External ear/canal- Normal, TM - clear with good landmarks. Left ear: External ear/canal- Normal, TM - clear with good landmarks Oropharynx:moist without lesions, No erythema, exudates or tonsillar hypertrophy. Heart: Negative. RRR without obvious murmur, gallop, or rubs. No ectopy. 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 metFORMIN (GLUCOPHAGE) 500 mg tablet Take 1 [...] ACETATE ORAL Take 180 mg by mouth. Blood Pressure Monitor kit 1 Device once daily. Dx: I10 Miscellaneous Medical Supply (BLOOD PRESSURE CUFF) misc 1 Device once daily. FAMILY HISTORY Problem Relation Age of Onset Heart Mother Smoker, Heart Surgery Valve, ?CABG Alzheimer's Disease Father Heart Father Cancer Father other (Depression) Sister ?bone Cancer other (Anxiety) Brother Heart Social History Tobacco Use Smoking status: Never Smokeless tobacco: Never Substance Use Topics Alcohol use: Yes Comment: rare Drug use: No ASSESSMENT/PLAN: 1. Rhinosinusitis - ICD9: 473.9, ICD10: J32.9 - DOXYCYCLINE HYCLATE 100 MG TABLET Prescription instructions reviewed with patient as applicable. Potential red flag symptoms discussed with the patient. Reviewed appropriate action plan to take if red flag symptoms occur. Patient agreeable to treatment plan. Tami Adames APRN.[facility] 05-06-2024 History of Presen t illness Narrative CC: Patient presents with: Chest Congestion: Sinus congestion and cough x5 days HPI: Kemar Chakraborty is a 73 year old male who presents to the office with complaint of chest congestion, head congestion, and cough, nonproductive for 5 days. Symptoms are staying the same. Associated symptoms includes cough. Denies wheezing, dyspnea, nausea, vomiting , and diarrhea. Treatments tried include nothing so far. with no relief of symptoms. Sick contacts: unknown. History of asthma, frequent episodes of bronchitis, chronic bronchitis, bronchiectasis or COPD: No Smoker: No Seasonal/environmental allergies: No The ROS is otherwise negative. The patient's pmh, medications, allergies, and past visits are reviewed. PHYSICAL EXAM: BP 142/78 Pulse 114 Temp 36.9 C (98.4 F) Resp 18 Wt 87.1 kg (192 lb 0.3 oz) SpO2 94% BMI 28.31 kg/m General appearance: alert, cooperative, pleasant, in no acute distress Head: Normocephalic Eyes: EOM's intact, conjunctiva pink and moist, no icterus, sclera white, non-injected Ears: Right ear: External ear/canal- Normal, TM - clear with good landmarks. Left ear: External ear/canal- Normal, TM - clear with good landmarks Oropharynx:moist without lesions, No erythema, exudates or tonsillar hypertrophy. Heart: Negative. RRR without obvious murmur, gallop, or rubs. No ectopy. 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 metFORMIN (GLUCOPHAGE) 500 mg tablet Take 1 [...] ACETATE ORAL Take 180 mg by mouth. Blood Pressure Monitor kit 1 Device once daily. Dx: I10 Miscellaneous Medical Supply (BLOOD PRESSURE CUFF) misc 1 Device once daily. FAMILY HISTORY Problem Relation Age of Onset Heart Mother Smoker, Heart Surgery Valve, ?CABG Alzheimer's Disease Father Heart Father Cancer Father other (Depression) Sister ?bone Cancer other (Anxiety) Brother Heart Social History Tobacco Use Smoking status: Never Smokeless tobacco: Never Substance Use Topics Alcohol use: Yes Comment: rare Drug use: No ASSESSMENT/PLAN: 1. Rhinosinusitis - ICD9: 473.9, ICD10: J32.9 - DOXYCYCLINE HYCLATE 100 MG TABLET Prescription instructions reviewed with patient as applicable. Potential red flag symptoms discussed with the patient. Reviewed appropriate action plan to take if red flag symptoms occur. Patient agreeable to treatment plan. Tami Adames APRN.[employer] documented in this encounter [facility] 04-30-2024 Telephone encounter Note Prescription Refill Information The patient has been identified by name and date of : Yes Caregiver verified no other encounters exist for this prescription request: Yes Caregiver confirmed with patient/requestor that no other refills are due, in the near future, with this provider at this time: Yes The last office visit in the department: 01/26/24 Does the patient have a future office visit with this provider/department: Yes-07/25/24 Requested Prescriptions Pending Prescriptions Disp Refills metFORMIN (GLUCOPHAGE) 500 mg tablet 180 tablet 0 Sig: Take 1 tablet by mouth two times a day with meals. Sheila Burris LPN April 30, 2024 8:24 AM [facility] 04-30-2024 Miscellaneous Notes Prescription Refill Information The patient has been identified by name and date of : Yes Caregiver verified no other encounters exist for this prescription request: Yes Caregiver confirmed with patient/requestor that no other refills are due, in the near future, with this provider at this time: Yes The last office visit in the department: 01/26/24 Does the patient have a future office visit with this provider/department: Yes-07/25/24 Requested Prescriptions Pending Prescriptions Disp Refills metFORMIN (GLUCOPHAGE) 500 mg tablet 180 tablet 0 Sig: Take 1 tablet by mouth two times a day with meals. Sheila Burris LPN April 30, 2024 8:24 AM documented in this encounter [facility] 01-26-2024 History of Presen t illness Narrative Images from the original note were not included. Kemar Chakraborty is a 73 year old male here for a Medicare wellness visit. Medicare Health Risk Assessment General Health Very good Exercise: Minutes/Day 40 min Exercise: Days/Week 4 days Alcohol: Daily Use Monthly or less Alcohol: Drinks/Day 1 or 2 Alcohol: 6 or more drinks Never Feel off balance No Concerns: Teeth/Dentures No Concerns: Sexual function Yes Troubled by feelings Frequency: Eating healthy diet Several days ADLs requiring help None of the above Safety precautions in home/vehicle Yes Smoke, vape, chews tobacco No Difficulty hearing Yes Difficulty seeing No Current Providers Specialists: I have reviewed specialist-related care of the patient in the medical record. Current care team: Patient Care Team: Joe Young MD as PCP - General (Family Medicine) Outside specialists seen: Urologist; Dr. Cobos [facility] recent PSA 4.6 Medical/Family history review Reviewed and updated problem list, medical/surgical/family/social history, medications, and allergies. PAST MEDICAL HISTORY Diagnosis Date BPH (benign prostatic hyperplasia) Dr. Flores after hip surgery Erectile dysfunction Family history of cardiovascular disease 05/18/2009 Father CABG, approx late 60s History of COVID-19 10/2020 Hypertension OA (osteoarthritis) of hip Prediabetes Premature atrial complexes White coat syndrome with hypertension ALLERGIES Seasonal Allergies MEDICATIONS Current Outpatient Medications Medication Sig atorvastatin (LIPITOR) 20 mg tablet Take 1 tablet by mouth daily at bedtime. metFORMIN (GLUCOPHAGE) 500 mg tablet Take 1 tablet by mouth two times a day with meals. tamsulosin (FLOMAX) 0.4 mg Take 2 capsules [...] ACETATE ORAL Take 180 mg by mouth. Blood Pressure Monitor kit 1 Device once daily. Dx: I10 Miscellaneous Medical Supply (BLOOD PRESSURE CUFF) misc 1 Device once daily. No current facility-administered medications for this visit. Medications and allergies reviewed by this provider. SOCIAL HISTORY Social History Tobacco Use Smoking status: Never Smokeless tobacco: Never Substance Use Topics Alcohol use: Yes Comment: rare Drug use: No Opioid use review Opioid Medications (last 90 days) No data to display Anxiety/Depression screening PHQ-9 Score: 0. Recommendation: no further intervention at this time Cognitive screening Cognitive screening reviewed and No further action needed (score 3-5). Functional Observation Was the patient's Timed Up & Go test unsteady or >= 12 seconds? No Advance Care Planning - needs to fill out paperwork Measurements BP 150/78 Pulse 114 Resp 16 Ht 175.4 cm (5' 9.06) Wt 86.4 kg (190 lb 7.6 oz) SpO2 97% BMI 28.08 kg/m Vision Screening: Follows with optometry/ophthalmology Right: 20/20 Left: 20/ 20 Both: 20/20 ASSESSMENT/PLAN: 1. Medicare annual wellness visit, subsequent - ICD9: V70.0, ICD10: Z00.00 (primary diagnosis) - Counseled on healthy diet and regular exercise - Fall avoidance information provided - Personalized prevention plan provided - Follow up for annual exam in one year Ayanna Paige APRN.BERNIE BPH: followed up with urologist last month for elevated PSA. Admits to nocturia 1-2 times per night. Denies weak stream, straining to urinate, urinary urgency, frequency or hematuria HTN: Patient is compliant with meds Yes Monitors bp at home: Yes. Denies side effects: Yes. Chest pain: No. Dyspnea: No. Edema: No. Palpitations: No. Syncope: No. Headache: No. Dizziness: No. Patient reports BP and heart rate always elevated when comes into office. Takes BP at home daily with averages 130's/80's. Pulse runs in the 80's at home Prediabetes: taking metformin as prescribed without side effects. Denies visual changes, polyuria or polydipsia HYPERLIPIDEMIA: Patient is taking medications: Yes. Patient is watching diet: Yes. Patient denies myalgias: Yes. Patient denies gi upset: Yes Rides a stationary and recumbent bike. Rides at least 3-4 times a week. PAST MEDICAL HISTORY Diagnosis Date BPH (benign prostatic hyperplasia) Dr. Flores after hip surgery Erectile dysfunction Family history of cardiovascular disease 05/18/2009 Father CABG, approx late 60s History of COVID-19 10/2020 Hypertension OA (osteoarthritis) of hip Prediabetes Premature atrial complexes White coat syndrome with hypertension ALLERGIES Seasonal Allergies MEDICATIONS Current Outpatient Medications Medication Sig atorvastatin (LIPITOR) 20 mg tablet Take 1 tablet by mouth daily at bedtime. metFORMIN (GLUCOPHAGE) 500 mg tablet Take 1 tablet by mouth two times a day with meals. tamsulosin (FLOMAX) 0.4 mg Take 2 capsules [...] ACETATE ORAL Take 180 mg by mouth. Blood Pressure Monitor kit 1 Device once daily. Dx: I10 Miscellaneous Medical Supply (BLOOD PRESSURE CUFF) misc 1 Device once daily. No current facility-administered medications for this visit. Medications and allergies reviewed by this provider. SOCIAL HISTORY Social History Tobacco Use Smoking status: Never Smokeless tobacco: Never Substance Use Topics Alcohol use: Yes Comment: rare Drug use: No REVIEW OF SYSTEMS GENERAL: No weight loss, malaise or fevers RESPIRATORY: Negative for cough, hemoptysis, wheezing, COPD, dyspnea or shortness of breath CARDIOVASCULAR: Negative for chest pain, leg swelling, hypertension, CHF or palpitations All other reviewed and negative other than HPI. OBJECTIVE: BP 150/78 Pulse 114 Resp 16 Ht 175.4 cm (5' 9.06) Wt 86.4 kg (190 lb 7.6 oz) SpO2 97% BMI 28.08 kg/m . Vital signs reviewed by this provider. APPEARANCE Well appearing, alert, in no acute distress, well-hydrated, well nourished. EYES conjunctiva and sclera normal. HEART RRR with normal S1 and S2, no murmurs, no gallops, no JVD appreciated LUNG clear to auscultation. No wheezes, rhonchi or rales EXTREMITIES Extremities normal, No deformities, No skin discoloration, and No edema SKIN Skin color, texture, turgor normal, no suspicious rashes or lesions to exposed skin Depression Screening Never done Anxiety Screening Never done BP Controlled (<130/80) Never done Shingrix Vaccine(2 of 3) due on 03/04/2013 DTaP,Tdap,Td Vaccine(2 - Td or Tdap) due on 12/08/2021 Advance Directive Discussion due on 03/16/2023 Colorectal Cancer Screening due on 12/01/2024 Annual PCP Team Chronic Disease Visit due on 01/25/2025 Diabetes Screening due on 04/29/2026 Lipid Screening due on 10/07/2027 Influenza Vaccine Completed RSV Vaccine Completed Hepatitis C Screening Completed Covid-19 Vaccine Completed Pneumococcal Vaccine: 65+ Completed ASSESSMENT/PLAN: 1. Essential hypertension - ICD9: 401.9, ICD10: I10 (primary diagnosis) - Home blood pressure readings controlled - Continue current medications - Recommend home blood pressure monitoring, to bring results to next visit - Encouraged sodium restriction, DASH or Mediterranean diet - Recommend regular aerobic exercise - Follow up in 6 months for hypertension visit - COMPREHENSIVE METABOLIC PANEL 2. Prediabetes - ICD9: 790.29, ICD10: R73.03 - continue medication, diet and exercise - COMPLETE BLOOD COUNT AND DIFFERENTIAL - HEMOGLOBIN A1C 3. Benign prostatic hyperplasia, unspecified whether lower urinary tract symptoms present - ICD9: 600.00, ICD10: N40.0 - continue medication and follow-up with urology as recommended 4. 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 - ICD9: 401.9, ICD10: I10 - Home blood pressure readings controlled - Continue current medications - Recommend home blood pressure monitoring, to bring results to next visit - Encouraged sodium restriction, DASH or Mediterranean diet - Recommend regular aerobic exercise - Follow up in 6 months for hypertension visit 5. Elevated PSA - ICD9: 790.93, ICD10: R97.20 - plan as in #3 6. Hyperlipidemia, unspecified hyperlipidemia type - ICD9: 272.4, ICD10: E78.5 - Control undetermined, due for labs - Continue current medications - Counseled on healthy diet and regular exercise - Follow up in 6 months, sooner should any other issues arise. - LIPID PANEL BASIC Ayanna Piage APRN.CNP Prescription instructions reviewed with patient as applicable. Patient advised if symptoms do not improve or if symptoms worsen sooner, to contact their primary care physician. Potential red flag symptoms discussed with the patient. Reviewed appropriate action plan to take if red flag symptoms occur. Patient agreeable to treatment plan. Medical Decision Making: Problems: Moderate: 2+ stable chronic illnesses Data: Unique test(s) ordered: 3+ Risk: Moderate: Moderate risk from testing/treatment Medical Decision Making Level: 4 - Moderate documented in this encounter [facility] 01-26-2024 Note HNO ID: [id number] Author: AYANNA PAIGE APRN.CNP Service: ? Author Type: Nurse Practitioner Type: Progress Notes Filed: 01/26/2024 08:05 Note Text: Kemar Chakraborty is a 73 year old male here for a Medicare wellness visit. Medicare Health Risk Assessment General Health Very good Exercise: Minutes/Day 40 min Exercise: Days/Week 4 days Alcohol: Daily Use Monthly or less Alcohol: Drinks/Day 1 or 2 Alcohol: 6 or more drinks Never Feel off balance No Concerns: Teeth/Dentures No Concerns: Sexual function Yes Troubled by feelings Frequency: Eating healthy diet Several days ADLs requiring help None of the above Safety precautions in home/vehicle Yes Smoke, vape, chews tobacco No Difficulty hearing Yes Difficulty seeing No Current Providers Specialists: I have reviewed specialist-related care of the patient in the medical record. Current care team: Patient Care Team: Joe Young MD as PCP - General (Family Medicine) Outside specialists seen: Urologist; Dr. Cobos at [facility] recent PSA 4.6 Medical/Family history review Reviewed and updated problem list, medical/surgical/family/social history, medications, and allergies. PAST MEDICAL HISTORY Diagnosis Date BPH (benign prostatic hyperplasia) Dr. Flores after hip surgery Erectile dysfunction Family history of cardiovascular disease 05/18/2009 Father CABG, approx late 60s History of COVID-19 10/2020 Hypertension OA (osteoarthritis) of hip Prediabetes Premature atrial complexes White coat syndrome with hypertension ALLERGIES Seasonal Allergies MEDICATIONS Current Outpatient Medications Medication Sig atorvastatin (LIPITOR) 20 mg tablet Take 1 tablet by mouth daily at bedtime. metFORMIN (GLUCOPHAGE) 500 mg tablet Take 1 tablet by mouth two times a day with meals. tamsulosin (FLOMAX) 0.4 mg Take 2 capsules [...] ACETATE ORAL Take 180 mg by mouth. Blood Pressure Monitor kit 1 Device once daily. Dx: I10 Miscellaneous Medical Supply (BLOOD PRESSURE CUFF) misc 1 Device once daily. No current facility-administered medications for this visit. Medications and allergies reviewed by this provider. SOCIAL HISTORY Social History Tobacco Use Smoking status: Never Smokeless tobacco: Never Substance Use Topics Alcohol use: Yes Comment: rare Drug use: No Opioid use review Opioid Medications (last 90 days) No data to display Anxiety/Depression screening PHQ-9 Score: 0. Recommendation: no further intervention at this time Cognitive screening Cognitive screening reviewed and No further action needed (score 3-5). Functional Observation Was the patient's Timed Up AND Go test unsteady or >= 12 seconds? No Advance Care Planning - needs to fill out paperwork Measurements BP 150/78 Pulse 114 Resp 16 Ht 175.4 cm (5' 9.06) Wt 86.4 kg (190 lb 7.6 oz) SpO2 97% BMI 28.08 kg/m? Vision Screening: Follows with optometry/ophthalmology Right: 20/20 Left: 20/ 20 Both: 20/20 ASSESSMENT/PLAN: 1. Medicare annual wellness visit, subsequent - ICD9: V70.0, ICD10: Z00.00 (primary diagnosis) - Counseled on healthy diet and regular exercise - Fall avoidance information provided - Personalized prevention plan provided - Follow up for annual exam in one year Ayanna Paige APRN.BER[facility]IE BPH: followed up with urologist last month for elevated PSA. Admits to nocturia 1-2 times per night. Denies weak stream, straining to urinate, urinary urgency, frequency or hematuria HTN: Patient is compliant with meds Yes Monitors bp at home: Yes. Denies side effects: Yes. Chest pain: No. Dyspnea: No. Edema: No. Palpitations: No. Syncope: No. Headache: No. Dizziness: No. Patient reports BP and heart rate always elevated when comes into office. Takes BP at home daily with averages 130's/80's. Pulse runs in the 80's at home Prediabetes: taking metformin as prescribed without side effects. Denies visual changes, polyuria or polydipsia HYPERLIPIDEMIA: Patient is taking medications: Yes. Patient is watching diet: Yes. Patient denies myalgias: Yes. Patient denies gi upset: Yes Rides a stationary and recumbent bike. Rides at least 3-4 times a week. PAST MEDICAL HISTORY Diagnosis Date BPH (benign prostatic hyperplasia) Dr. Flores after hip surgery Erectile dysfunction Family history of cardiovascular disease 05/18/2009 Father CABG, approx late 60s History of COVID-19 10/2020 Hypertension OA (osteoarthritis) of hip Prediabetes Premature atrial complexes White coat syndrome with hypertension ALLERGIES Seasonal Allergies MEDICATIONS Current Outpatient Medication (more content not included)... [facility] 01-20-2024 Telephone encounter Note Prescription Refill Information The patient has been identified by name and date of : Yes Caregiver verified no other encounters exist for this prescription request: Yes Caregiver confirmed with patient/requestor that no other refills are due, in the near future, with this provider at this time: Yes The last office visit in the department: 04/29/23 Does the patient have a future office visit with this provider/department: Yes 01/26/24 Requested Prescriptions Pending Prescriptions Disp Refills tamsulosin (FLOMAX) 0.4 mg 180 capsule 1 Sig: Take 2 capsules by mouth daily at bedtime. Debbie Mackey LPN January 20, 2024 8:29 AM [facility] 01-20-2024 Miscellaneous Notes Prescription Refill Information The patient has been identified by name and date of : Yes Caregiver verified no other encounters exist for this prescription request: Yes Caregiver confirmed with patient/requestor that no other refills are due, in the near future, with this provider at this time: Yes The last office visit in the department: 04/29/23 Does the patient have a future office visit with this provider/department: Yes 01/26/24 Requested Prescriptions Pending Prescriptions Disp Refills tamsulosin (FLOMAX) 0.4 mg 180 capsule 1 Sig: Take 2 capsules by mouth daily at bedtime. Debbie Mackey LPN January 20, 2024 8:29 AM documented in this encounter [facility] 01-20-2024 Telephone encounter Note Prescription Refill Information The patient has been identified by name and date of : Yes Caregiver verified no other encounters exist for this prescription request: Yes Caregiver confirmed with patient/requestor that no other refills are due, in the near future, with this provider at this time: Yes The last office visit in the department: 04/29/23 Does the patient have a future office visit with this provider/department: Yes 01/26/24 Requested Prescriptions Pending Prescriptions Disp Refills atorvastatin (LIPITOR) 20 mg tablet 90 tablet 1 Sig: Take 1 tablet by mouth daily at bedtime. metFORMIN (GLUCOPHAGE) 500 mg tablet 180 tablet 0 Sig: Take 1 tablet by mouth two times a day with meals. Debbie Mackey LPN January 20, 2024 8:28 AM [facility] 01-20-2024 Miscellaneous Notes Prescription Refill Information The patient has been identified by name and date of : Yes Caregiver verified no other encounters exist for this prescription request: Yes Caregiver confirmed with patient/requestor that no other refills are due, in the near future, with this provider at this time: Yes The last office visit in the department: 04/29/23 Does the patient have a future office visit with this provider/department: Yes 01/26/24 Requested Prescriptions Pending Prescriptions Disp Refills atorvastatin (LIPITOR) 20 mg tablet 90 tablet 1 Sig: Take 1 tablet by mouth daily at bedtime. metFORMIN (GLUCOPHAGE) 500 mg tablet 180 tablet 0 Sig: Take 1 tablet by mouth two times a day with meals. Debbie Mackey LPN January 20, 2024 8:28 AM documented in this encounter [facility] 01-11-2024 Telephone encounter Note Prescription Refill Information The patient has been identified by name and date of : Yes Caregiver verified no other encounters exist for this prescription request: Yes Caregiver confirmed with patient/requestor that no other refills are due, in the near future, with this provider at this time: Yes The last office visit in the department: 04/29/23 Does the patient have a future office visit with this provider/department: Yes, 01/26/24 Requested Prescriptions Pending Prescriptions Disp Refills metoprolol succinate ER (TOPROL XL) 50 mg 24 hr tablet 90 tablet 1 Sig: Take 1 tablet by mouth once daily. Killian Tracey LPN January 11, 2024 10:07 AM [facility] 01-11-2024 Miscellaneous Notes Prescription Refill Information The patient has been identified by name and date of : Yes Caregiver verified no other encounters exist for this prescription request: Yes Caregiver confirmed with patient/requestor that no other refills are due, in the near future, with this provider at this time: Yes The last office visit in the department: 04/29/23 Does the patient have a future office visit with this provider/department: Yes, 01/26/24 Requested Prescriptions Pending Prescriptions Disp Refills metoprolol succinate ER (TOPROL XL) 50 mg 24 hr tablet 90 tablet 1 Sig: Take 1 tablet by mouth once daily. Killian Tracey LPN January 11, 2024 10:07 AM documented in this encounter [facility] 12-18-2023 Telephone encounter Note The patient has [...] Keith LPN December 18, 2023 11:25 AM [facility] 12-18-2023 Miscellaneous Notes The patient has [...] 2023 11:25 AM documented in this encounter [facility] 10-09-2023 Telephone encounter Note Prescription Refill [...] Barraza LPN October 09, 2023 8:10 AM [facility] 10-09-2023 Miscellaneous Notes Prescription Refill Information [...] 2023 8:10 AM documented in this encounter [facility] 09-20-2023 Telephone encounter Note Reason for [...] TREATMENT: none 6. SUICIDAL: none Protocols used: [id number] [facility] 09-20-2023 Miscellaneous Notes Reason for Call: [...] TREATMENT: none 6. SUICIDAL: none Protocols used: [id number] documented in this encounter [facility] [facility] Telephone encounter Note Patient has [...] Please advise. Thank you. Killian Tracey LPN. [facility] 07-24-2023 Miscellaneous Notes Patient has been [...] Killian Tracey LPN. documented in this encounter [facility] 07-23-2023 Telephone encounter Note Patient has [...] Please advise. Thank you. Sheila Burris LPN. [facility] 07-23-2023 Miscellaneous Notes Patient has been [...] Sheila Burris LPN. documented in this encounter [facility] 07-13-2023 Telephone encounter Note Patient has [...] Please advise. Thank you. Rosalie Mariee MA. [facility] 07-13-2023 Miscellaneous Notes Patient has been [...] Rosalie Mariee MA. documented in this encounter [facility] 07-03-2023 Miscellaneous Notes Patient has been [...] Killian Tracey LPN. documented in this encounter [facility] 06-15-2023 Miscellaneous Notes Patient has been [...] Claudine Santos LPN. documented in this encounter [facility] 05-01-2023 Miscellaneous Notes Pt returned call and given provider's message below with verbalized understanding. TC to patient with no answer. Left VM to return call to office. JOYCE Hayward ----- Message from Ayanna Paige APRN.CNP sent at 05/01/2023 6:39 AM EST ----- A1c unchanged from last visit. No need to recheck blood sugar on recent lab as A1c shows he averages 120 over a three month period. Ayanna Paige APRN.CNP documented in this encounter [facility] 05-01-2023 Miscellaneous Notes See TE dated 05/01/22. JOYCE Hayward See telephone encounter. Ayanna Paige APRN.CNP documented in this encounter [facility] 04-29-2023 Instructions Ayanna Paige APRN.CNP - 04/29/2023 8:13 AM EST Make appointment to see Dr. Cobos documented in this encounter [facility] 04-29-2023 History of Presen t illness [...] miles a day. Has been going to [employer] twice a week doing light weight lifting [...] 180 mg by mouth. OTC NUTRITIONAL SUPPLEMENT [facility] Blood Pressure Monitor kit 1 Device once daily. Dx: I10 Miscellaneous Medical [employer] (BLOOD PRESSURE CUFF) misc 1 Device once daily. Zkitkyoqqziwo-Esihsswy-Iyuxsi (CENTRUM SILVER) Tab Take 1 tablet by [...] Abs Lymph 1.00 - 4.00 k/uL 2.34 Bamberg% % 9.0 Abs B[place]berg <0.87 k/uL 0.68 Eosin% % 6.9 Abs [...] months, sooner should any other issues arise. Ayanna Paige APRN.BERNIE Prescription instructions reviewed with patient as applicable. 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 Sarah Ellis documented in this encounter [facility] 12-22-2022 Miscellaneous Notes Patient has been [...] you. JOYCE Hayward documented in this encounter [facility] 09-24-2022 History of Presen t illness Narrative [...] and HR well controlled at home. See [employer] message from yesterday. States he gets very [...] use: Yes Comment: rare Drug use: No Kemar likes to exercise by walking, riding his bicycle, and golfing. He watches his diet for sodium, low fat and low cholesterol most of the time. List of current specialists seen: Urology: Dr. Flores Optho: Dr. Barros End of Live Planning discussed including patients advanced directive wishes: Yes-forms given for home. FULL CODE. I am willing to follow Kemar's advanced directives. PHQ-2 / Depression screen He [...] 100 Resp 16 Ht 177.8 cm (5' 10) Wt 90.4 kg (199 lb 6.4 oz) [...] Joe Young MD documented in this encounter [facility] 09-22-2022 Miscellaneous Notes Patient has been [...] you. JOYCE Hayward documented in this encounter [facility] 09-11-2022 Miscellaneous Notes Patient has reached out via [employer] to reschedule. Waiting on him to respond on date and time he wants to visit. Patient's BP is in good range on his home cuff. He cancelled his appointment today for medicare wellness and has not rescheduled. Please contact patient regarding rescheduling follow up. Reviewed. Will discuss at OV tomorrow. See pt [employer] message. documented in this encounter [facility] 08-29-2022 Miscellaneous Notes Last office visit: 02/05/22 F/u scheduled: 09/10/22 Rosalie Mariee Ma documented in this encounter [facility] 07-22-2022 Miscellaneous Notes Patient has been identified by name and date of : Yes Patient phones for refill(s): Requested Prescriptions Pending Prescriptions Disp Refills tamsulosin (FLOMAX) 0.4 mg 180 capsule 1 Sig: Take 2 capsules by mouth daily at bedtime. Date of last office visit in primary care: [facility] 02/05/22 Appointment scheduled 08/05/22 Last 2 Encounter Wt Readings: Date: Wt: 02/05/2022 92.8 kg (204 lb 9.6 oz) 07/17/2021 94.8 kg (209 lb) Please advise. Thank you. JOYCE Hayward documented in this encounter [facility] 07-21-2022 Miscellaneous Notes Patient has been [...] Mirian Stokes MA documented in this encounter [facility] 06-30-2022 Miscellaneous Notes [facility] 02/05/22 NOV [...] advise. Amanda Briggs documented in this encounter [facility] 05-27-2022 Miscellaneous Notes Referral, labs, and OV note faxed to Dr. Flores at [phone]. Mirian Stokes MA Referral order placed. Can you place new order that I've pended. Your last one was in 01/2022.Please review and file, once complete fax to Dr. Flores's office. Grisel Lacy Ma documented in this encounter [facility] 05-26-2022 Miscellaneous Notes Looks like A1c order is still active. Would have him come in this week for labs. documented in this encounter [facility] 05-23-2022 Miscellaneous Notes Patient phones requesting refills as follows: Requested Prescriptions Pending Prescriptions Disp Refills metFORMIN (GLUCOPHAGE) 500 mg tablet 60 tablet 2 Sig: Take 1 tablet by mouth twice daily with meals. [facility] 02/05/22 NOV 08/05/22 Please review and advise. Sheila Burris LPN documented in this encounter [facility] 02-12-2022 Miscellaneous Notes Patient notified of results and provider's instructions. Patient verbalizes understanding. Jacquelin Morley RN Sent [employer] message to pt to call office and speak with FM Triage Nurse regarding results. Grisel Lacy Ma TC to patient with no answer. [...] for further evaluation. documented in this encounter [facility] 01-20-2022 Miscellaneous Notes Patient phones requesting refills as follows: Requested Prescriptions Pending Prescriptions Disp Refills metoprolol succinate ER (TOPROL XL) 50 mg 24 hr tablet 30 tablet 5 Sig: Take 1 tablet by mouth once daily. [facility]-07/17/21 Labs-07/18/21Jan-02/05/22 med filled 09/25/21 Please review and advise. Debbie Mackey LPN documented in this encounter [facility] 01-20-2022 Miscellaneous Notes Patient phones requesting refills as follows: Requested Prescriptions Pending Prescriptions Disp Refills atorvastatin (LIPITOR) 20 mg tablet 90 tablet 1 Sig: Take 1 tablet by mouth daily at bedtime. [facility]-07/17/21 Labs-07/18/21Jan-02/05/22 med filled 07/17/21 Please review and advise. Debbie Mackey LPN documented in this encounter [facility] 09-25-2021 Miscellaneous Notes Addended by: AYANNA PAIGE on: 09/25/2021 04:46 PM Modules accepted: Orders documented in this encounter [facility] 07-22-2021 Miscellaneous Notes Patient active MyChart. Patient notified via MyChart message. Susan Vaz MA Phoned patient and VM left as instructed by patient with his results and recommendations. Advised to call with any questions. ----- Message from Joe Young MD sent at 07/19/2021 8:08 AM EDT ----- A1C remains in prediabetic range. Continue to work on low carb diet, exercise, weight loss. Other labs normal. documented in this encounter [facility] 07-17-2021 History of Presen t illness [...] use: Yes Comment: rare Drug use: No Kemar likes to exercise by walking and stationary [...] FULL CODE. I am willing to follow Kemar's advanced directives. PHQ-2 / Depression screen He [...] 88 Resp 14 Ht 176.5 cm (5' 9.5) Wt 94.8 kg (209 lb) BMI 30.42 [...] Joe Young MD documented in this encounter [facility] 06-25-2021 Miscellaneous Notes Patient has been [...] Evi Keith LPN documented in this encounter [facility] 05-18-2009 History of Past i llness Narrative Problem Noted Date Resolved Date 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/2009 01/13/20 11 documented as of this encounter (statuses as of 06/25/2021) [facility] History of Past illness Narrative* Problem Noted Date Resolved Date 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/2009 01/13/20 11 documented as of this encounter (statuses as of 07/17/2021) [facility] History of Past illness Narrative* Problem Noted Date Resolved Date 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/2009 01/13/20 11 documented as of this encounter (statuses as of 07/22/2021) [facility] History of Past illness Narrative* Problem Noted Date Resolved Date 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/2009 01/13/20 11 documented as of this encounter (statuses as of 09/25/2021) [facility] History of Past illness Narrative* Problem Noted Date Resolved Date 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/2009 01/13/20 11 documented as of this encounter (statuses as of 01/01/2022) [facility] History of Past illness Narrative* Problem Noted Date Resolved Date 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/2009 01/13/20 11 documented as of this encounter (statuses as of 01/20/2022) [address] History of Past illness Narrative* Problem Noted Date Resolved Date 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/2009 01/13/20 11 documented as of this encounter (statuses as of 01/20/2022) [facility] History of Past illness Narrative* Problem Noted Date Resolved Date 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/2009 01/13/20 11 documented as of this encounter (statuses as of 02/12/2022) [address] History of Past illness Narrative* Problem Noted Date Resolved Date 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/2009 01/13/20 11 documented as of this encounter (statuses as of 05/23/2022) [address] History of Past illness Narrative* Problem Noted Date Resolved Date 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/2009 01/13/20 11 documented as of this encounter (statuses as of 05/27/2022) [address] History of Past illness Narrative* Problem Noted Date Resolved Date 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/2009 01/13/20 11 documented as of this encounter (statuses as of 05/29/2022) [facility] History of Past illness Narrative* Problem Noted Date Resolved Date 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/2009 01/13/20 11 documented as of this encounter (statuses as of 06/30/2022) [facility] History of Past illness Narrative* Problem Noted Date Resolved Date 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/2009 01/13/20 11 documented as of this encounter (statuses as of 07/21/2022) [address] History of Past illness Narrative* Problem Noted Date Resolved Date 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/2009 01/13/20 11 documented as of this encounter (statuses as of 07/22/2022) [address] History of Past illness Narrative* Problem Noted Date Resolved Date 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/2009 01/13/20 11 documented as of this encounter (statuses as of 08/30/2022) [address] History of Past illness Narrative* Problem Noted Date Resolved Date 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/2009 01/13/20 11 documented as of this encounter (statuses as of 09/11/2022) [address] History of Past illness Narrative* Problem Noted Date Diagnosed Date Resolved Date 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/200912/16 documented as of this encounter (statuses as of 09/22/2022) [address] History of Past illness Narrative* Problem Noted Date Diagnosed Date Resolved Date 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/200912/16 documented as of this encounter (statuses as of 09/24/2022) [address] History of Past illness Narrative* Problem Noted Date Diagnosed Date Resolved Date 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/200912/16 documented as of this encounter (statuses as of 12/23/2022) [address] History of Past illness Narrative* Problem Noted Date Diagnosed Date Resolved Date 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/200912/16 documented as of this encounter (statuses as of 01/09/2023) [address] History of Past illness Narrative* Problem Noted Date Diagnosed Date Resolved Date 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/200912/16 documented as of this encounter (statuses as of 01/09/2023) [address] History of Past illness Narrative* Problem Noted Date Diagnosed Date Resolved Date 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/200912/16 documented as of this encounter (statuses as of 01/23/2023) [address] History of Past illness Narrative* Problem Noted Date Diagnosed Date Resolved Date 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/200912/16 documented as of this encounter (statuses as of 02/03/2023) [address] History of Past illness Narrative* Problem Noted Date Diagnosed Date Resolved Date 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/200912/16 documented as of this encounter (statuses as of 04/29/2023) [address] History of Past illness Narrative* Problem Noted Date Diagnosed Date Resolved Date 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/200912/16 documented as of this encounter (statuses as of 05/01/2023) [address] History of Past illness Narrative* Problem Noted Date Diagnosed Date Resolved Date 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/200912/16 documented as of this encounter (statuses as of 05/01/2023) [facility] History of Past illness Narrative* Problem Noted Date Diagnosed Date Resolved Date 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/200912/16 documented as of this encounter (statuses as of 06/16/2023) [facility] History of Past illness Narrative* Problem Noted Date Diagnosed Date Resolved Date 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/200912/16 documented as of this encounter (statuses as of 07/03/2023) [facility] Diagnosis Essential hypertension Unspecified essential hypertension [facility] Diagnosis Medicare annual wellness visit, subsequent- Primary Routine general medical examination at a health care facility Irregular heartbeat Cardiac dysrhythmia, unspecified Prediabetes Other abnormal glucose Tachycardia Tachycardia, unspecified Primary hypertension Unspecified essential hypertension 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 [facility] Diagnosis Essential hypertension Unspecified essential hypertension [facility] Diagnosis Essential hypertension Unspecified essential hypertension [facility] Diagnosis Elevated PSA- Primary Elevated prostate specific antigen (PSA) Prediabetes Other abnormal glucose [facility] Diagnosis Elevated PSA- Primary Elevated prostate specific antigen (PSA) [facility] Diagnosis Essential hypertension Unspecified essential hypertension [facility] Diagnosis Medicare annual wellness visit, subsequent- Primary Routine general medical examination at a health care facility 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 Benign prostatic hyperplasia, unspecified whether lower urinary tract symptoms present [facility] Diagnosis Essential hypertension Unspecified essential hypertension [facility] Diagnosis Essential hypertension- Primary Unspecified essential hypertension Prediabetes Other abnormal glucose Depression screening Screening for depression Benign prostatic hyperplasia, unspecified whether lower urinary tract symptoms present Hyperlipidemia, unspecified hyperlipidemia type [facility] Diagnosis Essential hypertension Unspecified essential hypertension [facility] Diagnosis Essential hypertension Unspecified essential hypertension documented in this encounter [facility] note* Diagnosis Essential hypertension- Primary Unspecified essential hypertension Prediabetes Other abnormal glucose Benign prostatic hyperplasia, unspecified whether lower urinary tract symptoms present Medicare annual wellness visit, subsequent Routine general medical examination at a health care facility 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 Elevated PSA Elevated prostate specific antigen (PSA) Hyperlipidemia, unspecified hyperlipidemia type documented in this encounter [facility] note* Diagnosis Rhinosinusitis- Primary Unspecified sinusitis (chronic) documented in this encounter [facility] note* Diagnosis Essential hypertension- Primary Unspecified essential hypertension Screening for depression Encounter for screening examination for other mental health and behavioral disorders Need for vaccination Need for prophylactic vaccination and inoculation against unspecified single disease Prediabetes Other abnormal glucose Hyperlipidemia, unspecified hyperlipidemia type Screening for colon cancer Special screening for malignant neoplasms, colon documented in this encounter [facility] note* Diagnosis Screening for colon cancer Special screening for malignant neoplasms, colon documented in this encounter [facility] for referral (narrative)* Outpatient Procedure (Routine) - Authorized Specialty Diagnoses / Procedures Referred By Carleen seymour [facility] Diagnoses Irregular heartbeat Procedures ECG COMPLETE ECG ROUTINE ECG W/LEAST 12 LDS W/I&R Joe Young MD [address] [place] [address] [facility] [address] [place] [id number] Referral ID Status Reason Start Date Expiration Date Visits Requested Visits Authorized [id number] Authorized Auto-Generat ed Referral 07/17/2021 07/17/[address] [facility] for visit Narrative* Outpatient Procedure (Routine) - Closed Specialty Diagnoses / Procedures Referred By Carleen seymour Referred To Contact [facility] Diagnoses Screening for colon cancer Procedures COLONOSCOPY SCREENING COLONOSCOPY FLX DX W/COLLJ SPEC WHEN PFRMD Ayanna Paige APRN.PSYCHOLOGIST [employer] [address] [place] [address] Phone: tel: fax: [facility] [address] [place] [id number] Referral ID Status Reason Start Date Expiration Date V isits Requested Visits Authorized [id number] Closed Auto-Generate d Referral 07/25/2024 07/25/2025 1 1 [facility] Reason for Referral Specialty Diagnoses / Procedures Referred By Carleen seymour Referred To Contact Urology Diagnoses Elevated PSA Procedures CONSULT TO UROLOGY OFFICE/OUTPATIENT NEW HIGH MDM 60-74 MINUTES Joe Young MD [address] [place] [address] Referral ID Status Reason Start Date Expiration Date Visits Requested Visits Authorized [id number] Authorized PCP Requested Referral 2 02/11/2023 1 1 Referral ID Status Reason Start Date Expiration Date Visits Requested Visits Authorized [id number] Authorized PCP Requested Referral 05/27/2022 05/26/2023 1 1 Summary Purpose Family History No Family History Records FoundNo Family History Records Found Advance Directives No Advanced Directives Records FoundNo Advanced Directives Records Found Additional Source Comments Source Comments (unrecognize d section and content) In the event this informatio n is protected by the Federal Confidentiality of Alcohol and Drug Abuse Patient Records regulations: The Federal rules restrict any use of the information to criminally investigate or prosecute any alcohol or drug abuse patient.[facility] event this information is protected by the Federal Confidentiality of Alcohol and Drug Abuse Patient Records regulations: The Federal rules restrict any use of the information to criminally investigate or prosecute any alcohol or drug abuse patient.[facility] the event this information is protected by the Federal Confidentiality of Alcohol and Drug Abuse Patient Records regulations: The Federal rules restrict any use of the information to criminally investigate or prosecute any alcohol or drug abuse patient.[facility] the event this information is protected by the Federal Confidentiality of Alcohol and Drug Abuse Patient Records regulations: The Federal rules restrict any use of the information to criminally investigate or prosecute any alcohol or drug abuse patient.[facility] the event this information is protected by the Federal Confidentiality of Alcohol and Drug Abuse Patient Records regulations: The Federal rules restrict any use of the information to criminally investigate or prosecute any alcohol or drug abuse patient.[facility] the event this information is protected by the Federal Confidentiality of Alcohol and Drug Abuse Patient Records regulations: The Federal rules restrict any use of the information to criminally investigate or prosecute any alcohol or drug abuse patient.[facility] the event this information is protected by the Federal Confidentiality of Alcohol and Drug Abuse Patient Records regulations: The Federal rules restrict any use of the information to criminally investigate or prosecute any alcohol or drug abuse patient.[facility] the event this information is protected by the Federal Confidentiality of Alcohol and Drug Abuse Patient Records regulations: The Federal rules restrict any use of the information to criminally investigate or prosecute any alcohol or drug abuse patient.[facility] the event this information is protected by the Federal Confidentiality of Alcohol and Drug Abuse Patient Records regulations: The Federal rules restrict any use of the information to criminally investigate or prosecute any alcohol or drug abuse patient.[facility] the event this information is protected by the Federal Confidentiality of Alcohol and Drug Abuse Patient Records regulations: The Federal rules restrict any use of the information to criminally investigate or prosecute any alcohol or drug abuse patient.[facility] the event this information is protected by the Federal Confidentiality of Alcohol and Drug Abuse Patient Records regulations: The Federal rules restrict any use of the information to criminally investigate or prosecute any alcohol or drug abuse patient.[facility] the event this information is protected by the Federal Confidentiality of Alcohol and Drug Abuse Patient Records regulations: The Federal rules restrict any use of the information to criminally investigate or prosecute any alcohol or drug abuse patient.[facility] the event this information is protected by the Federal Confidentiality of Alcohol and Drug Abuse Patient Records regulations: The Federal rules restrict any use of the information to criminally investigate or prosecute any alcohol or drug abuse patient.[facility] HospitalIn the event this information is protected by the Federal Confidentiality of Alcohol and Drug Abuse Patient Records regulations: The Federal rules restrict any use of the information to criminally investigate or prosecute any alcohol or drug abuse patient.[facility] HospitalIn the event this information is protected by the Federal Confidentiality of Alcohol and Drug Abuse Patient Records regulations: The Federal rules restrict any use of the information to criminally investigate or prosecute any alcohol or drug abuse patient.[facility] HospitalIn the event this information is protected by the Federal Confidentiality of Alcohol and Drug Abuse Patient Records regulations: The Federal rules restrict any use of the information to criminally investigate or prosecute any alcohol or drug abuse patient.[facility] HospitalIn the event this information is protected by the Federal Confidentiality of Alcohol and Drug Abuse Patient Records regulations: The Federal rules restrict any use of the information to criminally investigate or prosecute any alcohol or drug abuse patient.[facility] HospitalIn the event this information is protected by the Federal Confidentiality of Alcohol and Drug Abuse Patient Records regulations: The Federal rules restrict any use of the information to criminally investigate or prosecute any alcohol or drug abuse patient.[facility] HospitalIn the event this information is protected by the Federal Confidentiality of Alcohol and Drug Abuse Patient Records regulations: The Federal rules restrict any use of the information to criminally investigate or prosecute any alcohol or drug abuse patient.[facility] HospitalIn the event this information is protected by the Federal Confidentiality of Alcohol and Drug Abuse Patient Records regulations: The Federal rules restrict any use of the information to criminally investigate or prosecute any alcohol or drug abuse patient.[facility] HospitalIn the event this information is protected by the Federal Confidentiality of Alcohol and Drug Abuse Patient Records regulations: The Federal rules restrict any use of the information to criminally investigate or prosecute any alcohol or drug abuse patient.[facility] HospitalIn the event this information is protected by the Federal Confidentiality of Alcohol and Drug Abuse Patient Records regulations: The Federal rules restrict any use of the information to criminally investigate or prosecute any alcohol or drug abuse patient.[facility] HospitalIn the event this information is protected by the Federal Confidentiality of Alcohol and Drug Abuse Patient Records regulations: The Federal rules restrict any use of the information to criminally investigate or prosecute any alcohol or drug abuse patient.[facility] HospitalIn the event this information is protected by the Federal Confidentiality of Alcohol and Drug Abuse Patient Records regulations: The Federal rules restrict any use of the information to criminally investigate or prosecute any alcohol or drug abuse patient.[facility] HospitalIn the event this information is protected by the Federal Confidentiality of Alcohol and Drug Abuse Patient Records regulations: The Federal rules restrict any use of the information to criminally investigate or prosecute any alcohol or drug abuse patient.[facility] HospitalIn the event this information is protected by the Federal Confidentiality of Alcohol and Drug Abuse Patient Records regulations: The Federal rules restrict any use of the information to criminally investigate or prosecute any alcohol or drug abuse patient.[facility] HospitalIn the event this information is protected by the Federal Confidentiality of Alcohol and Drug Abuse Patient Records regulations: The Federal rules restrict any use of the information to criminally investigate or prosecute any alcohol or drug abuse patient.[facility] HospitalIn the event this information is protected by the Federal Confidentiality of Alcohol and Drug Abuse Patient Records regulations: The Federal rules restrict any use of the information to criminally investigate or prosecute any alcohol or drug abuse patient.[facility] HospitalIn the event this information is protected by the Federal Confidentiality of Alcohol and Drug Abuse Patient Records regulations: The Federal rules restrict any use of the information to criminally investigate or prosecute any alcohol or drug abuse patient.[facility] HospitalIn the event this information is protected by the Federal Confidentiality of Alcohol and Drug Abuse Patient Records regulations: The Federal rules restrict any use of the information to criminally investigate or prosecute any alcohol or drug abuse patient.[facility] HospitalIn the event this information is protected by the Federal Confidentiality of Alcohol and Drug Abuse Patient Records regulations: The Federal rules restrict any use of the information to criminally investigate or prosecute any alcohol or drug abuse patient.[facility] HospitalIn the event this information is protected by the Federal Confidentiality of Alcohol and Drug Abuse Patient Records regulations: The Federal rules restrict any use of the information to criminally investigate or prosecute any alcohol or drug abuse patient.[facility] HospitalIn the event this information is protected by the Federal Confidentiality of Alcohol and Drug Abuse Patient Records regulations: The Federal rules restrict any use of the information to criminally investigate or prosecute any alcohol or drug abuse patient.[facility] HospitalIn the event this information is protected by the Federal Confidentiality of Alcohol and Drug Abuse Patient Records regulations: The Federal rules restrict any use of the information to criminally investigate or prosecute any alcohol or drug abuse patient.[facility] HospitalIn the event this information is protected by the Federal Confidentiality of Alcohol and Drug Abuse Patient Records regulations: The Federal rules restrict any use of the information to criminally investigate or prosecute any alcohol or drug abuse patient.[facility] HospitalIn the event this information is protected by the Federal Confidentiality of Alcohol and Drug Abuse Patient Records regulations: The Federal rules restrict any use of the information to criminally investigate or prosecute any alcohol or drug abuse patient.[facility] HospitalIn the event this information is protected by the Federal Confidentiality of Alcohol and Drug Abuse Patient Records regulations: The Federal rules restrict any use of the information to criminally investigate or prosecute any alcohol or drug abuse patient.[facility] HospitalIn the event this information is protected by the Federal Confidentiality of Alcohol and Drug Abuse Patient Records regulations: The Federal rules restrict any use of the information to criminally investigate or prosecute any alcohol or drug abuse patient.[facility] HospitalIn the event this information is protected by the Federal Confidentiality of Alcohol and Drug Abuse Patient Records regulations: The Federal rules restrict any use of the information to criminally investigate or prosecute any alcohol or drug abuse patient.[facility] HospitalIn the event this information is protected by the Federal Confidentiality of Alcohol and Drug Abuse Patient Records regulations: The Federal rules restrict any use of the information to criminally investigate or prosecute any alcohol or drug abuse patient.[facility] HospitalIn the event this information is protected by the Federal Confidentiality of Alcohol and Drug Abuse Patient Records regulations: The Federal rules restrict any use of the information to criminally investigate or prosecute any alcohol or drug abuse patient.[facility] HospitalIn the event this information is protected by the Federal Confidentiality of Alcohol and Drug Abuse Patient Records regulations: The Federal rules restrict any use of the information to criminally investigate or prosecute any alcohol or drug abuse patient.[facility] HospitalIn the event this information is protected by the Federal Confidentiality of Alcohol and Drug Abuse Patient Records regulations: The Federal rules restrict any use of the information to criminally investigate or prosecute any alcohol or drug abuse patient.[facility] HospitalIn the event this information is protected by the Federal Confidentiality of Alcohol and Drug Abuse Patient Records regulations: The Federal rules restrict any use of the information to criminally investigate or prosecute any alcohol or drug abuse patient.[facility] HospitalIn the event this information is protected by the Federal Confidentiality of Alcohol and Drug Abuse Patient Records regulations: The Federal rules restrict any use of the information to criminally investigate or prosecute any alcohol or drug abuse patient.[facility] HospitalIn the event this information is protected by the Federal Confidentiality of Alcohol and Drug Abuse Patient Records regulations: The Federal rules restrict any use of the information to criminally investigate or prosecute any alcohol or drug abuse patient.[facility] HospitalIn the event this information is protected by the Federal Confidentiality of Alcohol and Drug Abuse Patient Records regulations: The Federal rules restrict any use of the information to criminally investigate or prosecute any alcohol or drug abuse patient.[facility] HospitalIn the event this information is protected by the Federal Confidentiality of Alcohol and Drug Abuse Patient Records regulations: The Federal rules restrict any use of the information to criminally investigate or prosecute any alcohol or drug abuse patient.[facility] HospitalIn the event this information is protected by the Federal Confidentiality of Alcohol and Drug Abuse Patient Records regulations: The Federal rules restrict any use of the information to criminally investigate or prosecute any alcohol or drug abuse patient.[facility] the event this information is protected by the Federal Confidentiality of Alcohol and Drug Abuse Patient Records regulations: The Federal rules restrict any use of the information to criminally investigate or prosecute any alcohol or drug abuse patient.[facility] HospitalIn the event this information is protected by the Federal Confidentiality of Alcohol and Drug Abuse Patient Records regulations: The Federal rules restrict any use of the information to criminally investigate or prosecute any alcohol or drug abuse patient.[facility] HospitalIn the event this information is protected by the Federal Confidentiality of Alcohol and Drug Abuse Patient Records regulations: The Federal rules restrict any use of the information to criminally investigate or prosecute any alcohol or drug abuse patient.[facility] HospitalIn the event this information is protected by the Federal Confidentiality of Alcohol and Drug Abuse Patient Records regulations: The Federal rules restrict any use of the information to criminally investigate or prosecute any alcohol or drug abuse patient.[facility] Reason for Visit (unrecogniz ed section [...] Reason Onset Date Comments Refill Request 12/18/2023 Reason Onset Date Comments Refill Request 01/10/2024 Reason Onset Date Comments Refill Request 01/20/2024 Reason Comments Medicare Wellness Exam F/U 6 months Reason Onset Date Comments Refill Request 04/29/2024 Reason Comments Chest Congestion Sinus congestion and cough x5 days Reason Comments Cough Reason Onset Date Comments Refill Request 06/13/2024 Reason Onset Date Comments Refill Request 07/02/2024 Reason Onset Date Comments Refill Request 07/15/2024 Reason Onset Date Comments Refill Request 07/19/2024 Reason Comments 6 Month Exam Reason Onset Date Comments Refill Request 10/16/2024 Care Teams (unrecognized sec tion and content) 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 Start Date End Date Joe Young MD [address] [facility] [place] [address] PCP - General Family Practice 11/11/16 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 Specialty Start Date End Date Joe Young MD [address] [facility] [place] [address] PCP - General Family Practice 11/11/16 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 Specialty Start Date End Date Joe Young MD [address] [facility] [place] [address] PCP - General Family Practice 11/11/16 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 Specialty Start Date End Date Joe Young MD [facility] [place] [address] PCP - General Family Practice 11/11/16 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 Specialty Start Date End Date Joe Young MD [address] [facility] [place] [address] PCP - General Family Medicine 11/11/16 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 Specialty Start Date End Date Joe Young MD [address] [facility] [place] [address] PCP - General Family Medicine 11/11/16 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 Specialty Start Date End Date Joe Young MD [address] [facility] [place] [address] PCP - General Family Medicine 11/11/16 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 Specialty Start Date End Date Joe Young MD [address] [facility] [place] [address] PCP - General Family Medicine 11/11/16 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 Specialty Start Date End Date Joe Young MD [address] [facility] [place] [address] PCP - General Family Medicine 11/11/16 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 Specialty Start Date End Date Joe Young MD [address] [facility] [place] [address] PCP - General Family Medicine 11/11/16 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 Specialty Start Date End Date Joe Young MD [address] [facility] [place] [address] PCP - General Family Medicine 11/11/16 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 Specialty Start Date End Date Joe Young MD [address] [facility] [place] [address] PCP - General Family Medicine 11/11/16 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 Specialty Start Date End Date Joe Young MD [address] [facility] [place] [address] PCP - General Family Medicine 11/11/16 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 Specialty Start Date End Date Joe Young MD [address] [facility] [place] [address] PCP - General Family Medicine 11/11/16 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 Specialty Start Date End Date Joe Young MD [address] [facility] [place] [address] PCP - General Family Medicine 11/11/16 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 Specialty Start Date End Date Joe Young MD [address] [facility] [place] [address] PCP - General Family Medicine 11/11/16 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 Specialty Start Date End Date Joe Young MD [address] [facility] [place] [address] PCP - General Family Medicine 11/11/16 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 Specialty Start Date End Date Joe Young MD [address] [facility] [place] [address] PCP - General Family Medicine 11/11/16 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 Specialty Start Date End Date Joe Young MD [address] [facility] [place] [address] PCP - General Family Medicine 11/11/16 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 Specialty Start Date End Date Joe Young MD [address] [facility] [place] [address] PCP - General Family Medicine 11/11/16 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 Specialty Start Date End Date Joe Young MD [address] [facility] [place] [address] PCP - General Family Medicine 11/11/16 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 Specialty Start Date End Date Joe Young MD [address] [facility] [place] [address] PCP - General Family Medicine 11/11/16 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 Specialty Start Date End Date Joe Young MD [address] [facility] [place] [address] PCP - General Family Medicine 11/11/16 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 Specialty Start Date End Date Joe Young MD [address] [facility] [place] [address] PCP - General Family Medicine 11/11/16 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 Specialty Start Date End Date Joe Young MD [address] [place] [address] PCP - General Family Medicine 11/11/16 Podlogar, Ayanna, CUSTOMER SUPPORT ANALYST.PSYCHOLOGIST MILITARY PERSONNEL [address] [place] [address] [employer]va Reactor Operator Family [facility] 02/20/24 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 Specialty Start Date End Date Joe Young MD [address] [place] [address] PCP - General Family Medicine 11/11/16 Podlogar, Ayanna, CUSTOMER SUPPORT ANALYST.PSYCHOLOGIST MILITARY PERSONNEL [address] [place] [address] [facility] 02/20/24 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 Specialty Start Date End Date Joe Young MD [address] [place] [address] PCP - General Family Medicine 11/11/16 Podlogar, Ayanna, CUSTOMER SUPPORT ANALYST.PSYCHOLOGIST MILITARY PERSONNEL [address] [place] [address] [employer] Reactor Operator Family Medicine 02/20/24 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 Specialty Start Date End Date Joe Young MD [address] [place] [address] PCP - General Family Medicine 11/11/16 Podlogar, Ayanna, CUSTOMER SUPPORT ANALYST.PSYCHOLOGIST MILITARY PERSONNEL [address] [place] [address] [facility] 02/20/24 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 Specialty Start Date End Date Joe Young MD [address] [facility] [place] [address] PCP - General Family Medicine 11/11/16 Podlogar, Ayanna, CUSTOMER SUPPORT ANALYST.PSYCHOLOGIST MILITARY PERSONNEL [address] [facility] [place] [address] [facility] 02/20/24 Vida Dennis, CUSTOMER SUPPORT ANALYST.PSYCHOLOGIST MILITARY PERSONNEL [address] [place] [address] [facility] 06/06/24 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 Specialty Start Date End Date Joe Young MD [address] [facility] [place] [address] PCP - General Family Medicine 11/11/16 Podlogar, Ayanna, CUSTOMER SUPPORT ANALYST.PSYCHOLOGIST MILITARY PERSONNEL [address] [facility] [place] [address] [facility] Medicine 02/20/24 Vida Dennis, CUSTOMER SUPPORT ANALYST.PSYCHOLOGIST MILITARY PERSONNEL [address] [place] [address] [facility] Medicine 06/06/24 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 Specialty Start Date End Date Joe Young MD [address] [facility] [place] [address] PCP - General Family Medicine 11/11/16 Podlogar, Ayanna, CUSTOMER SUPPORT ANALYST.PSYCHOLOGIST MILITARY PERSONNEL [address] [facility] [place] [address] [employer] Reactor Operator Family Medicine 02/20/24 Vida Dennis APRN.PSYCHOLOGIST MILITARY PERSONNEL [address] [place] [address] Mva Reactor Operator Family Medicine 06/06/24 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 Specialty Start Date End Date Joe Young MD [address] [facility] [place], [place] [address] [phone] PCP - General Family Medicine 11/11/16 PodlogarAyanna, CUSTOMER SUPPORT ANALYST.PSYCHOLOGIST MILITARY PERSONNEL [address] [facility] [place] [address] Mva Reactor Operator Family Medicine 02/20/24 Vida Dennis, CUSTOMER SUPPORT ANALYST.PSYCHOLOGIST MILITARY PERSONNEL [address] [place] [address] [employer] Reactor Operator Family Medicine 08/25/24 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 Specialty Start Date End Date Joe Young MD [address] [facility] [place] [address] PCP - General Family Medicine 11/11/16 PodlogarAyanna, CUSTOMER SUPPORT ANALYST.PSYCHOLOGIST MILITARY PERSONNEL [address] [facility] [place] [address] Mva Reactor Operator Family Medicine 02/20/24 Vida Dennis, CUSTOMER SUPPORT ANALYST.PSYCHOLOGIST MILITARY PERSONNEL [address] [place] [address] Mva Reactor Operator Family Medicine 08/25/24 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 Specialty Start Date End Date Joe Young MD [address] [facility] [place] [address] PCP - General Family Medicine 11/11/16 Podlogar, Ayanna, CUSTOMER SUPPORT ANALYST.PSYCHOLOGIST MILITARY PERSONNEL [address] [place], [place] [id number] [facility] 02/20/24 Vida Dennis APRN.PSYCHOLOGIST MILITARY PERSONNEL [address] [place], [place] [address] [facility] 08/25/24 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 Specialty Start Date End Date Joe Young MD [address] [place], [place] [address] PCP - General Family Medicine 11/11/16 PodlogAyanna lazo APRN.PSYCHOLOGIST MILITARY PERSONNEL [address] [place], [place] [address] [facility] 02/20/24 Vida Dennis APRN.PSYCHOLOGIST MILITARY PERSONNEL [address] [place], [place] [id number] [facility] 08/25/24 (unrecognized sect ion and content) No Status Records FoundNo Status Records Found INFORMATION SOURCE (unrecogn ized section and content) DATE CREATED AUTHOR 02/01/2024 [facility] DATE CREATED AUTHOR AUTHOR'S MARIO ATRITA 01/02/[address] [facility] FOR RECORDS PERTAINING TO PATIENTS [...] BE BASED ON THE PRIMARY CLINICAL RECORDS. [employer] provides no warranty or guarantee of the accuracy or completeness of information in this document.
[2025-01-07 09:30] LABS: PSA,Total- Diagnostic 5.65 ng/mL (0.00-4.00)
== END | disposition home or self-care (01) ==
LOC: LAB 08:40
PROVIDERS: PCP Family Medicine; Referring Provider Urology; Visit Provider Urology
DX: R97.20 Elevated prostate specific antigen [PSA] (principal)
CPT/HCPCS: 36415; 84153